=== PATIENT | male | born 1955 ===

== ENCOUNTER → 2020-01-14 11:16 | Outpatient (BNVA) | payer OTHER, SELFPAY | PROVIDERS: PCP Nurse Practitioner Family; Referring Provider Nurse Practitioner Family; Visit Provider Internal Medicine | DX: G47.33 Obstructive sleep apnea (adult) (pediatric) (principal); J98.4 Other disorders of lung; E66.9 Obesity, unspecified; Z68.41 Body mass index [BMI] 40.0-44.9, adult; Z87.891 Personal history of nicotine dependence; Z99.89 Dependence on other enabling machines and devices | CPT/HCPCS: 99213 ==

== ENCOUNTER 2020-04-15 11:43 | Outpatient (REF) | payer OTHER, SELFPAY | END 2020-04-15 11:44 | disposition home or self-care (01) | LOC: HO.HAP 11:43 | PROVIDERS: Visit Provider Nurse Practitioner Family | DX: Z46.1 Encounter for fitting and adjustment of hearing aid (principal); H90.3 Sensorineural hearing loss, bilateral | CPT/HCPCS: 92593; 99499 ==

== ENCOUNTER 2020-04-29 14:34 | Outpatient (REF) | payer OTHER, SELFPAY | END 2020-04-29 14:35 | disposition home or self-care (01) | LOC: HO.HAP 14:34 | PROVIDERS: Visit Provider Nurse Practitioner Family | DX: Z46.1 Encounter for fitting and adjustment of hearing aid (principal) | CPT/HCPCS: 92593; 99499; V5014 ==

== ENCOUNTER → 2020-06-01 13:42 | Outpatient (BNVA) | payer OTHER, SELFPAY | PROVIDERS: PCP Nurse Practitioner Family; Visit Provider Internal Medicine | DX: E66.9 Obesity, unspecified (principal); G47.33 Obstructive sleep apnea (adult) (pediatric); J98.4 Other disorders of lung; Z99.89 Dependence on other enabling machines and devices | CPT/HCPCS: 99212 ==

== ENCOUNTER → 2020-06-22 11:01 | Outpatient (BNVA) | payer OTHER, SELFPAY | PROVIDERS: PCP Nurse Practitioner Family; Visit Provider Nurse Practitioner | DX: K44.9 Diaphragmatic hernia without obstruction or gangrene (principal); K21.9 Gastro-esophageal reflux disease without esophagitis | CPT/HCPCS: Q3014 ==

== ENCOUNTER 2020-09-22 10:19 | Outpatient (REF) | payer OTHER, SELFPAY ==
--- NOTE | 2020-09-26 09:06 | MHC.AU.AHA ---
Adult Audiological Evaluation Date of Visit: 09/22/20 Tax Assessor Used: [place]araguan- In Person Reason for Appointment: Audiologic re-evaluation due to increasing hearing difficulties. Flavio has a history of asymmetric hearing loss with the right ear being poorer than the left with conductive components noted. Results in 2017 showed the asymmetric loss; however, at that time the right ear indicated a purely sensorineural loss of a moderate to severe degree. Previous Hearing Test Results: 06/18/2019 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 Date of Fittin05/02/2017 Otoscopy: Right Ear: Unremarkable Left Ear: Small amount of non-occluding cerumen Tympanometry: Tympanometry performed due to: To assess integrity of the middle ear system Right Ear: Normal Middle Ear System (Type A) Left Ear: Normal Middle Ear System (Type A) Hearing Evaluation: Transducer(s) Used: Insert Earphones Bone Conduction Method: Conventional Audiometry Stimuli Used: Pure Tones Right Ear: Description of Hearing: Severe to profound mixed hearing loss Left Ear: Description of Hearing: Mild to moderately-severe sensorineural hearing loss Speech Recognition Threshold (SRT): Method Used: Monitored Live Voice Stimuli Used: Spondee Words Right Ear: 80 dB HL Left Ear: 40 dB HL Word Discrimination: Method: Recorded Lists Word Lists Used: Lista Bisil?bica (Nicaraguan) Right Ear: 88% at 100 dB HL Left Ear: 92% at 80 dB HL Interpretation of Results: Compared to 06/18/2019, there has been a 5-20 dB decrease for the right ear with decreased speech discrimination ability Recommendations: Given the decreased hearing thresholds and speech understanding for the right ear, referral to Ear, Nose, and Throat is recommended for further investigation. Aids being sent for repair as both are weak. Will reprogram repaired aids to updated hearing test results when received and schedule appointment to fit repairs. Audiological re-evaluation in one year. Will send a reminder card. Diagnosis: Primary Diagnosis: H90.3 Bilateral Sensorineural Hearing Loss Services Performed: Comprehensive Audiological Evaluation (CPT 83863) Tympanometry (CPT 01570) Signature: Provider: Brandon Barboza, CCC-A
== END 2020-09-22 10:20 | disposition home or self-care (01) ==
LOC: HO.SH 10:19
PROVIDERS: Visit Provider Registered Nurse
DX: H90.3 Sensorineural hearing loss, bilateral (principal)
CPT/HCPCS: 92557; 92567; V5266

== ENCOUNTER 2020-09-22 12:09 | Outpatient (REF) | payer SELFPAY | END 2020-09-22 12:10 | disposition home or self-care (01) | LOC: HO.HAP 12:09 | DX: Z46.1 Encounter for fitting and adjustment of hearing aid (principal); H90.3 Sensorineural hearing loss, bilateral | CPT/HCPCS: V5267 ==

== ENCOUNTER 2020-10-11 13:00 | Outpatient (REF) | payer OTHER, SELFPAY | END 2020-10-11 13:01 | disposition home or self-care (01) | LOC: HO.HAP 13:00 | PROVIDERS: Visit Provider Nurse Practitioner Family | DX: Z46.1 Encounter for fitting and adjustment of hearing aid (principal); H90.3 Sensorineural hearing loss, bilateral | CPT/HCPCS: V5014 ==

== ENCOUNTER → 2020-11-09 09:14 | Outpatient (BNVA) | payer OTHER, SELFPAY | PROVIDERS: Visit Provider Internal Medicine | DX: I25.10 Atherosclerotic heart disease of native coronary artery without angina pectoris (principal); I35.9 Nonrheumatic aortic valve disorder, unspecified; I10 Essential (primary) hypertension; E11.8 Type 2 diabetes mellitus with unspecified complications; G47.33 Obstructive sleep apnea (adult) (pediatric); E66.01 Morbid (severe) obesity due to excess calories; Z99.89 Dependence on other enabling machines and devices | CPT/HCPCS: 93005; 99212 ==

== ENCOUNTER → 2020-11-24 13:01 | Outpatient (BNVA) | payer OTHER, SELFPAY | PROVIDERS: PCP General Practice; Visit Provider Internal Medicine | DX: G47.33 Obstructive sleep apnea (adult) (pediatric) (principal); E66.01 Morbid (severe) obesity due to excess calories; Z99.89 Dependence on other enabling machines and devices | CPT/HCPCS: 99212 ==

== ENCOUNTER 2020-12-26 08:58 | Outpatient (REF) | payer OTHER, SELFPAY | END 2020-12-26 08:59 | disposition home or self-care (01) | LOC: HO.HAP 08:58 | PROVIDERS: Visit Provider General Practice | DX: Z46.1 Encounter for fitting and adjustment of hearing aid (principal); H90.3 Sensorineural hearing loss, bilateral | CPT/HCPCS: V5266 ==

== ENCOUNTER 2021-02-06 08:24 | Outpatient (REF) | payer OTHER, SELFPAY ==
[2021-02-06 08:41] LABS: MANUAL DIFF FLAG NO
[2021-02-06 09:20] LABS: Estimated Average Glucose 128 mg/dL; Hemoglobin A1c % 6.1 %
[2021-02-06 09:35] LABS: Appearance Urine HAZY; Color Urine YELLOW; Glucose Urine UA NEG (NEG); Leukocyte Esterase Urine 1+ (NEG); Nitrite Urine NEG (NEG); PH 5.5 (5.0-8.0); Specific Gravity - Urine 1.025 (1.005-1.025); Urine Blood NEG (NEG); Urine Ketones NEG (NEG); Urine Protein NEG (NEG-TRACE)
[2021-02-06 09:36] LABS: Anion Gap 13 (12-20); Blood Urea Nitrogen 15 mg/dL (9-16); Calcium 9.6 mg/dL (8.4-10.2); Carbon Dioxide 27 mmol/L (22-29); Chloride 103 mmol/L (96-108); Estimated Glomerular Filt Rate > 60; Iron 64 mcg/dL (45-160); Percent Iron Saturation 18 % (15-50); Potassium 4.2 mmol/L (3.3-5.1); Sodium 139 mmol/L (135-145); Total Iron Binding Capacity 352 mcg/dL (228-428); Unsaturated Iron Binding 288 ug/dL
[2021-02-06 10:01] LABS: Vitamin D 25-OH Total 38.2 ng/mL (>30)
[2021-02-06 10:01] LABS: Creatinine Urine 156.12 mg/dL; Protein/Creatinine Ratio, Ur 0.06 (<0.2); Total Protein Urine Random 9 mg/dL (<12)
[2021-02-06 10:06] LABS: Basophils Percent Auto 0.4 % (0-2); Eosinophils Absolute Auto 0.3 X10*3/uL (0.0-0.4); Eosinophils Percent Auto 3.1 % (0-4); Hematocrit 41.3 % (42.0-52.0); Hemoglobin 13.6 g/dl (14.0-18.0); Imm Gran Abs Auto 0.05 X10*3/uL (0.00-0.03); Imm Gran Pct Auto 0.5 % (0.0-0.4); Lymphocytes Absolute Auto 2.2 X10*3/uL (1.2-4.9); Lymphocytes Percent Auto 24.5 % (20-40); Mean Corpuscular HGB Conc 32.9 g/dl (31.0-36.0); Mean Corpuscular Hemoglobin 27.3 pg (27.0-33.0); Mean Corpuscular Volume 82.9 fL (80.0-98.0); Mean Platelet Volume 12.1 fL (9.4-12.4); Monocytes Absolute Auto 0.8 X10*3/uL (0.1-1.2); Monocytes Percent Auto 8.2 % (2-11); Neutrophils Absolute Auto 5.77 x10*3/uL (2.0-8.3); Neutrophils Percent Auto 63.3 % (45-73); Platelet Count 243 X10*3/uL (160-400); Red Blood Count 4.98 X10*6/uL (4.60-5.80); Red Cell Distribution Width 14.4 % (11.0-16.0); White Blood Count 9.1 X10*3/uL (4.8-10.8)
[2021-02-06 10:56] LABS: RBC Urine 0 /HPF (0); Squamous Epithelial Cell Urine TRACE /LPF
[2021-02-06 10:57] LABS: Mucus Urine TRACE /LPF
[2021-02-08 12:11] LABS: Calcium (PTHI) 9.6 mg/dL (8.6-10.3); PTHI 42 pg/mL (14-64)
== END 2021-02-06 08:25 | disposition home or self-care (01) ==
LOC: HO.LAB 08:24
PROVIDERS: Visit Provider Internal Medicine Nephrology
DX: E11.22 Type 2 diabetes mellitus with diabetic chronic kidney disease (principal); N18.2 Chronic kidney disease, stage 2 (mild)
CPT/HCPCS: 36415; 80051; 81001; 82306; 82310; 82565; 83036; 83540; 83970; 84156; 84520; 85025

== ENCOUNTER 2021-04-25 12:03 | Outpatient (REF) | payer OTHER, SELFPAY ==
[2021-04-25 13:22] LABS: Estimated Average Glucose 128 mg/dL; Hemoglobin A1c % 6.1 %
[2021-04-25 13:32] LABS: Anion Gap 13 (12-20); Blood Urea Nitrogen 12 mg/dL (9-16); Calcium 10.3 mg/dL (8.4-10.2); Carbon Dioxide 27 mmol/L (22-29); Chloride 104 mmol/L (96-108); Estimated Glomerular Filt Rate > 60; Glucose Random 130 mg/dL (60-115); Potassium 4.3 mmol/L (3.3-5.1); Sodium 140 mmol/L (135-145)
[2021-04-25 13:44] LABS: Creatinine Urine 119.29 mg/dL; Microalbum/Creatinine Ratio Ur 21.7 ug/mg cr
[2021-04-26 04:44] LABS: ~HepC Num1 0.06 S/CO (0.00-0.79); ~Hepatitis C Antibody Nonreactive (Nonreactive)
[2021-04-26 04:49] LABS: HBc Num1 0.03 S/CO (0.00-0.79); HIV AB/AG Nonreactive (Nonreactive); HIV Num 1 0.06 S/CO (0.00-0.99); Hepatitis B Core Antibody Nonreactive (Nonreactive)
[2021-04-26 04:53] LABS: HBS Num1 0.51 mIU/mL (0-7.99); HBsAGNum1 0.34 S/CO (0.00-0.99); Hepatitis B Surface Antigen Negative (Negative); ~Hepatitis B Surface Antibody NONREACTIVE (Nonreactive)
== END 2021-04-25 12:04 | disposition home or self-care (01) ==
LOC: HO.LAB 12:03
PROVIDERS: PCP Nurse Practitioner; Visit Provider Nurse Practitioner
DX: L11.9 Acantholytic disorder, unspecified (principal); I10 Essential (primary) hypertension; Z71.89 Other specified counseling
CPT/HCPCS: 36415; 80048; 82043; 83036; 86704; 86706; 86803; 87340; 87389

== ENCOUNTER → 2021-05-25 13:29 | Outpatient (BNVA) | payer OTHER, SELFPAY | PROVIDERS: PCP Nurse Practitioner; Visit Provider Internal Medicine | DX: G47.33 Obstructive sleep apnea (adult) (pediatric) (principal); E66.01 Morbid (severe) obesity due to excess calories; Z99.89 Dependence on other enabling machines and devices; Z68.41 Body mass index [BMI] 40.0-44.9, adult | CPT/HCPCS: 99212 ==

== ENCOUNTER 2021-06-05 11:33 | Emergency (ER) | payer OTHER, SELFPAY ==
--- NOTE | ~2021-06-05 | XR_ITS ---
EXAMINATION: XR FOOT, RIGHT CLINICAL INFORMATION: Discoloration COMPARISON: None TECHNIQUE: AP, lateral, and oblique views of the right foot. FINDINGS: Marker positioned adjacent to the first distal phalanx. No visible acute fracture dislocation of the first toe. No acute fracture is otherwise seen. Alignment is maintained. Calcaneal spurring. XR/XR foot RT min 3V IMPRESSION: No radiographic evidence of acute fracture or malalignment.
[2021-06-05 12:44] VITALS: BP 175/75; PULSE 82; RESP 18; TEMP 37; O2SAT 98; BMI 43.5
--- NOTE | 2021-06-05 13:23 | ED_ITS ---
HPI - General Adult General Chief complaint: Extremity Problem Stated complaint: toe swollen and red Time Seen by Provider: 06/05/21 13:05 Source: patient Mode of arrival: ambulatory Limitations: no limitations History of Present Illness HPI narrative: 56-year-old male with past medical history of diabetes, high blood pressure, GERD, atherosclerotic cardiovascular disease, morbid obesity, presents to the ED right big toe pain with swelling at big toe joint that is painful. Patient denies any redness, pus discharge, foul odor, burn on feet, redness, fever, chills, leg swelling, calf pain, wound on feet, ulcers or any recent trauma. Related Data Home Medications Medication Instructions Recorded Confirmed aspirin 81 mg tablet,delayed 81 mg PO DAILY 01/02/20 11/09/20 release atorvastatin 80 mg tablet 80 mg PO DAILY 01/02/20 11/09/20 blood sugar diagnostic #10 ea 01/02/20 11/09/20 blood-glucose meter #1 ea 01/02/20 11/09/20 cholecalciferol (vitamin D3) 50 50 mcg PO DAILY 01/02/20 11/09/20 mcg (2,000 unit) capsule cyanocobalamin (vitamin B-12) 1,000 mcg PO DAILY 01/02/20 11/09/20 1,000 mcg tablet lancets 28 gauge #100 ea 01/02/20 11/09/20 lisinopril 20 1 tab PO QAM 01/02/20 11/09/20 mg-hydrochlorothiazide 25 mg tablet metoprolol tartrate 50 mg tablet 50 mg PO BID 01/02/20 11/09/20 omega 3-mzg-hag-fish oil 300 1 cap PO BID 01/02/20 11/09/20 mg-1,000 mg capsule diclofenac sodium 1 % topical gel g TOPICAL 06/01/20 11/09/20 metformin 500 mg tablet,extended 500 mg PO BID 11/09/20 11/09/20 release 24 hr Previous Rx's Medication Instructions Recorded pantoprazole 40 mg tablet,delayed 40 mg PO QAM 30 Days #30 tab 06/22/20 release indomethacin 50 mg capsule 50 mg PO TID 7 Days #21 cap 06/05/21 prednisone 20 mg tablet 40 mg PO DAILY 5 Days #10 tab 06/05/21 Allergies Allergy/AdvReac Type Severity Reaction Status Date / Time No Known Allergies Allergy Verified 05/25/21 14:13 Review of Systems Review of Systems: Left big toe pain Yes all other systems are reviewed and are negative [facility] Past Medical History Medical History Aortic valve calcification Atherosclerotic cardiovascular disease Essential hypertension Obesity (BMI 35.0-39.9 without comorbidity) MARYJO on CPAP Restrictive lung disease Type 2 diabetes mellitus with unspecified complications Surgical History H/O colonoscopy H/O esophagogastroduodenoscopy Family History Family History Sister HTN (hypertension) Diabetes Father Cancer Social History Social History Household Members: Spouse and Children Alcohol intake: current Alcohol intake frequency: holidays/special occasions only Patient Tobacco Use Status: Never used Tobacco Advance Directives: No Advance Directives Information Provided: No Physical Exam ED Vital Signs: Vital Signs - 24 hr 06/05/21 12:44 Temperature 98.6 F Pulse Rate 82 Respiratory Rate 18 Blood Pressure 175/75 H Pulse Oximetry 98 BMI result Body Mass Index 43.5 Const General: cooperative, healthy appearing, comfortable, no acute distress, well developed, alert, awake and Physically active Orientation/consciousness: patient oriented x3 HENMT Head: Yes normal to inspection, Yes No palpable skull fracture present, Yes normocephalic, Yes atraumatic and No abrasion Eyes General: appearance normal, both eyes and all related structures Neck Neck: Yes normal visual inspection, Yes full ROM, Yes no lymphadenopathy, Yes no meningeal signs, Yes trachea midline, Yes supple, No anterior neck swelling and No tender Chest Chest palpation & inspection: normal inspection of the chest and normal palpation of entire chest wall Resp Effort & Inspection: normal respiratory effort and able to speak in complete sentences Auscultation: clear to auscultation bilaterally Cardio Jugular venous distension: no JVD Heart sounds: S1 normal heart sound present and S2 normal heart sound present GI Inspection: Yes normal to inspection and No abdominal wall ecchymosis Palpation (GI): Soft to palpation, not firm, nontender, no guarding and not rigid General: No CVA tenderness and Yes no CVA tenderness Back/Spine/Pelvis Back: no CVA tenderness, No CVA tenderness and No back tenderness Skin General skin exam: no rashes or lesions noted and elasticity normal Neuro General: patient oriented x3, moves all extremities and no meningeal signs Cranial nerves: Yes CN's II-XII intact bilaterally Extrem General: Yes normal to inspection and Yes full ROM Ankle/foot/toe images: 1. MTP joint warm and tenderness on palpation. negative for any erythema. negative for wounds, rash, ulcers on foot, leg swelling, calf pain, or redness. Rest of right lower extremity normal. Motor/nerve/vascular exam of lower extremity is intact. negative for leg pain,leg swelling, calf pain, or redness. Patient has range of motion of all toes. Psych Appearance: grossly normal, well kempt and not disheveled Course Course Course Narrative: Patient is sent for foot x-ray. Reevaluation(s) Reevaluation #1: X-ray negative for fracture osteomyelitis. not Suspecting cellulitis. History physical exam indicate more gout. Patient states kidney function is normal. Will discharge with indomethacin. Not suspecting septic joint. X-ray negative for osteomyelitis. Not suspecting arterial occlusion. Not suspecting compartment syndrome. Time: 14:43 Medical Decision Making MDM Narrative Medical decision making narrative: Gout Discharge Plan Discharge Clinical Impression: Gout Patient Disposition: Home, Self-Care Instructions: Low Purine Diet (ED), Gout (ED) Additional Instructions: Heredia radiograf?a result? negativa para cualquier fractura o infecci?n ?sea. El examen f?sico no indica ninguna infecci?n de la piel (celulitis), TVP, fractura, s?ndrome compartimental u oclusi?n arterial. El examen f?sico indica m?s gota. Me hiciste saber que ten?as lyubov funci?n renal normal. Se le radha? de aman con medicamentos para la gota y esteroides para ayudar con la inflamaci?n. Regrese al servicio de urgencias si tiene enrojecimiento, vetas butterfield, fiebre, escalofr?os, empeoramiento del dolor, hinchaz?n de los pies, hinchaz?n de las piernas, dolor en la pantorrilla, dolor en el pecho, dificultad para respirar, decoloraci?n sunil azulada, frialdad, calor o cualquier otro s?ntoma preocupante. Por favor, raiv un seguimiento con el proveedor de atenci?n p rimaria. Prescriptions: New prednisone 20 mg tablet 40 mg PO DAILY 5 Days Qty: 10 0RF indomethacin 50 mg capsule 50 mg PO TID 7 Days Qty: 21 0RF Rx Instructions: administer with food or milk No Action pantoprazole 40 mg tablet,delayed release (DR/EC) 40 mg PO QAM 30 Days Qty: 30 6RF (DME) blood-glucose meter Kit See Rx Instructions ea .ROUTE .MEDSUPPLY Qty: 1 0RF Rx Instructions: As directed omega 8-ppg-blo-fish oil 300-1,000 mg capsule 1 cap PO BID 0RF atorvastatin 80 mg tablet 80 mg PO DAILY 0RF (DME) FreeStyle Lite Strips Strip See Rx Instructions strip Not Applicable DAILY Qty: 10 0RF Rx Instructions: As directed (DME) lancets 28 gauge misc See Rx Instructions ea Not Applicable DAILY Qty: 100 0RF Rx Instructions: As directed cyanocobalamin (vitamin B-12) 1,000 mcg tablet 1,000 mcg PO DAILY 0RF lisinopril-hydrochlorothiazide 20-25 mg tablet 1 tab PO QAM 0RF metoprolol tartrate 50 mg tablet 50 mg PO BID 0RF cholecalciferol (vitamin D3) 50 mcg (2,000 unit) capsule 50 mcg PO DAILY 0RF aspirin 81 mg tablet,delayed release (DR/EC) 81 mg PO DAILY 0RF diclofenac sodium 1 % gel topical 0RF metformin 500 mg tablet extended release 24 hr 500 mg PO BID 0RF Interventions: ED Discharge Assessment Last Done: 06/05/21 15:02 Discharge Date/Time: 06/05/21 15:03 Print Language: Mexican
== END 2021-06-05 15:03 | disposition home or self-care (01) ==
PROVIDERS: Emergency Provider Emergency Medicine
DX: M10.9 Gout, unspecified (principal); M79.674 Pain in right toe(s); E11.9 Type 2 diabetes mellitus without complications; I10 Essential (primary) hypertension; E66.01 Morbid (severe) obesity due to excess calories; Z79.82 Long term (current) use of aspirin; Z79.02 Long term (current) use of antithrombotics/antiplatelets
CPT/HCPCS: 73630; 99283

== ENCOUNTER → 2022-02-07 13:14 | Outpatient (BNVA) | payer OTHER, SELFPAY | PROVIDERS: PCP Student in an Organized Health Care Education/Training Program; Visit Provider Internal Medicine | DX: G47.33 Obstructive sleep apnea (adult) (pediatric) (principal); E66.9 Obesity, unspecified; J98.4 Other disorders of lung; Z99.89 Dependence on other enabling machines and devices; Z68.41 Body mass index [BMI] 40.0-44.9, adult | CPT/HCPCS: 99212 ==

== ENCOUNTER 2022-11-22 13:31 | Outpatient (AMB) | payer OTHER, SELFPAY ==
[2022-11-22 13:36] VITALS: BP 142/62; PULSE 97; O2SAT 100; BMI 43.0
--- NOTE | 2022-11-22 13:36 | MHC.OFFVIS ---
Intake Vital Signs 11/22/22 13:36 Height 5 ft 2 in Weight 235 lb BMI 43.0 BP 142/62 H Blood Pressure Location Lt brachial Position Sitting Pulse 97 Pulse Source Pulse Oximeter Pulse Oximetry (%) 100 Oxygen Delivery Method Room Air Intake Visit Reasons: sleep apnea Intake Note: pt is here for follow up of MARYJO, he feels okay and is using his c-pap Mold Parter Required: Yes Mold Parter Name: [id number] Allergies No Known Allergies Allergy (Verified 11/22/22 13:42) Medication List - Last Reconciled 11/22/22 by Chela Degroot MD aspirin 81 mg PO DAILY atorvastatin 80 mg PO DAILY blood sugar diagnostic As directed blood-glucose meter As directed cholecalciferol (vitamin D3) 50 mcg PO DAILY cyanocobalamin (vitamin B-12) 1,000 mcg PO DAILY diclofenac sodium 1% grams topical indomethacin 50 mg PO TID 7 days lancets As directed lisinopril-hydrochlorothiazide 20-25 mg 1 tab PO QAM metformin ER 500 mg PO BID metoprolol tartrate 50 mg PO BID omega 7-hig-hqi-fish oil 300-1,000 mg 1 cap PO BID pantoprazole 40 mg PO QAM 30 days Do you need a note to return to daycare/school/sports/work: No HPI sleep apnea HPI Details Flavio is 67 years old Danish speaking very pleasant gentleman, Who presents after more than 6 months for follow-up. He is a case of morbid obesity and obstructive sleep apnea. He uses the CPAP very regularly, and sleeps well. He has no associated respiratory problems. He is trying to lose weight on his own and has lost about 3 lb in the last 6 months. [facility] Medical History Aortic valve calcification Atherosclerotic cardiovascular disease Essential hypertension Obesity (BMI 35.0-39.9 without comorbidity) MARYJO on CPAP Restrictive lung disease Type 2 diabetes mellitus with unspecified complications Surgical History H/O colonoscopy H/O esophagogastroduodenoscopy Family History Sister HTN (hypertension) Diabetes Father Cancer Social History Household Members: Spouse and Children Alcohol intake: current Alcohol intake frequency: holidays/special occasions only Patient Tobacco Use Status: Never used Tobacco Review of Systems Const All systems reviewed & are unremarkable except as noted in HPI and below Eyes Reports no additional complaints ENT Reports no additional complaints Card Denies chest pain, Denies irregular heart rhythm, Denies leg edema and Denies dyspnea on exertion Resp Denies cough, Denies dyspnea on exertion and Denies wheezing GI Reports no additional complaints Reports no additional complaints Musc Reports back pain (Mild) and Reports arthralgias (Mild) Skin/Breast Reports system reviewed and no additional complaints, except as documented Neuro Reports no additional complaints Psych Reports no additional complaints Aller/Immun Denies wheezing Physical Exam Vital Signs: Last Vital Signs Pulse 97 11/22/22 13:36 BP 142/62 H 11/22/22 13:36 Pulse Ox 100 11/22/22 13:36 Oxygen Delivery Method Room Air 11/22/22 13:36 BMI result Body Mass Index 43.0 Const General: comfortable, no acute distress, alert and awake Orientation/consciousness: patient oriented x3 HEENT Head: Yes normal to inspection General nose exam: No nasal polyps present and No nasal discharge present Face and sinus: Yes sinuses nontender Mouth: oropharynx abnormals (Very crowded and narrow, Mallampati class 4) Throat: Yes posterior oropharynx normal Eyes General: appearance normal, both eyes and all related structures Neck Neck: Yes normal visual inspection, Yes no lymphadenopathy, Yes trachea midline and Yes no JVD Thyroid: Thyroid normal Chest Chest palpation & inspection: normal inspection of the chest, normal palpation of entire chest wall and no tenderness Resp Other: His breath sounds are distant especially over the basilar areas. But lungs are clear to auscultation and no wheezes or rhonchi are heard. Cardio Palpation: normal PMI Rate: regular rate Rhythm: regular rhythm Heart sounds: no gallops and no murmurs Peripheral pulses: Peripheral pulses 2+ throughout GI Palpation (GI): Soft to palpation, Tenderness to palpation present (GI), No hepatosplenomegaly present, Palpable mass present and Other GI palpation findings present (Abdomen is grossly obese and protuberant) Auscultation: normal bowel sounds Back/Spine/Pelvis Thoracic/Lumbar Spine: thoracic and lumbar spine normal to inspection Skin General skin exam: no rashes or lesions noted Neuro General: patient oriented x3 and no focal motor deficits Cranial nerves: Yes CN's II-XII intact bilaterally Extrem General: Yes normal to inspection, Yes no clubbing, cyanosis or edema and Yes no calf tenderness Psych Speech and movement: Normal speech and movement present Results Reviewed Results Reviewed: COMPLIANCE REPORT FOR THE LAST 30 NIGHTS IS REVIEWED. USED 28/30 NIGHTS, 93%. AVERAGE USE PER NIGHT 7 HOURS 59 MINUTES. NO AIR LEAK AND RESIDUAL AHI ONLY 0.1 Assessment & Plan Assessment & Plan (1) MARYJO on CPAP: Comment: KNOWN CASE OF OBSTRUCTIVE SLEEP APNEA SINCE 2012. HAS BEEN USING CPAP REGULARLY WITH GOOD EFFECTS . Has a new CPAP machine which is working very well. HE REMAINS VERY COMPLIANT. Code(s): G47.33 - Obstructive sleep apnea (adult) (pediatric); Z99.89 - Dependence on other enabling machines and devices (2) Morbid obesity: Comment: THIS IS A CHRONIC PROBLEM, PATIENT IS NOT ABLE TO LOSE MUCH WEIGHT. HE TRIES TO RESTRICT HIS CALORIES INTAKE BUT DOES NOT DO MUCH WALKING OR EXERCISES Code(s): E66.01 - Morbid (severe) obesity due to excess calories Coding Level of Care Code Est Pt Level 3 (43627) Diagnoses MARYJO on CPAP G47.33; Z99.89 Morbid obesity E66.01
== END 2022-11-22 13:50 | disposition home or self-care (01) ==
PROVIDERS: PCP Student in an Organized Health Care Education/Training Program; Visit Provider Internal Medicine
DX: G47.33 Obstructive sleep apnea (adult) (pediatric) (principal); Z99.89 Dependence on other enabling machines and devices; E66.01 Morbid (severe) obesity due to excess calories
CPT/HCPCS: 99213

== ENCOUNTER → 2022-11-22 13:31 | Outpatient (BNVA) | payer OTHER, SELFPAY | PROVIDERS: PCP Student in an Organized Health Care Education/Training Program; Visit Provider Internal Medicine | DX: G47.33 Obstructive sleep apnea (adult) (pediatric) (principal); E66.01 Morbid (severe) obesity due to excess calories; Z99.89 Dependence on other enabling machines and devices; Z68.41 Body mass index [BMI] 40.0-44.9, adult | CPT/HCPCS: 99212 ==

== ENCOUNTER 2023-03-26 09:25 | Outpatient (REF) | payer OTHER, SELFPAY ==
[2023-03-26 10:36] LABS: Alanine Aminotransferase 39 U/L (0-40); Albumin Level 4.5 g/dL (3.5-5.0); Alkaline Phosphatase 79 U/L (39-117); Anion Gap 18 (12-20); Aspartate Amino Transferase 24 U/L (5-37); Bilirubin Total 0.6 mg/dL (0.0-1.0); Blood Urea Nitrogen 16 mg/dL (9-16); Calcium 10.2 mg/dL (8.4-10.2); Carbon Dioxide 23 mmol/L (22-29); Chloride 102 mmol/L (96-108); Cholesterol 201 mg/dL (<200); Estimated Glomerular Filt Rate > 60; Glucose Random 154 mg/dL (60-115); HDL Cholesterol 48 mg/dL (>40); LDL Cholesterol Calculated 124 mg/dL (<100); Potassium 3.5 mmol/L (3.3-5.1); Sodium 139 mmol/L (135-145); Total Protein 8.1 g/dL (6.5-8.0); Triglycerides 148 mg/dL (<150)
== END 2023-03-26 09:26 | disposition home or self-care (01) ==
LOC: HO.LAB 09:25
PROVIDERS: PCP Nurse Practitioner; Visit Provider Nurse Practitioner
DX: E78.5 Hyperlipidemia, unspecified (principal); E11.9 Type 2 diabetes mellitus without complications
CPT/HCPCS: 36415; 80053; 80061

== ENCOUNTER 2023-04-19 13:02 | Outpatient (REF) | payer OTHER, SELFPAY ==
--- NOTE | ~2023-04-19 | XR_ITS ---
EXAMINATION: XR THORACIC SPINE CLINICAL INFORMATION: Back pain. COMPARISON: CT chest dated 09/14/2017. TECHNIQUE: 3 frontal and lateral views of the thoracic spine were obtained. FINDINGS: There is no fracture or bone destruction seen and the vertebral alignment is normal. There is no disc space narrowing. There is mild anterior spondylosis at T10-T11 and T11-T12. There is no abnormality of the paraspinal soft tissues. XR/XR thoracic spine 2V IMPRESSION: 1. No acute fracture or spondylolisthesis is seen. 2. The thoracic disc spaces are well-maintained. 3. There is mild anterior spondylosis at T10-T11 and T11-T12. EXAMINATION: XR LUMBOSACRAL SPINE CLINICAL INFORMATION: Chronic bilateral lower back pain with right-sided sciatica. COMPARISON: None TECHNIQUE: AP and lateral views of the lumbar spine and lateral view of the lumbosacral junction. FINDINGS: Vertebral body heights and alignment are normal. The lumbar disc spaces are well-maintained. No acute fracture or spondylolisthesis is seen. There is multi-level moderately severe lumbar spondylosis, most pronounced at L1-L2. The posterior elements are intact. The paravertebral soft tissues are unremarkable. There are diffuse aortoiliac atherosclerotic calcifications. IMPRESSION: 1. No acute fracture or spondylolisthesis is seen. 2. The lumbar disc spaces are well-maintained. 3. There is multi-level lumbar spondylosis, most pronounced at L1-L2.
--- NOTE | ~2023-04-19 | XR_ITS ---
EXAMINATION: XR THORACIC SPINE CLINICAL INFORMATION: Back pain. COMPARISON: CT chest dated 09/14/2017. TECHNIQUE: 3 frontal and lateral views of the thoracic spine were obtained. FINDINGS: There is no fracture or bone destruction seen and the vertebral alignment is normal. There is no disc space narrowing. There is mild anterior spondylosis at T10-T11 and T11-T12. There is no abnormality of the paraspinal soft tissues. XR/XR lumbar spine 2-3V IMPRESSION: 1. No acute fracture or spondylolisthesis is seen. 2. The thoracic disc spaces are well-maintained. 3. There is mild anterior spondylosis at T10-T11 and T11-T12. EXAMINATION: XR LUMBOSACRAL SPINE CLINICAL INFORMATION: Chronic bilateral lower back pain with right-sided sciatica. COMPARISON: None TECHNIQUE: AP and lateral views of the lumbar spine and lateral view of the lumbosacral junction. FINDINGS: Vertebral body heights and alignment are normal. The lumbar disc spaces are well-maintained. No acute fracture or spondylolisthesis is seen. There is multi-level moderately severe lumbar spondylosis, most pronounced at L1-L2. The posterior elements are intact. The paravertebral soft tissues are unremarkable. There are diffuse aortoiliac atherosclerotic calcifications. IMPRESSION: 1. No acute fracture or spondylolisthesis is seen. 2. The lumbar disc spaces are well-maintained. 3. There is multi-level lumbar spondylosis, most pronounced at L1-L2.
== END 2023-04-19 13:03 | disposition home or self-care (01) ==
LOC: HO.HHCX 13:02
PROVIDERS: Visit Provider Nurse Practitioner
DX: M51.36 Other intervertebral disc degeneration, lumbar region (principal); M54.41 Lumbago with sciatica, right side; G89.29 Other chronic pain
CPT/HCPCS: 72070; 72100

== ENCOUNTER 2023-05-22 13:33 | Outpatient (AMB) | payer OTHER, SELFPAY ==
[2023-05-22 13:39] VITALS: BP 140/68; PULSE 90; O2SAT 97; BMI 43.0
--- NOTE | 2023-05-22 13:39 | A.OFFVIS_ITS ---
Intake Vital Signs 05/22/23 13:39 Height 5 ft 2 in Weight 235 lb BMI 43.0 BP 140/68 H Blood Pressure Location Lt brachial Position Sitting Pulse 90 Pulse Source Pulse Oximeter Pulse Oximetry (%) 97 Oxygen Delivery Method Room Air Intake Visit Reasons: sleep apnea Intake Note: pt is here for follow up and feels good, using cpap, just little depressed. Interior Design Instructor Required: Yes Interior Design Instructor Name: [id number] Libby Allergies No Known Allergies Allergy (Verified 05/22/23 14:02) Medication List - Last Reconciled 05/22/23 by Chela Degroot MD aspirin 81 mg PO DAILY atorvastatin 80 mg PO DAILY blood sugar diagnostic As directed blood-glucose meter As directed cholecalciferol (vitamin D3) 50 mcg PO DAILY cyanocobalamin (vitamin B-12) 1,000 mcg PO DAILY diclofenac sodium 1% grams topical indomethacin 50 mg PO TID 7 days lancets As directed lisinopril-hydrochlorothiazide 20-25 mg 1 tab PO QAM metformin ER 500 mg PO BID metoprolol tartrate 50 mg PO BID omega 2-cqg-ejb-fish oil 300-1,000 mg 1 cap PO BID pantoprazole 40 mg PO QAM 30 days Do you need a note to return to daycare/school/sports/work: No HPI sleep apnea HPI Details 68 years old gentleman who is morbidly o bese, and has diagnosis of obstructive sleep apnea since 2012. He has been using CPAP regularly all these years with good results. He uses CPAP whole night without any issues. Sleep is interrupted sometime but due to . Anxiety or other factors He does not have any issues related to the mask or CPAP machine. He denies any daytime sleepiness. Main thing is that he is not able to lose much weight. [facility] Medical History Type 2 diabetes mellitus with unspecified complications Essential hypertension Aortic valve calcification Atherosclerotic cardiovascular disease Restrictive lung disease MARYJO on CPAP Obesity (BMI 35.0-39.9 without comorbidity) Surgical History H/O esophagogastroduodenoscopy H/O colonoscopy Family History Sister HTN (hypertension) Diabetes Father Cancer Social History Household Members: Spouse and Children Alcohol intake: current Alcohol intake frequency: holidays/special occasions only Patient Tobacco Use Status: Never used Tobacco Review of Systems Const All systems reviewed & are unremarkable except as noted in HPI and below Eyes Reports no additional complaints ENT Reports no additional complaints Card Denies chest pain, Denies irregular heart rhythm, Denies leg edema and Denies dyspnea on exertion Resp Denies cough, Denies dyspnea on exertion and Denies wheezing GI Reports no additional complaints Reports no additional complaints Musc Reports back pain (Mild) and Reports arthralgias (Mild) Skin/Breast Reports system reviewed and no additional complaints, except as documented Neuro Reports no additional complaints Psych Reports no additional complaints Aller/Immun Denies wheezing Physical Exam Vital Signs: Last Vital Signs Pulse 90 05/22/23 13:39 BP 140/68 H 05/22/23 13:39 Pulse Ox 97 05/22/23 13:39 Oxygen Delivery Method Room Air 05/22/23 13:39 BMI result Body Mass Index 43.0 Const General: comfortable, no acute distress, alert and awake Orientation/consciousness: patient oriented x3 HEENT Head: Yes normal to inspection General nose exam: No nasal polyps present and No nasal discharge present Face and sinus: Yes sinuses nontender Mouth: oropharynx abnormals (Very crowded and narrow, Mallampati class 4) Throat: Yes posterior oropharynx normal Eyes General: appearance normal, both eyes and all related structures Neck Neck: Yes normal visual inspection, Yes no lymphadenopathy, Yes trachea midline and Yes no JVD Thyroid: Thyroid normal Chest Chest palpation & inspection: normal inspection of the chest, normal palpation of entire chest wall and no tenderness Resp Other: His breath sounds are distant especially over the basilar areas. But lungs are clear to auscultation and no wheezes or rhonchi are heard. Cardio Palpation: normal PMI Rate: regular rate Rhythm: regular rhythm Heart sounds: no gallops and no murmurs Peripheral pulses: Peripheral pulses 2+ throughout GI Palpation (GI): Soft to palpation, Tenderness to palpation present (GI), No hepatosplenomegaly present, Palpable mass present and Other GI palpation findings present (Abdomen is grossly obese and protuberant) Auscultation: normal bowel sounds Back/Spine/Pelvis Thoracic/Lumbar Spine: thoracic and lumbar spine normal to inspection Skin General skin exam: no rashes or lesions noted Neuro General: patient oriented x3 and no focal motor deficits Cranial nerves: Yes CN's II-XII intact bilaterally Extrem General: Yes normal to inspection, Yes no clubbing, cyanosis or edema and Yes no calf tenderness Psych Speech and movement: Normal speech and movement present Results Reviewed Results Reviewed: Compliance report for the last 30 nights is reviewed. HE HAS USED 30/30 NIGHTS,. 100% AVERAGE USAGE PER NIGHT 8 HOURS 16 MINUTES. NO SIGNIFICANT AIR LEAK. RESIDUAL AHI 0.2 Assessment & Plan Assessment & Plan (1) Morbid obesity: Comment: THIS IS A CHRONIC PROBLEM, PATIENT IS NOT ABLE TO LOSE MUCH WEIGHT. HE TRIES TO RESTRICT HIS CALORIES INTAKE BUT DOES NOT DO MUCH WALKING OR EXERCISES Code(s): E66.01 - Morbid (severe) obesity due to excess calories Plan: ABOVE (2) MARYJO on CPAP: Comment: KNOWN CASE OF OBSTRUCTIVE SLEEP APNEA SINCE 2012. HAS BEEN USING CPAP REGULARLY WITH GOOD EFFECTS . *Has a new CPAP machine which is working very well. HE REMAINS VERY COMPLIANT. Code(s): G47.33 - Obstructive sleep apnea (adult) (pediatric); Z99.89 - Dependence on other enabling machines and devices Plan: COMMENDED FOR GOOD COMPLIANCE AND ENCOURAGED TO KEEP ON USING THE CPAP REGULARLY EVERY NIGHT. Coding Level of Care Code Est Pt Level 3 (93235) Diagnoses Morbid obesity E66.01 MARYJO on CPAP G47.33; Z99.89
== END 2023-05-22 14:01 | disposition home or self-care (01) ==
PROVIDERS: PCP Student in an Organized Health Care Education/Training Program; Visit Provider Internal Medicine
DX: E66.01 Morbid (severe) obesity due to excess calories (principal); G47.33 Obstructive sleep apnea (adult) (pediatric); Z99.89 Dependence on other enabling machines and devices
CPT/HCPCS: 99213

== ENCOUNTER → 2023-05-22 13:33 | Outpatient (BNVA) | payer OTHER, SELFPAY | PROVIDERS: PCP Student in an Organized Health Care Education/Training Program; Visit Provider Internal Medicine | DX: G47.33 Obstructive sleep apnea (adult) (pediatric) (principal); E66.01 Morbid (severe) obesity due to excess calories; Z99.89 Dependence on other enabling machines and devices; Z68.41 Body mass index [BMI] 40.0-44.9, adult | CPT/HCPCS: 99212 ==

== ENCOUNTER 2023-07-13 07:26 | Outpatient (REF) | payer OTHER, SELFPAY ==
[2023-07-13 09:12] LABS: Alanine Aminotransferase 43 U/L (0-40); Albumin Level 4.2 g/dL (3.5-5.0); Alkaline Phosphatase 76 U/L (39-117); Anion Gap 13 (12-20); Aspartate Amino Transferase 26 U/L (5-37); Bilirubin Total 0.7 mg/dL (0.0-1.0); Blood Urea Nitrogen 13 mg/dL (9-16); Calcium 9.7 mg/dL (8.4-10.2); Carbon Dioxide 25 mmol/L (22-29); Chloride 104 mmol/L (96-108); Cholesterol 195 mg/dL (<200); Estimated Glomerular Filt Rate > 60; Glucose Random 136 mg/dL (60-115); HDL Cholesterol 49 mg/dL (>40); Potassium 4.1 mmol/L (3.3-5.1); Sodium 138 mmol/L (135-145); Total Protein 7.8 g/dL (6.5-8.0)
[2023-07-13 14:04] LABS: LDL Cholesterol Calculated 109 mg/dL (<100); Triglycerides 188 mg/dL (<150)
== END 2023-07-13 07:27 | disposition home or self-care (01) ==
LOC: HO.LAB 07:26
PROVIDERS: PCP Nurse Practitioner; Visit Provider Nurse Practitioner
DX: E11.9 Type 2 diabetes mellitus without complications (principal); E78.5 Hyperlipidemia, unspecified
CPT/HCPCS: 36415; 80053; 80061

== ENCOUNTER 2023-08-16 02:19 | Emergency (ER) | payer OTHER, SELFPAY ==
[2023-08-16] VITALS (15 sets, daily range): BP systolic 113–148; BP diastolic 61–78; PULSE 77–96; RESP 15–26; TEMP -17.7–36.8; O2SAT 94–98; BMI 42.1
--- NOTE | ~2023-08-16 | CT_ITS ---
CT SOFT TISSUE NECK WITH CONTRAST CLINICAL INFORMATION: Rule out palatine abscess. COMPARISON: Neck CT performed earlier the same day. TECHNIQUE: Following the intravenous administration of 100 mL of Omnipaque 350 intravenous contrast, helical imaging was performed in the axial plane with generation of coronal and sagittal reformatted images. This CT examination was performed using dose optimization techniques as appropriate, variously including the following: *Automated exposure control *Adjustment of mA and/or kV according to patient size (this includes techniques or standardized protocols for targeted exams where dose is matched to indication/reason for exam; i.e. extremities or head) *Use of iterative reconstruction technique FINDINGS: Significant enlargement of the right palatine tonsil that remains most concerning for palatine tonsillitis. A 2.2 cm peripherally enhancing fluid collection along the upper margin of the right tonsillar pillar is most concerning for a peritonsillar abscess. There is also a 1.8 cm peripherally enhancing fluid collection along the dorsal margin of the right palatine tonsil, likely a retrotonsillar abscess. No retropharyngeal fluid collection. Cellulitic changes extend along the periphery of the right performed sinus which is partially effaced. There are cellulitic changes within the right submandibular space as well. Multiple enlarged right greater than left jugular chain lymph nodes, likely reactive but should be followed clinically to document resolution and exclude alternative pathology. Irregular and heterogeneous nodule at the junction of the right thyroid lobe and thyroid isthmus measuring up to 2.3 cm in size that should be further assessed with thyroid ultrasound. The laryngeal structures are closely opposed in phonation and therefore not well assessed. There is diffuse idiopathic skeletal hyperostosis throughout the cervical spine with large bridging anterior endplate osteophytes resulting in mass effect on the dorsal oropharynx, hypopharynx, and lower cervical esophagus. Images upper lungs are clear. Imaged upper mediastinum is unremarkable. 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 CT/CT soft tissue neck w IV con IMPRESSION: - Significant enlargement of the right palatine tonsil that remains most concerning for palatine tonsillitis with significant effacement of the oropharynx. A 2.2 cm peripherally enhancing fluid collection along the upper margin of the right tonsillar pillar is most concerning for a peritonsillar abscess. There is also a 1.8 cm peripherally enhancing fluid collection along the dorsal margin of the right palatine tonsil, likely a retrotonsillar abscess. Cellulitis extends inferiorly along the periphery of the right piriform sinus and into the right submandibular and carotid spaces. Imaging follow-up is advised once the acute clinical course resolves to ensure that there is no underlying mass lesion in these areas. - Multiple enlarged right greater than left jugular chain lymph nodes, likely reactive but should be followed clinically to document resolution and exclude alternative pathology. - Irregular and heterogeneous nodule at the junction of the right thyroid lobe and thyroid isthmus measuring up to 2.3 cm in size that should be further assessed with thyroid ultrasound. - There is diffuse idiopathic skeletal hyperostosis throughout the cervical spine with large bridging anterior endplate osteophytes resulting in mass effect on the dorsal oropharynx, hypopharynx, and lower cervical esophagus. 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
--- NOTE | ~2023-08-16 | CT_ITS ---
EXAMINATION: CT SOFT TISSUE NECK WITHOUT CONTRAST CLINICAL INFORMATION: Neck swelling COMPARISON: None available. TECHNIQUE: Helical imaging was performed in the axial plane with generation of coronal and sagittal reformatted images. This CT examination was performed using dose optimization techniques as appropriate, variously including the following: *Automated exposure control *Adjustment of mA and/or kV according to patient size (this includes techniques or standardized protocols for targeted exams where dose is matched to indication/reason for exam; i.e. extremities or head) *Use of iterative reconstruction technique DLP: 631 mGy-cm FINDINGS: There is asymmetric soft tissue fullness in the region of the right palatine tonsil. This could be due to tonsillitis, with evaluation for abscess significantly limited without intravenous contrast. The possibility of a mass would be difficult to exclude. There is mass effect on the pharynx which demonstrates leftward deviation and mild narrowing. There is stranding in the adjacent parapharyngeal fat. There are multiple enlarged right greater than left cervical chain lymph nodes measuring up to approximately 2.3 cm, presumably reactive. There is calcification at the bilateral common carotid artery bifurcations, right greater than left, with quantification of stenoses unable to be performed without intravenous contrast. The generator mechanic, parotid, and submandibular spaces symmetric bilaterally. There is suggestion of an ill-defined nodule off the inferior right thyroid lobe measuring up to approximately 2.7 cm. Mildly hypoattenuating inferior left adrenal nodule measures 1.4 cm. The lung apices are clear. There is suggestion of a partially calcified extra-axial mass along the anterior aspect of the left middle cranial fossa measuring approximately 1.0 cm in diameter. The mandibular condyles abut the inferior aspects of the articular tubercle bilaterally. The mastoid air cells are well aerated. Paranasal sinuses are well aerated. The visualized orbits are unremarkable. There is diffuse idiopathic skeletal hyperostosis of the cervical spine. No acute fracture is seen. CT/CT soft tissue neck wo IV con IMPRESSION: 1. Asymmetric soft tissue fullness in the region of the right palatine tonsil. Appearance is suspicious for tonsillitis, with evaluation for abscess significantly limited without intravenous contrast. The possibility of a mass is would be difficult to entirely exclude. There is mass effect on the pharynx which demonstrates leftward deviation and mild narrowing. Follow-up contrast-enhanced CT would be helpful to assess for resolution. 2. Multiple enlarged right greater than left cervical chain lymph nodes, presumably reactive. Attention on follow-up recommended. 3. Suggestion of a partially calcified extra-axial mass along the anterior aspect of the left middle cranial fossa measuring approximately 1.0 cm in diameter. This may represent a meningioma and would be better assessed with brain MRI. 4. Suggestion of an ill-defined nodule off the inferior right thyroid lobe measuring up to 2.7 cm. Mildly hypoattenuating inferior left thyroid lobe nodule measuring 1.4 cm. Further evaluation with thyroid ultrasound is recommended.
[2023-08-16] MEDS: Famotidine/PF 20 MG/2 ML VIAL IVPUSH (02:48)
[2023-08-16] MEDS: methylPREDNISolone Sod Succ 125 MG/2 ML VIAL IVPUSH (02:48)
[2023-08-16] MEDS: diphenhydrAMINE HCL 50 MG/ML VIAL IVPUSH (02:48)
[2023-08-16] MEDS: dexAMETHasone sod phosphate 10 MG/ML VIAL IVPUSH (02:52)
--- NOTE | 2023-08-16 03:36 | ED_ITS ---
HPI - SOB/Dyspnea General Chief Complaint: Dyspnea Stated Complaint: trouble breathing Time Seen by Provider: 08/16/23 02:34 Source: patient Mode of arrival: ambulatory Limitations: no limitations History of Present Illness HPI Narrative: Patient comes to the emergency room complaining of a foreign body sensation in the throat and feeling that his tongue is getting larger. Patient states it has been present for about 2 days. Today, patient thinks that it has getting a bit worse, difficulty swallowing. Patient denies any chest pain or shortness of breath. Patient feeling anxious. Patient takes lisinopril/hydrochlorothiazide Related Data Home Medications ?Medication ?Instructions ?Recorded ?Confirmed aspirin 81 mg tablet,delayed 81 mg PO DAILY 01/02/20 02/07/22 release atorvastatin 80 mg tablet 80 mg PO DAILY 01/02/20 02/07/22 blood sugar diagnostic #10 ea 01/02/20 02/07/22 blood-glucose meter #1 ea 01/02/20 02/07/22 cholecalciferol (vitamin D3) 50 50 mcg PO DAILY 01/02/20 02/07/22 mcg (2,000 unit) capsule cyanocobalamin (vitamin B-12) 1,000 mcg PO DAILY 01/02/20 02/07/22 1,000 mcg tablet lancets 28 gauge #100 ea 01/02/20 02/07/22 lisinopril 20 1 tab PO QAM 01/02/20 02/07/22 mg-hydrochlorothiazide 25 mg tablet metoprolol tartrate 50 mg tablet 50 mg PO BID 01/02/20 02/07/22 omega 5-xdn-lqy-fish oil 300 1 cap PO BID 01/02/20 02/07/22 mg-1,000 mg capsule diclofenac sodium 1 % topical gel g topical 06/01/20 02/07/22 metformin 500 mg tablet,extended 500 mg PO BID 11/09/20 02/07/22 release 24 hr Previous Rx's ?Medication ?Instructions ?Recorded pantoprazole 40 mg tablet,delayed 40 mg PO QAM 30 days #30 tabs 06/22/20 release indomethacin 50 mg capsule 50 mg PO TID 7 days #21 caps 06/05/21 Allergies Allergy/AdvReac Type Severity Reaction Status Date / Time No Known Allergies Allergy Verified 08/16/23 02:27 Review of Systems 2 Review of Systems: Constitutional : No Weight loss, No Fever, No Chills, No Night Sweats, No Fatigue, No Malaise ENT/Mouth : Difficulty swallowing, sensation tongue getting larger, no pain, foreign body sensation/enlargement of throat Eyes: No Eye Pain, No Swelling, No Redness, No Foreign Body, No Discharge, No Vision Changes Cardiovascular : No Chest Pain, No SOB, No Dyspnea on Exertion, No Orthopnea, No Edema, No Palpitations Respiratory : No Cough, No Sputum, No Wheezing, No Smoke Exposure, No Dyspnea Gastrointestinal : No Nausea, No Vomiting, No Diarrhea, No Constipation, No abdominal Pain, No Hematochezia, No Melena Genitourinary : no irregular bleeding, No Dysuria, No Urinary Frequency, No Hematuria, No Urinary Incontinence, No Urgency, No Flank Pain, No Urinary Flow Changes, No Hesitancy Musculoskeletal : No joint pain, No Myalgias, No Joint Swelling Skin : No Skin Lesions, No rash Neuro : No Weakness, No Numbness, No Paresthesias, No Loss of Consciousness, No Dizziness, No Headache Psych : No Anxiety/Panic, No Depression, No SI/HI/AH/VH, No Social Issues, Heme/Lymph: No Bruising, No Bleeding,No Lymphadenopathy Endocrine : No Polyuria, No Polydipsia, No Temperature Intolerance PMFSH Past Medical History Medical History Type 2 diabetes mellitus with unspecified complications Essential hypertension Aortic valve calcification Atherosclerotic cardiovascular disease Restrictive lung disease MARYJO on CPAP Obesity (BMI 35.0-39.9 without comorbidity) Surgical History H/O esophagogastroduodenoscopy H/O colonoscopy Family History Family History Sister HTN (hypertension) Diabetes Father Cancer Social History Social History Household Members: Spouse and Children Alcohol intake: current Alcohol intake frequency: holidays/special occasions only Patient Tobacco Use Status: Never used Tobacco Advance Directives: No Advance Directives Information Provided: No Physical Exam 2 Vital Signs: Vital Signs: Last Vital Signs Temp 98.2 F 08/16/23 06:06 Pulse 84 08/16/23 06:06 Resp 21 H 08/16/23 06:06 BP 123/63 08/16/23 06:06 Pulse Ox 95 08/16/23 04:46 O2 Del Method Room Air 08/16/23 04:46 BMI result Body Mass Index 42.1 Const: Other: Appearance: Alert. Oriented X3. No acute distress. Eyes: Pupils equal, round and reactive to light. ENT: The lips and tongue within normal limits, uvula and posterior pharynx looks significantly swollen/phlegmon-like swelling Neck: Normal inspection. Neck supple. No lymph nodes noted. No crepitus CVS: Normal heart rate and rhythm. Pulses normal. Normal S1 and S2 Respiratory: No respiratory distress. Breath sounds normal. No Wheezing. No rales Abdomen: Soft and nontender. No rigidity. No distention. Skin: Skin warm and dry. Normal skin color. Normal skin turgor. Extremities: No lower extremity edema. No Lacerations. No Rash Neuro: Oriented X 3. No motor deficit. No sensory deficit. Moving all extremities. No slurred speech. CN 2 through 12 grossly intact Psych: calm, cooperative, normal affect Course Course Course Narrative: -it is possible that patient has angioedema likely secondary to lisinopril. Patient was given IV famotidine, dexamethasone, diphenhydramine and 2 units of FFP -discussed with the patient that FFP is considered a blood product, patient agreeable, had his son sign the consent. - Medications Administered Discontinued Medications Generic Name Dose Route Start Last Admin Trade Name Freq PRN Reason Stop Dose Admin Dexamethasone Sodium Phosphate 10 mg 08/16/23 02:47 08/16/23 02:52 Dexamethasone Sod Phosphate 10 Mg/Ml Vial IVPUSH 08/16/23 02:48 10 mg ONCE ONE Administration Diphenhydramine HCl 50 mg 08/16/23 02:37 08/16/23 02:48 Diphenhydramine Hcl 50 Mg/Ml Vial IVPUSH 08/16/23 02:38 50 mg ONCE ONE Administration Famotidine 20 mg 08/16/23 02:37 08/16/23 02:48 Famotidine/Pf 20 Mg/2 Ml Vial IVPUSH 08/16/23 02:38 20 mg ONCE ONE Administration Sodium Chloride 100 mls @ 100 mls/hr 08/16/23 02:39 08/16/23 05:19 Ns IV 08/16/23 03:38 Infused ONCE ONE Infusion Sodium Chloride 100 mls @ 100 mls/hr 08/16/23 02:39 08/16/23 05:19 Ns IV 08/16/23 03:38 Infused ONCE ONE Infusion Iohexol 65 ml 08/16/23 06:19 08/16/23 06:20 Iohexol 350 Mg/Ml 100 Ml Infus..Btl IV 08/16/23 06:20 65 ml ONCE ONE Administration Methylprednisolone Sodium Succinate 125 mg 08/16/23 02:37 08/16/23 02:48 Methylprednisolone Sod Succ 125 Mg/2 Ml Vial IVPUSH 08/16/23 02:38 125 mg ONCE ONE Administration Medical Decision Making Medical Decision Making [facility] Narrative: -treatment was started as we were waiting for labs. -my interpretation of white blood cell count: 17.2, chemistry within normal limits, LFTs within normal limits, patient tested positive for strep -patient was started on IV antibiotics, clindamycin 300 mg -CT scan of the neck shows multiple abnormalities, including asymmetric soft tissue fullness of the right palatine tonsil, likely tonsillitis, possibly has an abscess. Patient has multiple enlarged lymph nodes. -incidentally, CT scan showed a possible meningioma 1 cm in the left middle cranial fossa, patient may need an MRI. -also, the CT scan showed an ill-defined inferior right thyroid lobe measuring 2.7 cm, patient may need an ultrasound. -CT scan with contrast was repeated. -will treat transferring the patient to our local hospitals in [place] that have ENT, all of them -, are close for transfers. -patient was accepted to the main Hospital in [place], patient will be transferred ED to ED, Dr. Ramesh is the accepting physician. -I discussed the transfer with the patient's son and the patient, both are agreeable to the transfer. -our radiologist team is working on sending the images over to [place] and burning a CD to travel with the patient Differential Diagnosis Differential Diagnoses: The differential diagnosis associated with the presentation includes (Anaphylaxis, angioedema, pharyngeal abscess) Admission/Observation Consideration of admission/observation: Escalation of care including admission/observation considered Consult Healthcare Provider Management of the patient was discussed with: Roller Embosser Lab Data MDM Lab Attestation statement: I reviewed the patient's lab results. 08/16/23 04:45 08/16/23 04:45 Labs: Lab Results 08/16/23 08/16/23 08/16/23 Range/Units 03:06 04:45 05:51 WBC 17.2 H (4.8-10.8) X10*3/uL RBC 4.80 (4.60-5.80) X10*6/uL Hgb 13.5 L (14.0-18.0) g/dl Hct 39.9 L (42.0-52.0) % MCV 83.1 (80.0-98.0) fL MCH 28.1 (27.0-33.0) pg MCHC 33.8 (31.0-36.0) g/dl RDW 14.4 (11.0-16.0) % Plt Count 257 (160-400) X10*3/uL MPV 10.5 (9.4-12.4) fL Immature Gran % (Auto) 1.5 H (0.0-0.4) % Neut % (Auto) 84.6 H (45-73) % Lymph % (Auto) 8.6 L (20-40) % [place] % (Auto) 3.7 (2-11) % Eos % (Auto) 1.2 (0-4) % Baso % (Auto) 0.4 (0-2) % Lymph # (Auto) 1.5 (1.2-4.9) X10*3/uL [place] # (Auto) 0.6 (0.1-1.2) X10*3/uL Eos # (Auto) 0.2 (0.0-0.4) X10*3/uL Baso # (Auto) 0.1 (0.0-0.2) X10*3/uL Abs Immat Gran (auto) 0.26 H (0.00-0.03) X10*3/uL Absolute Neuts (auto) 14.5 H (2.0-8.3) x10*3/uL Absolute Nucleated RBC 0.000 (0.0-0.012) X10*3/uL Nucleated RBC % (auto) 0.0 (0.0-0.2) /100WBC Sodium 140 (135-145) mmol/L Potassium 3.8 (3.3-5.1) mmol/L Chloride 107 (96-108) mmol/L Carbon Dioxide 21 L (22-29) mmol/L Anion Gap 16 (12-20) BUN 18 H (9-16) mg/dL Creatinine 0.99 (0.5-1.4) mg/dL Estim Creat Clear Calc 74.2 Estimated GFR > 60 Random Glucose 172 H (60-115) mg/dL Calcium 9.6 (8.4-10.2) mg/dL Total Bilirubin 0.4 (0.0-1.0) mg/dL Direct Bilirubin 0.2 (0.0-0.5) mg/dL AST 13 (5-37) U/L ALT 20 (0-40) U/L Alkaline Phosphatase 71 (39-117) U/L Troponin I High Sens 2.9 (<3.5-35.0) ng/L Total Protein 7.5 (6.5-8.0) g/dL Albumin 3.8 (3.5-5.0) g/dL S. pyogenes GrpA LUZ Positive A (Negative) Blood Type B Positive Antibody Screen NEGATIVE Independent Interpretation I performed an independent interpretation of an: CT Scan Radiology Impression Discussion of test interpretation with radiology: I have reviewed the radiologist's reading. Critical Care Time Critical Care Time Critical Care Time: Yes Total Critical Care Time: 120 Attestation: I have personally provided critical care time. Time includes review of lab data, radiology results, discussion with consultants, and monitoring for potential decompensation. Intervention performed as documented. Discharge Plan Discharge Clinical Impression: Acute tonsillitis Patient Disposition: [facility] Transfer Details: [facility] ED to ED, accepting physician Dr. Ramesh Prescriptions: No Action indomethacin 50 mg capsule 50 mg PO TID 7 Days Qty: 21 0RF Rx Instructions: administer with food or milk pantoprazole 40 mg tablet,delayed release (DR/EC) 40 mg PO QAM 30 Days Qty: 30 6RF (DME) blood-glucose meter Kit See Rx Instructions .ROUTE .MEDSUPPLY Qty: 1 Rx Instructions: As directed omega 7-ifq-wgf-fish oil 300-1,000 mg capsule 1 cap PO BID atorvastatin 80 mg tablet 80 mg PO DAILY (DME) FreeStyle Lite Strips Strip See Rx Instructions Not Applicable DAILY Qty: 10 Rx Instructions: As directed (DME) lancets 28 gauge misc See Rx Instructions Not Applicable DAILY Qty: 100 Rx Instructions: As directed cyanocobalamin (vitamin B-12) 1,000 mcg tablet 1,000 mcg PO DAILY lisinopril-hydrochlorothiazide 20-25 mg tablet 1 tab PO QAM metoprolol tartrate 50 mg tablet 50 mg PO BID cholecalciferol (vitamin D3) 50 mcg (2,000 unit) capsule 50 mcg PO DAILY aspirin 81 mg tablet,delayed release (DR/EC) 81 mg PO DAILY diclofenac sodium 1 % gel topical metformin 500 mg tablet extended release 24 hr 500 mg PO BID Print Language: Samoan
--- NOTE | 2023-08-16 04:20 | ECG_ITS ---
Test Reason : sob Blood Pressure : / mmHG Vent. Rate : 082 BPM Atrial Rate : 082 BPM P-R Int : 152 ms QRS Dur : 092 ms QT Int : 392 ms P-R-T Axes : 060 -14 008 degrees QTc Int : 457 ms Normal sinus rhythm Minimal voltage criteria for LVH, may be normal variant ( R in aVL ) Septal infarct (cited on or before 01-APR-2019) Abnormal ECG When compared with ECG of 01-APR-2019 01:59, Nonspecific T wave abnormality no longer evident in Lateral leads Referred By: Patricia Tijerina Electronically Signed By:Kishan Gonzalez
[2023-08-16 04:50] LABS: MANUAL DIFF FLAG NO
[2023-08-16 04:51] LABS: Basophils Absolute Auto 0.1 X10*3/uL (0.0-0.2); Basophils Percent Auto 0.4 % (0-2); Eosinophils Absolute Auto 0.2 X10*3/uL (0.0-0.4); Eosinophils Percent Auto 1.2 % (0-4); Hematocrit 39.9 % (42.0-52.0); Hemoglobin 13.5 g/dl (14.0-18.0); Imm Gran Abs Auto 0.26 X10*3/uL (0.00-0.03); Imm Gran Pct Auto 1.5 % (0.0-0.4); Lymphocytes Absolute Auto 1.5 X10*3/uL (1.2-4.9); Lymphocytes Percent Auto 8.6 % (20-40); Mean Corpuscular HGB Conc 33.8 g/dl (31.0-36.0); Mean Corpuscular Hemoglobin 28.1 pg (27.0-33.0); Mean Corpuscular Volume 83.1 fL (80.0-98.0); Mean Platelet Volume 10.5 fL (9.4-12.4); Monocytes Absolute Auto 0.6 X10*3/uL (0.1-1.2); Monocytes Percent Auto 3.7 % (2-11); Neutrophils Absolute Auto 14.5 x10*3/uL (2.0-8.3); Neutrophils Percent Auto 84.6 % (45-73); Platelet Count 257 X10*3/uL (160-400); Red Cell Distribution Width 14.4 % (11.0-16.0); White Blood Count 17.2 X10*3/uL (4.8-10.8)
[2023-08-16 05:06] LABS: Alanine Aminotransferase 20 U/L (0-40); Albumin Level 3.8 g/dL (3.5-5.0); Alkaline Phosphatase 71 U/L (39-117); Anion Gap 16 (12-20); Aspartate Amino Transferase 13 U/L (5-37); Bilirubin Direct 0.2 mg/dL (0.0-0.5); Bilirubin Total 0.4 mg/dL (0.0-1.0); Blood Urea Nitrogen 18 mg/dL (9-16); Calcium 9.6 mg/dL (8.4-10.2); Carbon Dioxide 21 mmol/L (22-29); Chloride 107 mmol/L (96-108); Creatinine Clr Calc Pharmacy 74.2; Estimated Glomerular Filt Rate > 60; Glucose Random 172 mg/dL (60-115); Potassium 3.8 mmol/L (3.3-5.1); Sodium 140 mmol/L (135-145); Total Protein 7.5 g/dL (6.5-8.0)
[2023-08-16 05:09] LABS: Troponin-I High Sensitivity 2.9 ng/L (<3.5-35.0)
[2023-08-16 06:01] LABS: IDNOW Serial# 6674DD1D; Strep A Nucleic Acid Positive (Negative)
[2023-08-16] MEDS: iohexoL 350 MG/ML 100 ML INFUS..BTL 65 ML IV (06:20)
--- NOTE | 2023-08-16 07:46 | PC.NURSE ---
this RN resumed care of pt at 0700. a&ox4. vss and up to date. nsr on the cafeteria monitor. pt denies pain but verbalizes difficulty swallowing. airway patent. pt able to speak in full/clear sentences w/o difficulty. pt positioned upright to promote patent airway. no sob/wob noted. respirations even and unlabored. 96% on RA. pt aware of plan of care moving forward in regards to being transferred to [facility] via ambulance. pt signed consent for transport. pt currently waiting for transportation at this time. plan of care ongoing. call sky placed within reach.
--- NOTE | 2023-08-16 08:00 | PC.NURSE ---
report given to augie at this time.
--- NOTE | 2023-08-16 08:10 | PC.NURSE ---
attempted to give report to [facility] at this time. report not given d/t no answer. will reattempt.
--- NOTE | 2023-08-16 08:55 | PC.NURSE ---
report given to RENARD Mclaughlin at [facility] at this time.
== END 2023-08-16 09:02 | disposition short-term general hospital (02) ==
PROVIDERS: Emergency Provider Emergency Medicine
DX: J03.90 Acute tonsillitis, unspecified (principal); R06.02 Shortness of breath; R13.10 Dysphagia, unspecified; R09.A2 Foreign body sensation, throat; R22.1 Localized swelling, mass and lump, neck; R94.31 Abnormal electrocardiogram [ECG] [EKG]; Z79.899 Other long term (current) drug therapy
CPT/HCPCS: 36415; 36430; 70490; 70491; 70492; 80048; 80076; 84484; 85025; 86850; 86900; 86901; 87651; 93005; 96361; 96374; 96375; 99285; J1100; J1200; J2919; P9017; Q9967

== ENCOUNTER → 2023-08-16 04:20 | Outpatient (BNV) | payer OTHER, SELFPAY | PROVIDERS: Emergency Provider Emergency Medicine; Visit Provider Internal Medicine Cardiovascular Disease | DX: R94.31 Abnormal electrocardiogram [ECG] [EKG] (principal) | CPT/HCPCS: 93010 ==

== ENCOUNTER 2023-08-28 08:28 | Outpatient (AMB) | payer OTHER, SELFPAY ==
--- NOTE | 2023-08-28 08:55 | MHC.OFFVIS ---
Vital Signs 08/28/23 09:06 Height 5 ft 2 in Weight 224 lb 6.889 oz BMI 41.0 BP 177/82 H Blood Pressure Location Lt brachial Position Sitting Pulse 83 Intake Visit Reasons: Colonoscopy Screening Intake Note: Patient is seen in office for colonoscopy screening. Pt c/o: admits to heartburn after meals and sometimes diarrhea, no other concerns Electronics Repair Technician Required: No Accompanied by: Daughter Allergies No Known Allergies Allergy (Verified 08/16/23 02:27) Medication List - Last Reconciled 08/28/23 by CHRISTIAN BenavidezP- allopurinol 100 mg PO DAILY aspirin 81 mg PO DAILY atorvastatin 80 mg PO DAILY baclofen 5 mg PO TID blood sugar diagnostic As directed blood-glucose meter As directed cholecalciferol (vitamin D3) 50 mcg PO DAILY cyanocobalamin (vitamin B-12) 1,000 mcg PO DAILY diclofenac sodium 1% grams topical empagliflozin (Jardiance) 25 mg PO DAILY ferrous sulfate 325 mg PO DAILY indomethacin 50 mg PO TID 7 days lancets As directed lisinopril-hydrochlorothiazide 20-25 mg 1 tab PO QAM metoprolol tartrate 50 mg PO BID omega 0-zou-jcv-fish oil 300-1,000 mg 1 cap PO BID pantoprazole 40 mg PO QAM 30 days sitagliptin phosphate (Januvia) 50 mg PO DAILY HPI HPI Colonoscopy Screening: Details: 68 year old? male with past medical history of obesity, MARYJO on CPAP, restrictive lung disease, GERD, cardiovascular disease, aortic valve calcification, hypertension, diabetes is here today for pre colonoscopy screening.? Patient was sent to us by his PCP.? ? Patient denies any gastrointestinal symptoms in the past or at present.? Denies any personal or family history of gastrointestinal disease, CRC.? Denies history of difficulty with sedation or anesthesia in the past.? History of sleep apnea, using CPAP. Patient was previously seen by Cardiology for aortic valve calcification and never followed up with them.? Denies any history of cardiac, renal, pulmonary, or hepatic disease.?? No history of infectious? diseases like hepatitis A, B, C, HIV or tuberculosis.? Patient is on low-dose aspirin [facility] Medical History Type 2 diabetes mellitus with unspecified complications Essential hypertension Aortic valve calcification Atherosclerotic cardiovascular disease Restrictive lung disease MARYJO on CPAP Obesity (BMI 35.0-39.9 without comorbidity) Surgical History H/O esophagogastroduodenoscopy H/O colonoscopy Family History Sister HTN (hypertension) Diabetes Father Cancer Social History Household Members: Spouse and Children Alcohol intake: current Alcohol intake frequency: holidays/special occasions only Patient Tobacco Use Status: Never used Tobacco Review of Systems Const Denies weight gain and Denies weight loss ENT Reports no additional complaints, Denies dysphagia and Denies odynophagia Card Reports no additional complaints Resp Reports no additional complaints GI Denies abdominal pain, Denies belching, Denies melena, Denies bloating, Denies change in bowel habits, Denies dysphagia, Denies excessive flatus, Denies dyspepsia, Reports heartburn (Occasional), Denies diarrhea, Denies loose stools, Denies nausea, Denies odynophagia and Denies vomiting Reports no additional complaints Musc Reports no additional complaints Neuro Reports no additional complaints Psych Reports no additional complaints Endo Reports no additional complaints Physical Exam Vital Signs: Last Vital Signs Pulse 83 08/28/23 09:06 BP 177/82 H 08/28/23 09:06 BMI result Body Mass Index 41.0 Const General: healthy appearing and no acute distress Nutritional Appearance: obese Orientation/consciousness: patient oriented x3 Resp Effort & Inspection: normal respiratory effort, able to speak in complete sentences, no tracheal deviation and symmetric chest movement Auscultation: clear to auscultation bilaterally Cardio Rate: regular rate GI Inspection: Yes normal to inspection, No distended and Yes obesity Palpation (GI): Soft to palpation, not firm, nontender and No hepatosplenomegaly present Auscultation: normal bowel sounds General: Yes no CVA tenderness Back/Spine/Pelvis Back: no CVA tenderness Skin General skin exam: elasticity normal, turgor normal and dry skin Neuro General: patient oriented x3 Psych Appearance: grossly normal Mental Status: mental status grossly normal Assessment & Plan Assessment & Plan (1) GERD (gastroesophageal reflux disease): Code(s): K21.9 - Gastro-esophageal reflux disease without esophagitis Category: Medical Qualifiers: Esophagitis presence: esophagitis presence not specified Qualified Code(s): K21.9 - Gastro-esophageal reflux disease without esophagitis (2) Screen for colon cancer: Code(s): Z12.11 - Encounter for screening for malignant neoplasm of colon Plan Patient denies any GI, cardiac or respiratory symptoms.? Denies any issues with anesthesia in the past.? History of sleep apnea, on CPAP.? No history infectious diseases in the past or present.? On low-dose aspirin. No family or personal history of colon cancer.? Patient denies melena, hematochezia, unintentional weight loss or ribbon like stools.? Occasional acid reflux, however controlled for the most part with pantoprazole. New referral placed to cardiology it has been 3 years since he has seen them. He will need to be cleared. History of aortic valve calcification and atherosclerotic cardiovascular disease. Currently patient has occasional shortness of breath with activity, however diagnosis of restrictive lung disease and history of sleep apnea. Discussed at length the pre-procedure,? prep, diet & medications as well as what to expect prior, during and after the procedure.?? Stressed the importance of good bowel prep.? Recommended the use of Vaseline or Calmoseptine OTC & baby wipes with bowel movements to promote comfort.? ?Patient verbalizes understanding and agrees to plan of care.? He was given the opportunity to ask questions and all questions answered.? We will see him after the procedure.? Orders: Referrals Cardiology Referral Z01.810 - Encounter for preprocedural cardiovascular examination Medications: New polyethylene glycol 3350 (Miralax) As directed by gastroenterology department at [facility] 238 grams PO ONCE 238 grams 0RF Z12.11 - Encounter for screening for malignant neoplasm of colon bisacodyl (Dulcolax (bisacodyl)) take 4 tabs at noon the day before your colonoscopy 20 mg (4 x 5 mg) PO ONCE 1 day 4 tabs 0RF Z12.11 - Encounter for screening for malignant neoplasm of colon Refilled pantoprazole 40 mg PO QAM 30 days 30 tabs 6RF K21.9 - Gastro-esophageal reflux disease without esophagitis Coding Level of Care Code New Pt Level 3 (18113) Diagnoses Gastroesophageal reflux disease, unspecified whether esophagitis present K21.9 Esophagitis presence: esophagitis presence not specified Screen for colon cancer Z12.11 Time Spent (min) 40 Comment 30 minutes spent with patient and additional 10 minutes spent reviewing his records
[2023-08-28 09:06] VITALS: BP 177/82; PULSE 83; BMI 41.0
== END 2023-08-28 09:52 | disposition home or self-care (01) ==
PROVIDERS: PCP Nurse Practitioner; Visit Provider Nurse Practitioner Family
DX: K21.9 Gastro-esophageal reflux disease without esophagitis (principal); Z12.11 Encounter for screening for malignant neoplasm of colon
CPT/HCPCS: 99203

== ENCOUNTER → 2023-08-28 08:28 | Outpatient (BNVA) | payer OTHER, SELFPAY | PROVIDERS: PCP Nurse Practitioner; Visit Provider Physician Assistant | DX: Z12.11 Encounter for screening for malignant neoplasm of colon (principal); K21.9 Gastro-esophageal reflux disease without esophagitis | CPT/HCPCS: 99202 ==

== ENCOUNTER 2023-11-06 09:53 | Outpatient (AMB) | payer OTHER, SELFPAY ==
[2023-11-06 09:58] VITALS: BP 118/60; PULSE 99; BMI 41.1
--- NOTE | 2023-11-06 09:58 | MHC.OFFVIS ---
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 Tumbler Dyeing Machine Operator Required: Yes Tumbler Dyeing Machine Operator Name: DAUGHTER Allergies Seasonal Allergies Allergy (Mild, Verified 11/06/23 10:03) SNEEZING Medication List - Last Reconciled 11/06/23 by Mckinley Azul MD allopurinol 100 mg PO DAILY aspirin 81 mg PO DAILY atorvastatin 80 mg PO DAILY baclofen 5 mg PO TID bisacodyl (Dulcolax (bisacodyl)) 20 mg (4 x 5 mg) PO ONCE 1 day blood sugar diagnostic As directed blood-glucose meter As directed cholecalciferol (vitamin D3) 50 mcg PO DAILY cyanocobalamin (vitamin B-12) 1,000 mcg PO DAILY empagliflozin (Jardiance) 10 mg PO DAILY ferrous sulfate 325 mg PO DAILY lancets As directed lisinopril-hydrochlorothiazide 20-25 mg 1 tab PO QAM omega 4-pyb-lzc-fish oil 300-1,000 mg 1 cap PO BID pantoprazole 40 mg PO QAM 30 days polyethylene glycol 3350 (Miralax) 238 grams PO ONCE sitagliptin phosphate (Januvia) 50 mg PO DAILY HPI Comments Details: Flavio returns for follow-up. Last seen in 2020. Multiple cardiovascular risk factors including diabetes, hypertension, dyslipidemia, obesity. Obstructive sleep apnea on CPAP. Apparently also needs a colonoscopy. Hence needs clearance. No specific complaints from cardiac standpoint and generally getting along. Daughter is assisting with interpretation. Appropriate form signed. [facility] Medical History Type 2 diabetes mellitus with unspecified complications Essential hypertension Aortic valve calcification Atherosclerotic cardiovascular disease Restrictive lung disease MARYJO on CPAP Obesity (BMI 35.0-39.9 without comorbidity) Surgical History H/O esophagogastroduodenoscopy H/O colonoscopy Family History Sister HTN (hypertension) Diabetes Father Cancer Social History Household Members: Spouse and Children Alcohol intake: current Alcohol intake frequency: holidays/special occasions only Patient Tobacco Use Status: Never used Tobacco Review of Systems Const Denies weakness ENT Denies dizziness Card Denies chest pain, Denies chest pain with activity, Denies syncope, Denies rapid heart rate, Denies pedal edema, Denies edema, Denies leg edema, Denies lightheadedness, Denies palpitations, Denies dyspnea, Denies dyspnea on exertion and Denies orthopnea Resp Denies cough, Denies dyspnea and Denies dyspnea on exertion GI Denies hematochezia and Denies change in stool character Musc Denies abnormal gait, Denies muscle cramps, Denies muscle weakness, Denies numbness, Denies radiating pain into limb and Denies tingling Neuro Denies abnormal gait, Denies dizziness, Denies syncope, Denies numbness, Denies tingling and Denies weakness Endo Denies palpitations Physical Exam Vital Signs: Last Vital Signs Pulse 99 11/06/23 09:58 BP 118/60 11/06/23 09:58 BMI result Body Mass Index 41.1 Const General: comfortable and no acute distress Orientation/consciousness: patient oriented x3 HEENT Other: Unremarkable Head: Yes normal to inspection Neck Neck: Yes normal visual inspection Chest Chest palpation & inspection: normal inspection of the chest Resp Auscultation: clear to auscultation bilaterally Cardio Palpation: normal PMI Heart sounds: S1 normal heart sound present, S2 normal heart sound present, no gallops, Murmur heart sound present systolic III/ and at the right sternal border and no rubs GI Palpation (GI): Soft to palpation Back/Spine/Pelvis Other: unremarkable Skin General skin exam: no rashes or lesions noted Neuro General: patient oriented x3 Extrem General: Yes normal to inspection Psych Mental Status: mental status grossly normal Assessment & Plan Assessment & Plan (1) Atherosclerotic cardiovascular disease: Code(s): I25.10 - Atherosclerotic heart disease of cahto coronary artery without angina pectoris Category: Medical (2) Aortic valve calcification: Code(s): I35.9 - Nonrheumatic aortic valve disorder, unspecified Category: Medical (3) Essential hypertension: Code(s): I10 - Essential (primary) hypertension Category: Medical (4) Type 2 diabetes mellitus with unspecified complications: Code(s): E11.8 - Type 2 diabetes mellitus with unspecified complications Category: Medical (5) MARYJO on CPAP: Comment: KNOWN CASE OF OBSTRUCTIVE SLEEP APNEA SINCE 2013. HAS BEEN USING CPAP REGULARLY WITH GOOD EFFECTS . *Has a new CPAP machine which is working very well. HE REMAINS VERY COMPLIANT. Code(s): G47.33 - Obstructive sleep apnea (adult) (pediatric); Z99.89 - Dependence on other enabling machines and devices Category: Medical (6) Morbid obesity: Comment: THIS IS A CHRONIC PROBLEM, PATIENT IS NOT ABLE TO LOSE MUCH WEIGHT. HE TRIES TO RESTRICT HIS CALORIES INTAKE BUT DOES NOT DO MUCH WALKING OR EXERCISES Code(s): E66.01 - Morbid (severe) obesity due to excess calories Category: Medical (7) Preoperative cardiovascular examination: Code(s): Z01.810 - Encounter for preprocedural cardiovascular examination Category: Medical Plan Cardiac studies reviewed. Recent EKG with underlying sinus rhythm at 82/Min; voltage criteria for LVH; can not exclude old septal infarct but could be from body habitus; normal AL and corrected QT. Last echocardiogram from 2019 with LVEF 55-60%, mild diastolic dysfunction and mild aortic valve calcification but no significant stenosis. In the exercise stress test from 2020, he was able to exercise for 6.4 METS; appropriate heart rate and blood pressure response; there were ST-T changes meeting criteria for ischemia in the inferolateral leads which was seen in the past, but perfusion component was unremarkable. No angina during the stress test, but had some shortness of breath. He has had 3 other stress tests in 2014, 2015 in 2016 again without any significant perfusion abnormalities. Chest CT scan from 2018 had shown coronary as well as aortic valve calcification. As it has been about 4 years since the last echocardiogram, will need another study to evaluate for any progressive aortic stenosis. That has been ordered. Will need to be reviewed before making an addendum for colonoscopy. Otherwise, continue medication for stable CAD including aspirin and statins. Aggressive risk factor modification including weight loss and management of diabetes, hypertension, MARYJO. Discussed with daughter. Orders: Orders CA echo transthoracic complete Today I35.9 - Nonrheumatic aortic valve disorder, unspecified Coding Level of Care Code Est Pt Level 4 (05358) Diagnoses Atherosclerotic cardiovascular disease I25.10 Aortic valve calcification I35.9 Essential hypertension I10 Type 2 diabetes mellitus with unspecified complications E11.8 MARYJO on CPAP G47.33; Z99.89 Morbid obesity E66.01 Preoperative cardiovascular examination Z01.810
== END 2023-11-06 10:29 | disposition home or self-care (01) ==
PROVIDERS: PCP Nurse Practitioner; Visit Provider Internal Medicine
DX: I25.10 Atherosclerotic heart disease of native coronary artery without angina pectoris (principal); I35.9 Nonrheumatic aortic valve disorder, unspecified; I10 Essential (primary) hypertension; E11.8 Type 2 diabetes mellitus with unspecified complications; G47.33 Obstructive sleep apnea (adult) (pediatric); Z99.89 Dependence on other enabling machines and devices; E66.01 Morbid (severe) obesity due to excess calories; Z01.810 Encounter for preprocedural cardiovascular examination
CPT/HCPCS: 99214

== ENCOUNTER → 2023-11-06 09:53 | Outpatient (BNVA) | payer OTHER, SELFPAY | PROVIDERS: PCP Nurse Practitioner; Visit Provider Internal Medicine | DX: Z01.810 Encounter for preprocedural cardiovascular examination (principal); I25.10 Atherosclerotic heart disease of native coronary artery without angina pectoris; I35.9 Nonrheumatic aortic valve disorder, unspecified; I10 Essential (primary) hypertension; E11.8 Type 2 diabetes mellitus with unspecified complications; E66.01 Morbid (severe) obesity due to excess calories; G47.33 Obstructive sleep apnea (adult) (pediatric); Z99.89 Dependence on other enabling machines and devices; Z68.41 Body mass index [BMI] 40.0-44.9, adult | CPT/HCPCS: 99212 ==

== ENCOUNTER 2023-11-21 09:47 | Outpatient (AMB) | payer OTHER, SELFPAY ==
[2023-11-21 09:55] VITALS: BP 120/60; PULSE 97; O2SAT 97; BMI 41.9
--- NOTE | 2023-11-21 09:55 | MHC.OFFVIS ---
Vital Signs 11/21/23 09:55 Height 5 ft 2 in Weight 229 lb 4.492 oz BMI 41.9 BP 120/60 Blood Pressure Location Lt brachial Position Sitting Pulse 97 Pulse Source Pulse Oximeter Pulse Oximetry (%) 97 Oxygen Delivery Method Room Air Intake Visit Reasons: sleep apnea Intake Note: pt is here for follow up and states he is doing well with cpap Pharmacy Clinical Coordinator Required: No Allergies Seasonal Allergies Allergy (Mild, Verified 11/21/23 10:18) SNEEZING Medication List - Last Reconciled 11/21/23 by Chela Degroot MD allopurinol 100 mg PO DAILY aspirin 81 mg PO DAILY atorvastatin 80 mg PO DAILY baclofen 5 mg PO TID bisacodyl (Dulcolax (bisacodyl)) 20 mg (4 x 5 mg) PO ONCE 1 day blood sugar diagnostic As directed blood-glucose meter As directed cholecalciferol (vitamin D3) 50 mcg PO DAILY cyanocobalamin (vitamin B-12) 1,000 mcg PO DAILY empagliflozin (Jardiance) 10 mg PO DAILY ferrous sulfate 325 mg PO DAILY lancets As directed lisinopril-hydrochlorothiazide 20-25 mg 1 tab PO QAM omega 6-ypv-nut-fish oil 300-1,000 mg 1 cap PO BID pantoprazole 40 mg PO QAM 30 days polyethylene glycol 3350 (Miralax) 238 grams PO ONCE sitagliptin phosphate (Januvia) 50 mg PO DAILY Do you need a note to return to daycare/school/sports/work: No HPI HPI sleep apnea: Details: CECI IS 68 YEARS OLD GENTLEMAN WHO IS MORBIDLY OBESE, AND KNOWN CASE OF OBSTRUCTIVE SLEEP APNEA, COMES AFTER 6 MONTHS FOR HIS ROUTINE FOLLOW-UP HE IS A REGULAR USER OF CPAP AT NIGHT AND SLEEPS GOOD. HE IS USING FULLFACE MASK WITH PRESSURE OF 14 CM. HE DENIES ANY ISSUE WITH THE CPAP MASK OR CPAP DEVICE. SLEEPS GOOD. DENIES ANY DAYTIME SLEEPINESS. HIS WEIGHT IS UP BY A FEW LB, HE IS MOSTLY SEDENTARY IN THE HOUSE AND DOES NOT WALK MUCH. [facility] Medical History Type 2 diabetes mellitus with unspecified complications Essential hypertension Aortic valve calcification Atherosclerotic cardiovascular disease Restrictive lung disease MARYJO on CPAP Obesity (BMI 35.0-39.9 without comorbidity) Surgical History H/O esophagogastroduodenoscopy H/O colonoscopy Family History Sister HTN (hypertension) Diabetes Father Cancer Social History Household Members: Spouse and Children Alcohol intake: current Alcohol intake frequency: holidays/special occasions only Patient Tobacco Use Status: Never used Tobacco Review of Systems Const All systems reviewed & are unremarkable except as noted in HPI and below Eyes Reports no additional complaints ENT Reports no additional complaints Card Denies chest pain, Denies irregular heart rhythm, Denies leg edema and Denies dyspnea on exertion Resp Denies cough, Denies dyspnea on exertion and Denies wheezing GI Reports no additional complaints Reports no additional complaints Musc Reports back pain (Mild) and Reports arthralgias (Mild) Skin/Breast Reports system reviewed and no additional complaints, except as documented Neuro Reports no additional complaints Psych Reports no additional complaints Aller/Immun Denies wheezing Physical Exam Vital Signs: Last Vital Signs Pulse 97 11/21/23 09:55 BP 120/60 11/21/23 09:55 Pulse Ox 97 11/21/23 09:55 Oxygen Delivery Method Room Air 11/21/23 09:55 BMI result Body Mass Index 41.9 Const General: comfortable, no acute distress, alert and awake Orientation/consciousness: patient oriented x3 HEENT Head: Yes normal to inspection General nose exam: No nasal polyps present and No nasal discharge present Face and sinus: Yes sinuses nontender Mouth: oropharynx abnormals (Very crowded and narrow, Mallampati class 4) Throat: Yes posterior oropharynx normal Eyes General: appearance normal, both eyes and all related structures Neck Neck: Yes normal visual inspection, Yes no lymphadenopathy, Yes trachea midline and Yes no JVD Thyroid: Thyroid normal Chest Chest palpation & inspection: normal inspection of the chest, normal palpation of entire chest wall and no tenderness Resp Other: His breath sounds are distant especially over the basilar areas. But lungs are clear to auscultation and no wheezes or rhonchi are heard. Cardio Palpation: normal PMI Rate: regular rate Rhythm: regular rhythm Heart sounds: no gallops and no murmurs Peripheral pulses: Peripheral pulses 2+ throughout GI Palpation (GI): Soft to palpation, Tenderness to palpation present (GI), No hepatosplenomegaly present, Palpable mass present and Other GI palpation findings present (Abdomen is grossly obese and protuberant) Auscultation: normal bowel sounds Back/Spine/Pelvis Thoracic/Lumbar Spine: thoracic and lumbar spine normal to inspection Skin General skin exam: no rashes or lesions noted Neuro General: patient oriented x3 and no focal motor deficits Cranial nerves: Yes CN's II-XII intact bilaterally Extrem General: Yes normal to inspection, Yes no clubbing, cyanosis or edema and Yes no calf tenderness Psych Speech and movement: Normal speech and movement present Results Reviewed Results Reviewed: COMPLIANCE REPORT FOR THE LAST 30 NIGHTS IS REVIEWED. HE HAS USED 30/30 NIGHTS, 100% OF THE NIGHTS. AVERAGE USE IT PER NIGHT IS 7 HOURS 26 MINUTES WHICH IS EXCELLENT. PRESSURE 14 CM, . NO AIR LEAK NOTED RESIDUAL AHI 0.1 Assessment & Plan Assessment & Plan (1) Morbid obesity: Comment: THIS IS A CHRONIC PROBLEM, PATIENT IS NOT ABLE TO LOSE MUCH WEIGHT. HE TRIES TO RESTRICT HIS CALORIES INTAKE BUT DOES NOT DO MUCH WALKING OR EXERCISES Code(s): E66.01 - Morbid (severe) obesity due to excess calories Category: Medical Plan: AGAIN ADVISED TO CUT DOWN THE CALORIES INTAKE AND START WALKING OUTDOORS ON A DAILY BASIS. HOWEVER HE IS OF A SIMPLE MIND , AND DOES NOT SHOW MUCH MOTIVATION WALK. (2) MARYJO on CPAP: Comment: KNOWN CASE OF OBSTRUCTIVE SLEEP APNEA SINCE 2012. HAS BEEN USING CPAP REGULARLY WITH GOOD EFFECTS . *Has a new CPAP machine which is working very well. HE REMAINS VERY COMPLIANT. Code(s): G47.33 - Obstructive sleep apnea (adult) (pediatric); Z99.89 - Dependence on other enabling machines and devices Category: Medical Plan: COMMENDED FOR GOOD COMPLIANCE AND ADVISED TO CONTINUE USING THE CPAP REGULARLY (3) Restrictive lung disease: Comment: Patient explained that his pulmonary function test shows mild restrictive disorder which is related to his obesity. He does not have obstructive disorder. The restrictive component should improve with weight loss. Code(s): J98.4 - Other disorders of lung Category: Medical Plan: ADVISED TO DO DEEP BREATHING EXERCISES 2 OR 3 TIMES A DAY REGULARLY. Coding Level of Care Code Est Pt Level 3 (53387) Diagnoses Morbid obesity E66.01 MARYJO on CPAP G47.33; Z99.89 Restrictive lung disease J98.4
== END 2023-11-21 10:18 | disposition home or self-care (01) ==
PROVIDERS: PCP Student in an Organized Health Care Education/Training Program; Visit Provider Internal Medicine
DX: E66.01 Morbid (severe) obesity due to excess calories (principal); G47.33 Obstructive sleep apnea (adult) (pediatric); Z99.89 Dependence on other enabling machines and devices; J98.4 Other disorders of lung
CPT/HCPCS: 99213

== ENCOUNTER → 2023-11-21 09:47 | Outpatient (BNVA) | payer OTHER, SELFPAY | PROVIDERS: PCP Student in an Organized Health Care Education/Training Program; Visit Provider Internal Medicine | DX: E66.01 Morbid (severe) obesity due to excess calories (principal); Z68.41 Body mass index [BMI] 40.0-44.9, adult; G47.33 Obstructive sleep apnea (adult) (pediatric); J98.4 Other disorders of lung; Z99.89 Dependence on other enabling machines and devices | CPT/HCPCS: 99212 ==

== ENCOUNTER → 2023-11-26 09:42 | Outpatient (REF) | payer OTHER, SELFPAY ==
--- NOTE | 2023-11-26 09:45 | CA_ITS ---
Transthoracic Echocardiogram Patient (Last, First, Middle): Flavio Wyatt, Gender: Male Date of : 1955 Age: 68 Procedure Date: 11/26/2023 Procedure Type: Transthoracic Echocardiogram Location: OP Height: 157.48 cm Weight: 103.87 kg BSA: 2.02 m2 Heart Rate: 76 bpm BP: 124 / 62 mmHg Staffing Account Manager: SB Referring MD: Mckinley Azul MD Symptoms: I35.9 - Nonrheumatic aortic valve disorder, unspecified Study Quality: Adequate ECG Rhythm: Sinus Conclusions: - The left ventricular systolic function is normal. The calculated ejection fraction is 66% by biplane method. - There is mild aortic valve stenosis. Findings Left Ventricle Normal left ventricular cavity size. There is normal left ventricular wall thickness. The left ventricular systolic function is normal. The calculated ejection fraction is 66% by biplane method. There is no evidence of regional wall motion abnormalities. Evidence suggests grade I (mild) diastolic dysfunction. There is severe septal asymmetric hypertrophy. Right Ventricle Normal right ventricular cavity size and systolic function. Atria Both atria are normal in size. Aortic Valve There is a normal trileaflet aortic valve. There is moderate calcification of the aortic valve. There is mild aortic valve stenosis. There is no aortic valve regurgitation. Mitral Valve There is mild anterior mitral leaflet thickening. There is no mitral valve regurgitation. There is no mitral valve stenosis. Pulmonic Valve The pulmonic valve is likely normal. Tricuspid Valve Normal tricuspid valve structure. There is trace tricuspid valve regurgitation. There is no evidence of pulmonary hypertension. Great Vessels The asc aorta is normal in size. Venous The inferior vena cava is normal in size and collapses less than 50% with inspiration. Pericardium/Pleural There is no evidence of pericardial effusion. Prior Study Comparison Changes noted compared to prior study dated: 04/20/2019. Mild aortic stenosis present. Measurements 2D Linear Measurements IVSd: 1.63 0.6-0.9/0.6-1.0 cm LVIDd: 4.02 3.9-5.3/4.2-5.9 cm LVIDd Index: 1.99 2.4-3.2/2.2-3.1 cm/m2 LVIDs: 2.21 2.0-3.6 cm LVPWd: 1.06 0.7-1.1 cm LA Diam: 4.20 2.7-3.8/3.0-4.0 cm LAIDs Index: 2.08 1.5-2.3 cm/m2 LV Mass: 246.63 67-162/88-224 g LV Mass Index: 122.10 43-95/49-115 g/m2 LVOT Diam: 2.20 3.0+(-)1.3 cm 2D Systolic Function EF 4C: 61.20 >55% EF 2C: 70.60 >55% EF BiP: 65.80 >55% Mitral Valve MV Pk E: 0.92 MV PK A: 0.88 MV Decel Time: 211.00 E/A: 1.00 E'Lateral: 3.92 E'Medial: 4.90 E/E' Med: 18.80 E/E' Lat: 23.50 PHT: 62.00 MVA PHT: 3.55 Decel Cam[place]: 4.36 Aortic Valve AoV Pk Jacob: 2.92 AoV Mn Jacob: 1.90 AoV VTI: 0.51 AoV Pk Grad: 34.00 Aov Mn Grad: 17.00 ALVAREZ Cont.VTI: 1.63 LVOT LVOT Pk Jacob: 1.12 LVOT Mn Jacob: 0.73 LVOT VTI: 0.22 LVOT Pk Grad: 5.00 LVOT Mn Grad: 3.00 LVOT Diam: 2.20 LVOT Area: 3.80 Diastolic Function MV Pk E: 0.92 MV Pk A: 0.88 E/A: 1.00 E'Medial: 4.90 E/E' Med: 18.80 E' Laterial: 3.92 E/E' Lat: 23.50 Right Ventricle TAPSE (mm): 22.10 TVS' Jacbo: 22.40 Tricuspid Valve TR Pk Jacob: 2.24 TR Pk Grad: 20.00 RA Press: 8.00 RVSP: 28.00 Great Vessels Aorta Sinus of Valsalva: 3.20 2.0-3.5 cm Ao Asc: 3.40 2.1-3.4 cm Pulmonary Veins Pulm Vein S/D 1.60 Pulmonary Valve PV Pk Jacob: 0.92 Peak PV Grad: 3.00 Updated in Other Vendor System with Status of Final Mckinley Azul MD electronically signed on 11/26/2023 2:49:28 PM with status of Final
== END ==
LOC: HO.CARD 09:42
PROVIDERS: Visit Provider Internal Medicine
DX: I35.9 Nonrheumatic aortic valve disorder, unspecified (principal)
CPT/HCPCS: 93306

== ENCOUNTER → 2023-11-26 09:45 | Outpatient (BNV) | payer OTHER, SELFPAY | PROVIDERS: Visit Provider Internal Medicine | DX: I35.0 Nonrheumatic aortic (valve) stenosis (principal); I35.8 Other nonrheumatic aortic valve disorders; I42.2 Other hypertrophic cardiomyopathy | CPT/HCPCS: 93306 ==

== ENCOUNTER 2023-11-27 10:41 | Outpatient (REF) | payer OTHER, SELFPAY ==
[2023-11-27 12:39] LABS: Anion Gap 15 (12-20); Blood Urea Nitrogen 17 mg/dL (9-16); Calcium 10.6 mg/dL (8.4-10.2); Carbon Dioxide 24 mmol/L (22-29); Chloride 105 mmol/L (96-108); Estimated Glomerular Filt Rate > 60; Glucose Random 132 mg/dL (60-115); Potassium 3.6 mmol/L (3.3-5.1); Sodium 140 mmol/L (135-145)
[2023-11-27 18:09] LABS: Creatinine Urine 79.77 mg/dL; Microalbum/Creatinine Ratio Ur 28.8 ug/mg cr (<30)
== END 2023-11-27 10:42 | disposition home or self-care (01) ==
LOC: HO.HHCL 10:41
PROVIDERS: Visit Provider Nurse Practitioner
DX: E11.9 Type 2 diabetes mellitus without complications (principal)
CPT/HCPCS: 36415; 80048; 82043; 82570

== ENCOUNTER 2024-03-03 08:59 | Day surgery (SDC) | payer OTHER, SELFPAY ==
[2024-02-27 15:33] VITALS: BMI 41.1
[2024-03-03 09:20] VITALS: BP 175/89; PULSE 88; RESP 20; TEMP 36.9; O2SAT 96; BMI 42.2
[2024-03-03 09:33] LABS: Glucose, Whole Blood 138 mg/dL (60-115)
[2024-03-03] MEDS: Lactated Ringers 1,000 ML 50 ML IVCONT (09:52)
--- NOTE | 2024-03-03 09:53 | HO.ANESPROP2 ---
HPI - Anesthesia Eval Consult details Narrative: for colon screen, echo reviewed [facility] Active Problems Active Problems: All Active Problems Preoperative cardiovascular examination (Acute) Morbid obesity (Acute) Type 2 diabetes mellitus with unspecified complications (Acute) Essential hypertension (Acute) Aortic valve calcification (Acute) Atherosclerotic cardiovascular disease (Acute) Diaphragmatic hernia without obstruction and without gangrene (Acute) GERD (gastroesophageal reflux disease) (Acute) Restrictive lung disease (Acute) MARYJO on CPAP (Acute) Obesity (BMI 35.0-39.9 without comorbidity) (Acute) Past Medical History Medical History Type 2 diabetes mellitus with unspecified complications Essential hypertension Aortic valve calcification Atherosclerotic cardiovascular disease Restrictive lung disease MARYJO on CPAP Obesity (BMI 35.0-39.9 without comorbidity) Family History Family History Sister HTN (hypertension) Diabetes Father Cancer Family history of problems with anesthesia: No Surgical History Surgical History H/O esophagogastroduodenoscopy H/O colonoscopy History of Problems with Anesthesia: No Social History Social History Household Members: Spouse and Children Alcohol intake: current Alcohol intake frequency: holidays/special occasions only Patient Tobacco Use Status: Never used Tobacco Have you been hit, kicked, punched, or otherwise hurt by someone within the past year? If so, by whom?: No Are you DNR?: No Advance Directives: No Advance Directives Information Provided: Yes Meds Allergies Allergy/AdvReac Type Severity Reaction Status Date / Time Seasonal Allergies Allergy Mild SNEEZING Verified 11/21/23 10:18 Active Medications: Current Medications Lactated Ringer's (Lr) 1,000 mls @ 50 mls/hr IVCONT .Q20H SUHAIL Last Admin: 03/03/24 09:52 Dose: 50 mls/hr Home Medications ?Medication ?Instructions ?Recorded ?Confirmed ?Last Taken ?Type aspirin 81 mg tablet,delayed 81 mg PO DAILY 01/02/20 02/27/24 Unknown History release atorvastatin 80 mg tablet 80 mg PO DAILY 01/02/20 02/27/24 Unknown History cholecalciferol (vitamin D3) 50 50 mcg PO DAILY 01/02/20 02/27/24 Unknown History mcg (2,000 unit) capsule cyanocobalamin (vitamin B-12) 1,000 mcg PO DAILY 01/02/20 02/27/24 Unknown History 1,000 mcg tablet lisinopril 20 1 tab PO QAM 01/02/20 02/27/24 Unknown History mg-hydrochlorothiazide 25 mg tablet omega 7-nas-eke-fish oil 300 1 cap PO BID 01/02/20 02/27/24 02/28/24 History mg-1,000 mg capsule allopurinol 100 mg tablet 100 mg PO DAILY 08/28/23 02/27/24 Unknown History baclofen 5 mg tablet 5 mg PO TID 08/28/23 02/27/24 Unknown History ferrous sulfate 325 mg (65 mg 325 mg PO DAILY 08/28/23 02/27/24 02/28/24 History iron) tablet sitagliptin phosphate 50 mg tablet 50 mg PO DAILY 08/28/23 02/27/24 02/28/24 History (Januvia) empagliflozin 25 mg tablet 10 mg PO DAILY 11/06/23 02/27/24 02/28/24 History (Jardiance) Exam Height,Weight and Vital Signs: Height 5 ft 2 in Weight 104.63 kg Last Vital Signs Temp 98.5 F 03/03/24 09:20 Pulse 88 03/03/24 09:20 Resp 20 03/03/24 09:20 BP 175/89 H 03/03/24 09:20 Pulse Ox 96 03/03/24 09:20 O2 Del Method Room Air 03/03/24 09:20 Pertinent Lab Results Pertinent Lab Results: Laboratory Tests 03/03/24 09:27 POC Glucose 138 H Airway Mallampati Class: II TM Dist: >3cm Neck ROM: Full Heart: rrr Lungs: cta Assessment and Plan Assessment Anesthesia Assessment: Anesthesia Plan Discussed Final Anesthetic Review Family History of Problems with Anesthesia: No History of Problems with Anesthesia: No NPO: Yes ASA Class: III Final Preanesthetic Review: No Changes in Pt Med Stat, Meds/Allgs Chart Reviewed, Consent Obtained/Reviewed and Anes Risks/Benef Reviewed Patient Risk: Intermediate Procedure Risk: Low Anesthetic Plan Anesthetic Plan: MAC: Disposition: Standard PACU
--- NOTE | 2024-03-03 10:42 | MHC.SHP ---
Pre-Procedural Eval Section A - 24 Hr Update-Section A only Date of Service: 03/03/24 Section B - Complete if H&P > 30 days Chief Complaint: GERD, hx of polyps Details of Present Illness: Type 2 diabetes mellitus with unspecified complications Essential hypertension Aortic valve calcification Atherosclerotic cardiovascular disease Restrictive lung disease MARYJO on CPAP Obesity (BMI 35.0-39.9 without comorbidity) Surgical History H/O esophagogastroduodenoscopy H/O colonoscopy Present Medications: see Short Stay Collaborative assessment Allergies: Allergies Allergy/AdvReac Type Severity Reaction Status Date / Time Seasonal Allergies Allergy Mild SNEEZING Verified 11/21/23 10:18 Review of Systems Review of Systems Comment: Ten point ROS negative Exam Exam Comment: Gen appear: No acute distress HEENT: no icterus Chest: No overt resp distress Abd: soft, nontender, nondistended Psych: Stable affect, answering questions appropriately Neuro: A/Ox3 noted to move all extremities spontaneously Ext: no peripheral edema Plan Diagnosis/Plan: Unchanged I have reviewed the history and physical and performed a pertinent physical examination on my patient. No changes have occurred unless specified. Time Spent With Patient Time: Total time managing care of this patient today ____ minutes.
--- NOTE | 2024-03-03 10:46 | PC.NURSE ---
left hearing aide removed in case in belonging
[2024-03-03 11:45] VITALS: BP 95/55; PULSE 80; RESP 16; TEMP 36.1; O2SAT 97
[2024-03-03 12:00] VITALS: BP 113/69; PULSE 95; RESP 16; TEMP 36.4; O2SAT 96
--- NOTE | 2024-03-03 12:06 | P.OPN-COLO_ITS ---
Colonoscopy Operative Note Operative Note Date of Service: 03/03/24 Narrative: Procedure: Upper endoscopy and colonoscopy Indication: GERD, hx of polyps Endoscopist: Kenna Kemp MD Anesthesia Provider: Zandra Mcconnell CRNA Anesthesia type: MAC Instrument: GIF-H190 and PCF-[id number] EGD Procedure:?? The procedure, indications, preparation and potential complications were reviewed with the patient with the help of a automotive parts interpreter, who indicated understanding and gave written informed consent to proceed. The endoscope was introduced through the mouth, and advanced to the 2nd part of the duodenum. The mucosa was carefully examined on slow withdrawal of the endoscope. The patient tolerated the procedure well. There were no immediate c omplications.? EGD Findings:? * Esophagus:? Normal esophageal mucosa was noted. The Z-line was at 40 cm. * Stomach:? Isolated black pigmented plaque measuring 1-2 mm was noted in proximal body along the lesser curvature. Cold forceps biopsies were taken to rule out melanoma. A flat polyp was also noted in the proximal body. Cold forceps polypectomy was performed. The remaining mucosa appeared normal on endoscopic appearance. Retroflexion was performed in the cardia. Random cold forceps biopsies were taken from the stomach. * Duodenum:? Normal duodenal mucosa. Cold forceps biopsies were taken from the duodenal bulb and 2nd portion of the duodenum to rule out celiac sprue. Colonoscopy Procedure:? The patient was then turned for the colonoscopy. A digital rectal exam was performed which was normal.? A distal attachment cap was affixed to the tip of the scope and the colonoscope was then inserted through the anus and advanced through the colon and advanced to the cecum at 75 cm and terminal ileum.? Appendiceal orifice and ileocecal valve were identified. Mucosa was carefully examined under high definition white light as the instrument was slowly withdrawn in a retrograde panoramic fashion. Retroflexion was performed in rectum. The procedure was not difficult. The quality of the prep was BBPS: 2+3+3 = adequate Withdrawal time 19 minutes Limitations: No limitations Findings: Mucosa: The grant-appendiceal orifice mucosa was edematous and erythematous. Cold forceps biopsies were taken. Remaining mucosa was normal to terminal ileum. Protruding lesions: * 3 sessile polyps of size 2-7 mm were noted in sigmoid colon. Cold snare polyp ectomy was performed. The polyps were completely removed and retrieved. * Medium internal hemorrhoids without stigmata of recent bleeding. Excavated lesions: * Moderate to severe diverticulosis of whole colon including a large diverticulum at the hepatic flexure. Impression: 1. Normal esophagus 2. Pigment spot in stomach (biopsy) 3. Gastric polyp (polypectomy) 4. Normal duodenum (biopsy) 5. Abnormal grant-appendiceal mucosa (biopsy) 6. 3 polyps removed 7. Diverticulosis 8. Internal hemorrhoids Recommendations:?? * Follow-up path results * Avoid NSAIDs * Timing of repeat colonoscopy +/- EGD contingent on path results
== END 2024-03-03 12:53 | disposition home or self-care (01) ==
PROVIDERS: Visit Provider Internal Medicine
PROC: (CPT 45385; principal; 2024-03-03 11:30)
DX: Z12.11 Encounter for screening for malignant neoplasm of colon (principal); D12.5 Benign neoplasm of sigmoid colon; K57.30 Diverticulosis of large intestine without perforation or abscess without bleeding; K64.8 Other hemorrhoids; K31.7 Polyp of stomach and duodenum; K29.70 Gastritis, unspecified, without bleeding; K21.9 Gastro-esophageal reflux disease without esophagitis; E11.9 Type 2 diabetes mellitus without complications; I10 Essential (primary) hypertension; J98.4 Other disorders of lung; G47.33 Obstructive sleep apnea (adult) (pediatric); Z99.89 Dependence on other enabling machines and devices; E66.01 Morbid (severe) obesity due to excess calories; Z68.41 Body mass index [BMI] 40.0-44.9, adult; Z79.82 Long term (current) use of aspirin; Z79.899 Other long term (current) drug therapy
CPT/HCPCS: 45385; 45380; 43239; 82947; 88305; 88341; 88342; J1100; J1596; J2003; J2704

== ENCOUNTER → 2024-03-03 08:59 | Outpatient (BNV) | payer OTHER, SELFPAY | PROVIDERS: Visit Provider Internal Medicine | DX: Z12.11 Encounter for screening for malignant neoplasm of colon (principal); Z86.0100 Personal history of colon polyps, unspecified; D12.5 Benign neoplasm of sigmoid colon; K63.5 Polyp of colon; K57.90 Diverticulosis of intestine, part unspecified, without perforation or abscess without bleeding; K21.9 Gastro-esophageal reflux disease without esophagitis; K31.7 Polyp of stomach and duodenum | CPT/HCPCS: 43239; 45380; 45385 ==

== ENCOUNTER 2024-03-11 10:44 | Outpatient (REF) | payer OTHER, SELFPAY ==
[2024-03-11 12:02] LABS: Estimated Average Glucose 114 mg/dL; Hemoglobin A1C 147.9981 umol/L; Hemoglobin A1c % 5.6 % (<6.0); Total Hemoglobin (HGBA1C) 3897.3646 umol/L
[2024-03-11 12:10] LABS: Anion Gap 16 (12-20); Blood Urea Nitrogen 16 mg/dL (9-16); Calcium 9.9 mg/dL (8.4-10.2); Carbon Dioxide 22 mmol/L (22-29); Chloride 108 mmol/L (96-108); Estimated Glomerular Filt Rate > 60; Glucose Random 113 mg/dL (60-115); Potassium 4.5 mmol/L (3.3-5.1); Sodium 141 mmol/L (135-145)
[2024-03-12 21:18] LABS: Transglutaminase Ab IgG <1.0 U/mL; Transglutaminase IgA <1.0 U/mL
== END 2024-03-11 10:45 | disposition home or self-care (01) ==
LOC: HO.HHCL 10:44
PROVIDERS: Nurse Practitioner Family; Visit Provider Nurse Practitioner
DX: E11.9 Type 2 diabetes mellitus without complications (principal); I10 Essential (primary) hypertension; R10.9 Unspecified abdominal pain
CPT/HCPCS: 36415; 80048; 83036; 86364

== ENCOUNTER 2024-03-18 13:25 | Outpatient (AMB) | payer OTHER, SELFPAY ==
--- NOTE | 2024-03-18 13:26 | A.OFFVIS_ITS ---
Vital Signs 03/18/24 13:27 Height 5 ft 2 in Weight 220 lb 7.396 oz BMI 40.3 BP 142/65 H Blood Pressure Location Lt brachial Position Sitting Pulse 77 Intake Visit Reasons: follow up procedure Intake Note: Flavio presents in the office as a follow up colonoscopy. CC: He states that the day he did his procedure he was told he has something in his stomach. No symtoms. Coremaker Experimental Required: Yes Coremaker Experimental Name: daughter Allergies Seasonal Allergies Allergy (Mild, Verified 03/18/24 13:30) SNEEZING HPI HPI follow up procedure: Details: LAST VISIT GERD (gastroesophageal reflux disease) Screen for colon cancer Plan Patient denies any GI, cardiac or respiratory symptoms.? Denies any issues with anesthesia in the past.? History of sleep apnea, on CPAP.? No history infectious diseases in the past or present.? On low-dose aspirin. No family or personal hi story of colon cancer.? Patient denies melena, hematochezia, unintentional weight loss or ribbon like stools.? Occasional acid reflux, however controlled for the most part with pantoprazole. New referral placed to cardiology it has been 3 years since he has seen them. He will need to be cleared. History of aortic valve calcification and atherosclerotic cardiovascular disease. Currently patient has occasional shortness of breath with activity, however diagnosis of restrictive lung disease and history of sleep apnea. Discussed at length the pre-procedure,? prep, diet & medications as well as what to expect prior, during and after the procedure.?? Stressed the importance of good bowel prep.? Recommended the use of Vaseline or Calmoseptine OTC & baby wipes with bowel movements to promote comfort.? ?Patient verbalizes understanding and agrees to plan of care.? He was given the opportunity to ask questions and all questions answered.? We will see him after the procedure.? Orders Referrals Cardiology Referral Z01.810 Medications New polyethylene glycol 3350 (Miralax) As directed by gastroenterology department at [facility] 238 grams PO ONCE 238 grams 0RF Z12.11 bisacodyl (Dulcolax (bisacodyl)) take 4 tabs at noon the day before your colonoscopy 20 mg (4 x 5 mg) PO ONCE 1 day 4 tabs 0RF Z12.11 Refilled pantoprazole 40 mg PO QAM 30 days 30 tabs 6RF K21.9 UPPER ENDOSCOPY AND COLONOSCOPY EGD Findings:? * Esophagus:? Normal esophageal mucosa was noted. The Z-line was at 40 cm. * Stomach:? Isolated black pigmented plaque measuring 1-2 mm was noted in proximal body along the lesser curvature. Cold forceps biopsies were taken to rule out melanoma. A flat polyp was also noted in the proximal body. Cold forceps polypectomy was performed. The remaining mucosa appeared normal on endoscopic appearance. Retroflexion was performed in the cardia. Random cold forceps biopsies were taken from the stomach. * Duodenum:? Normal duodenal mucosa. Cold forceps biopsies were taken from the duodenal bulb and 2nd portion of the duodenum to rule out celiac sprue. Colonoscopy Procedure:? The patient was then turned for the colonoscopy. A digital rectal exam was performed which was normal.? A distal attachment cap was affixed to the tip of the scope and the colonoscope was then inserted through the anus and advanced through the colon and advanced to the cecum at 75 cm and terminal ileum.? Appendiceal orifice and ileocecal valve were identified. Mucosa was carefully examined under high definition white light as the instrument was slowly withdrawn in a retrograde panoramic fashion. Retroflexion was performed in rectum. The procedure was not difficult. The quality of the prep was BBPS: 2+3+3 = adequate Withdrawal time 19 minutes Limitations: No limitations Findings: Mucosa: The grant-appendiceal orifice mucosa was edematous and erythematous. Cold forceps biopsies were taken. Remaining mucosa was normal to terminal ileum. Protruding lesions: * 3 sessile polyps of size 2-7 mm were noted in sigmoid colon. Cold snare polypectomy was performed. The polyps were completely removed and retrieved. * Medium internal hemorrhoids without stigmata of recent bleeding.Excavated lesions: * Moderate to severe diverticulosis of whole colon including a large diverticulum at the hepatic flexure. Impression: 1. Normal esophagus 2. Pigment spot in stomach (biopsy) 3. Gastric polyp (polypectomy) 4. Normal duodenum (biopsy) 5. Abnormal grant-appendiceal mucosa (biopsy) 6. 3 polyps removed 7. Diverticulosis 8. Internal hemorrhoids Recommendations:?? * Follow-up path results * Avoid NSAIDs * Timing of repeat colonoscopy +/- EGD contingent on path results PATHOLOGY RESULTS Addendum #1 Immunostains for H. pylori on A, D and E are negative. CD3 on A shows increased intraepithelial lymphocytes without a definitive tip-heavy pattern. The long differential for this non-specific finding includes celiac-sprue adn clinical correlation is necessary. Controls stain appropriately. Electronically Signed By: Yasmin Rangel 03/09/24 1700 Diagnosis A. Duodenum, biopsy: Duodenal mucosa with preserved villi and possible increase in intraepithelial lymphocytes (see comment). B. Duodenal polyp: Duodenal mucosa with polypoid granulation tissue; negative for dysplasia. C. Stomach, random, biopsy: Gastric antral mucosa with congestion and focal minimal chronic inactive inflammation, and gastric body mucosa with features of fundic gland polyp; negative for intestinal metaplasia and dysplasia. D. Stomach, labeled rule out melanoma , biopsy: Fundic gland polyps with focal lamina propria hemorrhage and focal minimal chronic inactive inflammation; negative for intestinal metaplasia and dysplasia; no evidence of melanoma. E. Gastric polyp: Fundic gland polyp with focal lamina propria hemorrhage and focal minimal chronic inactive inflammation; negative for intestinal metaplasia and dysplasia. F. Colon, sigmoid, polyps: Tubular adenomas (4 pieces); negative for high-grade dysplasia and carcinoma. G. Colon, cecum, biopsy: Colonic mucosa with lymphoid aggregate and no specific change. Comment: (A): Immunostain for CD3 pending; addendum to follow. (B, D and E): Immunostains for H. pylori pending; addendum to follow. TODAY'S VISIT Patient is here today for follow-up and to discuss upper endoscopy and colonoscopy results. Patient denies any ill effects from the prep, anesthesia or procedure itself. Patient reports that has been feeling well. Takes pantoprazole every morning and his symptoms of acid reflux are suppressed. Patient is moving his bowels without any issues. Small isolated block plaque noticed on upper endoscopy in his stomach, biopsy ruled out melanoma. Polyp was also found and it was benign. Mild inflammation chronic type. Sigmoid colon for pieces of tubular adenoma. Colonoscopy will need to be repeated in 3-5 years. Patient denies any melena, hematochezia, unintentional weight loss or ribbon like stools. Two weeks ago patient started on Wegovy for weight loss. First dose patient had abdominal cramping and pain and his 2nd dose he tolerated well. He will return in 4 months to re-evaluate. He is agreeable to current plan of care and verbalizes understanding of instructions. He was given the opportunity to ask questions and all questions answered. Thank you for allowing me to participate in his care [facility] Medical History (Updated 03/18/24 @ 13:56 by Alethea Watkins, [facility]) Diverticulosis Tubular adenoma of colon Type 2 diabetes mellitus with unspecified complications Essential hypertension Aortic valve calcification Atherosclerotic cardiovascular disease Restrictive lung disease MARYJO on CPAP Obesity (BMI 35.0-39.9 without comorbidity) Surgical History H/O esophagogastroduodenoscopy H/O colonoscopy Family History Sister HTN (hypertension) Diabetes Father Cancer Social History Household Members: Spouse and Children Alcohol intake: current Alcohol intake frequency: holidays/special occasions only Patient Tobacco Use Status: Never used Tobacco Review of Systems Const Denies weight gain and Denies weight loss ENT Reports no additional complaints, Denies dysphagia and Denies odynophagia Card Reports no additional complaints Resp Reports no additional complaints GI Denies abdominal pain, Denies belching, Denies melena, Denies bloating, Denies change in bowel habits, Denies dysphagia, Denies excessive flatus, Denies dyspepsia, Denies heartburn, Denies diarrhea, Denies loose stools, Denies nausea, Denies odynophagia and Denies vomiting Reports no additional complaints Musc Reports no additional complaints Neuro Reports no additional complaints Psych Reports no additional complaints Endo Reports no additional complaints Physical Exam Vital Signs: Last Vital Signs Pulse 77 03/18/24 13:27 BP 142/65 H 03/18/24 13:27 BMI result Body Mass Index 40.3 Const General: healthy appearing and no acute distress Nutritional Appearance: obese Orientation/consciousness: patient oriented x3 Resp Effort & Inspection: normal respiratory effort, able to speak in complete sentences, no tracheal deviation and symmetric chest movement Auscultation: clear to auscultation bilaterally Cardio Rate: regular rate GI Inspection: Yes normal to inspection, No distended and Yes obesity Palpation (GI): Soft to palpation, not firm, nontender and No hepatosplenomegaly present Auscultation: normal bowel sounds General: Yes no CVA tenderness Back/Spine/Pelvis Back: no CVA tenderness Skin General skin exam: elasticity normal, turgor normal and dry skin Neuro General: patient oriented x3 Psych Appearance: grossly normal Mental Status: mental status grossly normal Assessment & Plan Assessment & Plan (1) GERD (gastroesophageal reflux disease): Code(s): K21.9 - Gastro-esophageal reflux disease without esophagitis Category: Medical Qualifiers: Esophagitis presence: esophagitis presence not specified Qualified Code(s): K21.9 - Gastro-esophageal reflux disease without esophagitis (2) Tubular adenoma of colon: Code(s): D12.6 - Benign neoplasm of colon, unspecified Category: Medical (3) Diverticulosis: Code(s): K57.90 - Diverticulosis of intestine, part unspecified, without perforation or abscess without bleeding Category: Medical Plan Patient will continue pantoprazole daily. Avoid dietary triggers and late night snacking. Staying upright for minimum 3 hours after meals discussed with patient. Colonoscopy in 3 years, sooner if clinically necessary. Patient will follow-up in 4 months to re-evaluate. He will call our office if he will develop any GI concerning symptoms. He is agreeable to plan of care and verbalizes understanding of instructions. He was given the opportunity to ask questions and all questions answered. Thank you for allowing me to participate in his care Medications: Refilled pantoprazole 40 mg PO QAM 30 days 90 tabs 6RF K21.9 - Gastro-esophageal reflux disease without esophagitis Coding Level of Care Code Est Pt Level 4 (38474) Complex EM visit Add On G2211 Diagnoses Gastroesophageal reflux disease, unspecified whether esophagitis present K21.9 Esophagitis presence: esophagitis presence not specified Tubular adenoma of colon D12.6 Diverticulosis K57.90 Time Spent (min) 35 Comment 20 minutes spent with patient and additional 15 minutes spent reviewing his r ecords
[2024-03-18 13:27] VITALS: BP 142/65; PULSE 77; BMI 40.3
== END 2024-03-18 13:51 | disposition home or self-care (01) ==
PROVIDERS: Visit Provider Nurse Practitioner Family
DX: K21.9 Gastro-esophageal reflux disease without esophagitis (principal); D12.6 Benign neoplasm of colon, unspecified; K57.90 Diverticulosis of intestine, part unspecified, without perforation or abscess without bleeding
CPT/HCPCS: 99214; G2211

== ENCOUNTER → 2024-03-18 13:25 | Outpatient (BNVA) | payer OTHER, SELFPAY | PROVIDERS: Visit Provider Nurse Practitioner Family | DX: K21.9 Gastro-esophageal reflux disease without esophagitis (principal); K57.90 Diverticulosis of intestine, part unspecified, without perforation or abscess without bleeding; D12.6 Benign neoplasm of colon, unspecified; Z71.2 Person consulting for explanation of examination or test findings | CPT/HCPCS: 99212 ==

== ENCOUNTER 2024-04-21 09:31 | Outpatient (REF) | payer OTHER, SELFPAY ==
[2024-04-21 10:04] LABS: MANUAL DIFF FLAG NO
[2024-04-21 10:25] LABS: Basophils Percent Auto 0.3 % (0-2); Eosinophils Absolute Auto 0.1 X10*3/uL (0.0-0.4); Eosinophils Percent Auto 1.1 % (0-4); Hematocrit 44.7 % (42.0-52.0); Hemoglobin 15.1 g/dl (14.0-18.0); Imm Gran Abs Auto 0.07 X10*3/uL (0.00-0.03); Imm Gran Pct Auto 0.6 % (0.0-0.4); Lymphocytes Absolute Auto 2.1 X10*3/uL (1.2-4.9); Lymphocytes Percent Auto 17.6 % (20-40); Mean Corpuscular HGB Conc 33.8 g/dl (31.0-36.0); Mean Corpuscular Hemoglobin 28.3 pg (27.0-33.0); Mean Corpuscular Volume 83.7 fL (80.0-98.0); Mean Platelet Volume 10.5 fL (9.4-12.4); Monocytes Absolute Auto 0.9 X10*3/uL (0.1-1.2); Monocytes Percent Auto 7.4 % (2-11); Neutrophils Absolute Auto 8.7 x10*3/uL (2.0-8.3); Platelet Count 258 X10*3/uL (160-400); Red Blood Count 5.34 X10*6/uL (4.60-5.80); Red Cell Distribution Width 14.4 % (11.0-16.0); White Blood Count 11.9 X10*3/uL (4.8-10.8)
[2024-04-21 10:28] LABS: Appearance Urine Clear; Color Urine Yellow; Glucose Urine UA >=1000 mg/dL (Negative); Leukocyte Esterase Urine Small (1+) (Negative); Nitrite Urine Negative (Negative); PH 6.5 (5.0-9.0); Specific Gravity - Urine >= 1.030 (1.005-1.025); UMIC TRIGGER UA YES; Urine Blood Negative (Negative); Urine Ketones Negative (Negative); Urine Protein Negative (Neg-Trace)
[2024-04-21 10:31] LABS: Bacteria Urine 1+ (None Seen); Hyaline Casts Urine 0-2 /LPF (0-2); RBC Urine 0-2 /HPF (0-2); Squamous Epithelial Cell Urine 0-2 /HPF (0-2); WBC Urine 21-50 /HPF (0-5)
[2024-04-21 10:44] LABS: Estimated Average Glucose 126 mg/dL; Hemoglobin A1C 163.2397 umol/L; Total Hemoglobin (HGBA1C) 3909.4343 umol/L
[2024-04-21 10:56] LABS: Creatinine Urine 130.24 mg/dL; Protein/Creatinine Ratio, Ur 0.06 (<0.2); Total Protein Urine Random 8 mg/dL (<12)
[2024-04-21 11:03] LABS: Anion Gap 14 (12-20); Blood Urea Nitrogen 11 mg/dL (9-16); Calcium 9.7 mg/dL (8.4-10.2); Carbon Dioxide 28 mmol/L (22-29); Chloride 103 mmol/L (96-108); Estimated Glomerular Filt Rate > 60; Iron 61 mcg/dL (45-160); Percent Iron Saturation 24 % (15-50); Potassium 3.7 mmol/L (3.3-5.1); Sodium 141 mmol/L (135-145); Total Iron Binding Capacity 249 mcg/dL (228-428); Unsaturated Iron Binding 188 ug/dL
[2024-04-21 11:18] LABS: Vitamin D 25-OH Total 54.2 ng/mL (>30)
== END 2024-04-21 09:32 | disposition home or self-care (01) ==
LOC: HO.LAB 09:31
PROVIDERS: PCP Nurse Practitioner; Visit Provider Physician Assistant
DX: N18.2 Chronic kidney disease, stage 2 (mild) (principal); Z13.1 Encounter for screening for diabetes mellitus
CPT/HCPCS: 36415; 80051; 81001; 82306; 82310; 82565; 82570; 83036; 83540; 83735; 83970; 84156; 84520; 84550; 85025

== ENCOUNTER 2024-06-10 10:51 | Outpatient (AMB) | payer OTHER, SELFPAY ==
--- NOTE | 2024-06-10 11:00 | MHC.OFFVIS ---
Vital Signs 06/10/24 11:01 Height 5 ft 2 in Weight 212 lb 11.937 oz BMI 38.9 BP 110/60 Blood Pressure Location Lt brachial Position Sitting Pulse 73 Pulse Source Pulse Oximeter Pulse Oximetry (%) 97 Oxygen Delivery Method Room Air Intake Visit Reasons: Sleep apnea Intake Note: pt is here for follow up of twyla and states he is so so,, cpap going okay Fur Tinter Required: No Allergies Seasonal Allergies Allergy (Mild, Verified 06/10/24 11:20) SNEEZING Medication List - Last Reconciled 06/10/24 by Chela Degroot MD allopurinol 100 mg PO DAILY aspirin 81 mg PO DAILY atorvastatin 80 mg PO DAILY baclofen 5 mg PO TID cholecalciferol (vitamin D3) 50 mcg PO DAILY cyanocobalamin (vitamin B-12) 1,000 mcg PO DAILY empagliflozin (Jardiance) 10 mg PO DAILY ferrous sulfate 325 mg PO DAILY lisinopril-hydrochlorothiazide 20-25 mg 1 tab PO QAM metoprolol succinate ER 50 mg PO BID omega 5-vjq-gbt-fish oil 60-90-500 mg (Fish Oil) 1 cap PO DAILY pantoprazole 40 mg PO QAM 30 days semaglutide (weight loss) (Wegovy) mg subcut sitagliptin phosphate (Januvia) 50 mg PO DAILY Do you need a note to return to daycare/school/sports/work: No HPI HPI Sleep apnea: Details: 69 YEARS OLD VERY PLEASANT GENTLEMAN WHO IS GROSSLY OBESE AND HAS DIAGNOSIS OF OBSTRUCTIVE SLEEP APNEA, IS HERE FOR HIS 6 MONTHS FOLLOW-UP. HE USES THE CPAP EVERY NIGHT FAITHFULLY, EXCEPT FOR SOME NIGHTS WHEN HE GOES TO SLEEP AND FORGETS TO PUT ON THE CPAP. HE THINKS THE PRESSURE IS LITTLE TOO HIGH BUT HE DOES USE THROUGHOUT THE NIGHT. HE DENIES ANY DAYTIME SLEEPINESS. THIS GENTLEMAN IS RELATIVELY SEDENTARY DOES NOT WALK MUCH AND IS NOT ABLE TO DO MUCH EXERCISE. BUT HE HAS LOST ABOUT, 12 LB OF WEIGHT SINCE LAST TIME AND THIS IS DUE TO BEING ON ANTI OBESITY MED,WAGOVY . [facility] Medical History Diverticulosis Tubular adenoma of colon Type 2 diabetes mellitus with unspecified complications Essential hypertension Aortic valve calcification Atherosclerotic cardiovascular disease Restrictive lung disease TWYLA on CPAP Obesity (BMI 35.0-39.9 without comorbidity) Surgical History H/O esophagogastroduodenoscopy H/O colonoscopy Family History Sister HTN (hypertension) Diabetes Father Cancer Social History Household Members: Spouse and Children Alcohol intake: current Alcohol intake frequency: holidays/special occasions only Patient Tobacco Use Status: Never used Tobacco Review of Systems Const All systems reviewed & are unremarkable except as noted in HPI and below Eyes Reports no additional complaints ENT Reports no additional complaints Card Denies chest pain, Denies irregular heart rhythm, Denies leg edema and Denies dyspnea on exertion Resp Denies cough, Denies dyspnea on exertion and Denies wheezing GI Reports no additional complaints Reports no additional complaints Musc Reports back pain (Mild) and Reports arthralgias (Mild) Skin/Breast Reports system reviewed and no additional complaints, except as documented Neuro Reports no additional complaints Psych Reports no additional complaints Aller/Immun Denies wheezing Physical Exam Vital Signs: Last Vital Signs Pulse 73 06/10/24 11:01 BP 110/60 06/10/24 11:01 Pulse Ox 97 06/10/24 11:01 Oxygen Delivery Method Room Air 06/10/24 11:01 BMI result Body Mass Index 38.9 Const General: comfortable, no acute distress, alert and awake Orientation/consciousness: patient oriented x3 HEENT Head: Yes normal to inspection General nose exam: No nasal polyps present and No nasal discharge present Face and sinus: Yes sinuses nontender Mouth: oropharynx abnormals (Very crowded and narrow, Mallampati class 4) Throat: Yes posterior oropharynx normal Eyes General: appearance normal, both eyes and all related structures Neck Neck: Yes normal visual inspection, Yes no lymphadenopathy, Yes trachea midline and Yes no JVD Thyroid: Thyroid normal Chest Chest palpation & inspection: normal inspection of the chest, normal palpation of entire chest wall and no tenderness Resp Other: His breath sounds are distant especially over the basilar areas. But lungs are clear to auscultation and no wheezes or rhonchi are heard. Cardio Palpation: normal PMI Rate: regular rate Rhythm: regular rhythm Heart sounds: no gallops and no murmurs Peripheral pulses: Peripheral pulses 2+ throughout GI Palpation (GI): Soft to palpation, Tenderness to palpation present (GI), No hepatosplenomegaly present, Palpable mass present and Other GI palpation findings present (Abdomen is grossly obese and protuberant) Auscultation: normal bowel sounds Back/Spine/Pelvis Thoracic/Lumbar Spine: thoracic and lumbar spine normal to inspection Skin General skin exam: no rashes or lesions noted Neuro General: patient oriented x3 and no focal motor deficits Cranial nerves: Yes CN's II-XII intact bilaterally Extrem General: Yes normal to inspection, Yes no clubbing, cyanosis or edema and Yes no calf tenderness Psych Speech and movement: Normal speech and movement present Results Reviewed Results Reviewed: COMPLIANCE REPORT FOR THE LAST 30 NIGHTS REVIEWED, HE HAS USED EVERY NIGHT EXCEPT FOR 2 NIGHTS AVERAGE USE IT PER NIGHT 7 HOURS 36 MINUTES. HE IS ON CPAP OF 14 CM. THERE WAS NOT MUCH AIR LEAK. RESIDUAL AHI ONLY 0.3 Assessment & Plan Assessment & Plan (1) Obesity (BMI 35.0-39.9 without comorbidity): Comment: THIS 69 YEARS OLD GENTLEMAN IS GROSSLY OBESE, HE IS TRYING TO WATCH HIS DIET, AND LATELY HE IS ON ANTI OBESITY MED,WAGOVY. WITH THAT HE HAS LOST ABOUT 12 LB OF WEIGHT. Code(s): E66.9 - Obesity, unspecified Category: Medical Plan: COMMENDED FOR LOSING WEIGHT, ENCOURAGED TO WATCH HIS DIET AND START WALKING AT LEAST 2 MILES EVERY DAY (2) Restrictive lung disease: Comment: Patient explained that his pulmonary function test showed mild restrictive disorder which is related to his obesity. He does not have obstructive disorder. The restrictive component should improve with weight loss. Code(s): J98.4 - Other disorders of lung Category: Medical Plan: Encouraged to do deep breathing exercises 3 to 4 times a day (3) TWYLA on CPAP: Comment: KNOWN CASE OF OBSTRUCTIVE SLEEP APNEA SINCE 2013. HAS BEEN USING CPAP REGULARLY WITH GOOD EFFECTS . *Has a new CPAP machine which is working very well. HE REMAINS VERY COMPLIANT. STATES THAT HE FEELS HIS PRESSURE IS TOO MUCH, MAY BE BECAUSE OF HIS WEIGHT LOSS HE DOES NOT NEED MUCH PRESSURE BEFORE. Code(s): G47.33 - Obstructive sleep apnea (adult) (pediatric); Z99.89 - Dependence on other enabling machines and devices Category: Medical Plan: WE WILL LOWER THE CPAP PRESSURE TO 12 CM Coding Level of Care Code Est Pt Level 3 (01702) Diagnoses Obesity (BMI 35.0-39.9 without comorbidity) E66.9 Restrictive lung disease J98.4 TWYLA on CPAP G47.33; Z99.89
[2024-06-10 11:01] VITALS: BP 110/60; PULSE 73; O2SAT 97; BMI 38.9
--- OUTSIDE RECORDS SUMMARY | 2024-06-10 13:01 | XMS_ITS | Encounter Summary ---
Author Organization [employer] Address [address] [facility] [address] [place] [address] Care Team Providers Care Industrial Design Intern Name Role Phone Vanessa Arango QI Primary Care Provider [phone] Reason for Visit * Reason Comments Med Refill Encounter Details Date Type Department Care Team (Late st Contact Info) Description 05/04/2023 Refill [facility] [address] [place], [place] [phone] [facility] [address] [place], [place] [phone] Hyperlipidemia, unspecified hyperlipidemia type; Type 2 diabetes mellitus with other specified complication, unspecified whether care home insulin use ([facility]); IFG (impaired fasting glucose) Social History Tobacco Use Types Packs/Day Years Used Date Smoking Tobacco: Never Smokeless Tobacco: Never Alcohol Use Standard Drinks/Week Comments Yes 9 (1 standard drink = 0.6 oz pur e alcohol) on saturdays Depression Answer Date Recorded Patient Health Questionnaire-9 Score 7 03/22/2023 Patient Health Questionnaire-9 Score 7 03/22/2023 Last PHQ-9: Questionnaire Data Not on file 1 05/23/2022 Housing Stability Answer Date Recorded What is your housing situation today? I have nathalialeta moss 04/19/[address] you li ve. Do you have problems with any of the following? None of the above 04/19/2023 Food Insecurity Answer Date Recorded Within the past 12 months, y ou worried that your food would run out before you got money to buy more: Never True 04/19/2023 Within the past 12 months,th e food you bought just didn't last and you didn't have enough money to get more: Never True 03/2024 Transportation Answer Date Recorded In the past 12 months, has l ack of transportation kept you from medical appts, meetings, work or from getting things needed for daily living? No 04/19/2023 Utilities Answer Date Recorded In the past 12 months, has t he electric, gas, oil or water company threatened to shut off services in your home? No 04/19/2023 Depression Answer Date Recorded Patient Health Questionnaire-2 Score 2 03/22/2023 Sex and Gender Information Value Date Recorded Sex Assigned at Male 02/05/2022 10:14 AM EDT Legal Sex Male 10:14 AM EDT Gender Identity Male 02/05/2022 10:14 AM EDT Sexual Orientation Straight 02/05/2022 10 :14 AM EDT documented as of this encounter Miscellaneous Notes * Telephone Encounter - Vanessa Arango NP - 05/06/2023 9:46 PM EST Approving, but needs appt for additional refills. documented in this encounter Plan of Treatment Upcoming Encounters Date Type Department Care Team (Late st Contact Info) Description 07/10/2024 10:15 AM EDT Office Visit [facility] [address] [place] [address] Vanessa Arango NP [address] [place] [address] documented as of this encounter Visit Diagnoses Diagnosis Hyperlipidemia, unspecified hyperlipidemia type Type 2 diabetes mellitus with other specified complication, unspecified whether watcher automat long goods insulin use ([facility]) IFG (impaired fasting glucose) documented in this encounter Additional Health Concerns Assessment Noted Time PHQ-9 Depression Total Score: 7 03/22/20 23 2:14 PM EST documented as of this encounter Care Teams Industrial Design Intern Relationship Specialty Start Date End Date Vanessa Arango NP [address] [place] [address] PCP - General Family Medicine 03/23/23 documented as of this encounter
--- OUTSIDE RECORDS SUMMARY | 2024-06-10 13:01 | XMS_ITS | Encounter Summary ---
Author Organization [employer] Address [address] [facility] [address] [place] [address] Care Team Providers Care Dog Handler Name Role Phone Vanessa Arango NP Primary Care Provider [phone] Reason for Visit * Reason Comments Med Refill Encounter Details Date Type Department Care Team (Late st Contact Info) Description 02/06/2024 Refill [facility] [address] [place] [address] Vanessa Arango NP [address] [place] [address] Chronic bilateral low back pain with right-sided sciatica Social History Tobacco Use Types Packs/Day Years [...] is your housing situation today? I have nathalia moss 04/19/[address] you [...] AM EDT documented as of this encounter Plan of Treatment Upcoming Encounters Date Type Department Care Team (Late st Contact Info) Description 07/10/2024 10:15 AM EDT Office Visit [facility] [address] [place] [address] Vanessa Arango NP [address] [place] [address] documented as of this encounter Visit Diagnoses Diagnosis Chronic bilateral low back pain with right-sided sciatica documented in this encounter Additional Health Concerns Assessment Noted Time PHQ-9 Depression Total Score: 7 03/22/20 23 2:14 PM EST documented as of this encounter Care Teams Dog Handler Relationship Specialty Start Date End Date Vanessa Arango NP [address] [place] [address] PCP - General Family Medicine 03/23/23 documented as of this encounter
--- OUTSIDE RECORDS SUMMARY | 2024-06-10 13:01 | XMS_ITS | Encounter Summary ---
Author Organization [employer] Address [address] [facility] [address] [place] [address] Care Team Providers Care Business Services Tech Name Role Phone Vanessa Arango QI Primary Care Provider [phone] Reason for Visit * Reason Onset Date Comments july recall follow up 06/04/2024 Encounter Details Date Type Department Care Team ([facility] st Contact Info) Description 06/04/2024 Telephone [facility] [address] [place] [address] Louise Coe MA july recall follow up Social History Tobacco Use Types Packs/Day Years Used Date Smoking Tobacco: Never Smokeless Tobacco: Never Alcohol Use Standard Drinks/Week Comments Yes 9 (1 standard drink = 0.6 oz pur e alcohol) on saturdays Depression Answer Date Recorded Patient Health Questionnaire-9 Score 6 04/17/2024 Patient Health Questionnaire-9 Score 6 04/17/2024 Last PHQ-9: Questionnaire Data Not on file 0 04/17/2024 Housing Stability Answer Date Recorded What is [...] Date Recorded Patient Health Questionnaire-2 Score 2 04/17/2024 Sex and Gender Information Value Date Recorded Sex Assigned at Male 02/05/2022 10:14 AM EDT Legal Sex Male 10:14 AM EDT Gender Identity Male 02/05/2022 10:14 AM EDT Sexual Orientation Straight 02/05/2022 10 :14 AM EDT documented as of this encounter Miscellaneous Notes * Telephone Encounter - Louise Coe MA - 06/04/2024 11:20 AM EST Telephone call to patient to schedule the following recall: July Visit type: Follow up Appointment notes: Chronic conditions Patient agree to appointment on 07/10/24 at 10:15 AM with Nba. documented in this encounter Plan of Treatment Upcoming Encounters Date Type Department Care Team (Late st Contact Info) Description 07/10/2024 10:15 AM EDT Office Visit [facility] [address] [place] [address] Vanessa Arango NP [address] [place] [address] documented as of this encounter Visit Diagnoses Not on filedocumented in this encounter Additional Health Concerns Assessment Noted Time PHQ-9 Depression Total Score: 6 04/17/19 9:04 AM EST documented as of this encounter Care Teams Business Services Tech Relationship Specialty Start Date End Date Vanessa Arango NP [address] [place] [address] PCP - General Family Medicine 03/23/23 documented as of this encounter
--- OUTSIDE RECORDS SUMMARY | 2024-06-10 13:01 | XMS_ITS | Encounter Summary ---
Author Organization [employer] [facility] Address [address] [place] [address] [address] [place] [address] Care Team Providers Care Workday Financials Consultant Name Role Phone [place] Primary Care Provider [phone] Julienne Aparicio MD Primary Care Pro vider Vanessa Arango NP Primary Care Provider [phone] Reason for Visit * Reason Comments Med Refill Encounter Details Date Type Department Care Team (Late st Contact Info) Description 11/07/2022 Refill [facility] [address] [place] [address] [facility] [address] [place] [address] Type 2 diabetes mellitus with other specified complication, unspecified whether assisted insulin use ([facility]); IFG (impaired fasting glucose) Social History Tobacco Use Types Packs/Day Years Used Date Smoking Tobacco: Never Assessed Sex and Gender Information Value Date Recorded Sex Assigned at Male 02/05/2022 10:14 AM EDT Legal Sex Male 10:14 AM EDT Gender Identity Male 02/05/2022 10:14 AM EDT Sexual Orientation Straight 02/05/2022 10 :14 AM EDT documented as of this encounter Plan of Treatment Upcoming Encounters Date Type Department Care Team (Late st Contact Info) Description 07/10/2024 10:15 AM EDT Office Visit [facility] [address] [place] [address] Vanessa Arango NP [address] [place] [address] documented as of this encounter Visit Diagnoses Diagnosis Type 2 diabetes mellitus with other specified complication, unspecified whether assisted insulin use ([facility]) IFG (impaired fasting glucose) documented in this encounter Care Teams Workday Financials Consultant Relationship Specialty Start Date End Date Aliza Cota FNP [address] [place] [address] PCP - General Family Medicine 12/01/21 02/19/23 Julienne Aparicio MD [address] [place] [address] PCP - General Internal Medicine 02/20/23 03/22/23 Vanessa Arango NP [address] [place] [address] PCP - General Family Medicine 03/23/23 documented as of this encounter
--- OUTSIDE RECORDS SUMMARY | 2024-06-10 13:01 | XMS_ITS | Encounter Summary ---
Author Organization [employer] Address [address] [facility] [address] [place] [address] Care Team Providers Care Watch Supervisor Name Role Phone Vanessa Arango NP Primary Care Provider [phone] Reason for Visit * Reason Comments Med Refill Encounter Details Date Type Department Care Team (Late st Contact Info) Description 04/16/2024 Refill [facility] [address] [place] [address] Vanessa Arango NP [address] [place] [address] Chronic bilateral low back pain with right-sided [...] Description 07/10/2024 10:15 AM EDT Office Visit [facility] [address] [place] [address] Vanessa Arango NP [address] [place] [address] documented as of this encounter Visit Diagnoses Diagnosis Chronic bilateral low back pain with right-sided sciatica documented in this encounter Additional Health Concerns Assessment Noted Time PHQ-9 Depression Total Score: 7 03/22/20 23 2:14 PM EST documented as of this encounter Care Teams Watch Supervisor Relationship Specialty Start Date End Date Vanessa Arango NP [address] [place] [address] PCP - General Family Medicine 03/23/23 documented as of this encounter
--- OUTSIDE RECORDS SUMMARY | 2024-06-10 13:01 | XMS_ITS | Clinical Summary ---
Author Organization [facility], Address [address] [place] [address] [place] [address] Phone Care Team Providers Care Senior Application Security Consultant Name Role Phone Raghav Ace Primary Care Provider Allergies No known active allergies Medications pantoprazole (PROTONIX) 40 MG EC tablet Comments: Filled Date: Jan 31 2017 12:00AM Patient Notes: TAKE 1 TABLET AT SUPPERTIME ONCE A DAY ORALLY 90 DAYS Duration: 90 7 Active verapamil (CALAN) 80 MG tablet Comments: Filled Date: Jan 09 2017 12:00AM Patient Notes: TOME KVNG TABLETA POR VIA ORAL AL ACOSTARSE Duration: 90 7 Active Aspirin Low Dose 81 MG EC tablet TOME KVNG TABLETA TODOS LOS D 0 Active cyanocobalamin (VITAMIN B-12) 1000 MCG tablet TOME KVNG TABLETA TODOS LOS D 0 Active [place]-3 Fatty Acids ([facility] Fish Oil) 1000 MG capsule TOME KVNG C PSULA DOS VECES AL D A 0 Active Pain Relief Extra Strength 500 MG tablet TAKE 1 TABLET (500MG) BY ORAL ROUTE EVERY 6 HOURS NEEDED 1 Active SITagliptin (JANUVIA) 50 MG tablet Take 50 mg by mouth 1 (one) time each day Active metoprolol tartrate (LOPRESSOR) 50 MG tablet Take 50 mg by mouth 2 (two) times a day Active atorvastatin (LIPITOR) 80 MG tablet Take 80 mg by mouth every night Active allopurinol (ZYLOPRIM) 100 MG tablet TAKE 1 TABLET BY MOUTH 1 TIME EACH DAY. 90 tablet 3 3 Active D3 Super Strength 50 MCG (2000 UT) capsule TAKE 1 CAPSULE BY MOUTH EVERY DAY 90 capsule 3 4 Active ferrous sulfate 325 (65 Fe) MG tablet TAKE 1 TABLET BY MOUTH DAILY WITH BREAKFAST. LOW IRON 90 tablet 3 4 Active lisinopril-hydr oCHLOROthiazide (PRINZIDE,ZESTO RETIC) 20-25 MG per tablet TAKE 2 TABLETS BY MOUTH EVERY DAY 180 tablet 3 4 Active tamsulosin (FLOMAX) 0.4 MG 24 hr capsule TAKE 1 CAPSULE BY MOUTH 1 TIME EACH DAY. 30 capsule 5 Active Active Problems Problem Noted Date Diagnosed Date Type 2 diabetes mellitus without complication Essential (primary) hypertension 02/06/2021 Chronic kidney disease stage 2 06/18/2019 Resolved Problems Problem Noted Date Diagnosed Date Resolved Date Renal disorder due to type 2 diabetes mellitus 01/11/2020 02/12/2022 Hyperlipidemia 06/18/2019 02/06/2021 Hypertensive heart disease [facility] congestive heart failure 06/18/2019 02/12/2022 Hypokalemia 06/18/2019 02/06/2021 Morbid obesity 06/18/2019 02/06/2021 Obstructive sleep apnea syndrome 06/18/2019 02/06/2021 Encounters Date Type Department Care Team Description 05/10/2024 Refill [facility] [address] [place] [address] Anjum Whitley MD 04/29/2024 3:30 PM EST Office [facility] [address] [place] [address] Anjum Whitley MD Essential (primary) hypertension (Primary Dx) 04/23/2024 Documentation Only [facility] [place] [address] [place] [address] Jess Ulloa 03/26/2024 Refill [facility] [place] [address] [place] [address] Joseph Youngblood PA from Last 3 Months Family History Medical History Relation Comments Cancer Father lung cancer Heart disease Father heart attack age 58 Hypertension Father Diabetes Sibling sister Heart disease Sibling Relation Status Comments Father Unknown Mother Unknown Sibling Social History Tobacco Use Types Packs/Day Years Used Date Smoking Tobacco: Never Tobacco Cessation:Counseling Given: Not Answered Alcohol Use Standard Drinks/Week Comments No 0 (1 standard drink = 0.6 oz pure alcohol) Alcoholic Drinks/day: Occasional social drink Sex and Gender Information Value Date Recorded Sex Assigned at Not on file Legal Sex Male 4:37 PM EST Gender Identity Not on file Sexual Orientation Not on file Last Filed Vital Signs Vital Sign Reading Time Taken Comments Blood Pressure 132/68 08/07/2023 3:10 PM EDT Pulse 72 06/22/2019 1:36 PM EDT Temperature - - Respiratory Rate 16 06/22/2019 1:36 PM EDT Oxygen Saturation - - Inhaled Oxygen Concentration - - Weight 104 kg (229 lb 9.6 oz) 08/07/2023 3:10 PM EDT Height 160 cm (5' 3 ) 08/07/2023 3:10 PM EDT Body Mass Index 40.67 08/07/2023 3:10 PM EDT Plan of Treatment Upcoming Encounters Date Type Department Care Team (Late st Contact Info) Description 08/25/2024 1:50 PM EDT Office Visit [facility] [address] [place] [address] Anjum Whitley MD [address] [place] [place] [phone] Health Maintenance Due Date Last Done Comments Colorectal Cancer Screening: Annual FOBT 2003 Colorectal Cancer Screening: Colonoscopy 2003 Colorectal Cancer Screening: Sigmoidoscopy 2003 Diabetes: Ophthalmology Exam 01/11/2020 Diabetes: Pedal Pulse Checked 01/11/2020 Diabetes: Sensory Foot Exam 01/11/2020 Diabetes: Visual Foot Exam 01/11/2020 Diabetes: Hemoglobin A1C 06/09/2024 024, 10/16/2022, 02/12/2022, Additional history exists Pneumococcal Vaccine: 65+ Years Completed 03/22/2023, 06/14/2014 Hepatitis B Vaccine Aged Out 10/30/2023, 05/29/2023, 04/19/2023 No longer eligible based on patient's age to complete this topic Influenza Vaccine Completed 03/11/2024, , 05/03/2021, Additional history exists Procedures Procedure Name Priority Date/Time Associated Diagnosis Comments HEMOGLOBIN A1C Routine 10/16/2022 2:54 PM EDT Chronic kidney disease stage 2 Essential (primary) hypertension Type 2 diabetes mellitus without complication (HCC) from Last 3 Months or Most Recently Relevant to Health Maintenance Results * (ABNORMAL) Hemoglobin A1c (10/16/2022 2:54 PM EDT) Hemoglobin A1C 6.3(H) (4.0-5.6) % [facility] Comment: MONITORING: In known diabetic patients, hemoglobin A1c targets should be discussed with health care provider. DIAGNOSTIC USE: ??The [place] Diabetes Association (ADA) and the World Health Organization (WHO) recommend the use of HbA1c to diagnose diabetes using a threshold of 6.5%. Patients who have an HbA1c between 5.7% and 6.4% are considered at increased risk for developing diabetes in the future. CAUTION: Falsely low HbA1c results may be observed in patients with hemolytic anemia, homozygous forms of abnormal hemoglobin (e.g. SS, CC, SC), , recent blood loss or hemoglobin F greater than 7%. Fructosamine may be used as an alternate test in these cases. REFERENCE: ADA: Standards of Medical Care in Diabetes 2020, The Journal of Clinical and Applied Research and Education Volume 43, Supplement 1 Testing performed or reported by [facility], a Service of [facility], [address] [place] [address] Darryn Ballesteros MD, Framing Consultant [facility]# [id number] Blood (Blood, Venous) 10/16/2022 2:54 PM EDT 10/16/2022 2:55 PM EDT us Joseph [facility] BLOOD ORDERABLES Final Re sult [facility] from Last 3 Months or Most Recently Relevant to Health Maintenance Insurance [facility] [employer] DUAL SNP ([id number]) ANNIKA ALCANTARA [id number] Care Teams Senior Application Security Consultant Relationship Specialty Start Date End Date Raghav Ace FNP [address] [place] [address], [address]rd [place] [address] PCP - General 02/10/19
--- OUTSIDE RECORDS SUMMARY | 2024-06-10 13:01 | XMS_ITS | Encounter Summary ---
Author Organization [employer] Address [address] [facility] 7t [place] [address] Care Team Providers Care Licensed Loan Officer Assistant Name Role Phone Vanessa Arango NP Primary Care Provider [phone] Reason for Visit * Reason Comments Med Refill Encounter Details Date Type Department Care Team (Late st Contact Info) Description 06/04/2023 Refill [facility] [address] [place] [address] Vanessa Arango NP 230 [place] [address] Chronic bilateral low back pain with right-sided sciatica; Hyperlipidemia, unspecified hyperlipidemia type; Type 2 diabetes mellitus with other specified complication, unspecified whether long distance operator insulin use ([facility]); Dyspepsia Social History Tobacco Use Types Packs/Day Years [...] your housing situation today? I have nathalia sing 04/19/[address] you li [...] Telephone Encounter - Vanessa Arango NP - 06/04/2023 2:15 PM EST Approving, but needs appt for additional refills. documented in this encounter Plan of Treatment Upcoming Encounters Date Type Department Care Team (Late st Contact Info) Description 07/10/2024 10:15 AM EDT Office Visit [facility] [address] [place] [address] Vanessa Arango NP 230 [place] [address] documented as of this encounter Visit Diagnoses Diagnosis Chronic bilateral low back pain with right-sided sciatica Hyperlipidemia, unspecified hyperlipidemia type Type 2 diabetes mellitus with other specified complication, unspecified whether jail insulin use ([facility]) Dyspepsia Dyspepsia and other specified disorders of function of stomach documented in this encounter Additional Health Concerns Assessment Noted Time PHQ-9 Depression Total Score: 7 03/22/20 23 2:14 PM EST documented as of this encounter Care Teams Licensed Loan Officer Assistant Relationship Specialty Start Date End Date Vanessa Arango NP [address] [place] [address] PCP - General Family Medicine 03/23/23 documented as of this encounter
--- OUTSIDE RECORDS SUMMARY | 2024-06-10 13:01 | XMS_ITS | Encounter Summary ---
Author Organization [employer] Address [address] [facility] 7t [place] [address] Care Team Providers Care Salt Plant Operator Name Role Phone Vanessa Arango NP Primary Care Provider [phone] Reason for Visit * Reason Comments Med Refill Encounter Details Date Type Department Care Team (Late st Contact Info) Description 05/14/2023 Refill [facility] 230 [place] [address] Vanessa Arango NP 230 [place] [address] Type 2 diabetes mellitus with other specified complication, unspecified whether remote computer terminal operator insulin use ([facility]); Hyperlipidemia, unspecified hyperlipidemia type Social History Tobacco Use Types Packs/Day Years [...] 10:15 AM EDT Office Visit [facility] [address] [place] [address] Vanessa Arango NP 230 [place] [address] documented as of this encounter Visit Diagnoses Diagnosis Type 2 diabetes mellitus with other specified complication, unspecified whether shelter insulin use ([facility]) Hyperlipidemia, unspecified hyperlipidemia type documented in this encounter Additional Health Concerns Assessment Noted Time PHQ-9 Depression Total Score: 7 03/22/20 23 2:14 PM EST documented as of this encounter Care Teams Salt Plant Operator Relationship Specialty Start Date End Date Vanessa Arango NP [address] [place] [address] PCP - General Family Medicine 03/23/23 documented as of this encounter
--- OUTSIDE RECORDS SUMMARY | 2024-06-10 13:01 | XMS_ITS | Encounter Summary ---
Author Organization [employer] Address [address] [facility] 7t [place] [address] Care Team Providers Care Accounts Receivable Analyst Name Role Phone Vanessa Arango QI Primary Care Provider [phone] Reason for Visit * Reason Comments Med Refill Encounter Details Date Type Department Care Team (Late st Contact Info) Description 05/14/2023 Refill [facility] MED[facility]INE 230 [place], [place] [phone] [facility] 230 [place], [place] [phone] Dyspepsia Social History Tobacco Use Types Packs/Day [...] Description 07/10/2024 10:15 AM EDT Office Visit [facility] 230 [place] [address] Vanessa Arango NP 230 [place] [address] documented as of this encounter Visit Diagnoses Diagnosis Dyspepsia Dyspepsia and other specified disorders of function of stomach documented in this encounter Additional Health Concerns Assessment Noted Time PHQ-9 Depression Total Score: 7 03/22/20 23 2:14 PM EST documented as of this encounter Care Teams Accounts Receivable Analyst Relationship Specialty Start Date End Date Vanessa Arango NP 230 [place] [address] PCP - General Family Medicine 03/23/23 documented as of this encounter
--- OUTSIDE RECORDS SUMMARY | 2024-06-10 13:01 | XMS_ITS | Encounter Summary ---
Author Organization [employer] Address [address] [place] [address] 7t [place] [address] Care Team Providers Care Network Relations Consultant Name Role Phone [place] [facility] Primary Care Provider [phone] Julienne Aparicio MD Primary Care Pro vider Vanessa Arango NP Primary Care Provider [phone] Reason for Visit * Reason Comments Med Refill Encounter Details Date Type Department Care Team (Late st Contact Info) Description 12/28/2022 Refill [facility]EDS [address] [place] [address] [place] [facility] 230 [place] [address] Social History Tobacco Use Types Packs/Day Years [...] Description 07/10/2024 10:15 AM EDT Office Visit [facility] MED[facility] 230 [place] [address] Vanessa Arango NP 230 [place] [address] documented as of this encounter Visit Diagnoses Not on filedocumented in this encounter Care Teams Network Relations Consultant Relationship Specialty Start Date End Date BeataAliza christopher FNP 230 [place] [address] PCP - General Family Medicine 12/01/21 02/19/23 Julienne Aparicio MD 230 [place] [address] PCP - General Internal Medicine 02/20/23 03/22/23 Vanessa Arango NP [address] [place] [address] PCP - General Family Medicine 03/23/23 documented as of this encounter
--- OUTSIDE RECORDS SUMMARY | 2024-06-10 13:01 | XMS_ITS | Encounter Summary ---
Author Organization [employer] [facility] Address [address] [place] [address] 7t [place] [address] Care Team Providers Care Training Project Manager Name Role Phone [place] Primary Care Provider [phone] Julienne Aparicio MD Primary Care Pro vider Vanessa Arango NP Primary Care Provider [phone] Reason for Visit * Reason Comments Med Refill Encounter Details Date Type Department Care Team (Late st Contact Info) Description 10/25/2022 Refill [facility] 230 [place] [address] [facility] 230 [place] [address] Dyspepsia; Hyperlipidemia, unspecified hyperlipidemia type; IFG (impaired fasting glucose) Social History Tobacco [...] Description 07/10/2024 10:15 AM EDT Office Visit [facility] MEDICINE 230 [place] [address] Vanessa Arango NP 230 [place] [address] documented as of this encounter Visit Diagnoses Diagnosis Dyspepsia Dyspepsia and other specified disorders of function of stomach Hyperlipidemia, unspecified hyperlipidemia type IFG (impaired fasting glucose) documented in this encounter Care Teams Training Project Manager Relationship Specialty Start Date End Date Aliza Cota FNP [address] [place] [address] PCP - General Family Medicine 12/01/21 02/19/23 Julienne Aparicio MD [address] [place] [address] PCP - General Internal Medicine 02/20/23 03/22/23 Vanessa Arango NP [address] [place] [address] PCP - General Family Medicine 03/23/23 documented as of this encounter
--- OUTSIDE RECORDS SUMMARY | 2024-06-10 13:01 | XMS_ITS | Encounter Summary ---
Author Organization [employer] [facility] Address [address] [place] [address] 7t [place] [address] Care Team Providers Care Shirt Ironer Supervisor Name Role Phone Julienne Aparicio MD Primary Care Pro vider Vanessa Arango NP Primary Care Provider [phone] Reason for Visit * Reason Comments Med Refill Encounter Details Date Type Department Care Team (Late st Contact Info) Description 02/20/2023 Refill [facility] [address] [place] [address] Julienne Elias MD 230 [place] [address] Dyspepsia; IFG (impaired fasting glucose); Hyperlipidemia, unspecified hyperlipidemia type Social History Tobacco [...] Description 07/10/2024 10:15 AM EDT Office Visit [facility] 230 [place] [address] Vanessa Arango NP 230 [place] [address] documented as of this encounter Visit Diagnoses Diagnosis Dyspepsia Dyspepsia and other specified disorders of function of stomach IFG (impaired fasting glucose) Hyperlipidemia, unspecified hyperlipidemia type documented in this encounter Care Teams Shirt Ironer Supervisor Relationship Specialty Start Date End Date Julienne Aparicio MD 230 [place] [address] PCP - General Internal Medicine 02/20/23 03/22/23 Vanessa Arango NP 230 [place] [address] PCP - General Family Medicine 03/23/23 documented as of this encounter
--- OUTSIDE RECORDS SUMMARY | 2024-06-10 13:01 | XMS_ITS | Encounter Summary ---
Author Organization [employer] Address [address] [place] [address] 7t [place] [address] Care Team Providers Care Recoil Spring Winder Name Role Phone Aliza Cota VEGETABLE BUNCHER Primary Care Provider [phone] Julienne Aparicio MD Primary Care Pro vider Vanessa Arango NP Primary Care Provider [phone] Encounter Details Date Type Department Care Team (Late st Contact Info) Description 08/06/2022 Orders Only [facility] MED [facility] PEDS [address] [place] [address] Sharita Mena LPN Social History Tobacco Use Types Packs/Day Years [...] Description 07/10/2024 10:15 AM EDT Office Visit [facility] MEDICINE 230 [place] [address] Vanessa Arango NP 230 [place] [address] documented as of this encounter Visit Diagnoses Not on filedocumented in this encounter Care Teams Recoil Spring Winder Relationship Specialty Start Date End Date BeataAliza FNP 230 [place] [address] PCP - General Family Medicine 12/01/21 02/19/23 Julienne Aparicio MD [address] [place] [address] PCP - General Internal Medicine 02/20/23 03/22/23 Vanessa Arango NP [address] [place] [address] PCP - General Family Medicine 03/23/23 documented as of this encounter
--- OUTSIDE RECORDS SUMMARY | 2024-06-10 13:01 | XMS_ITS | Encounter Summary ---
Author Organization [employer] Address [address] [facility] 7t [place] [address] Care Team Providers Care Rod Tape Operator Name Role Phone Vanessa Arango NP Primary Care Provider [phone] Reason for Visit * Reason Comments Med Refill Encounter Details Date Type Department Care Team (Late st Contact Info) Description 05/04/2023 Refill [facility] MEDICINE 230 [place] [address] Vanessa Arango NP 230 [place] [address] Chronic bilateral low back pain with right-sided [...] Description 07/10/2024 10:15 AM EDT Office Visit [facility] MEDICINE 230 [place] [address] Vanessa Arango NP 230 [place] [address] documented as of this encounter Visit Diagnoses Diagnosis Chronic bilateral low back pain with right-sided sciatica documented in this encounter Additional Health Concerns Assessment Noted Time PHQ-9 Depression Total Score: 7 03/22/20 23 2:14 PM EST documented as of this encounter Care Teams Rod Tape Operator Relationship Specialty Start Date End Date Vanessa Arango NP 230 [place] [address] PCP - General Family Medicine 03/23/23 documented as of this encounter
--- OUTSIDE RECORDS SUMMARY | 2024-06-10 13:01 | XMS_ITS | Encounter Summary ---
Author Organization [employer] Address [address] [facility] 7t [place] [address] Care Team Providers Care Ornamental Plaster Sticker Name Role Phone Vanessa Arango NP Primary Care Provider [phone] Encounter Details Date Type Department Care Team (Late st Contact Info) Description 04/18/2023 Abstract [facility] MEDICINE 230 [place] [address] Vanessa Arango NP [address] [place] [address] Social History Tobacco Use Types Packs/Day Years [...] Description 07/10/2024 10:15 AM EDT Office Visit [facility] MEDIC[facility] 230 [place] [address] Vanessa Arango NP 230 [place] [address] documented as of this encounter Visit Diagnoses Not on filedocumented in this encounter Additional Health Concerns Assessment Noted Time PHQ-9 Depression Total Score: 7 03/22/20 23 2:14 PM EST documented as of this encounter Care Teams Ornamental Plaster Sticker Relationship Specialty Start Date End Date Vanessa Arango NP 230 [place] [address] PCP - General Family Medicine 03/23/23 documented as of this encounter
--- OUTSIDE RECORDS SUMMARY | 2024-06-10 13:01 | XMS_ITS | Encounter Summary ---
Author Organization [employer] Address [address] [place] [address] 7t [place] [address] Care Team Providers Care Quality Assurance Auditor Name Role Phone Aliza Cota [facility] Primary Care Provider [phone] Julienne Aparicio MD Primary Care Pro vider Vanessa Arango NP Primary Care Provider [phone] Encounter Details Date Type Department Care Team (Late st Contact Info) Description 02/19/2023 Orders Only [facility] MED [facility] PEDS [address] [place] [address] Duyen Jean LPN Social History Tobacco Use Types Packs/Day [...] Description 07/10/2024 10:15 AM EDT Office Visit [facility] MEDICINE 230 [place] [address] Vanessa Arango NP [address] [place] [address] documented as of this encounter Visit Diagnoses Not on filedocumented in this encounter Care Teams Quality Assurance Auditor Relationship Specialty Start Date End Date BeataAliza [facility] 230 [place] [address] PCP - General Family Medicine 12/01/21 02/19/23 Julienne Aparicio MD [address] [place] [address] PCP - General Internal Medicine 02/20/23 03/22/23 Vanessa Arango NP [address] [place] [address] PCP - General Family Medicine 03/23/23 documented as of this encounter
--- OUTSIDE RECORDS SUMMARY | 2024-06-10 13:01 | XMS_ITS | Encounter Summary ---
Author Organization [employer] Address [address] [place] [address] 7t [place] [address] Care Team Providers Care Machine Dyer Name Role Phone Aliza Cota SENIOR JAVA J2EE DEVELOPER Primary Care Provider [phone] Julienne Aparicio MD Primary Care Pro vider Vanessa Arango NP Primary Care Provider [phone] Reason for Visit * Reason Comments Med Refill Encounter Details Date Type Department Care Team (Late st Contact Info) Description 12/28/2022 Refill [facility] [address] [place] [address] Julienne Elias MD 230 [place] [address] Dyspepsia; IFG (impaired fasting glucose); Hyperlipidemia, unspecified [...] Description 07/10/2024 10:15 AM EDT Office Visit [facility] MEDICINE 230 [place] [address] Vanessa Arango NP 230 [place] [address] documented as of this encounter Visit Diagnoses Diagnosis Dyspepsia Dyspepsia and other specified disorders of function of stomach IFG (impaired fasting glucose) Hyperlipidemia, unspecified hyperlipidemia type documented in this encounter Care Teams Machine Dyer Relationship Specialty Start Date End Date Aliza Cota FNP [address] [place] [address] PCP - General Family Medicine 12/01/21 02/19/23 Julienne Aparicio MD [address] [place] [address] PCP - General Internal Medicine 02/20/23 03/22/23 Vanessa Arango NP [address] [place] [address] PCP - General Family Medicine 03/23/23 documented as of this encounter
--- OUTSIDE RECORDS SUMMARY | 2024-06-10 13:01 | XMS_ITS | Encounter Summary ---
Author Organization [employer] Address [address] [facility] [address] [place] [address] Care Team Providers Care Freelance Graphic Designer Name Role Phone Vanessa Arango NP Primary Care Provider [phone] Reason for Visit * Reason Comments Med Refill Encounter Details Date Type Department Care Team (Late st Contact Info) Description 05/10/[address] [facility] [address] [place] [address] Vanessa Arango NP [address] [place] [address] Chronic bilateral low back pain with right-sided [...] Description 07/10/2024 10:15 AM EDT Office Visit [facility] [address] [place] [address] Vanessa Arango NP [address] [place] [address] documented as of this encounter Visit Diagnoses Diagnosis Chronic bilateral low back pain with right-sided sciatica documented in this encounter Additional Health Concerns Assessment Noted Time PHQ-9 Depression Total Score: 6 04/17/19 25 9:04 AM EST documented as of this encounter Care Teams Freelance Graphic Designer Relationship Specialty Start Date End Date Vanessa Arango NP [address] [place] [address] PCP - General Family Medicine 03/23/23 documented as of this encounter
--- OUTSIDE RECORDS SUMMARY | 2024-06-10 13:02 | XMS_ITS | Encounter Summary ---
Author Organization [email or web address] Address [address] [facility] [address] [place] [address] Care Team Providers Care Vp Software Engineering Name Role Phone Vanessa Arango NP Primary Care Provider [phone] Reason for Visit * Reason Comments Med Refill Encounter Details Date Type Department Care Team (Late st Contact Info) Description 08/23/[address] [facility] [address] [place] [address] Vanessa Arango NP [address] [place] [address] Hyperlipidemia, unspecified hyperlipidemia type; Chronic bilateral low back pain with right-sided [...] Description 07/10/2024 10:15 [address] EDT [address] [facility] [address] [place] [address] Vanessa Arango NP [address] [place] [address] documented as of this encounter Visit Diagnoses Diagnosis Hyperlipidemia, unspecified hyperlipidemia type Chronic bilateral low back pain with right-sided sciatica documented in this encounter Additional Health Concerns Assessment Noted Time PHQ-9 Depression Total Score: 7 03/22/20 23 2:14 PM EST documented as of this encounter Care Teams Vp Software Engineering Relationship Specialty Start Date End Date Vanessa Arango NP [address] [place] [address] PCP - General Family Medicine 03/23/23 documented as of this encounter
--- OUTSIDE RECORDS SUMMARY | 2024-06-10 13:02 | XMS_ITS | Encounter Summary ---
Author Organization [employer] Address [address] [facility] [address] [place] [address] Care Team Providers Care Accounting Lecturer Name Role Phone Vanessa Arango NP Primary Care Provider [phone] Reason for Visit * Reason Comments Med Refill Encounter Details Date Type Department Care Team (Late st Contact Info) Description 12/29/2023 Refill [facility] [address] [place] [address] Vanessa Arango NP [address] [place] [address] Chronic bilateral low back pain with right-sided [...] Description 07/10/2024 10:15 AM EDT Office Visit [facility] [address] [place] [address] Vanessa Arango NP [address] [place] [address] documented as of this encounter Visit Diagnoses Diagnosis Chronic bilateral low back pain with right-sided sciatica documented in this encounter Additional Health Concerns Assessment Noted Time PHQ-9 Depression Total Score: 7 03/22/20 23 2:14 PM EST documented as of this encounter Care Teams Accounting Lecturer Relationship Specialty Start Date End Date Vanessa Arango NP [address] [place] [address] PCP - General Family Medicine 03/23/23 documented as of this encounter
--- OUTSIDE RECORDS SUMMARY | 2024-06-10 13:02 | XMS_ITS | Clinical Summary ---
Author Organization [employer] Address [address] [place] [address] Care Team Providers Care Renewals Specialist Name Role Phone Vanessa Arango QI Primary Care Provider [phone] Allergies No known active allergies Medications [facility] Saline Nasal [place]ut 0.65 % nasal spray INSERT 1 SPRAY BY EACH NOSTRIL ROUTE EVERY 3 - 4 HOURS 44 mL 5 3 Active glucose blood (FREESTYLE LITE) test strip USE 1 STRIP by DIRECTED route every day 2 Active metoprolol tartrate (Lopressor) 50 MG tabletIndications: Essential hypertension TAKE 1 TABLET BY MOUTH TWICE A DAY 180 tablet 3 Active acetaminophen (Tylenol) 500 MG tablet TAKE 1 TABLET (500MG) BY ORAL ROUTE EVERY 6 HOURS NEEDED 1 Active aspirin (Aspirin Low Dose) 81 MG EC tabletIndications: Essential (primary) hypertension,Type 2 diabetes mellitus without complication, without long-term current use of insulin ([facility]) TAKE 1 TABLET (81 MG) BY MOUTH IN THE MORNING 90 tablet 3 4 Active pantoprazole (ProtoNix) 40 MG EC tabletIndications: Dyspepsia TAKE 1 TABLET BY MOUTH EVERY DAY IN THE MORNING 90 tablet 4 Active cyanocobalamin (Vitamin B-12) 1000 MCG tabletIndications: Hyperlipidemia, unspecified hyperlipidemia type TAKE 1 TABLET (1,000 MCG) BY MOUTH IN THE MORNING 90 tablet 3 4 Active ferrous sulfate 325 (65 Fe) MG tablet Take 1 tablet (325 mg) by mouth with breakfast. 30 tablet 3 4 Active cholecalciferol (Vitamin D-3) 50 MCG (2000 UT) capsule Take 1 capsule (50 mcg) by mouth Once per day. 30 capsule 3 4 Active omega-3 (Fish Oil) 1000 MG capsule TAKE 1 CAPSULE BY MOUTH TWICE A DAY 180 capsule 3 4 Active lisinopril-hydroCH LOROthiazide 20-25 MG tabletIndications: Essential (primary) hypertension TAKE 1 TABLET BY MOUTH EVERY DAY IN THE MORNING 90 tablet 4 Active FREESTYLE TEST STRIPS test stripIndications:T ype 2 diabetes mellitus without complication, without long-term current use of insulin ([facility]) USE 1 STRIP BY DIRECTED ROUTE EVERY DAY 50 strip 11 4 Active atorvastatin (Lipitor) 80 MG tabletIndications: Hyperlipidemia, unspecified hyperlipidemia type TAKE 1 TABLET (80MG) BY ORAL ROUTE EVERY BEDTIME 90 tablet 4 Active allopurinol (Zyloprim) 100 MG tabletIndications: Gout, unspecified cause, unspecified chronicity, unspecified site TAKE 1 TABLET (100 MG) BY MOUTH ONCE PER DAY. 90 tablet 1 5 Active baclofen (Lioresal) 5 MG tabletIndications: Chronic bilateral low back pain with right-sided sciatica TAKE 1 TABLET BY MOUTH THREE TIMES A DAY 90 tablet 5 Active Tirzepatide 2.5 MG/0.5ML solution auto-injectorIndic ations:Class 3 severe obesity due to excess calories with serious comorbidity and body mass index (BMI) of 40.0 to 44.9 in adult ([facility]) Inject 2.5 mg under the skin 1 (one) time per week for 28 days. 2 mL 1 5 05/15/19 25 Active Problems Problem Noted Date Diagnosed Date Help needed for obtaining assistive device 04/24 Assessment & Plan (04/24/2024 12:23 PM EST): Patient will benefit from assistive devices listed above to ensure his safety during personal hygiene. His mobility is also limited due to degenerative low back pain and joint pain/limitations associated with obesity making it difficult to stand for prolonged periods. Class 3 severe obesity due t o excess calories with serious comorbidity and body mass index (BMI) of 40.0 to 44.9 in adult 11/27/2023 Assessment & Plan (04/24/2024 12:11 PM EST): -has not received ozempic for weight management that was previously ordered. Call placed to [facility] pharmacy who stated medication was ready for p/u. -diet and exercise recommendations reviewed -f/u 1 month to asses progress with injection Assessment & Plan (04/17/2024 10:17 AM EST): -Unable to measure weight loss given differences btwn clinic and home scales. -Continue on current dose of Wegovy given mild evidence of GI upset -New prescription for zepbound sent to pharmacy as preferred by [facility] -Continue lifestyle modifications. He is encouraged to increase walking duration by 5 minutes each week. -Discussed calorie deficit, low carb/high protein diet -[employer] referral placed. Recommended to decrease sugary beverage consumption. -Recommended at least 20 g per meal of protein to assist with satiety. Assessment & Plan (11/27/2023 11:38 AM EDT): -discussed benefits of GLP-1 medication to reduce his CV risk by facilitating weight loss -plan to start semaglutide as patient reports discontinuation of Jardiance -consider rybelsus if insurance does not approve wegovy -reviewed side effects of GLP1 including eating small portions and not eating through sensation of fullness. No personal or family history of thyroid cancer or pancreatitis. No known retinopathy. Advised to keep medication refrigerated, but do not freeze -Healthy diet and exercise teaching completed: Eat a variety of fruit and vegetables, whole grains such as whole-wheat flour, bulgur (cracked wheat), oatmeal, and brown rice. Intake protein from beans, nuts, fish, and lean meats. Eat low-fat or fat- free dairy products. Limit highly processed foods such as hot dogs, sandwich meat, etc. Engage in minimum of 150 min of moderate intensity exercise weekly Cardiac murmur 06/06/2023 Overview (06/06/2023): -Intensity: grade 3; pitch: harsh; configuration: plateau -stable; followed by cardiology Need for assistance with personal care Assessment & Plan (06/06/2023 5:44 PM EST): -will message care management to understand [employer] SCR[employer] NURSE process as it pertains to the patients specific insurance Chronic bilateral low back pain with right-sided sciatica 04/19/2023 Assessment & Plan (08/20/2023 10:23 AM EDT): -lumbar X-ray results notes multi-level spondylosis pronounced at L1-L2 -advised to continue with current management plan -weight loss encouraged as this will help alleviate some of his pain -continues to decline PT -will refer to pain management if current interventions are no longer assisting in optimal pain relief -follow-up 3 months Assessment & Plan (05/16/2023 1:26 PM EST): -thoracic and lumbar x-ray ordered to rule out significant pathology -Declines PT -at home exercises and stretches provided -will trial baclofen for tight muscles -diclofenac gel ordered for TID topical application after warm heat -will investigate if trigger injections may be an option for him -consider referral to pain management -follow-up in 1 month Routine adult health maintenance 04/04/2023 Assessment & Plan (08/20/2023 10:29 AM EDT): -April labs reviewed with patient and daughter -Electrolytes and Kidney function stable. Lipid levels elevated. Patient is taking max intensity statin. Encouraged low fat diet and daily exercise Assessment & Plan (05/16/2023 1:16 PM EST): -Received Hepatitis B vaccine today. Will schedule nurse visit for 2nd dose Assessment & Plan (04/04/2023 4:12 PM EST): -flu and pneumococcal vaccines received today -GI referral placed for colonoscopy -will complete diabetic foot exam at next visit Type 2 diabetes mellitus without complication 03/22/2023 Assessment & Plan (04/24/2024 12:12 PM EST): -controlled -continue current regimen Assessment & Plan (11/27/2023 11:38 AM EDT): -diabetes well controlled -A1c at goal of <7%. POCT A1c 6.1% today -continue: Januvia 50 mg -microalbumin: ordered today; last completed in 2019 6.5 -foot exam: completed 08/2023/ due next year -dental: up to date -eye exam: has upcoming appointment in January -daily foot exams encouraged -low carb, low sugar diet and daily physical activity advised -follow-up 3 months Assessment & Plan (10/29/2023 9:41 PM EDT): -diabetes mellitus well controlled -A1c at goal of <7%. POCT A1c 6% today -continue: Januvia 50 mg and Jardiance 25 mg -microalbumin: 21.47 ug/mL in 04/2021. Ordered by nephrology, will attempt to retrieve results -foot exam: completed today -daily foot exams encouraged -low carb, low sugar diet and daily physical activity advised -follow-up 3 months or sooner as needed Assessment & Plan (04/04/2023 4:19 PM EST): -stable on Januvia 50 mg and Jardiance 10 mg Lab Results Component Value Date HGBA1C 6.4 (A) 03/22/2023 -low carb and sugar dietary teaching reinforced -advised to engage in 30 min moderate intensity daily as tolerated -will complete foot exam at next visit -follow-up in 3 months Essential (primary) hypertension 02/06/2021 03/22/2023 Assessment & Plan (04/24/2024 12:13 PM EST): -home BP reading at goal based on log provided -continue current regimen and home monitoring -lifestyle modifications reviewed Assessment & Plan (11/27/2023 10:36 AM EDT): -BP at target goal of <130/80 mmHg about 75% of the time at home -slightly elevated in clinic today, with normal repeat -continue lisinopril/hydrochlorothiazide 20-25 mg and metoprolol 50 mg -microalbumin: repeat ordered today -ASCVD risk: 34.9%. patient on statin and aspirin therapies -daily BP monitoring advised -low salt diet and 30 min moderate intensity daily exercise recommended -Reviewed ED precautions to include chest pain, shortness of breath, severe headache, sudden vision changes or BP >=180/>=120 mmHg. -Call clinic if three or more BP readings >130/80 mmHg. -follow-up 3 months Assessment & Plan (06/06/2023 5:57 PM EST): -elevated reading today, may be due to pain -pt reports he has not taken medication yet today. Advised to do so when he gets home -denies headache, chest pain, shortness of breath, vision changes -daily monitoring advised with record keeping -will consider medication adjustments if persistently elevated Assessment & Plan (04/04/2023 4:37 PM EST): -currently on metoprolol 50 mg and lisinopril/HCTZ -elevated BP reading today -continue to monitor at home and maintain log -low sodium diet encouraged -follow-up in 1 month Stage 2 chronic kidney disease 06/18/2019 1 05/23/2022 Assessment & Plan (10/29/2023 9:36 PM EDT): -followed by Nephrology Joseph Youngblood PA advanced to 1 yr follow-up -will attempt to retrieve labs ordered at nephro visit 08/07/23 -follow-up as needed Bilateral hearing loss 08/20/2018 3 Gastroesophageal reflux disease 12/02/2013 03/22/2023 Assessment & Plan (05/16/2023 1:14 PM EST): -take protonix at night. If symptoms persist after 1 week call -pt education on GERD lifestyle modifications provided -will consider switching to omeprazole if no symptom relief Hyperlipidemia 09/16/2013 03/22/2023 Assessment & Plan (10/29/2023 9:25 PM EDT): -mildly elevated LDL at 109. Continue current regimen with Atorvastatin 80 mg -elevated triglycerides will recheck at next visit -encouraged to continue lifestyle modifications -medication refill provided Assessment & Plan (04/04/2023 4:22 PM EST): -continue lipitor 80 mg -low fat diet reinforced -daily exercise encouraged -lipids ordered for re-evaluation today Bilateral cataracts 09/19/2012 03/22/2023 Discogenic low back pain 09/19/2012 023 Encounters Date Type Department Care Team Description 06/04/2024 Telephone [facility] [place] [place] [address] Louise Coe MA july follow up 05/10/2024 Refill [facility] [address] [facility] [facility] [place] [address] Vanessa Arango NP Chronic bilateral low back pain with right-sided sciatica 05/07/2024 Telephone [facility] [address] [facility] [place] [address] nutrition appt request 04/29/2024 Telephone [facility] [address] [place] [address] Vanessa Arango NP Durable Medical Equipment (Bath mat, shower chair, Life alert, grab bars, handheld shower, raised toilet seat ) 04/25/2024 Refill [facility] [address] [facility] [place] [address] Vanessa Arango NP Gout, unspecified cause, unspecified chronicity, unspecified site 04/17/2024 9:15 AM EST Telemedicine [facility] [place] [address] Vanessa Arango NP Class 3 severe obesity due to excess calories with serious comorbidity and body mass index (BMI) of 40.0 to 44.9 in adult ([facility]) (Primary Dx); Dietary counseling; Exercise counseling; Positive depression screening 04/16/2024 Refill [facility] [address] [place] [address] Vanessa Arango NP Chronic bilateral low back pain with right-sided sciatica 04/06/2024 Telephone [facility] [address] [facility] [place] [address] Louise Coe MA Chart[employer] 04/01/2024 Refill [facility] [address] [facility] [place] [address] Vanessa Arango NP Class 3 severe obesity due to excess calories with serious comorbidity and body mass index (BMI) of 40.0 to 44.9 in adult ([facility]) 03/26/2024 Refill [facility] [address] [place] [address] Vanessa Arango NP Hyperlipidemia, unspecified hyperlipidemia type; Chronic bilateral low back pain with right-sided sciatica from Last 3 Months Immunizations Name Administration Dates Next Due Hep B, adult 10/30/2023,05/29/2023,04/19/2023 Influenza High-dose Quadriva lent Preservative Free 03/22/2023,02/29/2020 Influenza injectable quadriv alent IIV4 with preservative 03/03/2018,01/06/2015 Influenza injectable quadriv alent preservative free 02/26/2022,05/03/2021,12/31/2018,01/24 Influenza, High Dose Seasona l, Preservative Free 03/11/2024 Influenza, IIV3, injectable 02/15/2014, 1 Influenza, Split (incl. nae fied surface antigen) 01/30/2013 Influenza, seasonal, injecta ble, preservative free 02/06/2016 Pneumococcal Conjugate PCV 20 03/22/2023 Pneumococcal Polysaccharide PPSV23 06/14/2014 TD (adult), 2 Lf tetanus tox oid, preservative free, adsorbed 01/16/1994 Tdap 10/30/2023,09/02/2009 Zoster, live 06/14/2014 Family History Medical History Relation Name Comments Cancer Father Cancer Sister Relation Name Status Comments Father lung cancer Sister breast cancer Social History Tobacco Use Types Packs/Day Years Used Date Smoking Tobacco: Never Smokeless Tobacco: Never Tobacco Cessation:Counseling Given: Not Answered Alcohol Use Standard Drinks/Week Comments Yes 9 [...] Orientation Straight 02/05/2022 10 :14 AM EDT Last Filed Vital Signs Vital Sign Reading Time Taken Comments Blood Pressure 148/72 03/11/2024 11:23 AM EST Pulse 71 03/11/2024 9:55 AM EST Temperature 35.7 ??C (96.3 ??F) 03/11/2024 9:55 AM ES T Respiratory Rate 18 03/11/2024 9:55 AM EST Oxygen Saturation 97% 03/11/2024 9:55 AM EST Inhaled Oxygen Concentration - - Weight 103 kg (227 lb 6.4 oz) 03/11/2024 9:55 AM EST Height 157.5 cm (5' 2 ) 03/11/2024 9:55 AM EST Body Mass Index 41.59 03/11/2024 9:55 AM EST Plan of Treatment Upcoming Encounters Date Type Department Care Team (Late st Contact Info) Description 07/10/2024 10:15 AM EDT Office Visit [facility] MEDICINE [address] [place] [address] Vanessa Arango NP [address] [place] [address] Health Maintenance Due Date Last Done Comments CT Colonography 1954 FIT DNA/Cologuard 1954 FIT 1954 FOBT 1954 Sigmoidoscopy 1954 Eye Exam 02/05/1964 RSV Patients and Patients Aged 60 years or older (1 - Risk 60-74 years 1-dose series) 2014 Zoster Vaccines (2 of 3) 08/09/2014 06/14/2014 Colonoscopy 03/15/2021 03/15/2016 Colorectal Cancer Screening 03/15/2021 COVID-19 Vaccine ( season) 2023 02/26/2022, 05/03/2021, 06/30/2020, Additional history exists SDOH Screening 04/19/2024 04/19/2023 Lipid Panel 07/12/2024 07/13/2023, 04/0 08/2020, 12/17/2019 Diabetes: Foot Exam 08/08/2024 08/09/2023, 08/09/2023, 08/09/2023, Additional history exists Diabetes: Hemoglobin A1C 09/09/2024 024, 11/27/2023, 08/09/2023, Additional history exists Diabetes: Urine Protein Screening 11/26/2024 11/27/2023, 10/16/2022, 04/25/2021, Additional history exists Alcohol/Substance Use Screening 03/11/2025 03/11/2024 Depression Screening 04/17/2025 04/17/2024, 04/17/19 25 Tobacco Screening 04/17/2025 04/17/2024 DTaP/Tdap/Td Vaccines (3 - Td or Tdap) 10/29/2033 10/30/2023, 09/02/2009, 01/16/1994 Hepatitis C Screening Completed 04/25/2021 Pneumococcal Vaccine: 50+ Years Completed 03/22/2023, 06/14/2014 Hepatitis B Vaccines Completed 10/30/2023, 05/29/2023, 04/19/2023 Influenza Vaccine Completed 03/11/2024, , 02/26/2022, Additional history exists HIB Vaccines Aged Out No longer eligi ble based on patient's age to complete this topic HPV Vaccines Aged Out No longer eligi ble based on patient's age to complete this topic Hepatitis A Vaccines Aged Out No long er eligible based on patient's age to complete this topic IPV Vaccines Aged Out No longer eligi ble based on patient's age to complete this topic Meningococcal Vaccine Aged Out No cheng luc eligible based on patient's age to complete this topic RSV under 20 months Aged Out No longe r eligible based on patient's age to complete this topic Rotavirus Vaccines Aged Out No longer eligible based on patient's age to complete this topic Procedures Procedure Name Priority Date/Time Associated Diagnosis Comments HEMOGLOBIN A1C Routine 03/11/2024 10:50 AM EST Type 2 diabetes mellitus without complication, without long-term current use of insulin ([facility]) ALBUMIN, RANDOM URINE W/CREATININE Routine 11/27/2023 10:42 AM EDT Type 2 diabetes mellitus without complication, without long-term current use of insulin ([facility]) LIPID PANEL, STANDARD Routine 07/13/2023 7:48 AM EDT ZZZ HISTORICAL HEPATITIS C ANTIBODY RFLX Routine 04/25/2021 12:36 PM EST HM COLONOSCOPY Routine 03/15/2016 from Last 3 Months or Most Recently Relevant to Health Maintenance Results * Hemoglobin A1c (03/11/2024 10:50 AM EST) Hemoglobin A1c 5.6 <6.0 % [facility] Comment:Hemoglobin A1C Refer ence Range Adults: 4.8 - 6.0 % Non diabetic: < 6.0 % Goal: < 7.0 %Additional Action Suggested: > 8.0 %Note: Hemoglobin A1c results are invalid for patients with abnormal amounts of HbF. Blood transfusions may impact the HbA1c concentration in the patient sample. Estimated Average Glucose 114 mg/dL [facility] Comment:eAG = Estimated ave rage glucose which is %A1C expressed asaverage glucose, using the formula of the M1P-EjdgdcbEntgyds Glucose study (ADAG), Diabetes Care, Vol.31,#8,Aug. 2007 Blood Venous blood specimen / Unknown 03/11/2024 10:50 AM EST 03/11/2024 11:09 AM EST [facility] BLOOD ORDERABLES Final Resu lt Performing Organization Address [facility] Co de Phone Number [facility] [address] [place] [address] [phone] * Albumin, Random Urine W/Creatinine (11/27/2023 10:42 AM EDT) Creatinine, Urine 79.77 mg/dL [facility] Microalbumin Urine 23.0 mg/L [facility] Microalbum Creatinine Ratio Ur 28.8 <30 ug/mg cr [facility] Comment:Albumin/Creatinine R atio Reference Ranges: Normal: < 30 ug/mg creatinine Microalbuminuria: 30 - 300 ug/mg creatinineClinical Albuminuria: > 300 ug/mg creatinine Urine (Urine, Random) 11/27/2023 10:42 AM EDT 11/27/2023 4:52 PM EDT [facility] LAB URINE ORDERABLES Final Resu lt Performing Organization Address [facility] Co de Phone Number [facility] [address] [place] [phone] * (ABNORMAL) Lipid Panel, Standard (07/13/2023 7:48 AM EDT) Triglycerides 188(H) <150 mg/dL [facility] Comment:Desirable Triglyceri de: less than 150 mg/dLBorderline High Triglyceride 150-199 mg/dLHigh Triglyceride: 200-499 mg/dLVery High Triglyceride: greater than or equal to 5OO mg/dL Cholesterol 195 <200 mg/dL [facility] Comment:Desirable Cholestero l: less than 200 mg/dLBorderline High Cholesterol: 200-239 mg/dLHigh Cholesterol: greater than 239 mg/dL LDL Cholesterol Calculated 109(H) <100 mg/dL [facility] Comment:Desirable LDL: less than 100 mg/dLNear Optimal/Above Optimal LDL: 110- 129 mg/dLBorderline High LDL: 130-159 mg/dLHigh LDL: 160-189 mg/dLVery High LDL: greater than or equal to 190 mg/dL HDL Cholesterol 49 >40 mg/dL [facility] Comment:Desirable HDL: great er than 40 mg/dL Note: This HDL assay may give artificially low results in patients with liver disease. 07/13/2023 7:48 AM EDT 07/13/2023 7:48 AM EDT us Generic External Data Provider LAB BLOOD ORDERAB LES Final Result [facility] [address] [place] [address] [phone] * HEPATITIS C ANTIBODY RFLX (04/25/2021 12:36 PM EST) Pathologist [facility] Hepatitis C Antibody Nonreactive Nonreactive [facility] Comment: Antibodies to HCV not detected; does not exclude early acute HCV infection. 04/25/2021 12:3 6 PM EST us Tereza Nagel NP HISTORICAL/NON ORDERABLE LABS F inal Result Performing Organization Address City/[facility]/ZIP Co de Phone Number [facility] [address] * (ABNORMAL) Colonoscopy (03/15/2016) Colonoscopy Abnormal( A) Normal Comment:Tubular Adenomas and Persistent Polyps. Repeat 5 years us Raghav Ace [employer] Final Resul t from Last 3 Months or Most Recently Relevant to Health Maintenance Insurance [facility] Care Teams Renewals Specialist Relationship Specialty Start Date End Date Vanessa Arango NP [address] [place] [phone] PCP - General Family Medicine 03/23/23
--- OUTSIDE RECORDS SUMMARY | 2024-06-10 13:02 | XMS_ITS | Encounter Summary ---
Author Organization [facility] Address [address] [place] [address] Phone Care Team Providers Care Supervisor Alteration Workroom Name Role Phone NikoleRaghav armenta [facility] Primary Care Provider [phone] Reason for Visit * Reason Comments Med Refill Encounter Details Date Type Department Care Team (Late st Contact Info) Description 05/10/2024 Refill [facility] [address] [place] [address] Anjum Whitley MD [address] [place] [address] Social History Tobacco Use Types Packs/Day Years Used Date Smoking Tobacco: Never Alcohol Use Standard Drinks/Week Comments No 0 (1 standard drink = 0.6 oz pure alcohol) Alcoholic Drinks/day: Occasional social drink Sex and Gender Information Value Date Recorded Sex Assigned at Not on file Legal Sex Male 4:37 PM EST Gender Identity Not on file Sexual Orientation Not on file documented as of this encounter Plan of Treatment Upcoming Encounters Date Type Department Care Team (Late st Contact Info) Description 08/25/2024 1:50 PM EDT Office Visit [facility] [address] [place] [address] Anjum Whitley MD [address] [place] [address] documented as of this encounter Visit Diagnoses Not on filedocumented in this encounter Care Teams Supervisor Alteration Workroom Relationship Specialty Start Date End Date Raghav Ace FNP [address] [place] [address] PCP - General 02/10/19 documented as of this encounter
--- OUTSIDE RECORDS SUMMARY | 2024-06-10 13:02 | XMS_ITS | Encounter Summary ---
Author Organization [facility] [place], Address [address] [place] [address] Phone Care Team Providers Care Commercial Title Examiner Name Role Phone Raghav Ace Primary Care Provider Encounter Details Date Type Department Care Team (Late Contact Info) Description 04/23/2024 Documentation Only [facility] [address] [place] [address] Jess Ulloa [address] [place] [address] Social History Tobacco Use Types Packs/Day Years [...] Visit [facility] [address] [place] [address] Anjum Whitley MD [address] [place] [address] documented as of this encounter Visit Diagnoses Not on filedocumented in this encounter Care Teams Commercial Title Examiner Relationship Specialty Start Date End Date Raghav Ace FNP [address] [place] [address], [address]rd [place] [address] PCP - General 02/10/19 documented as of this encounter
--- OUTSIDE RECORDS SUMMARY | 2024-06-10 13:02 | XMS_ITS | Encounter Summary ---
Author Organization [facility] Address [address] [place] [address] Phone Care Team Providers Care Remote Sensing Analyst Name Role Phone Raghav Ace Primary Care Provider [phone] Encounter Details Date Type Department Care Team (Late st Contact Info) Description 02/07/2022 Documentation Only [facility] [address] [place] [address] Joseph Youngblood PA Social History Tobacco Use Types Packs/Day Years [...] Visit [facility] [address] [place] [address] Anjum Whitley MD [address] [place] [address] [place] [address] documented as of this encounter Visit Diagnoses Not on filedocumented in this encounter Care Teams Remote Sensing Analyst Relationship Specialty Start Date End Date Raghav Ace FNP [address] [place] [address] Drive, 3rd [place] [address] PCP - General 02/10/19 documented as of this encounter
--- OUTSIDE RECORDS SUMMARY | 2024-06-10 13:02 | XMS_ITS | Clinical Summary ---
Author Organization [facility] Address [address] [place] [address] Care Team Providers Care Assistant Director Of Public Works Name Role Phone Unavailable Primary Care Provider Unavailabl e Allergies No known active allergies Social History Tobacco Use Types Packs/Day Years Used Date Smoking Tobacco: Never Assessed Sex and Gender Information Value Date Recorded Sex Assigned at Male 08/16/2023 11:41 AM EDT Gender Identity Male 08/16/2023 11:41 AM EDT Sexual Orientation Heterosexual (straight) 08/15 11:41 AM EDT Last Filed Vital Signs Vital Sign Reading Time Taken Comments Blood Pressure 154/72 08/16/2023 12:08 PM EDT Pulse 90 08/16/2023 12:08 PM EDT Temperature 36.7 ??C (98 ??F) 08/16/2023 8:46 AM EDT Respiratory Rate 17 08/16/2023 12:08 PM EDT Oxygen Saturation 97% 08/16/2023 12:08 PM EDT Inhaled Oxygen Concentration - - Weight - - Height - - Body Mass Index - - Plan of Treatment Health Maintenance Due Date Last Done Comments Hepatitis C Virus Screening 1954 DTaP/Tdap/Td Vaccines (1 - Tdap) 1973 Colonoscopy 1999 Pneumococcal Vaccines 50+ (1 of 1 - PCV) 02/05/2004 Zoster (Shingles) Vaccine (1 of 2) 02/05/2004 RSV Vaccine 60 years and older and Patients (1 - Risk 60-74 years 1-dose series) 2014 Influenza Vaccine 11/07/2023 03/22/2023, , 05/03/2021, Additional history exists COVID-19 Vaccine ( - season) 2023 Hepatitis B Vaccines Aged Out No long er eligible based on patient's age to complete this topic Advance Directives Documents on File Type Date Recorded Patient Household Assistant Expl anation Advance Directive-Scan 08/16/2023
--- OUTSIDE RECORDS SUMMARY | 2024-06-10 13:02 | XMS_ITS | Encounter Summary ---
Author Organization [employer] Address [address] [facility] 7t [place] [address] Care Team Providers Care Floor Covering Printer Assistant Name Role Phone Vanessa Arango NP Primary Care Provider [phone] Reason for Visit * Reason Comments Med Change Request Encounter Details Date Type Department Care Team (Late st Contact Info) Description 10/16/[address] [facility] MEDICINE [address] [place] [address] Vanessa Arango NP [address] [place] [address] Chronic bilateral low back pain with right-sided [...] Description 07/10/2024 10:15 AM EDT Office Visit [facility] MED[facility]INE [address] [place] [address] Vanessa Arango NP [address] [place] [address] documented as of this encounter Visit Diagnoses Diagnosis Chronic bilateral low back pain with right-sided sciatica documented in this encounter Additional Health Concerns Assessment Noted Time PHQ-9 Depression Total Score: 7 03/22/20 23 2:14 PM EST documented as of this encounter Care Teams Floor Covering Printer Assistant Relationship Specialty Start Date End Date Vanessa Arango NP [address] [place] [address] PCP - General Family Medicine 03/23/23 documented as of this encounter
--- OUTSIDE RECORDS SUMMARY | 2024-06-10 13:02 | XMS_ITS | Encounter Summary ---
Author Organization [employer] [facility] Address [address] [place] [address] 7t [place] [address] Care Team Providers Care Regional Facilities Specialist Name Role Phone Aliza Cota JURY CONSULTANT Primary Care Provider [phone] Julienne Aparicio MD Primary Care Pro vider Vanessa Arango NP Primary Care Provider [phone] Encounter Details Date Type Department Care Team (Latest Contact Info) Description 08/18/2018 Abstract [facility] CONVERSIONS Dental, Provider, DDS Social History Tobacco Use Types Packs/Day Years [...] Description 07/10/2024 10:15 AM EDT Office Visit [facility] MEDICINE [address] [place] [address] Vanessa Arango NP [address] [place] [address] documented as of this encounter Visit Diagnoses Not on filedocumented in this encounter Care Teams Regional Facilities Specialist Relationship Specialty Start Date End Date Aliza Cota JURY CONSULTANT [address] [place] [address] PCP - General Family Medicine 12/01/21 02/19/23 Julienne Aparicio MD [address] [place] [address] PCP - General Internal Medicine 02/20/23 03/22/23 Vanessa Arango NP [address] [place] [address] PCP - General Family Medicine 03/23/23 documented as of this encounter
--- OUTSIDE RECORDS SUMMARY | 2024-06-10 13:02 | XMS_ITS | Encounter Summary ---
Author Organization [employer] Address [address] [facility] 7t [place] [address] Care Team Providers Care Foreign Languages Department Chair Name Role Phone Vanessa Arango NP Primary Care Provider [phone] Reason for Visit * Reason Onset Date Comments Durable Medical Equipment 12/27/2023 Encounter Details Date Type Department Care Team ([facility] st Contact Info) Description 12/27/2023 Telephone [facility] MEDICINE [address] [place] [address] Vanessa Arango NP [address] [place] [address] Durable Medical Equipment Social History Tobacco Use Types Packs/Day Years [...] encounter Miscellaneous Notes * Telephone Encounter - Germán Darby - 12/27/2023 1:25 PM EDT Tc from patients Daughter calling to request the following DME. Grab Bars Shower Chair Raised Toilet Hand Held Shower Head Bath Mat documented in this encounter Plan of Treatment Upcoming Encounters Date Type Department Care Team (Late st Contact Info) Description 07/10/2024 10:15 AM EDT Office Visit [facility] MEDICINE [address] [place] [address] Vanessa Arango NP [address] [place] [address] documented as of this encounter Visit Diagnoses Not on filedocumented in this encounter Additional Health Concerns Assessment Noted Time PHQ-9 Depression Total Score: 7 03/22/20 2:14 PM EST documented as of this encounter Care Teams Foreign Languages Department Chair Relationship Specialty Start Date End Date Vanessa Arango NP [address] [place] [address] PCP - General Family Medicine 03/23/23 documented as of this encounter
== END 2024-06-10 11:27 | disposition home or self-care (01) ==
PROVIDERS: PCP Nurse Practitioner; Visit Provider Internal Medicine
DX: E66.9 Obesity, unspecified (principal); J98.4 Other disorders of lung; G47.33 Obstructive sleep apnea (adult) (pediatric); Z99.89 Dependence on other enabling machines and devices
CPT/HCPCS: 99213

== ENCOUNTER → 2024-06-10 10:51 | Outpatient (BNVA) | payer OTHER, SELFPAY | PROVIDERS: PCP Nurse Practitioner; Visit Provider Internal Medicine | DX: G47.33 Obstructive sleep apnea (adult) (pediatric) (principal); J98.4 Other disorders of lung; E66.09 Other obesity due to excess calories; Z68.38 Body mass index [BMI] 38.0-38.9, adult; Z99.89 Dependence on other enabling machines and devices | CPT/HCPCS: 99212 ==

== ENCOUNTER 2024-07-21 12:38 | Outpatient (AMB) | payer OTHER, SELFPAY ==
--- NOTE | 2024-07-21 12:50 | MHC.OFFVIS ---
Vital Signs 07/21/24 12:51 Height 5 ft 2 in Weight 215 lb 9.793 oz BMI 39.4 BP 122/64 Blood Pressure Location Lt brachial Position Sitting Pulse 96 Pulse Source Pulse Oximeter Pulse Oximetry (%) 96 Oxygen Delivery Method Room Air Intake Visit Reasons: 4 month follow up Intake Note: ESTABLISHED PATIENT for mgmt of GERD. Chief Complaint; Pt denies any sx or concerns at this time. PPI still being taken as instructed and appears to be therapeutic per pt. Analyst Geochemical Prospecting Required: Yes Analyst Geochemical Prospecting Services: Analyst Geochemical Prospecting Offered & Declined Analyst Geochemical Prospecting Name: Family Information Interpreted: clinical only Accompanied by: Family/Other Allergies Seasonal Allergies Allergy (Mild, Verified 07/21/24 12:50) SNEEZING HPI HPI 4 month follow up: Details: LAST VISIT: GERD (gastroesophageal reflux disease) Tubular adenoma of colon Diverticulosis Plan Patient will continue pantoprazole daily. Avoid dietary triggers and late night snacking. Staying upright for minimum 3 hours after meals discussed with patient. Colonoscopy in 3 years, sooner if clinically necessary. Patient will follow-up in 4 months to re-evaluate. He will call our office if he will develop any GI concerning symptoms. He is agreeable to plan of care and verbalizes understanding of instructions. He was given the opportunity to ask questions and all questions answered. ? Thank you for allowing me to participate in his care Medications Refilled pantoprazole 40 mg PO QAM 30 days 90 tabs 6RF K21.9 TODAY'S VISIT Patient is here today for follow-up. Patient reports that he is feeling well. Denies any abdominal pain or discomfort. Still taking pantoprazole as ordered half an hour before breakfast. Denies any GI concerning symptoms. Denies dyspepsia, dysphagia or odynophagia. Reports that he is moving his bowels well without any issues. Patient reports that he is avoiding culprit. Eating more fiber. Adding vegetables to his diet. [facility] Medical History Diverticulosis Tubular adenoma of colon Type 2 diabetes mellitus with unspecified complications Essential hypertension Aortic valve calcification Atherosclerotic cardiovascular disease Restrictive lung disease MARYJO on CPAP Obesity (BMI 35.0-39.9 without comorbidity) Surgical History H/O esophagogastroduodenoscopy H/O colonoscopy Family History Sister HTN (hypertension) Diabetes Father Cancer Social History Household Members: Spouse and Children Alcohol intake: current Alcohol intake frequency: holidays/special occasions only Patient Tobacco Use Status: Never used Tobacco Review of Systems Const Denies weight gain and Denies weight loss ENT Reports no additional complaints, Denies dysphagia and Denies odynophagia Card Reports no additional complaints Resp Reports no additional complaints GI Denies abdominal pain, Denies belching, Denies melena, Denies bloating, Denies change in bowel habits, Denies dysphagia, Denies excessive flatus, Denies dyspepsia, Denies heartburn, Denies diarrhea, Denies loose stools, Denies nausea, Denies odynophagia and Denies vomiting Reports no additional complaints Musc Reports no additional complaints Neuro Reports no additional complaints Psych Reports no additional complaints Endo Reports no additional complaints Physical Exam Vital Signs: Last Vital Signs Pulse 96 07/21/24 12:51 BP 122/64 07/21/24 12:51 Pulse Ox 96 07/21/24 12:51 Oxygen Delivery Method Room Air 07/21/24 12:51 BMI result Body Mass Index 39.4 Const General: healthy appearing and no acute distress Nutritional Appearance: obese Orientation/consciousness: patient oriented x3 Resp Effort & Inspection: normal respiratory effort, able to speak in complete sentences, no tracheal deviation and symmetric chest movement Auscultation: clear to auscultation bilaterally Cardio Rate: regular rate GI Inspection: Yes normal to inspection, No distended and Yes obesity Palpation (GI): Soft to palpation, not firm, nontender and No hepatosplenomegaly present Auscultation: normal bowel sounds General: Yes no CVA tenderness Back/Spine/Pelvis Back: no CVA tenderness Skin General skin exam: elasticity normal, turgor normal and dry skin Neuro General: patient oriented x3 Psych Appearance: grossly normal Mental Status: mental status grossly normal Assessment & Plan Assessment & Plan (1) GERD (gastroesophageal reflux disease): Code(s): K21.9 - Gastro-esophageal reflux disease without esophagitis Category: Medical Qualifiers: Esophagitis presence: esophagitis presence not specified Qualified Code(s): K21.9 - Gastro-esophageal reflux disease without esophagitis (2) Diverticulosis: Code(s): K57.90 - Diverticulosis of intestine, part unspecified, without perforation or abscess without bleeding Category: Medical Plan Continue pantoprazole 40 mg daily. Avoid dietary triggers late at snacking. Staying upright for minimal 3 hours after meals discussed with patient. Patient will follow-up in our office as needed. However patient was encouraged if he will have any GI concerning symptoms to call our office. PCP may continue prescribing pantoprazole for patient. Patient is agreeable to current plan of care verbalizes understanding of instructions. He was given the opportunity to ask questions and all questions answered. Thank you for allowing me to participate in his care Medications: Changed From pantoprazole 40 mg PO QAM 30 days 90 tabs 6RF K21.9 - Gastro-esophageal reflux disease without esophagitis To pantoprazole 40 mg PO QAM 90 tabs 3RF K21.9 - Gastro-esophageal reflux disease without esophagitis Coding Level of Care Code Est Pt Level 3 (32284) Diagnoses Gastroesophageal reflux disease, unspecified whether esophagitis present K21.9 Esophagitis presence: esophagitis presence not specified Diverticulosis K57.90 Time Spent (min) 25 Comment 15 minutes spent with patient and additional 10 minutes spent reviewing his records
[2024-07-21 12:51] VITALS: BP 122/64; PULSE 96; O2SAT 96; BMI 39.4
--- OUTSIDE RECORDS SUMMARY | 2024-07-21 15:23 | XMS_ITS | Encounter Summary ---
Author Organization [employer] Address [address] [facility] 7t [place] [address] Care Team Providers Care Recreation Activities Coordinator Name Role Phone Vanessa Arango NP Primary Care Provider [phone] Reason for Visit * Reason Comments Med Refill Encounter Details Date Type Department Care Team (Late st Contact Info) Description 08/23/2023 Refill [facility] MEDICINE [address] [place] [address] Vanessa Arango NP [address] [place] [address] Hyperlipidemia, unspecified hyperlipidemia type; Chronic bilateral low [...] as of this encounter Plan of Treatment Not on file documented as of this encounter Visit Diagnoses Diagnosis Hyperlipidemia, unspecified hyperlipidemia type Chronic bilateral low back pain with right-sided sciatica documented in this encounter Additional Health Concerns Assessment Noted Time PHQ-9 Depression Total Score: 7 03/22/20 23 2:14 PM EST documented as of this encounter Care Teams Recreation Activities Coordinator Relationship Specialty Start Date End Date Vanessa Arango NP [address] [place] [address] PCP - General Family Medicine 03/23/23 documented as of this encounter
--- OUTSIDE RECORDS SUMMARY | 2024-07-21 15:23 | XMS_ITS | Encounter Summary ---
Author Organization [employer] Address [address] [facility] 7t [place] [address] Care Team Providers Care Purchasing Contracting Clerk Name Role Phone Vanessa Arango NP Primary Care Provider [phone] Reason for Visit * Reason Comments Med Refill Encounter Details Date Type Department Care Team (Late st Contact Info) Description 07/07/2024 Refill [facility] MEDICINE [address] [place] [address] Vanessa Arango NP [address] [place] [address] Class 3 severe obesity due to excess calories with serious comorbidity and body mass index (BMI) of 40.0 to 44.9 in adult Social History Tobacco Use Types Packs/Day Years [...] housing situation today? I have nathalia moss 07/10/[address] you li ve. Do you have problems with any of the following? None of the above 07/10/2024 Food Insecurity Answer Date Recorded Within the past 12 months, y ou worried that your food would run out before you got money to buy more: Never True 07/10/2024 Within the past 12 months,th e food you bought just didn't last and you didn't have enough money to get more: Never True 07/2024 Transportation Answer Date Recorded In the past 12 months, has l ack of transportation kept you from medical appts, meetings, work or from getting things needed for daily living? No 07/10/2024 Utilities Answer Date Recorded In the past 12 months, has t he electric, gas, oil or water company threatened to shut off services in your home? No 07/10/2024 Depression Answer Date Recorded Patient Health Questionnaire-2 Score 2 04/17/2024 Internet Access Answer Date Recorded Internet Access Q1 Yes 07/10/2024 Internet Access Q2 Not on file 07/10/2024 Sex and Gender Information Value Date Recorded Sex Assigned at Male 02/05/2022 10:14 AM EDT Legal Sex Male 10:14 AM EDT Gender Identity Male 02/05/2022 10:14 AM EDT Sexual Orientation Straight 02/05/2022 10 :14 AM EDT documented as of this encounter Plan of Treatment Not on file documented as of this encounter Visit Diagnoses Diagnosis Class 3 severe obesity due to excess calories with serious comorbidity and body mass index (BMI) of 40.0 to 44.9 in adult documented in this encounter Additional Health Concerns Assessment Noted Time PHQ-9 Depression Total Score: 6 04/17/19 25 9:04 AM EST documented as of this encounter Care Teams Purchasing Contracting Clerk Relationship Specialty Start Date End Date Vanessa Arango NP [address] [place] [address] PCP - General Family Medicine 03/23/23 documented as of this encounter
--- OUTSIDE RECORDS SUMMARY | 2024-07-21 15:23 | XMS_ITS | Encounter Summary ---
Author Organization [employer] Address [address] [facility] 7t [place] [address] Care Team Providers Care Transfer Station Operator Name Role Phone Vanessa Arango NP Primary Care Provider [phone] Reason for Visit * Reason Onset Date Comments Durable Medical Equipment 12/27/2023 Encounter Details Date Type Department Care Team ([facility] st Contact Info) Description 12/27/2023 Telephone [facility] MEDICINE [address] [place] [address] Vanessa Arango NP [address] [place] [address] Durable Medical Equipment Social History Tobacco Use [...] documented in this encounter Plan of Treatment Not on file documented as of this encounter Visit Diagnoses Not on filedocumented in this encounter Additional Health Concerns Assessment Noted Time PHQ-9 Depression Total Score: 7 03/22/20 2:14 PM EST documented as of this encounter Care Teams Transfer Station Operator Relationship Specialty Start Date End Date Vanessa Arango NP [address] [place] [address] PCP - General Family Medicine 03/23/23 documented as of this encounter
--- OUTSIDE RECORDS SUMMARY | 2024-07-21 15:23 | XMS_ITS | Encounter Summary ---
Author Organization [employer] Address [address] [place] [address] [address] [place] [address] Care Team Providers Care Forensic Toxicologist Name Role Phone Aliza Cota [facility] Primary Care Provider [phone] Julienne Aparicio MD Primary Care Pro vider Vanessa Arango NP Primary Care Provider [phone] Reason for Visit * Reason Comments Med Refill Encounter Details Date Type Department Care Team (Late st Contact Info) Description 12/28/2022 Refill [facility] [address] [place], [place] [phone] Aliza Cota [facility] [address] [place] [address] Social History Tobacco Use Types Packs/Day Years [...] on filedocumented in this encounter Care Teams Forensic Toxicologist Relationship Specialty Start Date End Date BeataAliza christopher FNP [address] [place] [address] PCP - General Family Medicine 12/01/21 02/19/23 Julienne Aparicio MD [address] [place] [address] PCP - General Internal Medicine 02/20/23 03/22/23 Vanessa Arango NP [address] [place] [address] PCP - General Family Medicine 03/23/23 documented as of this encounter
--- OUTSIDE RECORDS SUMMARY | 2024-07-21 15:23 | XMS_ITS | Clinical Summary ---
Author Organization [facility] Address [address] [place] [address] Care Team Providers Care Locomotive Lubricating Systems Clerk Name Role Phone Unavailable Primary Care Provider [...] Documents on File Type Date Recorded Patient Cooker Mechanic Expl anation Advance Directive-Scan 08/16/2023
--- OUTSIDE RECORDS SUMMARY | 2024-07-21 15:23 | XMS_ITS | Encounter Summary ---
Author Organization [employer] Address [address] [facility] 7t [place] [address] Care Team Providers Care Knock Out Hand Name Role Phone Vanessa Arango QI Primary Care Provider [phone] Reason for Visit * Reason Comments Med Refill Encounter Details Date Type Department Care Team (Late st Contact Info) Description 05/14/2023 Refill [facility] MEDICINE [address] [place], [place] [phone] [facility] [address] [place], [place] [phone] Dyspepsia Social History Tobacco Use Types Packs/Day [...] documented as of this encounter Care Teams Knock Out Hand Relationship Specialty Start Date End Date Vanessa Arango NP [address] [place] [address] PCP - General Family Medicine 03/23/23 documented as of this encounter
--- OUTSIDE RECORDS SUMMARY | 2024-07-21 15:23 | XMS_ITS | Encounter Summary ---
Author Organization [employer] Address [address] [facility] 7t [place] [address] Care Team Providers Care Cycle Liaison Name Role Phone Vanessa Arango NP Primary Care Provider [phone] Reason for Visit * Reason Comments Med Refill Encounter Details Date Type Department Care Team (Late st Contact Info) Description 02/06/2024 Refill [facility] MEDICINE [address] [place] [address] Vanessa Arango NP [address] [place] [address] Chronic bilateral low back pain with right-sided [...] documented as of this encounter Care Teams Cycle Liaison Relationship Specialty Start Date End Date Vanessa Arango NP [address] [place] [address] PCP - General Family Medicine 03/23/23 documented as of this encounter
--- OUTSIDE RECORDS SUMMARY | 2024-07-21 15:23 | XMS_ITS | Encounter Summary ---
Author Organization [employer] Address [address] [facility] 7t [place] [address] Care Team Providers Care Tongue And Groove Machine Operator Name Role Phone Vanessa Arango NP Primary Care Provider [phone] Reason for Visit * Reason Comments Med Refill Encounter Details Date Type Department Care Team (Late st Contact Info) Description 05/14/2023 Refill [facility] MEDICINE [address] [place] [address] Vanessa Arango NP [address] [place] [address] Type 2 diabetes mellitus with other specified complication, unspecified whether watermaster insulin use ([facility]); Hyperlipidemia, unspecified hyperlipidemia type Social History [...] complication, unspecified whether care home insulin use ([facility]) Hyperlipidemia, unspecified hyperlipidemia type documented in this encounter Additional Health Concerns Assessment Noted Time PHQ-9 Depression Total Score: 7 03/22/20 23 2:14 PM EST documented as of this encounter Care Teams Tongue And Groove Machine Operator Relationship Specialty Start Date End Date Vanessa Arango NP [address] [place] [address] PCP - General Family Medicine 03/23/23 documented as of this encounter
--- OUTSIDE RECORDS SUMMARY | 2024-07-21 15:23 | XMS_ITS | Encounter Summary ---
Author Organization [employer] Address [address] [facility] 7t [place] [address] Care Team Providers Care [employer] Name Role Phone Vanessa Arango NP Primary Care Provider [phone] Reason for Visit * Reason Comments Med Refill Encounter Details Date Type Department Care Team (Late st Contact Info) Description 07/02/2024 Refill [facility] [address] [place] [address] Vanessa Arango NP [address] [place] [address] Class 3 severe obesity due to excess calories with serious comorbidity and body mass index (BMI) of 40.0 to 44.9 in adult (CMS/HCC) Social History Tobacco Use Types Packs/Day Years [...] Telephone Encounter - Vanessa Arango NP - 07/02/2024 4:22 PM EDT New order placed documented in this encounter Plan of Treatment [...] documented as of this encounter Care Teams [employer] Relationship Specialty Start Date End Date Vanessa Arango NP [address] [place] [phone] PCP - General Family Medicine 03/23/23 documented as of this encounter
--- OUTSIDE RECORDS SUMMARY | 2024-07-21 15:23 | XMS_ITS | Clinical Summary ---
Author Organization [employer] Address [address] [facility] 7t [place] [address] Care Team Providers Care Sql Ssrs Ssis Developer Name Role Phone Vanessa Arango QI Primary Care Provider [phone] Allergies No known active allergies Medications [facility] Saline Nasal [place] 0.65 % nasal spray INSERT 1 SPRAY BY EACH NOSTRIL ROUTE EVERY 3 - 4 HOURS 44 mL 5 023 Active glucose blood (FREESTYLE LITE) test strip USE 1 STRIP by DIRECTED route every day 022 Active metoprolol tartrate (Lopressor) 50 MG tabletIndication s:Essential hypertension TAKE 1 TABLET BY MOUTH TWICE A DAY 180 tablet 023 Active acetaminophen (Tylenol) 500 MG tablet TAKE 1 TABLET (500MG) BY ORAL ROUTE EVERY 6 HOURS NEEDED 021 Active pantoprazole (ProtoNix) 40 MG EC tabletIndication s:Dyspepsia TAKE 1 TABLET BY MOUTH EVERY DAY IN THE MORNING 90 tablet 024 Active cyanocobalamin (Vitamin B-12) 1000 MCG tabletIndication s:Hyperlipidemia , unspecified hyperlipidemia type TAKE 1 TABLET (1,000 MCG) BY MOUTH IN THE MORNING 90 tablet 3 024 Active ferrous sulfate 325 (65 Fe) MG tablet Take 1 tablet (325 mg) by mouth with breakfast. 30 tablet 3 024 Active cholecalciferol (Vitamin D-3) 50 MCG (2000 UT) capsule Take 1 capsule (50 mcg) by mouth Once per day. 30 capsule 3 024 Active omega-3 (Fish Oil) 1000 MG capsule TAKE 1 CAPSULE BY MOUTH TWICE A DAY 180 capsule 3 024 Active FREESTYLE TEST STRIPS test stripIndications :Type 2 diabetes mellitus without complication, without long-term current use of insulin ([facility]) USE 1 STRIP BY DIRECTED ROUTE EVERY DAY 50 strip 11 024 Active baclofen (Lioresal) 5 MG tabletIndication s:Chronic bilateral low back pain with right-sided sciatica TAKE 1 TABLET BY MOUTH THREE TIMES A DAY 90 tablet 025 Active aspirin (Aspirin Low Dose) 81 MG EC tabletIndication s:Essential (primary) hypertension,Typ e 2 diabetes mellitus without complication, without long-term current use of insulin ([facility]) TAKE 1 TABLET (81 MG) BY MOUTH IN THE MORNING 90 tablet 3 025 Active Tirzepatide 5 MG/0.5ML solution auto-injectorInd ications:Class 3 severe obesity due to excess calories with serious comorbidity and body mass index (BMI) of 40.0 to 44.9 in adult,Type 2 diabetes mellitus without complication, without long-term current use of insulin ([facility]) Inject 5 mg under the skin 1 (one) time per week. 2 mL 1 025 2024 Active lisinopril-hydro CHLOROthiazide 20-25 MG tabletIndication s:Essential (primary) hypertension TAKE 1 TABLET BY MOUTH EVERY DAY IN THE MORNING 90 tablet 025 Active Blood Pressure kitIndications:E ssential (primary) hypertension 1 kit Once per day. 1 kit 025 Active Diclofenac Sodium 1 % gel Apply 1 g topically if needed in the morning, at noon, and at bedtime (PAIN). 100 g 025 2024 Active atorvastatin (Lipitor) 80 MG tabletIndication s:Hyperlipidemia , unspecified hyperlipidemia type take 1 tablet (80MG) by oral route every bedtime 90 tablet 025 Active allopurinol (Zyloprim) 100 MG tabletIndication s:Gout, unspecified cause, unspecified chronicity, unspecified site Take 1 tablet (100 mg) by mouth Once per day. 90 tablet 1 025 Active empagliflozin (Jardiance) 10 MG Take 1 tablet (10 mg) by mouth Once per day. 30 tablet 1 025 2024 Active lisinopril-hydro CHLOROthiazide 20-25 MG tabletIndication s:Essential (primary) hypertension TAKE 1 TABLET BY MOUTH EVERY DAY IN THE MORNING 90 tablet 024 2024 Discontinued allopurinol (Zyloprim) 100 MG tabletIndication s:Gout, unspecified cause, unspecified chronicity, unspecified site TAKE 1 TABLET (100 MG) BY MOUTH ONCE PER DAY. 90 tablet 1 025 2024 Discontinued(R eorder (will not trigger notification to Pharmacy)) atorvastatin (Lipitor) 80 MG tabletIndication s:Hyperlipidemia , unspecified hyperlipidemia type TAKE 1 TABLET (80MG) BY ORAL ROUTE EVERY BEDTIME 90 tablet 025 2024 Discontinued(R eorder (will not trigger notification to Pharmacy)) Mounjaro 2.5 MG/0.5ML solution auto-injector INJECT ONE PEN (=2.5MG) SUBCUTANEOUSLY ONCE A WEEK DIRECTED 025 2024 Discontinued(D ose adjustment) Blood Pressure kitIndications:E ssential (primary) hypertension 1 kit Once per day. 1 kit 025 2024 Discontinued(R eorder (will not trigger notification to Pharmacy)) Jardiance 10 MG Take 10 mg by mouth Once per day. 024 2024 Discontinued(R eorder (will not trigger notification to Pharmacy)) allopurinol (Zyloprim) 100 MG tabletIndication s:Gout, unspecified cause, unspecified chronicity, unspecified site Take 1 tablet (100 mg) by mouth Once per day. 90 tablet 1 025 2024 Discontinued(E ntered in error) atorvastatin (Lipitor) 80 MG tabletIndication s:Hyperlipidemia , unspecified hyperlipidemia type take 1 tablet (80MG) by oral route every bedtime 90 tablet 025 2024 Discontinued(E ntered in error) Jardiance 10 MG Take 1 tablet (10 mg) by mouth Once per day. 30 tablet 1 025 2024 Discontinued(E ntered in error) Active Problems Problem Noted Date Diagnosed Date [...] that was previously ordered. Call placed to [facility] pharmacy who stated medication was ready [...] -Discussed calorie deficit, low carb/high protein diet -Land Surveying Manager referral placed. Recommended to decrease sugary beverage [...] EST): -will message care management to understand SPECIAL EFFECTS TECHNICIAN process as it pertains to the patients [...] -currently on metoprolol 50 mg and lisinopril/HCTZ 20/20 -elevated BP reading today -continue to monitor [...] Encounters Date Type Department Care Team Description 07/10/2024 10:15 AM EDT Office Visit [facility] [address] [place] [phone] Vanessa Arango NP Class 3 severe obesity due to excess calories with serious comorbidity and body mass index (BMI) of 40.0 to 44.9 in adult (Primary Dx); Essential (primary) hypertension; Type 2 diabetes mellitus without complication, without long-term current use of insulin ([facility]); Gout, unspecified cause, unspecified chronicity, unspecified site; Hyperlipidemia, unspecified hyperlipidemia type 07/10/2024 Travel 07/09/2024 Telephone [facility] [address] [place] [phone] Louise Coe [place] chartprep 07/07/2024 Refill [facility] [address] [place] [address] Vanessa Arango NP Class 3 severe obesity due to excess calories with serious comorbidity and body mass index (BMI) of 40.0 to 44.9 in adult 07/05/2024 Refill [facility] [address] [place] [address] Vanessa Arango NP Essential (primary) hypertension; Chronic bilateral low back pain with right-sided sciatica 07/02/2024 Orders Only [facility] [address] [place] [address] Vanessa Arango NP Class 3 severe obesity due to excess calories with serious comorbidity and body mass index (BMI) of 40.0 to 44.9 in adult ([facility]) (Primary Dx); Type 2 diabetes mellitus without complication, without long-term current use of insulin ([facility]) 07/02/2024 Refill [facility] [address] [place] [phone] Vanessa Arango NP Class 3 severe obesity due to excess calories with serious comorbidity and body mass index (BMI) of 40.0 to 44.9 in adult ([facility]) 06/15/2024 Refill [facility] [address] [place] [address] Vanessa Arango NP Chronic bilateral low back pain with right-sided sciatica; Hyperlipidemia, unspecified hyperlipidemia type; Essential (primary) hypertension; Type 2 diabetes mellitus without complication, without long-term current use of insulin ([facility]) 06/04/[address] [phone] Louise Coe [place] july follow up 05/10/2024 Refill [facility] [address] [place] [phone] Vanessa Arango NP Chronic bilateral low back pain with right-sided sciatica 05/07/[address] nutrition appt request 04/29/[address] [phone] Vanessa Arango NP Durable Medical Equipment (Bath mat, shower chair, Life alert, grab bars, handheld shower, raised toilet seat ) 04/25/2024 Refill [facility] [address] [place] [phone] Vanessa Arango NP Gout, unspecified cause, unspecified chronicity, unspecified site from Last 3 Months Immunizations Name Administration [...] the past 12 months, has t he [employer], [employer], oil or water [employer] threatened to shut off services in your [...] Sign Reading Time Taken Comments Blood Pressure 118/70 07/10/2024 10:59 AM EDT Pulse 90 07/10/2024 10:59 AM EDT apic al Temperature 35.7 ??C (96.2 ??F) 07/10/2024 10:16 AM E DT Respiratory Rate 25 07/10/2024 10:16 AM EDT Oxygen Saturation 97% 07/10/2024 10:16 AM EDT Inhaled Oxygen Concentration - - Weight 96.3 kg (212 lb 3.2 oz) 07/10/2024 10:16 AM EDT Height 157.5 cm (5' 2 ) 07/10/2024 10:16 AM EDT Body Mass Index 38.81 07/10/2024 10:16 AM EDT Plan of Treatment Health Maintenance Due Date Last Done Comments CT Colonography 1954 FIT DNA/Cologuard 1954 FIT 1954 FOBT 1954 Sigmoidoscopy 1954 Eye Exam 02/05/1964 Zoster Vaccines (2 of 3) 08/09/2014 06/14/2014 Colonoscopy 03/15/2021 03/15/2016 Colorectal Cancer Screening 03/15/2021 COVID-19 Vaccine ( season) 2023 02/26/2022, 05/03/2021, 06/30/2020, Additional history exists Lipid Panel 07/12/2024 07/13/2023, 04/0 08/2020, 12/17/2019 Diabetes: Foot Exam 08/08/2024 08/09/2023, 08/09/2023, 08/09/2023, Additional history exists Diabetes: Urine Protein Screening 11/26/2024 11/27/2023, 10/16/2022, 04/25/2021, Additional history exists Diabetes: Hemoglobin A1C 01/09/2025 025, 03/11/2024, 11/27/2023, Additional history exists Alcohol/Substance Use Screening 03/11/2025 03/11/2024 Depression Screening 04/17/2025 04/17/2024, 04/17/19 25 SDOH Screening 07/10/2025 07/10/2024 Tobacco Screening 07/10/2025 07/10/2024 RSV Patients and Patients Aged 60 years or older (1 - 1-dose 75+ series) 2029 DTaP/Tdap/Td Vaccines (3 - Td or Tdap) [...] Procedure Name Priority Date/Time Associated Diagnosis Comments POCT GLYCATED HEMOGLOBIN, TOTAL Routine 07/10/2024 10:21 AM EDT Type 2 diabetes mellitus without complication, without long-term current use of insulin ([facility]) POCT GLUCOSE Routine 07/10/2024 10:18 AM EDT Type 2 diabetes mellitus without complication, without long-term current use of insulin (CMS/HCC) ALBUMIN, RANDOM URINE W/CREATININE Routine 11/27/2023 10:42 AM EDT Type 2 diabetes mellitus without complication, without long-term current use of insulin (CMS/HCC) LIPID PANEL, STANDARD Routine 07/13/2023 7:48 AM EDT ZZZ HISTORICAL HEPATITIS C ANTIBODY RFLX Routine 04/25/2021 12:36 PM EST HM COLONOSCOPY Routine 03/15/2016 from Last 3 Months or Most Recently Relevant to Health Maintenance Results * POCT HGB A1C (07/10/2024 10:21 AM EDT) Hemoglobin A1C 5.7 4.0 - 6.0 % QC Media Lot # [id number] Lot# Expiration Date [id number] Blood 07/10/2024 10:2 1 AM EDT us Vanessa Arango NP POINT OF CARE TEST ENTER/EDIT O RDERABLES Final Result * POCT Glucose (07/10/2024 10:18 AM EDT) Glucose Blood, POC 139 60 - 200 mg/dL QC Media Lot # [id number] Lot# Expiration Date [id number] Blood Capillary blood specimen / Unknown 07/10/2024 10:18 AM EDT us Vanessa Arango NP POINT OF CARE TEST ENTER/EDIT O RDERABLES Final Result * Albumin, Random Urine W/Creatinine (11/27/2023 10:42 AM EDT) Creatinine, Urine 79.77 mg/dL [facility] Microalbumin Urine 23.0 mg/L [facility] Microalbum Creatinine Ratio Ur 28.8 <30 ug/mg cr [facility] Comment:Albumin/Creatinine R atio Reference Ranges: Normal: < 30 ug/mg creatinine Microalbuminuria: 30 - 300 ug/mg creatinineClinical Albuminuria: > 300 ug/mg creatinine Urine (Urine, Random) 11/27/2023 10:42 AM EDT 11/27/2023 4:52 PM EDT us Vanessa Arango NASCAR PIT CREW PERSON LAB URINE ORDERABLES Final Resu lt Performing Organization Address [facility] Co de Phone Number [facility] [address] [place] [phone] * (ABNORMAL) Lipid Panel, Standard (07/13/2023 7:48 AM EDT) Triglycerides 188(H) <150 mg/dL [facility] Comment:Desirable Triglyceri de: less than 150 mg/dLBorderline High Triglyceride 150-199 mg/dLHigh Triglyceride: 200-499 mg/dLVery High Triglyceride: greater than or equal to 5OO mg/dL Cholesterol 195 <200 mg/dL [facility] Comment:Desirable Cholestero l: less than 200 mg/dLBorderline High Cholesterol: 200-239 mg/dLHigh Cholesterol: greater than 239 mg/dL LDL Cholesterol Calculated 109(H) <100 mg/dL [facility] Comment:Desirable LDL: less than 100 mg/dLNear Optimal/Above Optimal LDL: 110- 129 mg/dLBorderline High LDL: 130-159 mg/dLHigh LDL: 160-189 mg/dLVery High LDL: greater than or equal to 190 mg/dL HDL Cholesterol 49 >40 mg/dL [facility] Comment:Desirable HDL: great er than 40 mg/dL Note: This HDL assay may give artificially low results in patients with liver disease. 07/13/2023 7:48 AM EDT 07/13/2023 7:48 AM EDT us Generic External Data Provider LAB BLOOD ORDERAB LES Final Result Performing Organization Address [facility]/ZIP Co de Phone Number [facility] [address] [place] [phone] * HEPATITIS C ANTIBODY RFLX (04/25/2021 12:36 PM EST) Hepatitis C Antibody Nonreactive Nonreactive [facility] Comment: Antibodies to HCV not detected; does not exclude early acute HCV infection. 04/25/2021 12:3 6 PM EST Tereza Nagel NASCAR PIT CREW PERSON HISTORICAL/NON ORDERABLE LABS F inal Result [facility] [address] * (ABNORMAL) Colonoscopy (03/15/2016) Colonoscopy Abnormal( A) Normal Comment:Tubular Adenomas and Persistent Polyps. Repeat 5 years Raghav Ace FITTER MECHANIC HEALTH MAINTENANCE Final Resul t from Last 3 Months or Most Recently Relevant to Health Maintenance Insurance [facility] Care Teams Sql Ssrs Ssis Developer Relationship Specialty Start Date End Date Vanessa Arango NP [address] [place] [address] [phone] PCP - General Family Medicine 03/23/23
--- OUTSIDE RECORDS SUMMARY | 2024-07-21 15:23 | XMS_ITS | Clinical Summary ---
Author Organization [facility] [place], Address [address] [place] [address] [place] [address] Phone Care Team Providers Care Binder Cutter Name Role Phone Raghav Ace Primary Care [...] KVNG TABLETA TODOS LOS D 0 Active Hollis-3 Fatty Acids ([facility] Fish Oil) 1000 MG [...] CAPSULE BY MOUTH 1 TIME EACH DAY. 90 capsule 1 5 Active Empagliflozin 25 MG tablet Take 25 mg by mouth 1 (one) time each day in the morning 90 tablet 3 5 Active Active Problems Problem Noted Date Diagnosed Date Type 2 diabetes mellitus without complication Essential (primary) hypertension 02/06/2021 Chronic kidney disease stage 2 06/18/2019 Resolved Problems Problem Noted Date Diagnosed Date Resolved Date Renal disorder due to type 2 diabetes mellitus 01/11/2020 02/12/2022 Hyperlipidemia 06/18/2019 02/06/2021 Hypertensive heart disease w [facility] congestive heart failure 06/18/2019 02/12/2022 Hypokalemia 06/18/2019 02/06/2021 Morbid obesity 06/18/2019 02/06/2021 Obstructive sleep apnea syndrome 06/18/2019 02/06/2021 Encounters Date Type Department Care Team Description 06/15/2024 Refill [facility] [address] [place] [address] Yadira Wyatt MA 06/10/2024 Refill [facility] [address] [place] [address] Anjum Whitley MD 05/10/2024 Refill [facility] [address] [place] [address] Anjum Whitley MD 04/29/2024 3:30 PM EST Office Visit [facility] [address] [place] [address] Anjum Whitley MD Essential (primary) hypertension (Primary Dx) 04/23/2024 Documentation Only [facility] [address] [place] [phone] Jess Ulloa from Last 3 Months Family History Medical [...] Visit [facility] [address] [place] [phone] Anjum Whitley MD [address] [facility] [place] [phone] Health Maintenance Due Date Last Done Comments Colorectal Cancer Screening: Annual FOBT 2003 Colorectal Cancer Screening: Colonoscopy 2003 Colorectal Cancer Screening: Sigmoidoscopy 2003 Diabetes: Ophthalmology Exam 01/11/2020 Diabetes: Pedal Pulse Checked 01/11/2020 Diabetes: Sensory Foot Exam 01/11/2020 Diabetes: Visual Foot Exam 01/11/2020 Diabetes: Hemoglobin A1C 06/09/2024 024, 10/16/2022, 02/12/2022, Additional history exists Pneumococcal Vaccine: 50+ Years Completed 03/22/2023, 06/14/2014 Pneumococcal Vaccine: Peds (0 to 5 Years) and At-Risk Patients (6 to 49 Years) Discontinued 03/22/2023, 06/14/2014 Hepatitis B Vaccine Aged Out [...] PM EDT) Hemoglobin A1C 6.3(H) (4.0-5.6) % [facility] Comment: MONITORING: In known diabetic patients, hemoglobin A1c targets should be discussed with health care provider. DIAGNOSTIC USE: ??The [place] Diabetes Association (ADA) and the World Health [...] Supplement 1 Testing performed or reported by [facility] [employer], a Service of [facility], [address] [place] [address] Darryn Ballesteros MD, Metal Fabricator Welder [facility]# [id number] Blood (Blood, Venous) 10/16/2022 2:54 PM EDT 10/16/2022 2:55 PM EDT Joseph ROBLERO LAB BLOOD ORDERABLES Final Re sult [facility] from Last 3 Months or Most Recently Relevant to Health Maintenance Insurance [facility] Care Dual SNP ([id number]) ANNIKA ALCANTARA [id number] Care Teams Binder Cutter Relationship Specialty Start Date End Date Raghav Ace FNP [address]rd [place] [address] PCP - General 02/10/19
--- OUTSIDE RECORDS SUMMARY | 2024-07-21 15:23 | XMS_ITS | Encounter Summary ---
Author Organization [employer] [facility] Address [address] [place] [address] 7[address] [place] [address] Care Team Providers Care Crop Farm Workers Name Role Phone Julienne Aparicio MD Primary Care Pro vider Vanessa Arango NP Primary Care Provider [phone] Reason for Visit * Reason Comments Med Refill Encounter Details Date Type Department Care Team (Late st Contact Info) Description 02/20/2023 Refill [facility] [address] [place] [address] Julienne Elias MD [address] [place] [address] Dyspepsia; IFG (impaired fasting glucose); Hyperlipidemia, unspecified [...] type documented in this encounter Care Teams Crop Farm Workers Relationship Specialty Start Date End Date Julienne Aparicio MD [address] [place] [address] PCP - General Internal Medicine 02/20/23 03/22/23 Vanessa Arango NP [address] [place] [phone] PCP - General Family Medicine 03/23/23 documented as of this encounter
--- OUTSIDE RECORDS SUMMARY | 2024-07-21 15:23 | XMS_ITS | Encounter Summary ---
Author Organization [employer] Address [address] [facility] 7t [place] [address] Care Team Providers Care Reinforcing Steel Worker Wire Mesh Name Role Phone Vanessa Arango NP Primary Care Provider [phone] Reason for Visit * Reason Comments Med Refill Encounter Details Date Type Department Care Team (Late st Contact Info) Description 06/04/2023 Refill [facility] [address] [place] [address] Vanessa Arango NP [address] [place] [address] Chronic bilateral low back pain with right-sided sciatica; Hyperlipidemia, unspecified hyperlipidemia type; Type 2 diabetes mellitus with other specified complication, unspecified whether terminal system operator insulin use (CMS/[facility]); Dyspepsia Social History Tobacco Use Types Packs/Day [...] mellitus with other specified complication, unspecified whether correction insulin use ([facility]) Dyspepsia Dyspepsia and other specified disorders of function of stomach documented in this encounter Additional Health Concerns Assessment Noted Time PHQ-9 Depression Total Score: 7 03/22/20 23 2:14 PM EST documented as of this encounter Care Teams Reinforcing Steel Worker Wire Mesh Relationship Specialty Start Date End Date Vanessa Arango NP [address] [place] [address] PCP - General Family Medicine 03/23/23 documented as of this encounter
--- OUTSIDE RECORDS SUMMARY | 2024-07-21 15:23 | XMS_ITS | Encounter Summary ---
Author Organization [employer] [facility] Address [address] [place] [address] 7[address] [place] [address] Care Team Providers Care Lumber Mover Name Role Phone Aliza Cota CRAFT DEMONSTRATOR Primary Care Provider [phone] Julienne Aparicio MD Primary Care Pro vider Vanessa Arango NP Primary Care Provider [phone] Encounter Details Date Type Department Care Team (Latest Contact Info) Description 08/18/2018 Abstract [facility] CONVERSIONS Dental, Provider, DDS Social History Tobacco [...] on filedocumented in this encounter Care Teams Lumber Mover Relationship Specialty Start Date End Date Aliza Cota [facility] [address] [place] [phone] PCP - General Family Medicine 12/01/21 02/19/23 Julienne Aparicio MD [address] [place] [phone] PCP - General Internal Medicine 02/20/23 03/22/23 Vanessa Arango NP [address] [place] [address] [place] [address] PCP - General Family Medicine 03/23/23 documented as of this encounter
--- OUTSIDE RECORDS SUMMARY | 2024-07-21 15:23 | XMS_ITS | Encounter Summary ---
Author Organization [employer] Address [address] [facility] 7t [place] [address] Care Team Providers Care Senior Analyst Market Intelligence Name Role Phone Vanessa Arango NP Primary Care Provider [phone] Reason for Visit * Reason Comments Med Refill Encounter Details Date Type Department Care Team (Late st Contact Info) Description 05/04/2023 Refill [facility] 230 [place] [address] Vanessa Arango NP [address] [place] [address] Chronic bilateral low back pain with right-sided [...] documented as of this encounter Care Teams Senior Analyst Market Intelligence Relationship Specialty Start Date End Date Vanessa Arango NP [address] [place] [address] PCP - General Family Medicine 03/23/23 documented as of this encounter
--- OUTSIDE RECORDS SUMMARY | 2024-07-21 15:23 | XMS_ITS | Encounter Summary ---
Author Organization [employer] [facility] Address [address] [place] [address] 7t [place] [address] Care Team Providers Care Field Administrator Name Role Phone Vanessa Arango NP Primary Care Provider [phone] Reason for Referral * Medications - Closed Specialty Diagnoses / Procedures Referred By Jay rolle Referred To Contact Diagnoses Class 3 severe obesity due to excess calories with serious comorbidity and body mass index (BMI) of 40.0 to 44.9 in adult Type 2 diabetes mellitus without complication, without long-term current use of insulin (CMS/HCC) Vanessa Arango NP 230 [place] [address] Phone: tel: fax: Referral ID Status Reason Start Date Expiration Date Visits Re quested Visits Authorized [id number] Closed 1 1 Encounter Details Date Type Department Care Team (Late st Contact Info) Description 07/02/2024 Orders Only [facility] 230 [place] [address] Vanessa Arango NP 230 [place] [address] Class 3 severe obesity due to excess calories with serious comorbidity and body mass index (BMI) of 40.0 to 44.9 in adult (CMS/HCC) (Primary Dx); Type 2 diabetes mellitus without complication, without long-term current use of insulin (CMS/HCC) Social History Tobacco Use Types Packs/Day [...] index (BMI) of 40.0 to 44.9 in adult- Primary Type 2 diabetes mellitus without complication, without long-term current use of insulin ([facility]) documented in this encounter Additional Health Concerns Assessment Noted Time PHQ-9 Depression Total Score: 6 04/17/19 25 9:04 AM EST documented as of this encounter Care Teams Field Administrator Relationship Specialty Start Date End Date Vanessa Arango NP 230 [place] [address] PCP - General Family Medicine 03/23/23 documented as of this encounter
--- OUTSIDE RECORDS SUMMARY | 2024-07-21 15:23 | XMS_ITS | Encounter Summary ---
Author Organization [employer] Address [address] [facility] 7t [place] [address] Care Team Providers Care Nuclear Weapons Mechanical Specialist Name Role Phone Vanessa Arango QI Primary Care Provider [phone] Reason for Visit * Reason Comments Med Refill Encounter Details Date Type Department Care Team (Late st Contact Info) Description 05/04/2023 Refill [facility] MED[facility] 230 [place], [place] [phone] [facility] 230 [place], [place] [phone] Hyperlipidemia, unspecified hyperlipidemia type; Type 2 diabetes mellitus with other specified complication, unspecified whether roasterman insulin use ([facility]); IFG (impaired fasting glucose) Social History Tobacco [...] mellitus with other specified complication, unspecified whether intermediate insulin use ([facility]) IFG (impaired fasting glucose) documented in this encounter Additional Health Concerns Assessment Noted Time PHQ-9 Depression Total Score: 7 03/22/20 23 2:14 PM EST documented as of this encounter Care Teams Nuclear Weapons Mechanical Specialist Relationship Specialty Start Date End Date Vanessa Arango NP [address] [place] [address] PCP - General Family Medicine 03/23/23 documented as of this encounter
--- OUTSIDE RECORDS SUMMARY | 2024-07-21 15:23 | XMS_ITS | Encounter Summary ---
Author Organization [employer] Address [address] [facility] 7t [place] [address] Care Team Providers Care Forming Department Supervisor Name Role Phone Vanessa Arango NP Primary Care Provider [phone] Reason for Visit * Reason Comments Med Change Request Encounter Details Date Type Department Care Team (Late st Contact Info) Description 10/16/2023 Refill [facility] 230 [place] [address] Vanessa Arango NP 230 [place] [address] Chronic bilateral low back pain with right-sided [...] documented as of this encounter Care Teams Forming Department Supervisor Relationship Specialty Start Date End Date Vanessa Arango NP [address] [place] [address] PCP - General Family Medicine 03/23/23 documented as of this encounter
--- OUTSIDE RECORDS SUMMARY | 2024-07-21 15:23 | XMS_ITS | Encounter Summary ---
Author Organization [facility] Address [address] [place] [address] Phone Care Team Providers Care Commercial Trailer Truck Driver Name Role Phone Raghav Ace Primary Care Provider Encounter Details Date Type Department Care Team (Late Contact Info) Description 04/23/2024 Documentation Only [facility] [address] [place] [address] Jess Ulloa [address] [place] [address] Social History Tobacco Use Types [...] Visit [facility] [address] [place] [address] Anjum Whitley MD [address] [place] [address] documented as of this encounter Visit Diagnoses Not on filedocumented in this encounter Care Teams Commercial Trailer Truck Driver Relationship Specialty Start Date End Date Raghav Ace FNP [address] [place] [address], 3rd [place] [address] PCP - General 02/10/19 documented as of this encounter
--- OUTSIDE RECORDS SUMMARY | 2024-07-21 15:23 | XMS_ITS | Encounter Summary ---
Author Organization [employer] Address [address] [place] [address] 7t [place] [address] Care Team Providers Care Engineering And Operations Director Name Role Phone [facility] Primary Care Provider [phone] Julienne Aparicio MD Primary Care Pro vider Vanessa Arango NP Primary Care Provider [phone] Reason for Visit * Reason Comments Med Refill Encounter Details Date Type Department Care Team (Late st Contact Info) Description 10/25/2022 Refill [facility] 230 [place] [address] [facility] 230 [place] [address] Dyspepsia; Hyperlipidemia, unspecified hyperlipidemia type; IFG (impaired [...] glucose) documented in this encounter Care Teams Engineering And Operations Director Relationship Specialty Start Date End Date [facility] 230 [place] [address] PCP - General Family Medicine 12/01/21 02/19/23 Julienne Aparicio MD [address] [place] [address] [phone] PCP - General Internal Medicine 02/20/23 03/22/23 Vanessa Arango NP [address] [place] [address] PCP - General Family Medicine 03/23/23 documented as of this encounter
--- OUTSIDE RECORDS SUMMARY | 2024-07-21 15:23 | XMS_ITS ---
Author Name [facility] Organization Unknown Encounters Encounter Type Encounter Reason Primary Diagnosis Location Date Emergency Peritonsillar abscess Peritonsil lar abscess [facility] 08/16/2023 Care Team Organization Name Specialty Phone Email Start Date End Da te [facility] 08/16/2023 06/24/2024 [facility] 08/16/2023
--- OUTSIDE RECORDS SUMMARY | 2024-07-21 15:23 | XMS_ITS | Encounter Summary ---
Author Organization [employer] Address [address] [place] [address] 7t [place] [address] Care Team Providers Care Sheriff Detective Name Role Phone [facility] Primary Care Provider [phone] Julienne Aparicio MD Primary Care Pro vider Vanessa Arango NP Primary Care Provider [phone] Reason for Visit * Reason Comments Med Refill Encounter Details Date Type Department Care Team (Late st Contact Info) Description 11/07/2022 Refill [facility] 230 [place] [address] [facility] 230 [place], [place] [phone] Type 2 diabetes mellitus with other specified complication, unspecified whether termite helper insulin use (CMS/HCC); IFG (impaired fasting glucose) Social History Tobacco [...] mellitus with other specified complication, unspecified whether skilled nursing insulin use (CMS/HCC) IFG (impaired fasting glucose) documented in this encounter Care Teams Sheriff Detective Relationship Specialty Start Date End Date [place] [facility] 230 [place] [address] PCP - General Family Medicine 12/01/21 02/19/23 Julienne Aparicio MD [address] [place] [address] PCP - General Internal Medicine 02/20/23 03/22/23 Vanessa Arango NP 230 [place] [address] PCP - General Family Medicine 03/23/23 documented as of this encounter
--- OUTSIDE RECORDS SUMMARY | 2024-07-21 15:23 | XMS_ITS | Encounter Summary ---
Author Organization [employer] Address [address] [facility] 7t [place] [address] Care Team Providers Care Interior Design Director Name Role Phone Vanessa Arango NP Primary Care Provider [phone] Encounter Details Date Type Department Care Team (Late st Contact Info) Description 04/18/2023 Abstract [facility] 230 [place] [address] Vanessa Arango NP 230 [place] [address] Social History Tobacco Use Types Packs/Day Years [...] documented as of this encounter Care Teams Interior Design Director Relationship Specialty Start Date End Date Vanessa Arango NP [address] [place] [address] PCP - General Family Medicine 03/23/23 documented as of this encounter
--- OUTSIDE RECORDS SUMMARY | 2024-07-21 15:23 | XMS_ITS | Encounter Summary ---
Author Organization [employer] Address [address] [place] [address] 7t [place] [address] Care Team Providers Care Coater Carbon Paper Name Role Phone Beata [place] HYDRO SPRAYER OPERATOR Primary Care Provider [phone] Julienne Aparicio MD Primary Care Pro vider Vanessa Arango NP Primary Care Provider [phone] Encounter Details Date Type Department Care Team (Late st Contact Info) Description 02/19/2023 Orders Only [facility] [address] [place] [address] Duyen Jean LPN Social History Tobacco Use [...] on filedocumented in this encounter Care Teams Coater Carbon Paper Relationship Specialty Start Date End Date [place] C[place] [facility] 230 [place] [address] PCP - General Family Medicine 12/01/21 02/19/23 Julienne Aparicio MD 230 [place] [address] PCP - General Internal Medicine 02/20/23 03/22/23 Vanessa Arango NP [address] [place] [address] PCP - General Family Medicine 03/23/23 documented as of this encounter
--- OUTSIDE RECORDS SUMMARY | 2024-07-21 15:23 | XMS_ITS | Encounter Summary ---
Author Organization [facility] Address [address] [place] [address] Phone Care Team Providers Care Utility Worker Film Processing Name Role Phone Raghav Ace Primary Care Provider [phone] Encounter Details Date Type Department Care Team (Late st Contact Info) Description 02/07/2022 Documentation Only [facility] [address] [place] [address] Joseph Youngblood PA Social History [...] Visit [facility] [address] [place] [address] Anjum Whitley MD [address] [place] [address] [place] [address] documented as of this encounter Visit Diagnoses Not on filedocumented in this encounter Care Teams Utility Worker Film Processing Relationship Specialty Start Date End Date Raghav Ace FNP [address] [place] [address] Drive, 3rd [place] [address] PCP - General 02/10/19 documented as of this encounter
--- OUTSIDE RECORDS SUMMARY | 2024-07-21 15:23 | XMS_ITS | Encounter Summary ---
Author Organization [employer] Address [address] [facility] 7t [place] [address] Care Team Providers Care Slitter And Rewinder Name Role Phone Vanessa Arango NP Primary Care Provider [phone] Reason for Visit * Reason Comments Med Refill Encounter Details Date Type Department Care Team (Late st Contact Info) Description 04/16/2024 Refill [facility] 230 [place] [address] Vanessa Arango NP 230 [place] [address] Chronic bilateral low back pain with right-sided [...] documented as of this encounter Care Teams Slitter And Rewinder Relationship Specialty Start Date End Date Vanessa Arango NP [address] [place] [address] PCP - General Family Medicine 03/23/23 documented as of this encounter
--- OUTSIDE RECORDS SUMMARY | 2024-07-21 15:23 | XMS_ITS | Encounter Summary ---
Author Organization [employer] Address [address] [facility] 7t [place] [address] Care Team Providers Care Keg Varnisher Name Role Phone Vanessa Arango NP Primary Care Provider [phone] Reason for Visit * Reason Comments Med Refill Encounter Details Date Type Department Care Team (Late st Contact Info) Description 12/29/2023 Refill [facility] MEDICINE 230 [place] [address] Vanessa Arango NP 230 [place] [address] Chronic bilateral low back pain with right-sided [...] documented as of this encounter Care Teams Keg Varnisher Relationship Specialty Start Date End Date Vanessa Arango NP [address] [place] [address] PCP - General Family Medicine 03/23/23 documented as of this encounter
--- OUTSIDE RECORDS SUMMARY | 2024-07-21 15:23 | XMS_ITS | Encounter Summary ---
Author Organization [employer] Address [address] [place] [address] 7t [place] [address] Care Team Providers Care Protective Services Case Worker Name Role Phone [facility] Primary Care Provider [phone] Julienne Aparicio MD Primary Care Pro vider Vanessa Arango NP Primary Care Provider [phone] Reason for Visit * Reason Comments Med Refill Encounter Details Date Type Department Care Team (Late st Contact Info) Description 12/28/2022 Refill [facility] 230 [place] [address] Julienne Elias MD 230 [place] [address] Dyspepsia; IFG (impaired fasting glucose); Hyperlipidemia, unspecified [...] type documented in this encounter Care Teams Protective Services Case Worker Relationship Specialty Start Date End Date Beata Aliza [facility] 230 [place] [address] PCP - General Family Medicine 12/01/21 02/19/23 Julienne Aparicio MD [address] [place] [address] [phone] PCP - General Internal Medicine 02/20/23 03/22/23 Vanessa Arango NP [address] [place] [address] PCP - General Family Medicine 03/23/23 documented as of this encounter
== END 2024-07-21 13:16 | disposition home or self-care (01) ==
LOC: HO.HGI 12:38
PROVIDERS: PCP Nurse Practitioner; Visit Provider Nurse Practitioner Family
DX: K21.9 Gastro-esophageal reflux disease without esophagitis (principal); K57.90 Diverticulosis of intestine, part unspecified, without perforation or abscess without bleeding
CPT/HCPCS: 99213

== ENCOUNTER → 2024-07-21 12:38 | Outpatient (BNVA) | payer OTHER, SELFPAY | PROVIDERS: PCP Nurse Practitioner; Visit Provider Nurse Practitioner Family | DX: K21.9 Gastro-esophageal reflux disease without esophagitis (principal); K57.90 Diverticulosis of intestine, part unspecified, without perforation or abscess without bleeding | CPT/HCPCS: 99212 ==

== ENCOUNTER 2024-07-23 09:17 | Outpatient (REF) | payer OTHER, SELFPAY ==
--- OUTSIDE RECORDS SUMMARY | 2024-07-23 10:29 | XMS_ITS | Encounter Summary ---
Author Organization [employer] Address [address] [facility] 7t [place] [address] Care Team Providers Care Supply Person Name Role Phone Vanessa Arango QI Primary Care Provider [phone] Reason for Visit * Reason Comments Med Refill Encounter Details Date Type Department Care Team (Late st Contact Info) Description 05/14/2023 Refill [facility] MED[facility] 230 [place], [place] [phone] [facility] 230 [place], [place] [phone] Dyspepsia Social History Tobacco Use Types Packs/Day [...] documented as of this encounter Care Teams Supply Person Relationship Specialty Start Date End Date Vanessa Arango NP [address] [place] [address] PCP - General Family Medicine 03/23/23 documented as of this encounter
--- OUTSIDE RECORDS SUMMARY | 2024-07-23 10:29 | XMS_ITS | Encounter Summary ---
Author Organization [employer] Address [address] [facility] 7t [place] [address] Care Team Providers Care Banking Supervisor Name Role Phone Vanessa Arango NP Primary Care Provider [phone] Reason for Visit * Reason Comments Med Refill Encounter Details Date Type Department Care Team (Late st Contact Info) Description 04/16/2024 Refill [facility] MEDICINE 230 [place] [address] Vanessa Arango NP 230 [place] [address] Chronic bilateral low back pain with right-sided [...] documented as of this encounter Care Teams Banking Supervisor Relationship Specialty Start Date End Date Vanessa Arango NP [address] [place] [address] PCP - General Family Medicine 03/23/23 documented as of this encounter
--- OUTSIDE RECORDS SUMMARY | 2024-07-23 10:29 | XMS_ITS | Encounter Summary ---
Author Organization [employer] Address [address] [place] [address] 7t [place] [address] Care Team Providers Care Welder Assistant Name Role Phone [facility] Primary Care Provider [phone] Julienne Aparicio MD Primary Care Pro vider Vanessa Arango NP Primary Care Provider [phone] Reason for Visit * Reason Comments Med Refill Encounter Details Date Type Department Care Team (Late st Contact Info) Description 11/07/2022 Refill [facility] 230 [place] [address] [facility] 230 [place], [place] [phone] Type 2 diabetes mellitus with other specified complication, unspecified whether joint terminal attack controller insulin use (CMS/HCC); IFG (impaired fasting glucose) [...] mellitus with other specified complication, unspecified whether fpc insulin use (CMS/HCC) IFG (impaired fasting glucose) documented in this encounter Care Teams Welder Assistant Relationship Specialty Start Date End Date [place] [facility] 230 [place] [address] PCP - General Family Medicine 12/01/21 02/19/23 Julienne Aparicio MD [address] [place] [address] PCP - General Internal Medicine 02/20/23 03/22/23 Vanessa Arango NP 230 [place] [address] PCP - General Family Medicine 03/23/23 documented as of this encounter
--- OUTSIDE RECORDS SUMMARY | 2024-07-23 10:29 | XMS_ITS | Encounter Summary ---
Author Organization [employer] Address [address] [facility] 7t [place] [address] Care Team Providers Care Category Development Manager Name Role Phone Vanessa Arango NP Primary Care Provider [phone] Reason for Visit * Reason Comments Med Refill Encounter Details Date Type Department Care Team (Late st Contact Info) Description 05/14/2023 Refill [facility] 230 [place] [address] Vanessa Arango NP 230 [place] [address] Type 2 diabetes mellitus with other specified complication, unspecified whether technician terminal and repeater insulin use ([facility]); Hyperlipidemia, unspecified hyperlipidemia type Social History [...] mellitus with other specified complication, unspecified whether mcfp insulin use ([facility]) Hyperlipidemia, unspecified hyperlipidemia type documented in this encounter Additional Health Concerns Assessment Noted Time PHQ-9 Depression Total Score: 7 03/22/20 23 2:14 PM EST documented as of this encounter Care Teams Category Development Manager Relationship Specialty Start Date End Date Vanessa Arango NP [address] [place] [address] PCP - General Family Medicine 03/23/23 documented as of this encounter
--- OUTSIDE RECORDS SUMMARY | 2024-07-23 10:29 | XMS_ITS | Encounter Summary ---
Author Organization [employer] Address 75 [facility] 7t [place] [address] Care Team Providers Care Clinical Services Professional Name Role Phone Vanessa Arango NP Primary Care Provider [phone] Reason for Visit * Reason Comments Med Refill Encounter Details Date Type Department Care Team (Late st Contact Info) Description 05/04/2023 Refill [facility] MEDICINE 230 [place] [address] Vanessa Arango NP 230 [place] [address] Chronic bilateral low back pain with right-sided [...] your housing situation today? I have nathalia omss 04/19/[address] you li [...] documented as of this encounter Care Teams Clinical Services Professional Relationship Specialty Start Date End Date Vanessa Arango NP [address] [place] [address] PCP - General Family Medicine 03/23/23 documented as of this encounter
--- OUTSIDE RECORDS SUMMARY | 2024-07-23 10:29 | XMS_ITS | Encounter Summary ---
Author Organization [employer] Address [address] [facility] 7t [place] [address] Care Team Providers Care Public Housing Manager Name Role Phone Vanessa Arango NP Primary Care Provider [phone] Reason for Visit * Reason Comments Med Refill Encounter Details Date Type Department Care Team (Late st Contact Info) Description 02/06/2024 Refill [facility] MEDIC[facility] 230 [place] [address] Vanessa Arango NP 230 [place] [address] Chronic bilateral low back pain with right-sided [...] documented as of this encounter Care Teams Public Housing Manager Relationship Specialty Start Date End Date Vanessa Arango NP [address] [place] [address] PCP - General Family Medicine 03/23/23 documented as of this encounter
--- OUTSIDE RECORDS SUMMARY | 2024-07-23 10:29 | XMS_ITS | Clinical Summary ---
Author Organization [facility], Address [address] [place] [address] [place] [address] Phone Care Team Providers Care Financial Compliance Officer Name Role Phone Raghav Ace Primary Care Provider [phone] Allergies No known active allergies Medications pantoprazole [...] KVNG TABLETA TODOS LOS D 0 Active [place]-3 Fatty Acids ([facility] Fish Oil) 1000 MG [...] Hyperlipidemia 06/18/2019 02/06/2021 Hypertensive heart disease w [facility] congestive heart failure 06/18/2019 02/12/2022 Hypokalemia 06/18/2019 02/06/2021 Morbid obesity 06/18/2019 02/06/2021 Obstructive sleep apnea syndrome 06/18/2019 02/06/2021 Encounters Date Type Department Care Team Description 06/15/2024 Refill [facility] [address] [place] [address] Yadira Wyatt [place] 06/10/2024 Refill [facility] [address] [place] [address] Anjum Whitley MD 05/10/2024 Refill [facility] [address] [place] [address] Anjum Whitley MD 04/29/2024 3:30 PM EST Office Visit [facility] [address] [place] [address] Anjum Whitley MD Essential (primary) hypertension (Primary Dx) from Last 3 Months Family History Medical [...] Visit [facility] [address] [place] [place] [id number] Anjum Whitley MD [address] [place] [address] [place] [address] Health Maintenance Due Date Last Done Comments [...] PM EDT) Hemoglobin A1C 6.3(H) (4.0-5.6) % [facility] Comment: MONITORING: In known diabetic patients, hemoglobin A1c targets should be discussed with health care provider. DIAGNOSTIC USE: ??The [place] Diabetes [employer] (ADA) and the World Health [...] Supplement 1 Testing performed or reported by [facility], a Service of [facility], [address] [place] [id number] Darryn Ballesteros MD, Acute Care Registered Nurse ANALI# [id number] Blood (Blood, Venous) 10/16/2022 2:54 PM EDT 10/16/2022 2:55 PM EDT Joseph [facility] BLOOD ORDERABLES Final Re sult JACQUES from Last 3 Months or Most Recently Relevant to Health Maintenance Insurance [facility] One Care Dual SNP ([id number]) ANNIKA ALCANTARA [id number] Care Teams Financial Compliance Officer Relationship Specialty Start Date End Date Raghav Ace FNP [address] [place] [address], [address]rd [place] [address] PCP - General 02/10/19
--- OUTSIDE RECORDS SUMMARY | 2024-07-23 10:29 | XMS_ITS | Encounter Summary ---
Author Organization [employer] Address [address] [place] [address] 7t [place] [address] Care Team Providers Care Collection Development Librarian Name Role Phone Beata Aliza PRESSURE CONTROLLER Primary Care Provider [phone] Julienne Aparicio MD Primary Care Pro vider Vanessa Arango NP Primary Care Provider [phone] Encounter Details Date Type Department Care Team (Late st Contact Info) Description 08/06/2022 Orders Only [facility]S [address] [place] [address] Sharita Mena LPN Social History Tobacco Use [...] on filedocumented in this encounter Care Teams Collection Development Librarian Relationship Specialty Start Date End Date Aliza Cota [facility] [address] [place] [address] PCP - General Family Medicine 12/01/21 02/19/23 Julienne Aparicio MD [address] [place] [address] PCP - General Internal Medicine 02/20/23 03/22/23 Vanessa Arango NP [address] [place] [address] PCP - General Family Medicine 03/23/23 documented as of this encounter
--- OUTSIDE RECORDS SUMMARY | 2024-07-23 10:29 | XMS_ITS | Encounter Summary ---
Author Organization [employer] Address [address] [facility] 7t [place] [address] Care Team Providers Care Wash Test Checker Name Role Phone Vanessa Arango NP Primary Care Provider [phone] Reason for Visit * Reason Comments Med Refill Encounter Details Date Type Department Care Team (Late st Contact Info) Description 06/04/2023 Refill [facility] MED[facility] [address] [place] [address] Vanessa Arango NP 230 [place] [address] Chronic bilateral low back pain with right-sided sciatica; Hyperlipidemia, unspecified hyperlipidemia type; Type 2 diabetes mellitus with other specified complication, unspecified whether adjunct faculty for medical terminology insulin use ([facility]); Dyspepsia Social History Tobacco Use Types Packs/Day [...] mellitus with other specified complication, unspecified whether long-term insulin use ([facility]) Dyspepsia Dyspepsia and other specified disorders of function of stomach documented in this encounter Additional Health Concerns Assessment Noted Time PHQ-9 Depression Total Score: 7 03/22/20 23 2:14 PM EST documented as of this encounter Care Teams Wash Test Checker Relationship Specialty Start Date End Date Vanessa Arango NP [address] [place] [address] PCP - General Family Medicine 03/23/23 documented as of this encounter
--- OUTSIDE RECORDS SUMMARY | 2024-07-23 10:29 | XMS_ITS | Encounter Summary ---
Author Organization [employer] Address [address] [facility] 7t [place] [address] Care Team Providers Care Building Contractor Name Role Phone Vanessa Arango NP Primary Care Provider [phone] Encounter Details Date Type Department Care Team (Late st Contact Info) Description 04/18/2023 Abstract [facility] MED[facility]INE 230 [place] [address] Vanessa Arango NP 230 [place] [address] Social History Tobacco Use Types Packs/Day Years [...] documented as of this encounter Care Teams Building Contractor Relationship Specialty Start Date End Date Vanessa Arango NP [address] [place] [address] PCP - General Family Medicine 03/23/23 documented as of this encounter
--- OUTSIDE RECORDS SUMMARY | 2024-07-23 10:29 | XMS_ITS | Encounter Summary ---
Author Organization [employer] Address [address] [place] [address] 7t [place] [address] Care Team Providers Care Retail Banking Manager Name Role Phone Beata [facility] Primary Care Provider [phone] Julienne Aparicio MD Primary Care Pro vider Vanessa Arango NP Primary Care Provider [phone] Reason for Visit * Reason Comments Med Refill Encounter Details Date Type Department Care Team (Late st Contact Info) Description 12/28/2022 Refill [facility] [address] [place] [address] Julienne Elias MD [address] [place] [address] Dyspepsia; IFG (impaired fasting glucose); Hyperlipidemia, unspecified [...] type documented in this encounter Care Teams Retail Banking Manager Relationship Specialty Start Date End Date Beata Aliza [facility] [address] [place] [address] PCP - General Family Medicine 12/01/21 02/19/23 Julienne Aparicio MD [address] [place] [id number] PCP - General Internal Medicine 02/20/23 03/22/23 Vanessa Arango NP [address] [place] [address] PCP - General Family Medicine 03/23/23 documented as of this encounter
--- OUTSIDE RECORDS SUMMARY | 2024-07-23 10:29 | XMS_ITS | Encounter Summary ---
Author Organization [employer] [facility] Address [address] [place] [address] 7t [place] [address] Care Team Providers Care Commercial Correspondent Name Role Phone Julienne Aparicio MD Primary Care Pro vider Vanessa Arango NP Primary Care Provider [phone] Reason for Visit * Reason Comments Med Refill Encounter Details Date Type Department Care Team (Late st Contact Info) Description 02/20/2023 Refill [facility] 230 [place] [address] Julienne Elias MD 230 [place] [address] Dyspepsia; IFG (impaired fasting glucose); Hyperlipidemia, unspecified [...] type documented in this encounter Care Teams Commercial Correspondent Relationship Specialty Start Date End Date Julienne Aparicio MD 230 [place] [address] PCP - General Internal Medicine 02/20/23 03/22/23 Vanessa Arango NP [address] [place] [address] PCP - General Family Medicine 03/23/23 documented as of this encounter
--- OUTSIDE RECORDS SUMMARY | 2024-07-23 10:29 | XMS_ITS | Encounter Summary ---
Author Organization [employer] Address [address] [place] [address] 7t [place] [address] Care Team Providers Care Ground Control Approach Technician Name Role Phone Beata [place] PALEONTOLOGICAL HELPER Primary Care Provider [phone] Julienne Aparicio MD Primary Care Pro vider Vanessa Arango NP Primary Care Provider [phone] Encounter Details Date Type Department Care Team (Late st Contact Info) Description 02/19/2023 Orders Only [facility] MED & PEDS 505 [place] [address] Duyen Jean LPN Social History Tobacco Use [...] on filedocumented in this encounter Care Teams Ground Control Approach Technician Relationship Specialty Start Date End Date Aliza Cota [facility] 230 [place] [address] PCP - General Family Medicine 12/01/21 02/19/23 Julienne Aparicio MD 230 [place] [address] PCP - General Internal Medicine 02/20/23 03/22/23 Vanessa Arango NP [address] [place] [address] PCP - General Family Medicine 03/23/23 documented as of this encounter
--- OUTSIDE RECORDS SUMMARY | 2024-07-23 10:29 | XMS_ITS | Encounter Summary ---
Author Organization [employer] Address [address] [facility] 7t [place] [address] Care Team Providers Care Logistics Planning Engineer Name Role Phone Vanessa Arango NP Primary Care Provider [phone] Reason for Visit * Reason Comments Med Refill Encounter Details Date Type Department Care Team (Late st Contact Info) Description 07/07/2024 Refill [facility] MED[facility] 230 [place] [address] Vanessa Arango NP 230 [place] [address] Class 3 severe obesity due to excess [...] documented as of this encounter Care Teams Logistics Planning Engineer Relationship Specialty Start Date End Date Vanessa Arango NP [address] [place] [address] PCP - General Family Medicine 03/23/23 documented as of this encounter
--- OUTSIDE RECORDS SUMMARY | 2024-07-23 10:29 | XMS_ITS | Encounter Summary ---
Author Organization [employer] Address [address] [facility] 7t [place] [address] Care Team Providers Care Metal Bonding Press Operator Name Role Phone Vanessa Arango QI Primary Care Provider [phone] Reason for Visit * Reason Comments Med Refill Encounter Details Date Type Department Care Team (Late st Contact Info) Description 05/04/2023 Refill [facility] 230 [place], [place] [phone] [facility] 230 [place], [place] [phone] Hyperlipidemia, unspecified hyperlipidemia type; Type 2 diabetes mellitus with other specified complication, unspecified whether director long term care insulin use ([facility]); IFG (impaired fasting glucose) Social History Tobacco [...] mellitus with other specified complication, unspecified whether longterm insulin use ([facility]) IFG (impaired fasting glucose) documented in this encounter Additional Health Concerns Assessment Noted Time PHQ-9 Depression Total Score: 7 03/22/20 23 2:14 PM EST documented as of this encounter Care Teams Metal Bonding Press Operator Relationship Specialty Start Date End Date Vanessa Arango NP [address] [place] [address] PCP - General Family Medicine 03/23/23 documented as of this encounter
--- OUTSIDE RECORDS SUMMARY | 2024-07-23 10:29 | XMS_ITS | Encounter Summary ---
Author Organization [employer] Address [address] [place] [address] 7t [place] [address] Care Team Providers Care Airplane Designer Name Role Phone [facility] Primary Care Provider [phone] Julienne Aparicio MD Primary Care Pro vider Vanessa Arango NP Primary Care Provider [phone] Reason for Visit * Reason Comments Med Refill Encounter Details Date Type Department Care Team (Late st Contact Info) Description 10/25/2022 Refill [facility] [address] [place] [address] [facility] 230 [place] [address] Dyspepsia; Hyperlipidemia, unspecified hyperlipidemia type; IFG (impaired [...] glucose) documented in this encounter Care Teams Airplane Designer Relationship Specialty Start Date End Date [facility] 230 [place] [address] PCP - General Family Medicine 12/01/21 02/19/23 Julienne Aparicio MD [address] [place] [id number] PCP - General Internal Medicine 02/20/23 03/22/23 Vanessa Arango NP [address] [place] [address] PCP - General Family Medicine 03/23/23 documented as of this encounter
--- OUTSIDE RECORDS SUMMARY | 2024-07-23 10:29 | XMS_ITS | Encounter Summary ---
Author Organization [employer] Address [address] [place] [address] 7 [place] [address] Care Team Providers Care Technology Sales Representative Name Role Phone Aliza Cota [facility] Primary Care Provider [phone] Julienne Aparicio MD Primary Care Pro vider Vanessa Arango NP Primary Care Provider [phone] Reason for Visit * Reason Comments Med Refill Encounter Details Date Type Department Care Team (Late st Contact Info) Description 12/28/2022 Refill [facility] [address] [place], [place] [phone] Aliza Cota [facility] 230 [place] [address] Social History Tobacco Use Types Packs/Day Years [...] on filedocumented in this encounter Care Teams Technology Sales Representative Relationship Specialty Start Date End Date BeataAliza christopher FNP 230 [place] [address] PCP - General Family Medicine 12/01/21 02/19/23 Julienne Aparicio MD 230 [place] [address] PCP - General Internal Medicine 02/20/23 03/22/23 Vanessa Arango NP [address] [place] [address] PCP - General Family Medicine 03/23/23 documented as of this encounter
--- OUTSIDE RECORDS SUMMARY | 2024-07-23 10:30 | XMS_ITS | Encounter Summary ---
Author Organization [employer] Address [address] [facility] 7t [place] [address] Care Team Providers Care Packing Room Inspector Name Role Phone Vanessa Arango NP Primary Care Provider [phone] Reason for Visit * Reason Comments Med Refill Encounter Details Date Type Department Care Team (Late st Contact Info) Description 12/29/2023 Refill [facility] MED[facility] 230 [place] [address] Vanessa Arango NP 230 [place] [address] Chronic bilateral low back pain with right-sided [...] documented as of this encounter Care Teams Packing Room Inspector Relationship Specialty Start Date End Date Vanessa Arango NP [address] [place] [address] PCP - General Family Medicine 03/23/23 documented as of this encounter
--- OUTSIDE RECORDS SUMMARY | 2024-07-23 10:30 | XMS_ITS | Encounter Summary ---
Author Organization [employer] Address [address] [facility] 7t [place] [address] Care Team Providers Care Executive Administrative Asst Name Role Phone Vanessa Arango NP Primary Care Provider [phone] Reason for Visit * Reason Comments Med Refill Encounter Details Date Type Department Care Team (Late st Contact Info) Description 08/23/2023 Refill [facility] MED[facility] 230 [place] [address] Vanessa Arango NP 230 [place] [address] Hyperlipidemia, unspecified hyperlipidemia type; Chronic bilateral low [...] documented as of this encounter Care Teams Executive Administrative Asst Relationship Specialty Start Date End Date Vanessa Arango NP [address] [place] [address] PCP - General Family Medicine 03/23/23 documented as of this encounter
--- OUTSIDE RECORDS SUMMARY | 2024-07-23 10:30 | XMS_ITS | Encounter Summary ---
Author Organization [facility] Address [address] [place] [address] Phone Care Team Providers Care Marine Resource Economist Name Role Phone Raghav Ace Primary Care Provider [phone] Encounter Details Date Type Department Care Team (Late Contact Info) Description 04/23/2024 Documentation Only [facility] [address] [facility] [place] [address] Jess Ulloa [address] [place] [address] Social History Tobacco Use Types [...] Visit [facility] [address] [facility] [place] [address] Anjum Whitley MD [address] [facility] [place] [address] documented as of this encounter Visit Diagnoses Not on filedocumented in this encounter Care Teams Marine Resource Economist Relationship Specialty Start Date End Date Raghav Ace FNP [address] [place] [address], 3rd [place] [address] PCP - General 02/10/19 documented as of this encounter
--- OUTSIDE RECORDS SUMMARY | 2024-07-23 10:30 | XMS_ITS | Clinical Summary ---
Author Organization [employer] Address [address] [facility] 7t [place] [address] Care Team Providers Care Clothes Marker Name Role Phone Vanessa Arango QI Primary Care Provider [phone] Allergies No known active allergies Medications [facility] Saline Nasal Jay 0.65 % nasal spray INSERT 1 SPRAY [...] complication, without long-term current use of insulin ([facility]) USE 1 STRIP BY DIRECTED ROUTE EVERY DAY 50 strip 11 024 Active baclofen (Lioresal) 5 MG tabletIndication s:Chronic bilateral low back pain with right-sided sciatica TAKE 1 TABLET BY MOUTH THREE TIMES A DAY 90 tablet 025 Active aspirin (Aspirin Low Dose) 81 MG EC tabletIndication s:Essential (primary) hypertension,Typ e 2 diabetes mellitus without complication, without long-term current use of insulin ([facility]) TAKE 1 TABLET (81 MG) BY MOUTH IN THE MORNING 90 tablet 3 025 Active Tirzepatide 5 MG/0.5ML solution auto-injectorInd ications:Class 3 severe obesity due to excess calories with serious comorbidity and body mass index (BMI) of 40.0 to 44.9 in adult,Type 2 diabetes mellitus without complication, without long-term current use of insulin ([facility]) Inject 5 mg under the skin 1 [...] that was previously ordered. Call placed to [facility] pharmacy who stated medication was ready for [...] -Discussed calorie deficit, low carb/high protein diet -High Pressure Kettle Operator referral placed. Recommended to decrease sugary beverage [...] EST): -will message care management to understand GAMBLING CASHIER process as it pertains to the patients [...] Description 07/10/2024 10:15 AM EDT Office Visit [facility] [address] [place] [phone] Vanessa Arango NP Class 3 severe obesity due to excess calories with serious comorbidity and body mass index (BMI) of 40.0 to 44.9 in adult (Primary Dx); Essential (primary) hypertension; Type 2 diabetes mellitus without complication, without long-term current use of insulin ([facility]); Gout, unspecified cause, unspecified chronicity, unspecified site; Hyperlipidemia, unspecified hyperlipidemia type 07/10/2024 Travel 07/09/2024 Telephone [facility] [address] [place] [phone] Louise Coe [place] chartprep 07/07/2024 Refill [facility] [address] [place] [address] Vanessa Arango NP Class 3 severe obesity due to excess calories with serious comorbidity and body mass index (BMI) of 40.0 to 44.9 in adult 07/05/2024 Refill [facility] [address] [place] [address] Vanessa Arango NP Essential (primary) hypertension; Chronic bilateral low back pain with right-sided sciatica 07/02/2024 Orders Only [facility] [address] [place] [address] Vanessa Arango NP Class 3 severe obesity due to excess calories with serious comorbidity and body mass index (BMI) of 40.0 to 44.9 in adult ([facility]) (Primary Dx); Type 2 diabetes mellitus without complication, without long-term current use of insulin ([facility]) 07/02/2024 Refill [facility] [address] [place] [phone] Vanessa Arango NP Class 3 severe obesity due to excess calories with serious comorbidity and body mass index (BMI) of 40.0 to 44.9 in adult ([facility]) 06/15/2024 Refill [facility] [address] [place] [address] Vanessa Arango NP Chronic bilateral low back pain with right-sided sciatica; Hyperlipidemia, unspecified hyperlipidemia type; Essential (primary) hypertension; Type 2 diabetes mellitus without complication, without long-term current use of insulin ([facility]) 06/04/[address] [address] Louise Coe [place] july follow up 05/10/2024 Refill [facility] [address] [place] [phone] Vanessa Arango NP Chronic bilateral low back pain with right-sided sciatica 05/07/[address] nutrition appt request 04/29/[address] [address] Vanessa Arango NP Durable Medical Equipment (Bath mat, shower chair, Life alert, grab bars, handheld shower, raised toilet seat ) 04/25/2024 Refill [facility] [address] [place] [phone] Vanessa Arango NP Gout, unspecified cause, unspecified [...] the past 12 months, has t he [employer], [employer], oil or water [employer] threatened to shut off services in your [...] complication, without long-term current use of insulin ([facility]) POCT GLUCOSE Routine 07/10/2024 10:18 AM EDT [...] 10:42 AM EDT) Creatinine, Urine 79.77 mg/dL [facility] Microalbumin Urine 23.0 mg/L [facility] Microalbum Creatinine Ratio Ur 28.8 <30 ug/mg cr [facility] Comment:Albumin/Creatinine R atio Reference Ranges: Normal: < 30 ug/mg creatinine Microalbuminuria: 30 - 300 ug/mg creatinineClinical Albuminuria: > 300 ug/mg creatinine Urine (Urine, Random) 11/27/2023 10:42 AM EDT 11/27/2023 4:52 PM EDT us Vanessa Arango FILM MAKER LAB URINE ORDERABLES Final Resu lt Performing Organization Address [facility] Co de Phone Number [facility] [address] [place] [phone] * (ABNORMAL) Lipid Panel, Standard (07/13/2023 7:48 AM EDT) Triglycerides 188(H) <150 mg/dL [facility] Comment:Desirable Triglyceri de: less than 150 mg/dLBorderline High Triglyceride 150-199 mg/dLHigh Triglyceride: 200-499 mg/dLVery High Triglyceride: greater than or equal to 5OO mg/dL Cholesterol 195 <200 mg/dL [facility] Comment:Desirable Cholestero l: less than 200 mg/dLBorderline High Cholesterol: 200-239 mg/dLHigh Cholesterol: greater than 239 mg/dL LDL Cholesterol Calculated 109(H) <100 mg/dL [facility] Comment:Desirable LDL: less than 100 mg/dLNear Optimal/Above Optimal LDL: 110- 129 mg/dLBorderline High LDL: 130-159 mg/dLHigh LDL: 160-189 mg/dLVery High LDL: greater than or equal to 190 mg/dL HDL Cholesterol 49 >40 mg/dL [facility] Comment:Desirable HDL: great er than 40 mg/dL Note: This HDL assay may give artificially low results in patients with liver disease. 07/13/2023 7:48 AM EDT 07/13/2023 7:48 AM EDT us Generic External Data Provider LAB BLOOD ORDERAB LES Final Result Performing Organization Address [facility]/ZIP Co de Phone Number [facility] [address] [place] [phone] * HEPATITIS C ANTIBODY RFLX (04/25/2021 12:36 PM EST) Hepatitis C Antibody Nonreactive Nonreactive [facility] Comment: Antibodies to HCV not detected; does not exclude early acute HCV infection. 04/25/2021 12:3 6 PM EST Tereza Nagel FILM MAKER HISTORICAL/NON ORDERABLE LABS F inal Result [facility] [address] * (ABNORMAL) Colonoscopy (03/15/2016) Colonoscopy Abnormal( A) Normal Comment:Tubular Adenomas and Persistent Polyps. Repeat 5 years Raghav Ace [facility] Final Resul t from Last 3 Months or Most Recently Relevant to Health Maintenance Insurance [facility] Care Teams Clothes Marker Relationship Specialty Start Date End Date Vanessa Arango NP [address] [place] [address] [phone] PCP - General Family Medicine 03/23/23
--- OUTSIDE RECORDS SUMMARY | 2024-07-23 10:30 | XMS_ITS | Encounter Summary ---
Author Organization [employer] [facility] Address [address] [place] [address] 7t [place] [address] Care Team Providers Care Crude Unit Operator Name Role Phone Aliza Cota FIBERGLASS PIPE COVERING SUPERVISOR Primary Care Provider [phone] Julienne Aparicio MD Primary Care Pro vider Vanessa Arango NP Primary Care Provider [phone] Encounter Details Date Type Department Care Team (Latest Contact Info) Description 08/18/2018 Abstract [facility] CONVERSION[facility] Dental, Provider, DDS Social History Tobacco [...] on filedocumented in this encounter Care Teams Crude Unit Operator Relationship Specialty Start Date End Date Aliza Cota [facility] [address] [place] [phone] PCP - General Family Medicine 12/01/21 02/19/23 Julienne Aparicio MD [address] [place] [phone] PCP - General Internal Medicine 02/20/23 03/22/23 Vanessa Arango NP [address] [place] [address] [place] [address] PCP - General Family Medicine 03/23/23 documented as of this encounter
--- OUTSIDE RECORDS SUMMARY | 2024-07-23 10:30 | XMS_ITS | Encounter Summary ---
Author Organization [facility] Address [address] [place] [address] Phone Care Team Providers Care Senior Lead Java Developer Name Role Phone Raghav Ace Primary Care Provider [phone] Encounter Details Date Type Department Care Team (Late st Contact Info) Description 02/07/2022 Documentation Only [facility] [address] [place] [address] Joseph Youngblood PA Social History [...] Visit [facility] [address] [place] [address] Anjum Whitley MD [address] [place] [address] [place] [address] documented as of this encounter Visit Diagnoses Not on filedocumented in this encounter Care Teams Senior Lead Java Developer Relationship Specialty Start Date End Date Raghav Ace FNP [address] [place] [address] Drive, 3rd [place] [address] PCP - General 02/10/19 documented as of this encounter
--- OUTSIDE RECORDS SUMMARY | 2024-07-23 10:30 | XMS_ITS | Encounter Summary ---
Author Organization [facility] Address [address] [place] [address] 7[address] [place] [address] Care Team Providers Care Vice President Of Consulting Services Name Role Phone Vanessa Arango NP Primary Care Provider [phone] Reason for Referral * Medications - Closed Specialty Diagnoses / Procedures Referred By Jay rolle Referred To Contact Diagnoses Class 3 severe obesity due to excess calories with serious comorbidity and body mass index (BMI) of 40.0 to 44.9 in adult Type 2 diabetes mellitus without complication, without long-term current use of insulin (CMS/HCC) Vanessa Arango NP [address] [place] [address] Phone: tel: fax: Referral ID Status Reason Start Date Expiration Date Visits Re quested Visits Authorized [id number] Closed 1 1 Encounter Details Date Type Department Care Team (Late st Contact Info) Description 07/02/2024 Orders Only [facility] [address] [place] [address] Vanessa Arango NP [address] [place] [address] Class 3 severe obesity due to excess [...] complication, without long-term current use of insulin ([facility] documented in this encounter Additional Health Concerns Assessment Noted Time PHQ-9 Depression Total Score: 6 04/17/19 25 9:04 AM EST documented as of this encounter Care Teams Vice President Of Consulting Services Relationship Specialty Start Date End Date Vanessa Arango NP [address] [place] [address] PCP - General Family Medicine 03/23/23 documented as of this encounter
--- OUTSIDE RECORDS SUMMARY | 2024-07-23 10:30 | XMS_ITS | Encounter Summary ---
Author Organization [employer] Address [address] [facility] 7t [place] [address] Care Team Providers Care Credit Risk Modeler Name Role Phone Vanessa Arango NP Primary Care Provider [phone] Reason for Visit * Reason Comments Med Refill Encounter Details Date Type Department Care Team (Late st Contact Info) Description 07/02/2024 Refill [facility] [address] [place] [address] Vanessa Arango NP [address] [place] [address] Class 3 severe obesity due to excess [...] documented as of this encounter Care Teams Credit Risk Modeler Relationship Specialty Start Date End Date Vanessa Arango NP [address] [place] [phone] PCP - General Family Medicine 03/23/23 documented as of this encounter
--- OUTSIDE RECORDS SUMMARY | 2024-07-23 10:30 | XMS_ITS | Encounter Summary ---
Author Organization [employer] Address [address] [facility] 7t [place] [address] Care Team Providers Care Transplanter Orchid Name Role Phone Vanessa Arango NP Primary Care Provider [phone] Reason for Visit * Reason Comments Med Change Request Encounter Details Date Type Department Care Team (Late st Contact Info) Description 10/16/2023 Refill [facility] [address] [place] [address] Vanessa Arango NP [address] [place] [address] Chronic bilateral low back pain with right-sided [...] documented as of this encounter Care Teams Transplanter Orchid Relationship Specialty Start Date End Date Vanessa Arango NP [address] [place] [phone] PCP - General Family Medicine 03/23/23 documented as of this encounter
--- OUTSIDE RECORDS SUMMARY | 2024-07-23 10:30 | XMS_ITS | Encounter Summary ---
Author Organization [employer] Address [address] [facility] 7t [place] [address] Care Team Providers Care Ehs Manager Name Role Phone Vanessa Arango NP Primary Care Provider [phone] Reason for Visit * Reason Onset Date Comments Durable Medical Equipment 12/27/2023 Encounter Details Date Type Department Care Team ([facility] st Contact Info) Description 12/27/2023 Telephone [facility] [address] [place] [address] Vanessa Arango NP [address] [place] [address] Durable Medical Equipment Social History Tobacco Use [...] documented as of this encounter Care Teams Ehs Manager Relationship Specialty Start Date End Date Vanessa Arango NP [address] [place] [address] PCP - General Family Medicine 03/23/23 documented as of this encounter
--- OUTSIDE RECORDS SUMMARY | 2024-07-23 10:30 | XMS_ITS | Clinical Summary ---
Author Organization [facility] Address [address] [place] [address] Care Team Providers Care Vascular Ultrasound Technologist Name Role Phone Unavailable Primary Care Provider Unavailabl e Allergies No known active allergies Social History Tobacco Use Types Packs/Day Years Used Date Smoking Tobacco: Never Assessed Sex and Gender Information Value Date Recorded Sex Assigned at Male 08/16/2023 11:41 AM EDT Legal Sex Male 7:25 AM EDT Gender Identity Male 08/16/2023 11:41 [...] Additional history exists COVID-19 Vaccine ( - 2023-25 season) 2023 Hepatitis B Vaccines Aged Out No long er eligible based on patient's age to complete this topic Insurance [facility] MEDICARE OUT OF NETWORK Advance Directives Documents on File Type Date Recorded Patient Dado Operator Expl anation Advance Directive-Scan 08/16/2023
[2024-07-23 11:35] LABS: Anion Gap 13 (12-20); Blood Urea Nitrogen 11 mg/dL (9-16); Calcium 9.6 mg/dL (8.4-10.2); Carbon Dioxide 26 mmol/L (22-29); Chloride 104 mmol/L (96-108); Cholesterol 167 mg/dL (<200); Estimated Glomerular Filt Rate > 60; Glucose Random 96 mg/dL (60-115); HDL Cholesterol 46 mg/dL (>40); LDL Cholesterol Calculated 95 mg/dL (<100); Potassium 4.2 mmol/L (3.3-5.1); Sodium 139 mmol/L (135-145); Triglycerides 133 mg/dL (<150)
== END 2024-07-23 09:18 | disposition home or self-care (01) ==
LOC: HO.LAB 09:17
PROVIDERS: PCP Nurse Practitioner; Visit Provider Nurse Practitioner
DX: I10 Essential (primary) hypertension (principal); E11.9 Type 2 diabetes mellitus without complications; Z68.41 Body mass index [BMI] 40.0-44.9, adult; E66.01 Morbid (severe) obesity due to excess calories; E66.813 Obesity, class 3
CPT/HCPCS: 36415; 80048; 80061

== ENCOUNTER 2024-11-05 10:02 | Outpatient (AMB) | payer OTHER, SELFPAY ==
[2024-11-05 10:19] VITALS: BP 120/66; PULSE 88; BMI 39.1
--- NOTE | 2024-11-05 10:19 | A.OFFVIS_ITS ---
Vital Signs 11/05/24 10:19 Height 5 ft 2 in Weight 214 lb BMI 39.1 BP 120/66 Blood Pressure Location Lt brachial Position Sitting Pulse 88 Pulse Source Monitor Intake Visit Reasons: 1 yr /fup Vice President Of Finance Required: Yes Vice President Of Finance Services: Vice President Of Finance Offered & Declined Accompanied by: Daughter Allergies Seasonal Allergies Allergy (Mild, Verified 07/21/24 12:50) SNEEZING Medication List - Last Reconciled 11/05/24 by Mckinley Azul MD allopurinol 100 mg PO DAILY aspirin 81 mg PO DAILY atorvastatin 80 mg PO DAILY baclofen 5 mg PO TID blood pressure test kit-large As directed blood sugar diagnostic (FreeStyle Test strips) As directed cholecalciferol (vitamin D3) 50 mcg PO DAILY cyanocobalamin (vitamin B-12) 1,000 mcg PO DAILY diclofenac sodium 1% 1 g topical TID PRN empagliflozin (Jardiance) 10 mg PO DAILY ferrous sulfate 325 mg PO DAILY lisinopril-hydrochlorothiazide 20-25 mg 1 tab PO QAM omega 7-poj-wkq-fish oil 60-90-500 mg (Fish Oil) 1 cap PO DAILY pantoprazole 40 mg PO QAM tirzepatide (Mounjaro) mg subcut HPI Comments Details: Flavio returns for follow-up. Multiple cardiovascular risk factors including diabetes, hypertension, dyslipidemia, obesity. Obstructive sleep apnea on CPAP. Overall, he states he feels well. No new concerns. No angina. Daughter is helping with interpretation. [facility] Medical History Diverticulosis Tubular adenoma of colon Type 2 diabetes mellitus with unspecified complications Essential hypertension Aortic valve calcification Atherosclerotic cardiovascular disease Restrictive lung disease MARYJO on CPAP Obesity (BMI 35.0-39.9 without comorbidity) Surgical History H/O esophagogastroduodenoscopy H/O colonoscopy Family History Sister HTN (hypertension) Diabetes Father Cancer Social History Household Members: Spouse and Children Alcohol intake: current Alcohol intake frequency: holidays/special occasions only Patient Tobacco Use Status: Never used Tobacco Review of Systems Const Denies weakness ENT Denies dizziness Card Denies chest pain, Denies chest pain with activity, Denies syncope, Denies rapid heart rate, Denies pedal edema, Denies edema, Denies leg edema, Denies lightheadedness, Denies palpitations, Denies dyspnea, Denies dyspnea on exertion and Denies orthopnea Resp Denies cough, Denies dyspnea and Denies dyspnea on exertion GI Denies hematochezia and Denies change in stool character Musc Denies abnormal gait, Denies muscle cramps, Denies muscle weakness, Denies numbness, Denies radiating pain into limb and Denies tingling Neuro Denies abnormal gait, Denies dizziness, Denies syncope, Denies numbness, Denies tingling and Denies weakness Endo Denies palpitations Physical Exam Vital Signs: Last Vital Signs Pulse 88 11/05/24 10:19 BP 120/66 11/05/24 10:19 BMI result Body Mass Index 39.1 Const General: comfortable and no acute distress Orientation/consciousness: patient oriented x3 HEENT Other: Unremarkable Head: Yes normal to inspection Neck Neck: Yes normal visual inspection Chest Chest palpation & inspection: normal inspection of the chest Resp Auscultation: clear to auscultation bilaterally Cardio Palpation: normal PMI Heart sounds: S1 normal heart sound present, S2 normal heart sound present, no gallops, Murmur heart sound present systolic II/ and no rubs GI Palpation (GI): Soft to palpation Back/Spine/Pelvis Other: unremarkable Skin General skin exam: no rashes or lesions noted Neuro General: patient oriented x3 Extrem General: Yes normal to inspection Psych Mental Status: mental status grossly normal Office Procedures EKG Details: EKG with underlying sinus rhythm at 88/Min; no ischemic changes; [place]. [id number], Complete Assessment & Plan Assessment & Plan (1) Atherosclerotic cardiovascular disease: Code(s): I25.10 - Atherosclerotic heart disease of sitka coronary artery without angina pectoris Category: Medical (2) Non-rheumatic aortic stenosis: Code(s): I35.0 - Nonrheumatic aortic (valve) stenosis Category: Medical (3) Essential hypertension: Code(s): I10 - Essential (primary) hypertension Category: Medical (4) Type 2 diabetes mellitus with unspecified complications: Code(s): E11.8 - Type 2 diabetes mellitus with unspecified complications Category: Medical (5) MARYJO on CPAP: Comment: KNOWN CASE OF OBSTRUCTIVE SLEEP APNEA SINCE 2013. HAS BEEN USING CPAP REGULARLY WITH GOOD EFFECTS . *Has a new CPAP machine which is working very well. HE REMAINS VERY COMPLIANT. STATES THAT HE FEELS HIS PRESSURE IS TOO MUCH, MAY BE BECAUSE OF HIS WEIGHT LOSS HE DOES NOT NEED MUCH PRESSURE BEFORE. Code(s): G47.33 - Obstructive sleep apnea (adult) (pediatric); Z99.89 - Dependence on other enabling machines and devices Category: Medical (6) Morbid obesity: Comment: THIS IS A CHRONIC PROBLEM, PATIENT IS NOT ABLE TO LOSE MUCH WEIGHT. HE TRIES TO RESTRICT HIS CALORIES INTAKE BUT DOES NOT DO MUCH WALKING OR EXERCISES Code(s): E66.01 - Morbid (severe) obesity due to excess calories Category: Medical Plan Cardiac studies reviewed. Echocardiogram 2023-LVEF 66%; mild aortic stenosis. Exercise stress test 2019-exercise for 6.4 METS; appropriate heart rate and blood pressure response; there were ST-T changes meeting criteria for ischemia in the inferolateral leads which was seen in the past, but perfusion component was unremarkable. No angina during the stress test, but had some shortness of breath. He has had 3 other stress tests in 2014, 2015 in 2016 again without any significant perfusion abnormalities. A prior chest CT scan had shown coronary as well as aortic valve calcification. Overall, stable coronary disease, aortic stenosis, multiple risk factors. With regard to the coronary disease, he has got no angina. Continue aspirin and statins. With regard to the aortic stenosis, we will recheck echo in one year. Otherwise, mainly risk factor modification including weight management as well as optimal control of diabetes, hypertension dyslipidemia. Follow up in one year. Discussion Notes I discussed with the patient that the heart murmur is likely due to valve calcification, which we will continue to monitor. I explained that no immediate intervention is necessary as the patient is asymptomatic, but a follow-up in one year with a cardiac ultrasound is planned to evaluate the valve condition. Patient was informed and verbally consented to the use of an ambient scribe for clinic note documentation during this visit. Orders: Orders CA echo transthoracic complete 1 Year I35.0 - Nonrheumatic aortic (valve) stenosis Patient Instructions: - Continue regular activities unless symptoms develop. - Return for follow-up in one year for a cardiac ultrasound. Coding Level of Care Code Est Pt Level 4 (72289) Diagnoses Atherosclerotic cardiovascular disease I25.10 Non-rheumatic aortic stenosis I35.0 Essential hypertension I10 Type 2 diabetes mellitus with unspecified complications E11.8 MARYJO on CPAP G47.33; Z99.89 Morbid obesity E66.01 CPT Codes EKG - CPT: 03024-Atobanmebfmyoqydk, Complete ([id number])
--- OUTSIDE RECORDS SUMMARY | 2024-11-05 10:43 | XMS_ITS | Clinical Summary ---
Author Organization [facility], Address [address] [place] [address] [place] [address] Phone Care Team Providers Care Detention Attendant Name Role Phone Raghav Ace Primary Care Provider [phone] Allergies No known active allergies Medications pantoprazole [...] KVNG TABLETA TODOS LOS D 0 Active [place]-3 Fatty Acids ([facility] Fish Oil) 1000 MG [...] EACH DAY. 90 tablet 3 3 Active ferrous sulfate 325 (65 Fe) MG tablet TAKE 1 TABLET BY MOUTH DAILY WITH BREAKFAST. LOW IRON 90 tablet 3 4 Active lisinopril-hydr oCHLOROthiazide (PRINZIDE,ZESTO RETIC) 20-25 MG per tablet TAKE 2 TABLETS BY MOUTH EVERY DAY 180 tablet 3 4 Active Empagliflozin 25 MG tablet Take 25 mg by mouth 1 (one) time each day in the morning 90 tablet 3 5 Active tamsulosin (FLOMAX) 0.4 MG 24 hr capsule TAKE 1 CAPSULE BY MOUTH EVERY DAY 90 capsule 1 5 Active Cholecalciferol (D3 Super Strength) 50 MCG (2000 UT) capsule Take 1 tablet by mouth 1 (one) time each day 90 capsule 3 5 Active Active Problems Problem Noted Date Diagnosed Date Type 2 diabetes mellitus without complication Essential (primary) hypertension 02/06/2021 Chronic kidney disease stage 2 06/18/2019 Resolved Problems Problem Noted Date Diagnosed Date Resolved Date Renal disorder due to type 2 diabetes mellitus 01/11/2020 02/12/2022 Hyperlipidemia 06/18/2019 02/06/2021 Hypertensive heart disease w [facility] congestive heart failure 06/18/2019 02/12/2022 Hypokalemia 06/18/2019 02/06/2021 Morbid obesity 06/18/2019 02/06/2021 Obstructive sleep apnea syndrome 06/18/2019 02/06/2021 Encounters Date Type Department Care Team Description 09/15/2024 [facility]ill [facility] [address] [place] [address] Yadira Wyatt MA 09/04/2024 [facility]ill [facility] [address] [place] [address] Anjum Whitley MD 08/25/2024 1:50 PM EDT Office [facility] [address] [place] [address] Anjum Whitley MD Essential (primary) hypertension (Primary [...] Care Team (Late st Contact Info) Description 02/23/2025 10:50 AM EST Office Visit [facility] [address] [place] [address] Anjum Whitley MD [address] [place] [address] [place] [phone] Health Maintenance Due Date Last Done Comments Colorectal Cancer Screening: Annual FOBT 2003 Colorectal Cancer Screening: Colonoscopy 2003 Colorectal Cancer Screening: Sigmoidoscopy 2003 Diabetes: Ophthalmology Exam 01/11/2020 Diabetes: Pedal Pulse Checked 01/11/2020 Diabetes: Sensory Foot Exam 01/11/2020 Diabetes: Visual Foot Exam 01/11/2020 Diabetes: Hemoglobin A1C 10/09/2024 04 025, 03/11/2024, 10/16/2022, Additional history exists Influenza Vaccine (#1) 2024 4, 02/26/2022, 05/03/2021, Additional history exists Pneumococcal Vaccine: 50+ Years [...] Hemoglobin A1C 6.3(H) (4.0-5.6) % [facility] Comment: MONITORING: In known diabetic patients, hemoglobin A1c targets should be discussed with health care provider. DIAGNOSTIC USE: The [place] Diabetes Association (ADA) and the World Health [...] Supplement 1 Testing performed or reported by [facility], a Service of [facility], [address] [place] [address] Darryn Ballesteros MD, Scientific Helper [facility]# [id number] Blood specimen (specimen) Venous blood / Unknown 10/16/2022 2:54 PM EDT 10/16/2022 2:55 PM EDT Joseph ROBLERO LAB BLOOD ORDERABLES Final Re sult [facility] from Last 3 Months or Most Recently Relevant to Health Maintenance Insurance [employer] Dual SNP ([id number]) ANNIKA [place]CANTARA [id number] Care Teams Detention Attendant Relationship Specialty Start Date End Date Raghav Ace FNP [address], 3rd [place] [address] PCP - General 02/10/19
--- OUTSIDE RECORDS SUMMARY | 2024-11-05 10:43 | XMS_ITS | Encounter Summary ---
Author Organization [employer] Address [address] [place] [address] 7t [place] [address] Care Team Providers Care Electrical Tech Name Role Phone Aliza Cota CASE MANAGEMENT MANAGER Primary Care Provider [phone] Julienne Aparicio MD Primary Care Pro vider Vanessa Arango NP Primary Care Provider [phone] Encounter Details Date Type Department Care Team (Late st Contact Info) Description 08/06/2022 Orders Only [facility] MED & PEDS [address] [place] [address] Sharita Mena LPN Social History Tobacco Use [...] Care Team (Late st Contact Info) Description 11/11/2024 10:45 AM EDT Office Visit [facility] [address] [place] [address] Vanessa Arango NP [address] [place] [address] documented as of this encounter Visit Diagnoses Not on filedocumented in this encounter Care Teams Electrical Tech Relationship Specialty Start Date End Date BeataAliza FNP [address] [place] [address] PCP - General Family Medicine 12/01/21 02/19/23 Julienne Aparicio MD [address] [place] [address] PCP - General Internal Medicine 02/20/23 03/22/23 Vanessa Arango NP [address] [place] [address] PCP - General Family Medicine 03/23/23 documented as of this encounter
--- OUTSIDE RECORDS SUMMARY | 2024-11-05 10:43 | XMS_ITS | Clinical Summary ---
Author Organization [facility] Address [address] [place] [address] Care Team Providers Care Finish Patcher Name Role Phone Unavailable Primary Care Provider [...] 90 08/16/2023 12:08 PM EDT Temperature 36.7 C (98 F) 08/16/2023 8:46 AM EDT Respiratory Rate 17 [...] - Risk 60-74 years 1-dose series) 2014 COVID-19 Vaccine (1 - season) 2023 Influenza Vaccine 11/06/2024 03/22/2023, , 05/03/2021, Additional history exists Hepatitis B Vaccines Aged Out No long er eligible based on patient's age to complete this topic Insurance [facility]WORK Advance Directives Documents on File Type Date Recorded Patient Log Skidder Expl anation Advance Directive-Scan 08/16/2023
== END 2024-11-05 10:39 | disposition home or self-care (01) ==
LOC: HO.HCS 10:02
PROVIDERS: PCP Nurse Practitioner; Visit Provider Internal Medicine
DX: I25.10 Atherosclerotic heart disease of native coronary artery without angina pectoris (principal); I35.0 Nonrheumatic aortic (valve) stenosis; I10 Essential (primary) hypertension; E11.8 Type 2 diabetes mellitus with unspecified complications; G47.33 Obstructive sleep apnea (adult) (pediatric); Z99.89 Dependence on other enabling machines and devices; E66.01 Morbid (severe) obesity due to excess calories
CPT/HCPCS: 93010; 99214

== ENCOUNTER → 2024-11-05 10:02 | Outpatient (BNVA) | payer OTHER, SELFPAY | PROVIDERS: PCP Nurse Practitioner; Visit Provider Internal Medicine | DX: I35.0 Nonrheumatic aortic (valve) stenosis (principal); I25.10 Atherosclerotic heart disease of native coronary artery without angina pectoris; I10 Essential (primary) hypertension; I11.9 Hypertensive heart disease without heart failure; G47.33 Obstructive sleep apnea (adult) (pediatric); E66.01 Morbid (severe) obesity due to excess calories; Z68.39 Body mass index [BMI] 39.0-39.9, adult; Z99.89 Dependence on other enabling machines and devices | CPT/HCPCS: 93005; 99212 ==

== ENCOUNTER 2024-11-11 12:28 | Outpatient (REF) | payer OTHER, SELFPAY ==
--- OUTSIDE RECORDS SUMMARY | 2024-11-11 13:05 | XMS_ITS | Encounter Summary ---
Author Organization [employer] Address [address] [place] [address] 7t [place] [address] Care Team Providers Care Software Engineer Advisor Name Role Phone Beata Aliza TRANSCRIPTER Primary Care Provider [phone] Julienne Aparicio MD Primary Care Pro vider Vanessa Arango NP Primary Care Provider [phone] Encounter Details Date Type Department Care Team (Late st Contact Info) Description 08/06/2022 Orders Only [facility] CH[facility] MED & PEDS [address] [place] [address] Sharita Mena LPN Social History Tobacco Use [...] on filedocumented in this encounter Care Teams Software Engineer Advisor Relationship Specialty Start Date End Date Aliza CotaCHRISTIANP [address] [place] [address] PCP - General Family Medicine 12/01/21 02/19/23 Julienne Aparicio MD [address] [place], [place] [phone] PCP - General Internal Medicine 02/20/23 03/22/23 Vanessa Arango NP [address] [place] [address] PCP - General Family Medicine 03/23/23 documented as of this encounter
--- OUTSIDE RECORDS SUMMARY | 2024-11-11 13:05 | XMS_ITS | Clinical Summary ---
Author Organization [facility] Address [address] [place] [address] Care Team Providers Care Orthopedic Shoe Maker Name Role Phone Unavailable Primary Care Provider [...] patient's age to complete this topic Insurance [facility] Advance Directives Documents on File Type Date Recorded Patient Jewelry Jobber Expl anation Advance Directive-Scan 08/16/2023
--- OUTSIDE RECORDS SUMMARY | 2024-11-11 13:05 | XMS_ITS | Clinical Summary ---
Author Organization [facility], Address [address] [place] [address] [place] [address] Phone Care Team Providers Care Kick Plate Installer Name Role Phone Raghav Ace Primary Care [...] KVNG TABLETA TODOS LOS D 0 Active [place]-3 Fatty Acids ([facility]S Fish Oil) 1000 MG [...] Hyperlipidemia 06/18/2019 02/06/2021 Hypertensive heart disease w [facility] congestive heart failure 06/18/2019 02/12/2022 Hypokalemia 06/18/2019 02/06/2021 Morbid obesity 06/18/2019 02/06/2021 Obstructive sleep apnea syndrome 06/18/2019 02/06/2021 Encounters Date Type Department Care Team Description 09/15/2024 Refill [facility] [address] [place] [address] Yadira Wyatt MA 09/04/2024 Refill [facility] [address] [place] [address] Anjum Whitley MD 08/25/2024 1:50 PM EDT Office [facility] [address] [place] [address] Anjum Whitley MD Essential (primary) hypertension (Primary [...] Visit [facility] [address] [place] [address] Anjum Whitley MD [address] [place] [address] [place] [phone] Health Maintenance Due Date Last Done Comments [...] PM EDT) Hemoglobin A1C 6.3(H) (4.0-5.6) % [facility] Comment: MONITORING: In known diabetic patients, hemoglobin A1c targets should be discussed with health care provider. DIAGNOSTIC USE: The [place] Diabetes Association (ADA) and the World Health [...] Supplement 1 Testing performed or reported by [facility], a Service of [facility], [address] [place] [address] Darryn Ballesteros MD, Tip Bander [facility]# [id number] Blood specimen (specimen) Venous blood / Unknown 10/16/2022 2:54 PM EDT 10/16/2022 2:55 PM EDT Joseph ROBLERO LAB BLOOD ORDERABLES Final Re sult [facility] from Last 3 Months or Most Recently Relevant to Health Maintenance Insurance [employer] Dual SNP ([id number]) [place] [id number] Care Teams Kick Plate Installer Relationship Specialty Start Date End Date Raghav Ace FNP [address], [address]rd [place] [address] PCP - General 02/10/19
--- OUTSIDE RECORDS SUMMARY | 2024-11-11 13:05 | XMS_ITS ---
Author Name [facility] Organization Unknown Encounters Encounter Type Encounter Reason Primary Diagnosis Location Date Emergency Peritonsillar abscess Peritonsil lar abscess [facility] 08/16/2023 Care Team Organization Name Specialty Phone Email Start Date End Da te [facility] 08/16/2023 06/24/2024 [facility] 08/16/2023
[2024-11-11 13:57] LABS: Hemoglobin A1C 153.2569 umol/L; Total Hemoglobin (HGBA1C) 4081.7166 umol/L
[2024-11-11 14:04] LABS: Microalbum/Creatinine Ratio Ur 11.3 ug/mg cr (<30)
[2024-11-11 14:16] LABS: Anion Gap 15 (12-20); Blood Urea Nitrogen 13 mg/dL (9-16); Calcium 10.0 mg/dL (8.4-10.2); Carbon Dioxide 28 mmol/L (22-29); Chloride 101 mmol/L (96-108); Estimated Glomerular Filt Rate > 60; Potassium 3.1 mmol/L (3.3-5.1); Sodium 141 mmol/L (135-145)
== END 2024-11-11 12:29 | disposition home or self-care (01) ==
LOC: HO.HHCL 12:28
PROVIDERS: PCP Nurse Practitioner; Visit Provider Nurse Practitioner
DX: I10 Essential (primary) hypertension (principal); E11.9 Type 2 diabetes mellitus without complications
CPT/HCPCS: 36415; 80048; 82043; 82570; 83036

== ENCOUNTER 2024-12-10 10:02 | Outpatient (AMB) | payer OTHER, SELFPAY ==
[2024-12-10 10:31] VITALS: BP 112/60; PULSE 83; O2SAT 95; BMI 39.5
--- NOTE | 2024-12-10 10:31 | A.OFFVIS_ITS ---
Vital Signs 12/10/24 10:31 Height 5 ft 2 in Weight 216 lb 0.848 oz BMI 39.5 BP 112/60 Blood Pressure Location Lt brachial Position Sitting Pulse 83 Pulse Source Pulse Oximeter Pulse Oximetry (%) 95 Oxygen Delivery Method Room Air Intake Visit Reasons: Sleep apnea Intake Note: pt is here for follow up and states sometimes he feels short of breath in am when taking off the mask, but it goes away quickly Unisaw Operator Required: No Allergies Seasonal Allergies Allergy (Mild, Verified 12/10/24 10:48) SNEEZING Medication List - Last Reconciled 12/10/24 by Chela Degroot MD allopurinol 100 mg PO DAILY aspirin 81 mg PO DAILY atorvastatin 80 mg PO DAILY baclofen 5 mg PO TID blood pressure test kit-large As directed blood sugar diagnostic (FreeStyle Test strips) As directed cholecalciferol (vitamin D3) 50 mcg PO DAILY cyanocobalamin (vitamin B-12) 1,000 mcg PO DAILY diclofenac sodium 1% 1 g topical TID PRN empagliflozin (Jardiance) 10 mg PO DAILY ferrous sulfate 325 mg PO DAILY lisinopril-hydrochlorothiazide 20-25 mg 1 tab PO QAM omega 1-lnu-ztv-fish oil 60-90-500 mg (Fish Oil) 1 cap PO DAILY pantoprazole 40 mg PO QAM tirzepatide (Mounjaro) mg subcut Do you need a note to return to daycare/school/sports/work: No HPI HPI Sleep apnea: Details: 69 years old very pleasant gentleman with gross obesity and obstructive sleep apnea is here for his 6 months follow-up . He is a very regular user of CPAP and using up to 7-8 hours per night. He has no issues with the CPAP mask or the machine. He has no daytime sleepiness. He is losing weight but very slowly a few lb per month. [facility] Medical History Diverticulosis Tubular adenoma of colon Type 2 diabetes mellitus with unspecified complications Essential hypertension Aortic valve calcification Atherosclerotic cardiovascular disease Restrictive lung disease MARYJO on CPAP Obesity (BMI 35.0-39.9 without comorbidity) Surgical History H/O esophagogastroduodenoscopy H/O colonoscopy Family History Sister HTN (hypertension) Diabetes Father Cancer Social History Household Members: Spouse and Children Alcohol intake: current Alcohol intake frequency: holidays/special occasions only Patient Tobacco Use Status: Never used Tobacco Review of Systems Const All systems reviewed & are unremarkable except as noted in HPI and below Eyes Reports no additional complaints ENT Reports no additional complaints Card Denies chest pain, Denies irregular heart rhythm, Denies leg edema and Denies dyspnea on exertion Resp Denies cough, Denies dyspnea on exertion and Denies wheezing GI Reports no additional complaints Reports no additional complaints Musc Reports back pain (Mild) and Reports arthralgias (Mild) Skin/Breast Reports system reviewed and no additional complaints, except as documented Neuro Reports no additional complaints Psych Reports no additional complaints Aller/Immun Denies wheezing Physical Exam Vital Signs: Last Vital Signs Pulse 83 12/10/24 10:31 BP 112/60 12/10/24 10:31 Pulse Ox 95 12/10/24 10:31 Oxygen Delivery Method Room Air 12/10/24 10:31 BMI result Body Mass Index 39.5 Const General: comfortable, no acute distress, alert and awake Orientation/consciousness: patient oriented x3 HEENT Head: Yes normal to inspection General nose exam: No nasal polyps present and No nasal discharge present Face and sinus: Yes sinuses nontender Mouth: oropharynx abnormals (Very crowded and narrow, Mallampati class 4) Throat: Yes posterior oropharynx normal Eyes General: appearance normal, both eyes and all related structures Neck Neck: Yes normal visual inspection, Yes no lymphadenopathy, Yes trachea midline and Yes no JVD Thyroid: Thyroid normal Chest Chest palpation & inspection: normal inspection of the chest, normal palpation of entire chest wall and no tenderness Resp Other: His breath sounds are distant especially over the basilar areas. But lungs are clear to auscultation and no wheezes or rhonchi are heard. Cardio Palpation: normal PMI Rate: regular rate Rhythm: regular rhythm Heart sounds: no gallops and no murmurs Peripheral pulses: Peripheral pulses 2+ throughout GI Palpation (GI): Soft to palpation, Tenderness to palpation present (GI), No hepatosplenomegaly present, Palpable mass present and Other GI palpation findings present (Abdomen is grossly obese and protuberant) Auscultation: normal bowel sounds Back/Spine/Pelvis Thoracic/Lumbar Spine: thoracic and lumbar spine normal to inspection Skin General skin exam: no rashes or lesions noted Neuro General: patient oriented x3 and no focal motor deficits Cranial nerves: Yes CN's II-XII intact bilaterally Extrem General: Yes normal to inspection, Yes no clubbing, cyanosis or edema and Yes no calf tenderness Psych Speech and movement: Normal speech and movement present Results Reviewed Results Reviewed: Compliance report for the last 30 nights shows that he has been using 100% of the nights. Average usage per night 7 hours 49 minutes. .Pressure 12 cm EPR level 3. No air leakage. Residual AHI 0.3 Assessment & Plan Assessment & Plan (1) Obesity (BMI 35.0-39.9 without comorbidity): Comment: THIS 69 YEARS OLD GENTLEMAN IS GROSSLY OBESE, HE IS TRYING TO WATCH HIS DIET, AND LATELY HE IS ON ANTI OBESITY MED,MOUNJARO . HE IS LOSING WEIGHT BUT SLOWLY. Code(s): E66.9 - Obesity, unspecified Category: Medical Plan: AGAIN DISCUSS ABOUT THE DIET AND ALSO ADVISED TO CONTINUE MOUNJARO INJECTIONS . (2) Restrictive lung disease: Comment: Patient explained that his pulmonary function test showed mild restrictive disorder which is related to his obesity. He does not have obstructive disorder. The restrictive component should improve with weight loss. Code(s): J98.4 - Other disorders of lung Category: Medical Plan: CONTINUE TO LOSE WEIGHT AND TRY TO DO DEEP BREATHING EXERCISES 3 TIMES A DAY (3) MARYJO on CPAP: Comment: KNOWN CASE OF OBSTRUCTIVE SLEEP APNEA SINCE 2012. HAS BEEN USING CPAP REGULARLY WITH GOOD EFFECTS . *Has a new CPAP machine which is working very well. HE REMAINS VERY COMPLIANT. HIS PRESSURE IS 12 CM WHICH HE TOLERATES WELL. Code(s): G47.33 - Obstructive sleep apnea (adult) (pediatric); Z99.89 - Dependence on other enabling machines and devices Category: Medical Plan: COMMENDED FOR GOOD COMPLIANCE AND ADVISED TO CONTINUE USING THE CPAP EVERY NIGHT Coding Level of Care Code Est Pt Level 3 (70093) Diagnoses Obesity (BMI 35.0-39.9 without comorbidity) E66.9 Restrictive lung disease J98.4 MARYJO on CPAP G47.33; Z99.89
--- OUTSIDE RECORDS SUMMARY | 2024-12-10 11:10 | XMS_ITS | Encounter Summary ---
Author Organization [employer] Address [address] [place] [address] 7t [place] [address] Care Team Providers Care Order Entry Administrator Name Role Phone Hernandez [facility] Primary Care Provider [phone] Julienne Aparicio MD Primary Care Pro vider Vanessa Aragno NP Primary Care Provider [phone] Reason for Visit * Reason Comments Med Refill Encounter Details Date Type Department Care Team (Late st Contact Info) Description 10/25/2022 Refill [facility] [address] [place] [address] [address] [facility] [address] [place] [address] Dyspepsia; Hyperlipidemia, unspecified hyperlipidemia type; IFG (impaired [...] Care Team (Late st Contact Info) Description 02/12/2025 10:15 AM EST Office Visit [facility] [address] [place] [address] Vanessa Arango NP [address] [place] [address] documented as of this encounter Visit Diagnoses Diagnosis Dyspepsia Dyspepsia and other specified disorders of function of stomach Hyperlipidemia, unspecified hyperlipidemia type IFG (impaired fasting glucose) documented in this encounter Care Teams Order Entry Administrator Relationship Specialty Start Date End Date Aliza Cota FNP [address] [place] [address] PCP - General Family Medicine 12/01/21 02/19/23 Julienne Aparicio MD [address] [place] [address] PCP - General Internal Medicine 02/20/23 03/22/23 Vanessa Arango NP [address] [place] [address] PCP - General Family Medicine 03/23/23 documented as of this encounter
--- OUTSIDE RECORDS SUMMARY | 2024-12-10 11:10 | XMS_ITS | Encounter Summary ---
Author Organization [employer] Address [address] [facility] 7t [place] [address] Care Team Providers Care Lead Former Name Role Phone Vanessa Arango NP Primary Care Provider [phone] Reason for Visit * Reason Comments Med Refill Encounter Details Date Type Department Care Team (Late st Contact Info) Description 12/10/2024 Refill [facility] [address] [place] [address] Vanessa Arango NP [address] [place] [address] Essential (primary) hypertension Social History Tobacco Use Types Packs/Day Years [...] Description 02/12/2025 10:15 AM EST Office Visit [facility] [address] [place] [address] Vanessa Arango NP [address] [place] [address] documented as of this encounter Visit Diagnoses Diagnosis Essential (primary) hypertension Unspecified essential hypertension documented in this encounter Additional Health Concerns Assessment Noted Time PHQ-9 Depression Total Score: 6 04/17/19 25 9:04 AM EST documented as of this encounter Care Teams Lead Former Relationship Specialty Start Date End Date Vanessa Arango NP [address] [place] [address] PCP - General Family Medicine 03/23/23 documented as of this encounter
--- OUTSIDE RECORDS SUMMARY | 2024-12-10 11:10 | XMS_ITS | Encounter Summary ---
Author Organization [email or web address] Address [address] [place] [address] 7t [place] [address] Care Team Providers Care Manager Hair Name Role Phone Aliza Cota FLUORESCENT LIGHTING MODEL MAKER Primary Care Provider [phone] Julienne Aparicio MD Primary Care Pro vider Vanessa Arango NP Primary Care Provider [phone] Encounter Details Date Type Department Care Team (Late st Contact Info) Description 02/19/2023 Orders Only [facility] MED & PEDS [address] [place] [address] Duyen Jean LPN Social History Tobacco Use [...] Description 02/12/2025 10:15 AM EST Office Visit [facility] [address] [place] [address] Vanessa Arango NP [address] [place] [address] documented as of this encounter Visit Diagnoses Not on filedocumented in this encounter Care Teams Manager Hair Relationship Specialty Start Date End Date Aliza CotaELMER [address] [place] [address] PCP - General Family Medicine 12/01/21 02/19/23 Julienne Aparicio MD [address] [place] [address] PCP - General Internal Medicine 02/20/23 03/22/23 Vanessa Arango NP [address] [place] [address] PCP - General Family Medicine 03/23/23 documented as of this encounter
--- OUTSIDE RECORDS SUMMARY | 2024-12-10 11:10 | XMS_ITS | Encounter Summary ---
Author Organization [employer] Address [address] [place] [address] 7t [place] [address] Care Team Providers Care Creative Designer Name Role Phone DarnellVanessa bustos QI Primary Care Provider [phone] Reason for Visit * Reason Comments Med Refill Encounter Details Date Type Department Care Team (Late st Contact Info) Description 05/04/2023 Refill [facility] [address] [place], [place] [phone] [facility] [address] [place], [place] [phone] Hyperlipidemia, unspecified hyperlipidemia type; Type 2 diabetes mellitus with other specified complication, unspecified whether fpc insulin use ([facility]); IFG (impaired fasting glucose) Social History [...] your housing situation today? I have nathalia isa 04/19/[address] you li [...] Description 02/12/2025 10:15 AM EST Office Visit [facility] [address] [place] [address] Vanessa Arango NP [address] [place] [address] documented as of this encounter Visit Diagnoses Diagnosis Hyperlipidemia, unspecified hyperlipidemia type Type 2 diabetes mellitus with other specified complication, unspecified whether fpc insulin use ([facility]) IFG (impaired fasting glucose) documented in this encounter Additional Health Concerns Assessment Noted Time PHQ-9 Depression Total Score: 7 03/22/20 23 2:14 PM EST documented as of this encounter Care Teams Creative Designer Relationship Specialty Start Date End Date Vanessa Arango NP [address] [place] [address] PCP - General Family Medicine 03/23/23 documented as of this encounter
--- OUTSIDE RECORDS SUMMARY | 2024-12-10 11:10 | XMS_ITS | Encounter Summary ---
Author Organization [employer] Address [address] [place] [address] 7t [place] [address] Care Team Providers Care Oncology Technician Name Role Phone Beata [facility] Primary Care Provider [phone] Julienne Aparicio MD Primary Care Pro vider Vanessa Arango NP Primary Care Provider [phone] Reason for Visit * Reason Comments Med Refill Encounter Details Date Type Department Care Team (Late st Contact Info) Description 11/07/2022 Refill [facility] [address] [place] [address] [facility] [address] [place] [address] Type 2 diabetes mellitus with other specified complication, unspecified whether shelter insulin use ([facility]); IFG (impaired fasting glucose) Social History [...] Description 02/12/2025 10:15 AM EST Office Visit [facility] [address] [place] [address] Vanessa Arango NP [address] [place] [address] documented as of this encounter Visit Diagnoses Diagnosis Type 2 diabetes mellitus with other specified complication, unspecified whether director long term care insulin use ([facility]) IFG (impaired fasting glucose) documented in this encounter Care Teams Oncology Technician Relationship Specialty Start Date End Date Aliza Cota FNP [address] [place] [address] PCP - General Family Medicine 12/01/21 02/19/23 Julienne Aparicio MD [address] [place] [address] PCP - General Internal Medicine 02/20/23 03/22/23 Vanessa Arango NP [address] [place] [address] PCP - General Family Medicine 03/23/23 documented as of this encounter
--- OUTSIDE RECORDS SUMMARY | 2024-12-10 11:10 | XMS_ITS | Encounter Summary ---
Author Organization [employer] Address 75 [facility] 7t [place] [address] Care Team Providers Care Lidar Scientist Name Role Phone Vanessa Arango NP Primary Care Provider [phone] Reason for Visit * Reason Comments Med Refill Encounter Details Date Type Department Care Team (Late st Contact Info) Description 04/16/2024 Refill [facility] MED[facility] [address] [place] [address] Vanessa Arango NP [address] [place] [address] Chronic bilateral low back pain with right-sided [...] AM EDT documented as of this encounter Functional Status * Over the past 2 weeks, how often have you been bothered by any of the following problems? Question Answer Date of Assessment Author Patient Health Questionnaire -2 Score 2 04/17/2024 9:04 AM Louise Love MA * Little interest or pleasure in doing things Answer Date of Assessment Author Several days 04/17/2024 9:04 AM Louise Love MA * Feeling down, depressed, or hopeless Answer Date of Assessment Author Several days 04/17/2024 9:04 AM Louise Love MA * Trouble falling or staying asleep, or sleeping too much Answer Date of Assessment Author Several days 04/17/2024 9:04 AM Louise Love MA * Feeling tired or having little energy Answer Date of Assessment Author Several days 04/17/2024 9:04 AM Louise Love MA * Poor appetite or overeating Answer Date of Assessment Author Not at all 04/17/2024 9:04 AM Louise Love MA * Feeling bad about yourself - or that you are a failure or have let yourself or your family down Answer Date of Assessment Author Not at all 04/17/2024 9:04 AM Louise Love MA * Trouble concentrating on things, such as reading the newspaper or watching television Answer Date of Assessment Author Several days 04/17/2024 9:04 AM Louise Love MA * Moving or speaking so slowly that other people could have noticed? Or the opposite - being so fidgety or restless that you have been moving around a lot more than usual. Answer Date of Assessment Author Several days 04/17/2024 9:04 AM Louise Love MA * Thoughts that you would be better off or hurting yourself in some way Answer Date of Assessment Author Not at all 04/17/2024 9:04 AM Louise Love MA * Patient Health Questionnaire-9 Score Answer Date of Assessment Author 6 04/17/2024 9:04 AM Louise Love MA * How difficult have these problems made it for you to do your work, take care of things at home, or get along with other people? Answer Date of Assessment Author Somewhat difficult 04/17/2024 9:04 AM Louise Hernandez MA * Over the last 2 weeks, how often have you been bothered by any of the following problems? Question Answer Date of Assessment Author Feeling nervous, anxious, or on edge 1 04/17/2024 9:06 AM Louise Love MA Not being able to stop or co ntrol worrying 1 04/17/2024 9:06 AM Louise Love MA Worrying too much about diff erent things 1 04/17/2024 9:06 AM Louise Love MA Trouble relaxing 2 04/17/2024 9:06 AM Louise Solorzano MA Being so restless that it is hard to sit still 2 04/17/2024 9:06 AM Louise Love MA Becoming easily annoyed or irritable 2 04/17/2024 9:06 AM Louise Love MA Feeling afraid as if somethi ng awful might happen 2 04/17/2024 9:06 AM Louise Love MA DESIREE-7 Total Score 11 04/17/2024 9:06 AM Louise Love MA documented as of this encounter Plan of Treatment Upcoming Encounters Date Type Department Care Team (Late st Contact Info) Description 02/12/2025 10:15 AM EST Office Visit [facility] MEDICINE [address] [place] [address] Vanessa Arango NP [address] [place] [address] documented as of this encounter Visit Diagnoses Diagnosis Chronic bilateral low back pain with right-sided sciatica documented in this encounter Additional Health Concerns Assessment Noted Time PHQ-9 Depression Total Score: 7 03/22/20 2:14 PM EST documented as of this encounter Care Teams Lidar Scientist Relationship Specialty Start Date End Date Vanessa Arango NP [address] [place] [address] PCP - General Family Medicine 03/23/23 documented as of this encounter
--- OUTSIDE RECORDS SUMMARY | 2024-12-10 11:10 | XMS_ITS | Encounter Summary ---
Author Organization [employer] Address 75 [facility] 7t [place] [address] Care Team Providers Care International Trade Teacher Name Role Phone Vanessa Arango NP Primary Care Provider [phone] Reason for Visit * Reason Comments Med Refill Encounter Details Date Type Department Care Team (Late st Contact Info) Description 06/04/2023 Refill [facility] MED[facility] 230 [place] [address] Vanessa Arango NP [address] [place] [address] Chronic bilateral low back pain with right-sided sciatica; Hyperlipidemia, unspecified hyperlipidemia type; Type 2 diabetes mellitus with other specified complication, unspecified whether terminal system operator insulin use ([facility]); Dyspepsia Social History Tobacco Use [...] AM EST Office Visit [facility] MEDICINE [address] [place] [address] Vanessa Arango NP [address] [place] [address] documented as of this encounter Visit Diagnoses Diagnosis Chronic bilateral low back pain with right-sided sciatica Hyperlipidemia, unspecified hyperlipidemia type Type 2 diabetes mellitus with other specified complication, unspecified whether fdc insulin use ([facility]) Dyspepsia Dyspepsia and other specified disorders of function of stomach documented in this encounter Additional Health Concerns Assessment Noted Time PHQ-9 Depression Total Score: 7 03/22/20 23 2:14 PM EST documented as of this encounter Care Teams International Trade Teacher Relationship Specialty Start Date End Date Vanessa Arango NP [address] [place] [address] PCP - General Family Medicine 03/23/23 documented as of this encounter
--- OUTSIDE RECORDS SUMMARY | 2024-12-10 11:10 | XMS_ITS | Encounter Summary ---
Author Organization [employer] Address 75 [facility] 7t [place] [address] Care Team Providers Care Multi Needle Machine Operator Name Role Phone Vanessa Arango NP Primary Care Provider [phone] Encounter Details Date Type Department Care Team (Late st Contact Info) Description 10/28/2024 Orders Only [facility] MEDICINE [address] [place] [address] Vanessa Arango NP [address] [place] [address] Class 3 severe obesity due to excess calories with serious comorbidity and body mass index (BMI) of 40.0 to 44.9 in adult; Type 2 diabetes mellitus without complication, without long-term current use of insulin ([facility]) Social History Tobacco Use Types Packs/Day Years [...] Description 02/12/2025 10:15 AM EST Office Visit [facility] MED[facility] [address] [place] [address] Vanessa Arango NP [address] [place] [address] documented as of this encounter Visit Diagnoses Diagnosis Class 3 severe obesity due to excess calories with serious comorbidity and body mass index (BMI) of 40.0 to 44.9 in adult Type 2 diabetes mellitus without complication, without long-term current use of insulin ([facility]) documented in this encounter Additional Health Concerns Assessment Noted Time PHQ-9 Depression Total Score: 6 04/17/19 25 9:04 AM EST documented as of this encounter Care Teams Multi Needle Machine Operator Relationship Specialty Start Date End Date Vanessa Arango NP [address] [place] [address] PCP - General Family Medicine 03/23/23 documented as of this encounter
--- OUTSIDE RECORDS SUMMARY | 2024-12-10 11:10 | XMS_ITS | Clinical Summary ---
Author Organization [facility], Address [address] [place] [address] [place] [address] Phone Care Team Providers Care Lead Web Developer Name Role Phone Raghav Ace Primary Care Provider [phone] Allergies No known active allergies Medications pantoprazole [...] KVNG TABLETA TODOS LOS D 0 Active [place]-3 Fatty Acids ([facility] Fish Oil) 1000 MG [...] 02/06/2021 Hypertensive heart disease w [facility] congestive heart failure 06/18/2019 02/12/2022 Hypokalemia 06/18/2019 02/06/2021 Morbid obesity 06/18/2019 02/06/2021 Obstructive sleep apnea syndrome 06/18/2019 02/06/2021 Encounters Date Type Department Care Team Description 09/15/2024 Refill [facility] [address] [place] [address] Yadira Wyatt MA from Last 3 Months Family History Medical [...] Visit [facility], [address] [facility] [phone] Anjum Whitley MD [address] [facility] [place] [phone] Health Maintenance Due Date Last Done Comments Colorectal Cancer Screening: Annual FOBT 2003 Colorectal Cancer Screening: Colonoscopy 2003 Colorectal Cancer Screening: Sigmoidoscopy 2003 Diabetes: Ophthalmology Exam 01/11/2020 Diabetes: Pedal Pulse Checked 01/11/2020 Diabetes: Sensory Foot Exam 01/11/2020 Diabetes: Visual Foot Exam 01/11/2020 Diabetes: Hemoglobin A1C 10/09/2024 04/ 025, 03/11/2024, 10/16/2022, Additional history exists Influenza Vaccine (#1) 2024 , 02/26/2022, 05/03/2021, Additional history exists Pneumococcal Vaccine: [...] PM EDT) Hemoglobin A1C 6.3(H) (4.0-5.6) % [facility] Comment: MONITORING: In known diabetic patients, hemoglobin A1c targets should be discussed with health care provider. DIAGNOSTIC USE: The [place] Diabetes Association (ADA) and the World Health [...] Supplement 1 Testing performed or reported by [facility], a Service of [facility], [address] [place] [address] Darryn Ballesteros MD, Sales Associate Cashier [facility]# [id number] Blood specimen (specimen) Venous blood / Unknown 10/16/2022 2:54 PM EDT 10/16/2022 2:55 PM EDT us Joseph [facility] BLOOD ORDERABLES Final Re sult [facility] from Last 3 Months or Most Recently Relevant to Health Maintenance Insurance [employer] Dual SNP ([id number]) ANNIKA [place] [id number] Care Teams Lead Web Developer Relationship Specialty Start Date End Date Raghav Ace FNP [address], 3rd floor [place] [id number] PCP - General 02/10/19
--- OUTSIDE RECORDS SUMMARY | 2024-12-10 11:10 | XMS_ITS | Encounter Summary ---
Author Organization [employer] Address [address] [place] [address] 7t [place] [address] Care Team Providers Care Pr Manager Name Role Phone Julienne Aparicio MD Primary Care Pro vider Vanessa Arango NP Primary Care Provider [phone] Reason for Visit * Reason Comments Med Refill Encounter Details Date Type Department Care Team (Late st Contact Info) Description 02/20/2023 Refill [facility] [address] [place] [address] Julienne Elias MD 230 [place] [address] Dyspepsia; IFG (impaired fasting glucose); Hyperlipidemia, unspecified [...] Description 02/12/2025 10:15 AM EST Office Visit [facility] MEDIC[facility] [address] [place] [address] Vanessa Arango NP [address] [place] [address] documented as of this encounter Visit Diagnoses Diagnosis Dyspepsia Dyspepsia and other specified disorders of function of stomach IFG (impaired fasting glucose) Hyperlipidemia, unspecified hyperlipidemia type documented in this encounter Care Teams Pr Manager Relationship Specialty Start Date End Date Juilenne Aparicio MD [address] [place] [address] PCP - General Internal Medicine 02/20/23 03/22/23 Vanessa Arango NP [address] [place] [address] PCP - General Family Medicine 03/23/23 documented as of this encounter
--- OUTSIDE RECORDS SUMMARY | 2024-12-10 11:10 | XMS_ITS | Encounter Summary ---
Author Organization [facility] [employer] Address 75 [facility] 7t [place] [address] Care Team Providers Care Associate Relations Specialist Name Role Phone Vanessa Arango NP Primary Care Provider [phone] Reason for Visit * Reason Comments Med Refill Encounter Details Date Type Department Care Team (Late st Contact Info) Description 12/29/2023 Refill [facility] MEDICINE [address] [place] [address] Vanessa Arango NP [address] [place] [address] Chronic bilateral low back pain with right-sided [...] Description 02/12/2025 10:15 AM EST Office Visit [facility] MEDICINE [address] [place] [address] Vanessa Arango NP [address] [place] [address] documented as of this encounter Visit Diagnoses Diagnosis Chronic bilateral low back pain with right-sided sciatica documented in this encounter Additional Health Concerns Assessment Noted Time PHQ-9 Depression Total Score: 7 03/22/20 23 2:14 PM EST documented as of this encounter Care Teams Associate Relations Specialist Relationship Specialty Start Date End Date Vanessa Arango NP [address] [place] [address] PCP - General Family Medicine 03/23/23 documented as of this encounter
--- OUTSIDE RECORDS SUMMARY | 2024-12-10 11:10 | XMS_ITS | Encounter Summary ---
Author Organization [employer] Address 75 [facility] 7t [place] [address] Care Team Providers Care Kennel Manager Dog Track Name Role Phone Vanessa Arango NP Primary Care Provider [phone] Encounter Details Date Type Department Care Team (Late st Contact Info) Description 07/02/2024 Orders Only [facility]ENTER [address] [place] [address] Vanessa Arango NP [address] [place] [address] Class 3 severe obesity due to excess calories with serious comorbidity and body mass index (BMI) of 40.0 to 44.9 in adult ([facility]) (Primary Dx); Type 2 diabetes mellitus without complication, without long-term current use of insulin ([facility]) Social History Tobacco Use Types Packs/Day Years [...] Description 02/12/2025 10:15 AM EST Office Visit [facility] MEDICINE [address] [place] [address] Vanessa Arango NP [address] [place] [address] documented as of this encounter Visit Diagnoses Diagnosis Class 3 severe obesity due to excess calories with serious comorbidity and body mass index (BMI) of 40.0 to 44.9 in adult- Primary Type 2 diabetes mellitus without complication, without long-term current use of insulin ([facility]) documented in this encounter Additional Health Concerns Assessment Noted Time PHQ-9 Depression Total Score: 6 04/17/19 25 9:04 AM EST documented as of this encounter Care Teams Kennel Manager Dog Track Relationship Specialty Start Date End Date Vanessa Arango NP [address] [place] [address] PCP - General Family Medicine 03/23/23 documented as of this encounter
--- OUTSIDE RECORDS SUMMARY | 2024-12-10 11:10 | XMS_ITS | Encounter Summary ---
Author Organization [employer] Address [address] [place] [address] 7t [place] [address] Care Team Providers Care Computer Hardware Developer Name Role Phone Aliza Cota MOLDING CUTTER Primary Care Provider [phone] Julienne Aparicio MD Primary Care Pro vider Vanessa Arango NP Primary Care Provider [phone] Encounter Details Date Type Department Care Team (Late st Contact Info) Description 08/06/2022 Orders Only [facility] MED & PEDS [address] [place] [address] Sharita Mena LPN Social History Tobacco Use [...] Description 02/12/2025 10:15 AM EST Office Visit [facility] MEDICINE [address] [place] [address] Vanessa Arango NP [address] [place] [address] documented as of this encounter Visit Diagnoses Not on filedocumented in this encounter Care Teams Computer Hardware Developer Relationship Specialty Start Date End Date Aliza CotaELMER [address] [place] [address] PCP - General Family Medicine 12/01/21 02/19/23 Julienne Aparicio MD [address] [place] [address] PCP - General Internal Medicine 02/20/23 03/22/23 Vanessa Arango NP [address] [place] [address] PCP - General Family Medicine 03/23/23 documented as of this encounter
--- OUTSIDE RECORDS SUMMARY | 2024-12-10 11:10 | XMS_ITS | Encounter Summary ---
Author Organization [employer] Address 75 [facility] 7t [place] [address] Care Team Providers Care Solid Waste Collection Worker Name Role Phone Vanessa Arango NP Primary Care Provider [phone] Encounter Details Date Type Department Care Team (Late st Contact Info) Description 12/02/2024 Orders Only [facility] WALK[facility]IN CENTER [address] [place] [address] Vanessa Arango NP [address] [place] [address] Social History Tobacco Use Types Packs/Day Years [...] Description 02/12/2025 10:15 AM EST Office Visit [facility] MEDICINE [address] [place] [address] Vanessa Arango NP [address] [place] [address] documented as of this encounter Visit Diagnoses Not on filedocumented in this encounter Additional Health Concerns Assessment Noted Time PHQ-9 Depression Total Score: 6 04/17/19 25 9:04 AM EST documented as of this encounter Care Teams Solid Waste Collection Worker Relationship Specialty Start Date End Date Vanessa Arango NP [address] [place] [address] PCP - General Family Medicine 03/23/23 documented as of this encounter
--- OUTSIDE RECORDS SUMMARY | 2024-12-10 11:10 | XMS_ITS | Clinical Summary ---
Author Organization [facility] Address [address] [place] [address] Care Team Providers Care Brine Maker Name Role Phone Unavailable Primary Care [...] 11/06/2024 03/22/2023, , 05/03/2021, Additional history exists Advance Care Planning Completed 08/16/2023 Hepatitis B Vaccines Aged Out No long er eligible based on patient's age to complete this topic Insurance [facility] MEDIC[facility] OUT OF NETWORK Advance Directives Documents on File Type Date Recorded Patient Roofer Apprentice Expl anation Advance Directive-Scan 08/16/2023
--- OUTSIDE RECORDS SUMMARY | 2024-12-10 11:10 | XMS_ITS | Encounter Summary ---
Author Organization [employer] Address [address] [place] [address] 7t [place] [address] Care Team Providers Care Taxation Inspector Name Role Phone [place] [facility] Primary Care Provider [phone] Julienne Aparicio MD Primary Care Pro vider Vanessa Arango NP Primary Care Provider [phone] Reason for Visit * Reason Comments Med Refill Encounter Details Date Type Department Care Team (Late st Contact Info) Description 12/28/2022 Refill [facility] MED & PEDS [address] [place] [address] [place], [facility] [address] [place] [address] Social History Tobacco Use Types Packs/Day Years [...] Description 02/12/2025 10:15 AM EST Office Visit [facility] MEDICINE [address] [place] [address] Vanessa Arango NP [address] [place] [address] documented as of this encounter Visit Diagnoses Not on filedocumented in this encounter Care Teams Taxation Inspector Relationship Specialty Start Date End Date [place] FNP [address] [place] [address] PCP - General Family Medicine 12/01/21 02/19/23 Julienne Aparicio MD [address] [place] [address] PCP - General Internal Medicine 02/20/23 03/22/23 Vanessa Arango NP [address] [place] [address] PCP - General Family Medicine 03/23/23 documented as of this encounter
--- OUTSIDE RECORDS SUMMARY | 2024-12-10 11:10 | XMS_ITS | Encounter Summary ---
Author Organization [employer] Address [address] [place] [address] 7t [place] [address] Care Team Providers Care Metal Plater Name Role Phone Aliza Cota AUTOMATION DEVELOPER Primary Care Provider [phone] Julienne Aparicio MD Primary Care Pro vider Vanessa Arango NP Primary Care Provider [phone] Encounter Details Date Type Department Care Team (Latest Contact Info) Description 08/18/[address] [facility] CONVERSIONS Dental, Provider, DDS Social History Tobacco [...] 10:15 AM EST Office Visit [facility] MEDICINE [address] [place] [address] Vanessa Arango NP [address] [place] [address] documented as of this encounter Visit Diagnoses Not on filedocumented in this encounter Care Teams Metal Plater Relationship Specialty Start Date End Date Aliza CotaELMER 230 [place] [address] PCP - General Family Medicine 12/01/21 02/19/23 Julienne Aparicio MD [address] [place] [address] PCP - General Internal Medicine 02/20/23 03/22/23 Vanessa Arango NP [address] [place] [address] PCP - General Family Medicine 03/23/23 documented as of this encounter
--- OUTSIDE RECORDS SUMMARY | 2024-12-10 11:10 | XMS_ITS | Encounter Summary ---
Author Organization [employer] Address 75 [facility] 7t [place] [address] Care Team Providers Care Sawmill Moulder Operator Name Role Phone Vanessa Arango NP Primary Care Provider [phone] Reason for Visit * Reason Comments Med Refill Encounter Details Date Type Department Care Team (Late st Contact Info) Description 02/06/2024 Refill [facility] MEDICINE [address] [place] [address] Vanessa Arango NP [address] [place] [address] Chronic bilateral low back pain with right-sided [...] 10:15 AM EST Office Visit [facility] MEDICINE [address] [place] [address] Vanessa Arango NP [address] [place] [address] documented as of this encounter Visit Diagnoses Diagnosis Chronic bilateral low back pain with right-sided sciatica documented in this encounter Additional Health Concerns Assessment Noted Time PHQ-9 Depression Total Score: 7 03/22/20 23 2:14 PM EST documented as of this encounter Care Teams Sawmill Moulder Operator Relationship Specialty Start Date End Date Vanessa Arango NP [address] [place] [address] PCP - General Family Medicine 03/23/23 documented as of this encounter
--- OUTSIDE RECORDS SUMMARY | 2024-12-10 11:10 | XMS_ITS | Encounter Summary ---
Author Organization [employer] Address 75 [facility] 7t [place] [address] Care Team Providers Care Burring Wheel Operator Name Role Phone Vanessa Arango NP Primary Care Provider [phone] Reason for Visit * Reason Onset Date Comments Durable Medical Equipment 12/27/2023 Encounter Details Date Type Department Care Team (Late st Contact Info) Description 12/27/[address] [facility] MED[facility]INE [address] [place] [address] Vanessa Arango NP [address] [place] [address] Durable Medical Equipment Social History Tobacco Use [...] Description 02/12/2025 10:15 AM EST Office Visit [facility] MED[facility] [address] [place] [address] Vanessa Arango NP [address] [place] [address] documented as of this encounter Visit Diagnoses Not on filedocumented in this encounter Additional Health Concerns Assessment Noted Time PHQ-9 Depression Total Score: 7 03/22/20 2:14 PM EST documented as of this encounter Care Teams Burring Wheel Operator Relationship Specialty Start Date End Date Vanessa Arango NP [address] [place] [address] PCP - General Family Medicine 03/23/23 documented as of this encounter
--- OUTSIDE RECORDS SUMMARY | 2024-12-10 11:10 | XMS_ITS | Encounter Summary ---
Author Organization [employer] Address 75 [facility] 7t [place] [address] Care Team Providers Care Data Manager Name Role Phone Vanessa Arango NP Primary Care Provider [phone] Reason for Visit * Reason Comments Med Refill Encounter Details Date Type Department Care Team (Late st Contact Info) Description 07/02/2024 Refill [facility] MEDICINE [address] [place] [address] Vanessa Arango NP [address] [place] [address] Class 3 severe obesity due to excess [...] Office Visit [facility] MEDICINE [address] [place] [address] Vanessa Arango NP [address] [place] [address] documented as of this encounter Visit Diagnoses Diagnosis Class 3 severe obesity due to excess calories with serious comorbidity and body mass index (BMI) of 40.0 to 44.9 in adult documented in this encounter Additional Health Concerns Assessment Noted Time PHQ-9 Depression Total Score: 6 04/17/19 25 9:04 AM EST documented as of this encounter Care Teams Data Manager Relationship Specialty Start Date End Date Vanessa Arango NP [address] [place] [address] PCP - General Family Medicine 03/23/23 documented as of this encounter
--- OUTSIDE RECORDS SUMMARY | 2024-12-10 11:10 | XMS_ITS | Encounter Summary ---
Author Organization [facility], Address [address] [place] [address] Phone Care Team Providers Care Any Commodity Buyer Name Role Phone Raghav Ace Primary Care Provider Encounter Details Date Type Department Care Team (Late Contact Info) Description 04/23/2024 Documentation Only [facility] [address] [place] [address] Jess Ulloa [address] [place] [address] Social History Tobacco Use Types [...] Visit [facility] [address] [place] [address] Anjum Whitley MD [address] [facility] [place] [address] documented as of this encounter Visit Diagnoses Not on filedocumented in this encounter Care Teams Any Commodity Buyer Relationship Specialty Start Date End Date Raghav Ace FNP [address] [place] [address] Drive, 3rd [place] [address] PCP - General 02/10/19 documented as of this encounter
--- OUTSIDE RECORDS SUMMARY | 2024-12-10 11:10 | XMS_ITS | Clinical Summary ---
Author Organization [employer] Address [address] [facility] 7t [place] [address] Care Team Providers Care Coin Box Inspector Name Role Phone DarnellVanessa bustos QI Primary Care Provider [phone] Allergies No known active allergies Medications [facility] Saline Nasal [place] 0.65 % nasal spray INSERT 1 SPRAY [...] IN THE MORNING 90 tablet 024 Active ferrous sulfate 325 (65 Fe) MG tablet Take 1 tablet (325 mg) by mouth with breakfast. 30 tablet 3 024 Active cholecalciferol (Vitamin D-3) 50 MCG (2000 UT) capsule Take 1 capsule (50 mcg) by mouth Once per day. 30 capsule 3 024 Active FREESTYLE TEST STRIPS test stripIndications :Type 2 diabetes mellitus without complication, without long-term current use of insulin ([facility]) USE 1 STRIP BY DIRECTED ROUTE EVERY DAY 50 strip 11 024 Active aspirin (Aspirin Low Dose) 81 MG EC tabletIndication s:Essential (primary) hypertension,Typ e 2 diabetes mellitus without complication, without long-term current use of insulin ([facility]) TAKE 1 TABLET (81 MG) BY MOUTH IN THE MORNING 90 tablet 3 025 Active lisinopril-hydro CHLOROthiazide 20-25 MG tabletIndication s:Essential (primary) hypertension TAKE 1 TABLET BY MOUTH EVERY DAY IN THE MORNING 90 tablet 025 Active Blood Pressure kitIndications:E ssential (primary) hypertension 1 kit Once per day. 1 kit 025 Active atorvastatin (Lipitor) 80 MG tabletIndication s:Hyperlipidemia , unspecified hyperlipidemia type take 1 tablet (80MG) by oral route every bedtime 90 tablet 025 Active allopurinol (Zyloprim) 100 MG tabletIndication s:Gout, unspecified cause, unspecified chronicity, unspecified site Take 1 tablet (100 mg) by mouth Once per day. 90 tablet 1 025 Active Diclofenac Sodium 1 % gel APPLY 1 GRAM TOPICALLY TO AFFECTED AREA(S) THREE TIMES DAILY IN THE MORNING, AT NOON, AND AT BEDTIME NEEDED FOR PAIN 100 g 025 Active cyanocobalamin (Vitamin B-12) 1000 MCG tabletIndication s:Hyperlipidemia , unspecified hyperlipidemia type TAKE 1 TABLET (1,000 MCG) BY MOUTH IN THE MORNING 90 tablet 3 025 Active omega-3 (Fish Oil) 1000 MG capsule TAKE 1 CAPSULE BY MOUTH TWICE A DAY 180 capsule 3 025 Active Jardiance 25 MG Take 25 mg by mouth Once per day. Active baclofen (Lioresal) 5 MG tabletIndication s:Chronic bilateral low back pain with right-sided sciatica TAKE 1 TABLET BY MOUTH THREE TIMES A DAY 90 tablet 025 Active Tirzepatide (Mounjaro) 7.5 MG/0.5ML solution auto-injectorInd ications:Class 3 severe obesity due to excess calories with serious comorbidity and body mass index (BMI) of 40.0 to 44.9 in adult,Type 2 diabetes mellitus without complication, without long-term current use of insulin ([facility]) Inject 7.5 mg under the skin 1 (one) time per week for 28 days. INJECT ONE PEN (=7.5 MG) SUBCUTANEOUSLY ONCE A WEEK 2 mL 025 2024 Active empagliflozin (Jardiance) 10 MG Take 1 tablet (10 mg) by mouth Once per day. 30 tablet 1 025 2024 Discontinued(D ose adjustment) Tirzepatide (Mounjaro) 7.5 MG/0.5ML solution auto-injectorInd ications:Class 3 severe obesity due to excess calories with serious comorbidity and body mass index (BMI) of 40.0 to 44.9 in adult,Type 2 diabetes mellitus without complication, without long-term current use of insulin ([facility]) Inject 7.5 mg under the skin 1 (one) time per week for 28 days. 2 mL 025 2024 Discontinued baclofen (Lioresal) 5 MG tabletIndication s:Chronic bilateral low back pain with right-sided sciatica TAKE 1 TABLET BY MOUTH THREE TIMES A DAY 90 tablet 025 2024 Discontinued Active Problems Problem Noted Date Diagnosed Date [...] 44.9 in adult 11/27/2023 Assessment & Plan (10/07/2024 6:55 AM EDT): -patient is currently on mounjaro for diabetes mellitus and weight management, with positive results noted in BP, airway disease, and overall functionality -15 lbs documented weight loss in 4 months -Dose increased to 5 mg -No contraindications identified: hx of pancreatitis, hx of medullary thyroid cancer. No known retinopathy. -Discussed side effects with patient: side effects of GLP1: nausea, vomiting, diarrhea & risk of pancreatitis. -discussed mechanism of action with patient which include eating small portions and not eating through sensation of fullness. -Recommended to decrease soda and sugary beverage consumption. -Recommended at least 20 g per meal of protein to assist with satiety. -Recommended at least 150 min/week of moderate intensity exercise. Assessment & Plan (04/24/2024 12:11 PM EST): -has not received ozempic for weight management that was previously ordered. Call placed to [facility] pharmacy who stated medication was ready for p/u. -diet and exercise recommendations reviewed -f/u 1 month to asses progress with injection Assessment & Plan (04/17/2024 10:17 AM EST): -Unable to measure weight loss given differences btwn clinic and home scales. -Continue on current dose of Wegovy given mild evidence of GI upset -New prescription for zepbound sent to pharmacy as preferred by [facility] -Continue lifestyle modifications. He is encouraged to increase walking duration by 5 minutes each week. -Discussed calorie deficit, low carb/high protein diet -Analytics Consultant referral placed. Recommended to decrease sugary beverage [...] EST): -will message care management to understand AUTO TRANSMISSION TECHNICIAN process as it pertains to the [...] mellitus without complication 03/22/2023 Assessment & Plan (10/07/2024 6:48 AM EDT): -controlled with A1c 5.7% today and glucose 139 mg/dL -continue current medication regimen along with lifestyle and dietary modifications Assessment & Plan (04/24/2024 12:12 PM EST): [...] (primary) hypertension 02/06/2021 03/22/2023 Assessment & Plan (10/07/2024 6:43 AM EDT): -stable -continue current medication regimen -lifestyle and dietary modifications reviewed -monitoring labs ordered for follow-up visit Assessment & Plan (04/24/2024 12:13 PM EST): [...] relief Hyperlipidemia 09/16/2013 03/22/2023 Assessment & Plan (10/07/2024 6:46 AM EDT): -continue lipitor 80 mg -monitoring labs ordered -lifestyle modifications reinforced Assessment & Plan (10/29/2023 9:25 PM EDT): [...] Encounters Date Type Department Care Team Description 12/10/2024 Refill [facility] MEDICINE [address] [place] [address] Vanessa Arango NP Essential (primary) hypertension 12/08/2024 Telephone [facility] MED[facility]INE [address] [place] [address] Vanessa Arango NP February12/02/2024 Orders Only [facility] [address] [place] [address] Vanessa Arango NP 12/01/2024 Refill [facility] MED[facility]INE [address] [place] [address] Vanessa Arango NP Chronic bilateral low back pain with right-sided sciatica; Class 3 severe obesity due to excess calories with serious comorbidity and body mass index (BMI) of 40.0 to 44.9 in adult; Type 2 diabetes mellitus without complication, without long-term current use of insulin ([facility]) 11/11/2024 10:45 AM EDT Office Visit [facility] MEDICINE [address] [place] [address] Vanessa Arango NP Type 2 diabetes mellitus without complication, without long-term current use of insulin ([facility]) 11/11/2024 Travel 11/03/2024 Refill [facility] MEDICINE [address] [place] [address] DarnellmVanessa NP Chronic bilateral low back pain with right-sided sciatica 10/28/2024 Orders Only [facility] MEDICINE [address] [place] [address] DarnellmVanessa NP Class 3 severe obesity due to excess calories with serious comorbidity and body mass index (BMI) of 40.0 to 44.9 in adult; Type 2 diabetes mellitus without complication, without long-term current use of insulin ([facility]) 10/27/2024 Refill [facility] [address] [place] [address] DarnellmVanessa NP Class 3 severe obesity due to excess calories with serious comorbidity and body mass index (BMI) of 40.0 to 44.9 in adult; Type 2 diabetes mellitus without complication, without long-term current use of insulin ([facility]) from Last 3 Months Immunizations Immunization Administration Dates Next Due Hep B, adult [...] Sign Reading Time Taken Comments Blood Pressure 120/78 11/11/2024 11:29 AM EDT Pulse 81 11/11/2024 11:29 AM EDT Temperature 37 C (98.6 F) 11/11/2024 11:29 AM EDT Respiratory Rate 20 11/11/2024 11:29 AM EDT Oxygen Saturation 97% 07/10/2024 10:16 AM EDT Inhaled Oxygen Concentration - - Weight 100 kg (220 lb 12.8 oz) 11/11/2024 11:29 AM EDT Height 157.5 cm (5' 2 ) 11/11/2024 11:29 AM EDT Body Mass Index 40.38 11/11/2024 11:29 AM EDT Plan of Treatment Upcoming Encounters Date Type Department Care Team (Late st Contact Info) Description 02/12/2025 10:15 AM EST Office Visit [facility] MEDICINE [address] [place], [place] [phone] Vanessa Arango NP [address] [place] [address] Health Maintenance Due Date Last Done Comments CT Colonography 1954 FIT DNA/Cologuard 1954 FIT 1954 FOBT 1954 Sigmoidoscopy 1954 Eye Exam 02/05/1964 RSV Patients and Patients Aged 60 years or older (1 - Risk 60-74 years 1-dose series) 2014 Zoster Vaccines (2 of 3) 08/09/2014 06/14/2014 Diabetes: Foot Exam 08/08/2024 08/09/2023, 08/09/2023, 08/09/2023, Additional history exists COVID-19 Vaccine (2024- season) 2024 02/26/2022, 05/03/2021, 06/30/2020, Additional history exists Influenza Vaccine (#1) 2024 , 03/22/2023, 02/26/2022, Additional history exists Alcohol/Substance Use Screening 03/11/2025 03/11/2024 Depression Screening 04/17/2025 04/17/2024, 04/17/19 25 Diabetes: Hemoglobin A1C 05/14/2025 025, 07/10/2024, 03/11/2024, Additional history exists SDOH Screening 07/10/2025 07/10/2024 Lipid Panel 07/23/2025 07/23/2024, 04/0 09/2023, 07/11/2020, Additional history exists Diabetes: Urine Protein Screening 11/11/2025 11/11/2024, 11/27/2023, 10/16/2022, Additional history exists Tobacco Screening 11/11/2025 11/11/2024 Colonoscopy 03/03/2027 03/03/2024, 03/15/2016 Colorectal Cancer Screening 03/03/2027 DTaP/Tdap/Td Vaccines (3 - Td or Tdap) 10/29/2033 10/30/2023, 09/02/2009, 01/16/1994 Hepatitis C Screening Completed 04/25/2021 Pneumococcal Vaccine: 50+ Years Completed 03/22/2023, 06/14/2014 Hepatitis B Vaccines Completed 10/30/2023, 05/29/2023, 04/19/2023 HIB Vaccines Aged Out No longer eligi [...] patient's age to complete this topic Meningococcal B Vaccine Aged Out No l onger eligible based on patient's age to complete [...] Date/Time Associated Diagnosis Comments HEMOGLOBIN A1C Routine 11/11/2024 12:38 PM EDT Type 2 diabetes mellitus without complication, without long-term current use of insulin ([facility]) ALBUMIN, RANDOM URINE W/CREATININE Routine 11/11/2024 12:38 PM EDT Essential (primary) hypertension BASIC METABOLIC PANEL Routine 11/11/2024 12:38 PM EDT Essential (primary) hypertension POCT GLUCOSE Routine 11/11/2024 11:31 AM EDT Type 2 diabetes mellitus without complication, without long-term current use of insulin ([facility]) LIPID PANEL, STANDARD Routine 07/23/2024 9:35 AM EDT Class 3 severe obesity due to excess calories with serious comorbidity and body mass index (BMI) of 40.0 to 44.9 in adult Type 2 diabetes mellitus without complication, without long-term current use of insulin (CMS/HCC) HM COLONOSCOPY Routine 03/03/2024 ZZZ HISTORICAL HEPATITIS C ANTIBODY RFLX Routine 04/25/2021 12:36 PM EST from Last 3 Months or Most Recently Relevant to Health Maintenance Results * Albumin, Random Urine W/Creatinine (11/11/2024 12:38 PM EDT) Creatinine, Urine 61.70 mg/dL [facility] Microalbumin Urine 7.0 mg/L [facility] Microalbum Creatinine Ratio Ur 11.3 <30 ug/mg cr [facility] Comment:Albumin/Creatinine R atio Reference Ranges: Normal: < 30 ug/mg creatinine Microalbuminuria: 30 - 300 ug/mg creatinineClinical Albuminuria: > 300 ug/mg creatinine Urine (Urine, Random) 11/11/2024 12:38 PM EDT 11/11/2024 1:06 PM EDT us Vanessa Arango EDUCATIONAL RECRUITER LAB URINE ORDERABLES Final Resu lt [facility] [address] [place] [phone] * Hemoglobin A1c (11/11/2024 12:38 PM EDT) Hemoglobin A1c 5.6 <6.0 % [facility] Comment:Hemoglobin A1C Refer ence Range Adults: 4.8 - 6.0 % Non diabetic: < 6.0 % Goal: < 7.0 %Additional Action Suggested: > 8.0 %Note: Hemoglobin A1c results are invalid for patients with abnormal amounts of HbF. Blood transfusions may impact the HbA1c concentration in the patient sample. Estimated Average Glucose 114 mg/dL [facility] Comment:eAG = Estimated ave rage glucose which is %A1C expressed asaverage glucose, using the formula of the [id number] Glucose study (ADAG), Diabetes Care, Vol.31,#8,Nov. 2007 Blood Venous blood specimen / Unknown 11/11/2024 12:38 PM EDT 11/11/2024 1:33 PM EDT [facility] EDUCATIONAL RECRUITER LAB BLOOD ORDERABLES Final Resu lt Performing Organization Address [facility] Co de Phone Number [facility] [address] [place] [phone] [phone] * (ABNORMAL) Basic Metabolic Panel (11/11/2024 12:38 PM EDT) Sodium 141 135 - 145 mmol/L [facility] Potassium 3.1(L) 3.3 - 5.1 mmol/L [facility] Chloride 101 96 - 108 mmol/L [facility] Carbon Dioxide 28 22 - 29 mmol/L [facility] Anion Gap 15 12 - 20 [facility] Urea Nitrogen (BUN) 13 9 - 16 mg/dL [facility] Creatinine, Serum 0.96 0.5 - 1.4 mg/dL [facility] Estimated Glomerular Filt Rate >60 [facility] Comment:Chronic Kidney Disea se: Estimated GFR < 60 mL/min/[id number] Kidney Disease: Estimated GFR < 15 mL/min/1.73m2 Glucose 100 60 - 115 mg/dL [facility] Calcium 10.0 8.4 - 10.2 mg/dL [facility] Blood Venous blood specimen / Unknown 11/11/2024 12:38 PM EDT 11/11/2024 1:39 PM EDT [facility] EDUCATIONAL RECRUITER LAB BLOOD ORDERABLES Final Resu lt Performing Organization Address [facility] Co de Phone Number [facility] [address] [place] [address] [phone] * POCT Glucose (11/11/2024 11:31 AM EDT) Glucose Blood, POC 91 60 - 200 mg/dL QC Media Lot # [id number] Lot# Expiration Date Blood Capillary blood specimen / Unknown 11/11/2024 11:31 AM EDT us Vanessa Arango EDUCATIONAL RECRUITER POINT OF CARE TEST ENTER/EDIT O RDERABLES Final Result * Lipid Panel, Standard (07/23/2024 9:35 AM EDT) [facility] Triglycerides 133 <150 mg/dL [facility] Comment:Desirable Triglyceri de: less than 150 mg/dLBorderline High Triglyceride 150-199 mg/dLHigh Triglyceride: 200-499 mg/dLVery High Triglyceride: greater than or equal to 5OO mg/dL Cholesterol 167 <200 mg/dL [facility] Comment:Desirable Cholestero l: less than 200 mg/dLBorderline High Cholesterol: 200-239 mg/dLHigh Cholesterol: greater than 239 mg/dL LDL Cholesterol Calculated 95 <100 mg/dL [facility] Comment:Desirable LDL: less than 100 mg/dLNear Optimal/Above Optimal LDL: 110- 129 mg/dLBorderline High LDL: 130-159 mg/dLHigh LDL: 160-189 mg/dLVery High LDL: greater than or equal to 190 mg/dL HDL Cholesterol 46 >40 mg/dL [facility] Comment:Desirable HDL: great er than 40 mg/dL Note: This HDL assay may give artificially low results in patients with liver disease. Blood Venous blood specimen / Unknown 07/23/2024 9:35 AM EDT 07/23/2024 9:35 AM EDT us Vanessa Arango NP LAB BLOOD ORDERABLES Final Resu lt [facility] [address] [place] [address] [phone] * Hm Colonoscopy (03/03/2024) Colonoscopy Normal Normal Narrative Terrie Fischer - 03/03/2024 Recommended 3 years . See see external hospital admission note on 03/03/2024 us Historical Provider MD HEALTH MAINTENANCE Final Result * HEPATITIS C ANTIBODY RFLX (04/25/2021 12:36 PM EST) Hepatitis C Antibody Nonreactive Nonreactive [facility] Comment: Antibodies to HCV not detected; does not exclude early acute HCV infection. 04/25/2021 12:3 6 PM EST us Tereza Nagel NP HISTORICAL/NON ORDERABLE LABS F inal Result [facility] Anywhere [address] from Last 3 Months or Most Recently Relevant to Health Maintenance Insurance [facility] [employer] (O D-SNP) ANNIKA ALCANTARA [id number] Care Teams Coin Box Inspector Relationship Specialty Start Date End Date Vanessa Arango NP [address] [place] [phone] PCP - General Family Medicine 03/23/23
--- OUTSIDE RECORDS SUMMARY | 2024-12-10 11:10 | XMS_ITS | Encounter Summary ---
Author Organization [employer] Address [address] [facility] 7t [place] [address] Care Team Providers Care Large Engine Assembler Name Role Phone Vanessa Arango NP Primary Care Provider [phone] Reason for Visit * Reason Comments Med Refill Encounter Details Date Type Department Care Team (Late st Contact Info) Description 05/14/2023 Refill [facility] MEDICINE [address] [place] [address] Vanessa Arango NP [address] [place] [address] Type 2 diabetes mellitus with other specified complication, unspecified whether skilled nursing insulin use ([facility]); Hyperlipidemia, unspecified hyperlipidemia type Social History [...] Description 02/12/2025 10:15 AM EST Office Visit [facility] MEDICINE [address] [place] [phone] Vanessa Arango NP [address] [place] [address] documented as of this encounter Visit Diagnoses Diagnosis Type 2 diabetes mellitus with other specified complication, 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
--- OUTSIDE RECORDS SUMMARY | 2024-12-10 11:10 | XMS_ITS | Encounter Summary ---
Author Organization [employer] Address [address] [facility] 7t [place] [address] Care Team Providers Care Hse Advisor Name Role Phone Vanessa Arango NP Primary Care Provider [phone] Reason for Visit * Reason Comments Med Refill Encounter Details Date Type Department Care Team (Late st Contact Info) Description 08/23/2023 Refill [facility] MEDICINE [address] [place] [address] Vanessa Arango NP [address] [place] [address] Hyperlipidemia, unspecified hyperlipidemia type; Chronic bilateral low [...] Description 02/12/2025 10:15 AM EST Office Visit [facility] MED[facility] [address] [place] [address] Vanessa Arango NP [address] [place] [address] documented as of this encounter Visit Diagnoses Diagnosis Hyperlipidemia, unspecified hyperlipidemia type Chronic bilateral low back pain with right-sided sciatica documented in this encounter Additional Health Concerns Assessment Noted Time PHQ-9 Depression Total Score: 7 03/22/20 23 2:14 PM EST documented as of this encounter Care Teams Hse Advisor Relationship Specialty Start Date End Date Vanessa Arango NP [address] [place] [address] PCP - General Family Medicine 03/23/23 documented as of this encounter
--- OUTSIDE RECORDS SUMMARY | 2024-12-10 11:10 | XMS_ITS | Encounter Summary ---
Author Organization [employer] Address [address] [facility] 7t [place] [address] Care Team Providers Care Pot Puncher Name Role Phone Vanessa Arango NP Primary Care Provider [phone] Reason for Visit * Reason Onset Date Comments February recall 12/08/2024 Encounter Details Date Type Department Care Team ([facility] st Contact Info) Description 12/08/2024 Telephone [facility] MEDICINE 230 [place] [address] Vanessa Arango NP 230 [place] [address] February recall Social History Tobacco Use Types Packs/Day Years [...] Telephone Encounter - Louise Coe MA - 12/08/2024 10:52 AM EDT Telephone call to patient to schedule the following recall: Visit type: Follow up Appointment notes: DM Patient agree to appointment on 02/12/2025 at 10:15 AM with Nba. Reminder letter will be sent. documented in this encounter Plan of Treatment Upcoming Encounters Date Type Department Care Team (Late st Contact Info) Description 02/12/2025 10:15 AM EST Office Visit [facility] MEDICINE 230 [place] [address] Vanessa Arango NP [address] [place] [address] documented as of this encounter Visit Diagnoses Not on filedocumented in this encounter Additional Health Concerns Assessment Noted Time PHQ-9 Depression Total Score: 6 04/17/19 25 9:04 AM EST documented as of this encounter Care Teams Pot Puncher Relationship Specialty Start Date End Date Vanessa Arango NP 230 [place] [address] PCP - General Family Medicine 03/23/23 documented as of this encounter
--- OUTSIDE RECORDS SUMMARY | 2024-12-10 11:10 | XMS_ITS | Encounter Summary ---
Author Organization [facility], Address [address] [place] [address] Phone Care Team Providers Care Piping Drafter Name Role Phone Raghav Ace [facility] Primary Care Provider [phone] Encounter Details Date Type Department Care Team (Late st Contact Info) Description 02/07/2022 Documentation Only [facility] [address] [place] [phone] Joseph Youngblood PA [address] [place] [address] [place] [phone] Social History Tobacco Use Types Packs/Day Years [...] Visit [facility] [address] [facility] [place] [phone] Anjum Whitley MD [address] [place] [address] [place] [phone] documented as of this encounter Visit Diagnoses Not on filedocumented in this encounter Care Teams Piping Drafter Relationship Specialty Start Date End Date Raghav Ace FNP [address] [place] [address], 3rd [place] [address] PCP - General 02/10/19 documented as of this encounter
--- OUTSIDE RECORDS SUMMARY | 2024-12-10 11:10 | XMS_ITS | Encounter Summary ---
Author Organization [employer] Address 75 [facility] 7t [place] [address] Care Team Providers Care Systems Analyst Name Role Phone Vanessa Arango NP Primary Care Provider [phone] Reason for Visit * Reason Comments Med Change Request Encounter Details Date Type Department Care Team (Late st Contact Info) Description 10/16/2023 Refill [facility] MEDICINE 230 [place] [address] Vanessa Arango NP 230 [place] [address] Chronic bilateral low back pain with right-sided [...] Description 02/12/2025 10:15 AM EST Office Visit [facility] MEDICINE [address] [place] [address] Vnaessa Arango NP [address] [place] [address] documented as of this encounter Visit Diagnoses Diagnosis Chronic bilateral low back pain with right-sided sciatica documented in this encounter Additional Health Concerns Assessment Noted Time PHQ-9 Depression Total Score: 7 03/22/20 23 2:14 PM EST documented as of this encounter Care Teams Systems Analyst Relationship Specialty Start Date End Date Vanessa Arango NP 230 [place] [address] PCP - General Family Medicine 03/23/23 documented as of this encounter
--- OUTSIDE RECORDS SUMMARY | 2024-12-10 11:10 | XMS_ITS | Encounter Summary ---
Author Organization [employer] Address [address] [facility] 7t [place] [address] Care Team Providers Care Therapist'S Assistant Name Role Phone Vanessa Arango QI Primary Care Provider [phone] Reason for Visit * Reason Comments Med Refill Encounter Details Date Type Department Care Team (Late st Contact Info) Description 05/14/2023 Refill [facility] 230 [place], [place] [phone] [facility] 230 [place], [place] [phone] Dyspepsia Social History Tobacco Use Types Packs/Day [...] 10:15 AM EST Office Visit [facility] 230 [place] [address] Vanessa Arango NP 230 [place] [address] documented as of this encounter Visit Diagnoses Diagnosis Dyspepsia Dyspepsia and other specified disorders of function of stomach documented in this encounter Additional Health Concerns Assessment Noted Time PHQ-9 Depression Total Score: 7 03/22/20 23 2:14 PM EST documented as of this encounter Care Teams Therapist'S Assistant Relationship Specialty Start Date End Date Vanessa Arango NP [address] [place] [address] PCP - General Family Medicine 03/23/23 documented as of this encounter
--- OUTSIDE RECORDS SUMMARY | 2024-12-10 11:10 | XMS_ITS | Encounter Summary ---
Author Organization [employer] Address 75 [facility] 7t [place] [address] Care Team Providers Care Atomic Fuel Assembler Name Role Phone Vanessa Arango NP Primary Care Provider [phone] Encounter Details Date Type Department Care Team (Late st Contact Info) Description 04/18/2023 Abstract [facility] MEDICINE 230 [place] [address] Vanessa Arango NP 230 [place] [address] Social History Tobacco Use Types Packs/Day Years [...] Description 02/12/2025 10:15 AM EST Office Visit [facility] MEDICINE [address] [place] [address] Vanessa Arango NP [address] [place] [address] documented as of this encounter Visit Diagnoses Not on filedocumented in this encounter Additional Health Concerns Assessment Noted Time PHQ-9 Depression Total Score: 7 03/22/20 23 2:14 PM EST documented as of this encounter Care Teams Atomic Fuel Assembler Relationship Specialty Start Date End Date Vanessa Arango NP 230 [place] [address] PCP - General Family Medicine 03/23/23 documented as of this encounter
--- OUTSIDE RECORDS SUMMARY | 2024-12-10 11:10 | XMS_ITS | Encounter Summary ---
Author Organization [employer] Address [address] [place] [address] 7t [place] [address] Care Team Providers Care Metal Roaster Name Role Phone Aliza Cota [employer]ESS [employer]ER [employer] Primary Care Provider [phone] Julienne Aparicio MD Primary Care Pro vider Vanessa Arango NP Primary Care Provider [phone] Reason for Visit * Reason Comments Med Refill Encounter Details Date Type Department Care Team (Late st Contact Info) Description 12/28/2022 Refill [facility] [address] [place] [address] Julienne Elias MD 230 [place], [place] [phone] Dyspepsia; IFG (impaired fasting glucose); Hyperlipidemia, unspecified [...] Description 02/12/2025 10:15 AM EST Office Visit [facility] MEDICINE 230 [place] [address] Vanessa Arango NP 230 [place] [address] documented as of this encounter Visit Diagnoses Diagnosis Dyspepsia Dyspepsia and other specified disorders of function of stomach IFG (impaired fasting glucose) Hyperlipidemia, unspecified hyperlipidemia type documented in this encounter Care Teams Metal Roaster Relationship Specialty Start Date End Date Aliza Cota FNP [address] [place] [address] PCP - General Family Medicine 12/01/21 02/19/23 Julienne Aparicio MD [address] [place] [address] PCP - General Internal Medicine 02/20/23 03/22/23 Vanessa Arango NP [address] [place] [address] PCP - General Family Medicine 03/23/23 documented as of this encounter
--- OUTSIDE RECORDS SUMMARY | 2024-12-10 11:10 | XMS_ITS | Encounter Summary ---
Author Organization [employer] Address [address] [place] [address] 7t [place] [address] Care Team Providers Care Biofuels Operations Manager Name Role Phone Vanessa Arango NP Primary Care Provider [phone] Reason for Visit * Reason Comments Med Refill Encounter Details Date Type Department Care Team (Late st Contact Info) Description 07/07/2024 Refill [facility] 230 [place] [address] Vanessa Arango NP [address] [place] [address] Class 3 severe obesity due to excess [...] Visit [facility] MED[facility] [address] [place] [address] Vanessa Arango NP [address] [place] [address] documented as of this encounter Visit Diagnoses Diagnosis Class 3 severe obesity due to excess calories with serious comorbidity and body mass index (BMI) of 40.0 to 44.9 in adult documented in this encounter Additional Health Concerns Assessment Noted Time PHQ-9 Depression Total Score: 6 04/17/19 25 9:04 AM EST documented as of this encounter Care Teams Biofuels Operations Manager Relationship Specialty Start Date End Date Vnaessa Arango NP 230 [place] [address] PCP - General Family Medicine 03/23/23 documented as of this encounter
--- OUTSIDE RECORDS SUMMARY | 2024-12-10 11:10 | XMS_ITS | Encounter Summary ---
Author Organization [employer] Address 75 [facility] 7t [place] [address] Care Team Providers Care Tavern Keeper Name Role Phone Vanessa Arango NP Primary Care Provider [phone] Reason for Visit * Reason Comments Med Refill Encounter Details Date Type Department Care Team (Late st Contact Info) Description 05/04/2023 Refill [facility] MEDICINE 230 [place] [address] Vanessa Arango NP 230 [place] [address] Chronic bilateral low back pain with right-sided [...] Description 02/12/2025 10:15 AM EST Office Visit [facility] MEDICINE 230 [place] [address] Vanessa Arango NP [address] [place] [address] documented as of this encounter Visit Diagnoses Diagnosis Chronic bilateral low back pain with right-sided sciatica documented in this encounter Additional Health Concerns Assessment Noted Time PHQ-9 Depression Total Score: 7 03/22/20 23 2:14 PM EST documented as of this encounter Care Teams Tavern Keeper Relationship Specialty Start Date End Date Vanessa Arango NP [address] [place] [address] PCP - General Family Medicine 03/23/23 documented as of this encounter
== END 2024-12-10 10:48 | disposition home or self-care (01) ==
LOC: HO.HPS 10:02
PROVIDERS: PCP Nurse Practitioner; Visit Provider Internal Medicine
DX: E66.9 Obesity, unspecified (principal); J98.4 Other disorders of lung; G47.33 Obstructive sleep apnea (adult) (pediatric); Z99.89 Dependence on other enabling machines and devices
CPT/HCPCS: 99213

== ENCOUNTER → 2024-12-10 10:02 | Outpatient (BNVA) | payer OTHER, SELFPAY | PROVIDERS: PCP Nurse Practitioner; Visit Provider Internal Medicine | DX: G47.33 Obstructive sleep apnea (adult) (pediatric) (principal); E66.9 Obesity, unspecified; J98.4 Other disorders of lung; Z68.39 Body mass index [BMI] 39.0-39.9, adult | CPT/HCPCS: 99212 ==

== ENCOUNTER 2025-01-07 09:42 | Outpatient (REF) | payer OTHER, SELFPAY ==
--- OUTSIDE RECORDS SUMMARY | 2025-01-07 10:47 | XMS_ITS | Encounter Summary ---
Author Organization [employer] Address [address] [facility] 7t [place] [address] Care Team Providers Care Rug Cleaner Hand Name Role Phone Vanessa Arango NP Primary Care Provider [phone] Reason for Visit * Reason Comments Med Refill Encounter Details Date Type Department Care Team (Late st Contact Info) Description 12/31/[address] [facility] MEDICINE 230 [place] [address] Vanessa Arango NP [address] [place] [address] Class 3 severe obesity due to excess calories with serious comorbidity and body mass index (BMI) of 40.0 to 44.9 in adult; Type 2 diabetes mellitus without complication, without long-term current use of insulin ([facility]) Social History Tobacco Use Types [...] 10:15 AM EST Office Visit [facility] MEDICINE [address] [place] [address] Vanessa Arango NP [address] [place] [address] documented as of this encounter Visit Diagnoses Diagnosis Class 3 severe obesity due to excess calories with serious comorbidity and body mass index (BMI) of 40.0 to 44.9 in adult (HCC) Type 2 diabetes mellitus without complication, without long-term current use of insulin (HCC) documented in this encounter Additional Health Concerns Assessment Noted Time PHQ-9 Depression Total Score: 6 04/17/19 25 9:04 AM EST documented as of this encounter Care Teams Rug Cleaner Hand Relationship Specialty Start Date End Date Vanessa Arango NP 230 [place] [address] PCP - General Family Medicine 03/23/23 documented as of this encounter
--- OUTSIDE RECORDS SUMMARY | 2025-01-07 10:47 | XMS_ITS | Clinical Summary ---
Author Organization [facility] [place], Address [address] [place] [address] [place] [address] Phone Care Team Providers Care Wet Plant Operator Name Role Phone Raghav Ace Primary Care Provider [phone] Allergies No known active allergies Medications pantoprazole [...] KVNG TABLETA TODOS LOS D 0 Active [place]t [place]-3 Fatty Acids ([facility] Fish Oil) 1000 MG [...] EACH DAY. 90 tablet 3 3 Active lisinopril-hyd roCHLOROthiazi de (PRINZIDE,ZEST ORETIC) 20-25 MG per tablet TAKE 2 TABLETS BY MOUTH EVERY DAY 180 tablet 3 4 Active Empagliflozin 25 MG tablet Take 25 mg by mouth 1 (one) time each day in the morning 90 tablet 3 5 Active tamsulosin (FLOMAX) 0.4 MG 24 hr capsule TAKE 1 CAPSULE BY MOUTH EVERY DAY 90 capsule 1 5 Active Cholecalcifero l (D3 Super Strength) 50 MCG (1999) capsule Take 1 tablet by mouth 1 (one) time each day 90 capsule 3 5 Active ferrous sulfate 325 (65 Fe) MG tablet Take 1 tablet (325 mg total) by mouth 1 (one) time each day with breakfast 90 tablet 3 5 Active ferrous sulfate 325 (65 Fe) MG tablet TAKE 1 TABLET BY MOUTH DAILY WITH BREAKFAST. LOW IRON 90 tablet 3 4 12/11/19 25 Discontinu ed(Reorder (does not appear on AVS)) Active Problems Problem Noted Date Diagnosed Date Type 2 diabetes mellitus without complication Essential (primary) hypertension 02/06/2021 Chronic kidney disease stage 2 06/18/2019 Resolved Problems Problem Noted Date Diagnosed Date Resolved Date Renal disorder due to type 2 diabetes mellitus 01/11/2020 02/12/2022 Hyperlipidemia 06/18/2019 02/06/2021 [address]pert[address] heart disease w [facility] congestive heart failure 06/18/2019 02/12/2022 Hypokalemia 06/18/2019 02/06/2021 Morbid obesity 06/18/2019 02/06/2021 Obstructive sleep apnea syndrome 06/18/2019 02/06/2021 Encounters Date Type Department Care Team Description 12/10/2024 Refill [facility] [place], [address] [place] [address] Yadira Wyatt MA from Last 3 Months [...] Visit [facility] [place], [address] [place] [address] Anjum Whitley MD [address] [facility] [place] [phone] Health Maintenance Due Date Last Done Comments Colorectal Cancer Screening: Annual FOBT 2003 Colorectal Cancer Screening: Colonoscopy 2003 Colorectal Cancer Screening: Sigmoidoscopy 2003 Diabetes: Ophthalmology Exam 01/11/2020 Diabetes: Pedal Pulse Checked 01/11/2020 Diabetes: Sensory Foot Exam 01/11/2020 Diabetes: Visual Foot Exam 01/11/2020 Influenza Vaccine (#1) 2024 4, 02/26/2022, 05/03/2021, Additional history exists Diabetes: Hemoglobin A1C 02/11/2025 025, 07/10/2024, 03/11/2024, Additional history exists Pneumococcal Vaccine: 50+ Years [...] with health care provider. DIAGNOSTIC USE: The [place] [employer] (ADA) and the World Health [...] [facility], a Service of [facility], [address] [place] [address] Darryn Ballesteros MD, Rehab Care Assistant [facility]# [id number] Blood specimen (specimen) Venous blood / Unknown 10/16/2022 2:54 PM EDT 10/16/2022 2:55 PM EDT us Joseph [facility] BLOOD ORDERABLES Final Re sult [facility] from Last 3 Months or Most Recently Relevant to Health Maintenance Insurance [employer] Dual SNP ([id number]) [place] [id number] Care Teams Wet Plant Operator Relationship Specialty Start Date End Date Raghav Ace FNP [address], 3rd [place] [address] PCP - General 02/10/19
--- OUTSIDE RECORDS SUMMARY | 2025-01-07 10:47 | XMS_ITS | Encounter Summary ---
Author Organization [employer] Address [address] [place] [address] 7t [place] [address] Care Team Providers Care Skid Worker Name Role Phone [place] [facility] Primary Care Provider [phone] Julienne Aparicio MD Primary Care Pro vider Vanessa Arango NP Primary Care Provider [phone] Reason for Visit * Reason Comments Med Refill Encounter Details Date Type Department Care Team (Late st Contact Info) Description 12/28/2022 Refill [facility] PEDS [address] [place] [address] [place], [facility] 230 [place] [address] Social History Tobacco Use Types Packs/Day Years [...] Description 02/12/2025 10:15 AM EST Office Visit [facility] MEDICINE 230 [place] [address] Vanessa Arango NP 230 [place] [address] documented as of this encounter Visit Diagnoses Not on filedocumented in this encounter Care Teams Skid Worker Relationship Specialty Start Date End Date [place] FNP 230 [place] [address] PCP - General Family Medicine 12/01/21 02/19/23 Julienne Aparicio MD 230 [place] [address] PCP - General Internal Medicine 02/20/23 03/22/23 Vanessa Arango NP [address] [place] [address] PCP - General Family Medicine 03/23/23 documented as of this encounter
--- OUTSIDE RECORDS SUMMARY | 2025-01-07 10:47 | XMS_ITS | Clinical Summary ---
Author Organization [facility] Address [address] [place] [address] Care Team Providers Care Music Engraver Name Role Phone Unavailable Primary Care Provider [...] 60-74 years 1-dose series) 2014 Influenza Vaccine 11/06/2024 03/22/2023, , 05/03/2021, Additional history exists COVID-19 Vaccine ( - 2023- season) 2024 Advance Care Planning Completed 08/16/2023 Hepatitis B Vaccines Aged Out No long er eligible based on patient's age to complete this topic Insurance [facility] Advance Directives Documents on File Type Date Recorded Patient Field Marketing Coordinator Expl anation Advance Directive-Scan 08/16/2023
--- OUTSIDE RECORDS SUMMARY | 2025-01-07 10:47 | XMS_ITS | Encounter Summary ---
Author Organization [facility], Address [address] [place] [address] Phone Care Team Providers Care Roll Up Helper Name Role Phone Raghav Ace [facility] Primary Care Provider [phone] Encounter Details Date Type Department Care Team (Late st Contact Info) Description 02/07/2022 Documentation Only [facility] [address] [place] [phone] Joseph Youngblood PA [address] [place] [address] [place] [phone] Social History Tobacco Use Types Packs/Day Years [...] Visit [facility] [address] [place] [phone] Anjum Whitley MD [address] [place] [address] [place] [phone] documented as of this encounter Visit Diagnoses Not on filedocumented in this encounter Care Teams Roll Up Helper Relationship Specialty Start Date End Date Raghav Ace FNP [address] [place] [address], [address]rd [place] [address] PCP - General 02/10/19 documented as of this encounter
--- OUTSIDE RECORDS SUMMARY | 2025-01-07 10:47 | XMS_ITS | Encounter Summary ---
Author Organization [employer] Address [address] [place] [address] 7t [place] [address] Care Team Providers Care Customer Consultant Name Role Phone [place] [facility] Primary Care Provider [phone] Julienne Aparicio MD Primary Care Pro vider Vanessa Arango NP Primary Care Provider [phone] Reason for Visit * Reason Comments Med Refill Encounter Details Date Type Department Care Team (Late st Contact Info) Description 10/25/2022 Refill [facility] 230 [place] [address] [place] [facility] [address] [place] [address] Dyspepsia; Hyperlipidemia, unspecified hyperlipidemia type; IFG (impaired [...] Description 02/12/2025 10:15 AM EST Office Visit [facility] MEDICINE 230 [place] [address] Vanessa Arango NP [address] [place] [address] documented as of this encounter Visit Diagnoses Diagnosis Dyspepsia Dyspepsia and other specified disorders of function of stomach Hyperlipidemia, unspecified hyperlipidemia type IFG (impaired fasting glucose) documented in this encounter Care Teams Customer Consultant Relationship Specialty Start Date End Date Aliza Cota FNP [address] [place] [address] PCP - General Family Medicine 12/01/21 02/19/23 Julienne Aparicio MD [address] [place] [address] PCP - General Internal Medicine 02/20/23 03/22/23 Vanessa Arango NP [address] [place] [address] PCP - General Family Medicine 03/23/23 documented as of this encounter
--- OUTSIDE RECORDS SUMMARY | 2025-01-07 10:47 | XMS_ITS | Encounter Summary ---
Author Organization [employer] Address [address] [facility] 7t [place] [address] Care Team Providers Care Geologic Technician Name Role Phone Vanessa Arango NP Primary Care Provider [phone] Encounter Details Date Type Department Care Team (Late st Contact Info) Description 04/18/2023 Abstract [facility] MEDICINE [address] [place] [address] Vanessa Arango NP [address] [place] [address] Social History Tobacco Use Types Packs/Day Years [...] 10:15 AM EST Office Visit [facility] MEDICINE [address] [place] [address] Vanessa Arango NP [address] [place] [address] documented as of this encounter Visit Diagnoses Not on filedocumented in this encounter Additional Health Concerns Assessment Noted Time PHQ-9 Depression Total Score: 7 03/22/20 23 2:14 PM EST documented as of this encounter Care Teams Geologic Technician Relationship Specialty Start Date End Date Vanessa Arango NP [address] [place] [address] PCP - General Family Medicine 03/23/23 documented as of this encounter
--- OUTSIDE RECORDS SUMMARY | 2025-01-07 10:47 | XMS_ITS | Encounter Summary ---
Author Organization [employer] Address [address] [place] [address] 7t [place] [address] Care Team Providers Care Language Interpreter Name Role Phone Aliza Cota FRAME NAILER Primary Care Provider [phone] Julienne Aparicio MD Primary Care Pro vider Vanessa Arango NP Primary Care Provider [phone] Encounter Details Date Type Department Care Team (Late st Contact Info) Description 08/06/2022 Orders Only [facility] MED & PEDS [address] [place] [address] Sharita Mena LPN Social History Tobacco Use [...] Description 02/12/2025 10:15 AM EST Office Visit [facility] MEDICINE [address] [place] [address] Vanessa Arango NP 230 [place] [address] documented as of this encounter Visit Diagnoses Not on filedocumented in this encounter Care Teams Language Interpreter Relationship Specialty Start Date End Date Aliza CotaELMER 230 [place] [address] PCP - General Family Medicine 12/01/21 02/19/23 Julienne Aparicio MD [address] [place] [address] PCP - General Internal Medicine 02/20/23 03/22/23 Vanessa Arango NP [address] [place] [address] PCP - General Family Medicine 03/23/23 documented as of this encounter
--- OUTSIDE RECORDS SUMMARY | 2025-01-07 10:47 | XMS_ITS | Encounter Summary ---
Author Organization [employer] Address [address] [place] [address] 7t [place] [address] Care Team Providers Care Outer Diameter Grinder Name Role Phone Vanessa Arango NP Primary Care Provider + Reason for Visit * Reason Comments Med Refill Encounter Details Date Type Department Care Team (Late st Contact Info) Description 07/07/2024 Refill [facility] [address] [place] [address] Vanessa Arango NP [address] [place] [address] Class 3 severe obesity due to excess [...] Description 02/12/2025 10:15 AM EST Office Visit [facility] [address] [place] [address] Vanessa Arango NP [address] [place] [address] documented as of this encounter Visit Diagnoses Diagnosis Class 3 severe obesity due to excess calories with serious comorbidity and body mass index (BMI) of 40.0 to 44.9 in adult (HCC) documented in this encounter Additional Health Concerns Assessment Noted Time PHQ-9 Depression Total Score: 6 04/17/19 25 9:04 AM EST documented as of this encounter Care Teams Outer Diameter Grinder Relationship Specialty Start Date End Date Vanessa Arango NP [address] [place] [address] PCP - General Family Medicine 03/23/23 documented as of this encounter
--- OUTSIDE RECORDS SUMMARY | 2025-01-07 10:47 | XMS_ITS | Encounter Summary ---
Author Organization [employer] Address [address] [facility] 7t [place] [address] Care Team Providers Care Post Hole Digger Name Role Phone Vanessa Arango NP Primary Care Provider [phone] Reason for Visit * Reason Comments Med Refill Encounter Details Date Type Department Care Team (Late st Contact Info) Description 05/14/2023 Refill [facility] [address] [place] [address] Vanessa Arango NP [address] [place] [address] Type 2 diabetes mellitus with other specified complication, unspecified whether long-term insulin use ([facility]); Hyperlipidemia, unspecified hyperlipidemia type Social History Tobacco [...] Description 02/12/2025 10:15 AM EST Office Visit [facility] [address] [place] [address] Vanessa Arango NP [address] [place] [address] documented as of this encounter Visit Diagnoses Diagnosis Type 2 diabetes mellitus with other specified complication, unspecified whether ferry terminal supervisor insulin use (HCC) Hyperlipidemia, unspecified hyperlipidemia type documented in this encounter Additional Health Concerns Assessment Noted Time PHQ-9 Depression Total Score: 7 03/22/20 23 2:14 PM EST documented as of this encounter Care Teams Post Hole Digger Relationship Specialty Start Date End Date Vanessa Arango NP [address] [place] [address] PCP - General Family Medicine 03/23/23 documented as of this encounter
--- OUTSIDE RECORDS SUMMARY | 2025-01-07 10:47 | XMS_ITS | Encounter Summary ---
Author Organization [employer] Address [address] [place] [address] 7t [place] [address] Care Team Providers Care Refrigerator Room Clerk Name Role Phone [facility] Primary Care Provider [phone] Julienne Aparicio MD Primary Care Pro vider Vanessa Arango NP Primary Care Provider [phone] Reason for Visit * Reason Comments Med Refill Encounter Details Date Type Department Care Team (Late st Contact Info) Description 11/07/2022 Refill [facility] [address] [place] [address] [place] [facility] [address] [place] [address] Type 2 diabetes mellitus with other specified complication, unspecified whether fdc insulin use ([facility]); IFG (impaired fasting glucose) Social History [...] Description 02/12/2025 10:15 AM EST Office Visit [facility] [address] [place] [address] Vanessa Arango NP [address] [place] [address] documented as of this encounter Visit Diagnoses Diagnosis Type 2 diabetes mellitus with other specified complication, unspecified whether buttermilk drier operator insulin use (HCC) IFG (impaired fasting glucose) documented in this encounter Care Teams Refrigerator Room Clerk Relationship Specialty Start Date End Date Aliza Cota FNP [address] [place] [address] PCP - General Family Medicine 12/01/21 02/19/23 Julienne Aparicio MD [address] [place] [address] PCP - General Internal Medicine 02/20/23 03/22/23 Vanessa Arango NP [address] [place] [address] PCP - General Family Medicine 03/23/23 documented as of this encounter
--- OUTSIDE RECORDS SUMMARY | 2025-01-07 10:47 | XMS_ITS | Encounter Summary ---
Author Organization [employer] Address [address] [place] [address] 7t [place] [address] Care Team Providers Care Swimming Pool Salesperson Name Role Phone Aliza Cota NEUROLOGY PHYSICIAN ASSISTANT Primary Care Provider [phone] Julienne Aparicio MD Primary Care Pro vider Vanessa Arango NP Primary Care Provider [phone] Encounter Details Date Type Department Care Team (Latest Contact Info) Description 08/18/2018 Abstract [facility] Dental, Provider, DDS Social History [...] Description 02/12/2025 10:15 AM EST Office Visit [facility] [address] [place] [address] Vanessa Arango NP [address] [place] [address] documented as of this encounter Visit Diagnoses Not on filedocumented in this encounter Care Teams Swimming Pool Salesperson Relationship Specialty Start Date End Date Aliza CotaELMER 230 [place] [address] PCP - General Family Medicine 12/01/21 02/19/23 Julienne Aparicio MD [address] [place] [address] PCP - General Internal Medicine 02/20/23 03/22/23 Vanessa Arango NP [address] [place] [address] PCP - General Family Medicine 03/23/23 documented as of this encounter
--- OUTSIDE RECORDS SUMMARY | 2025-01-07 10:47 | XMS_ITS | Encounter Summary ---
Author Organization [employer] Address [address] [place] [address] 7t [place] [address] Care Team Providers Care Data Virtualization Consultant Name Role Phone Vanessa Arango NP Primary Care Provider [phone] Reason for Referral * Medications - Closed Specialty Diagnoses / Procedures Referred By Jay rolle Referred To Contact Diagnoses Class 3 severe obesity due to excess calories with serious comorbidity and body mass index (BMI) of 40.0 to 44.9 in adult (HCC) Type 2 diabetes mellitus without complication, without long-term current use of insulin ([facility]) Vanessa Arango NP [address] [place] [address] Phone: tel: fax: Referral ID Status Reason Start Date Expiration Date Visits Re quested Visits Authorized [id number] Closed 1 1 Encounter Details Date Type Department Care Team ([facility] st Contact Info) Description 01/04/2025 Orders Only [facility] [address] [place] [address] Vanessa Arango NP [address] [place] [address] Class 3 severe obesity due to excess calories with serious comorbidity and body mass index (BMI) of 40.0 to 44.9 in adult (Primary Dx); Type 2 diabetes mellitus without complication, without long-term current use of insulin ([facility]) Social History Tobacco Use Types Packs/Day Years [...] 02/12/2025 10:15 AM EST Office Visit [facility] [address] [place] [address] Vanessa Arango NP [address] [place] [address] documented as of this encounter Visit Diagnoses [...] as of this encounter Care Teams Data Virtualization Consultant Relationship Specialty Start Date End Date Vanessa Arango NP [address] [place] [address] PCP - General Family Medicine 03/23/23 documented as of this encounter
--- OUTSIDE RECORDS SUMMARY | 2025-01-07 10:47 | XMS_ITS | Encounter Summary ---
Author Organization [employer] Address [address] [place] [address] 7t [place] [address] Care Team Providers Care Biomed Tech Name Role Phone Aliza Cota TEACHING DIETITIAN Primary Care Provider [phone] Julienne Aparicio MD Primary Care Pro vider Vanessa Arango NP Primary Care Provider [phone] Encounter Details Date Type Department Care Team (Late st Contact Info) Description 02/19/2023 Orders Only [facility] [address] [place] [address] Duyen Jean LPN Social History Tobacco Use [...] Description 02/12/2025 10:15 AM EST Office Visit [facility] [address] [place] [address] Vanessa Arango NP [address] [place] [address] documented as of this encounter Visit Diagnoses Not on filedocumented in this encounter Care Teams Biomed Tech Relationship Specialty Start Date End Date Aliza CotaELMER [address] [place] [address] PCP - General Family Medicine 12/01/21 02/19/23 Julienne Aparicio MD [address] [place] [address] PCP - General Internal Medicine 02/20/23 03/22/23 Vanessa Arango NP [address] [place] [address] PCP - General Family Medicine 03/23/23 documented as of this encounter
--- OUTSIDE RECORDS SUMMARY | 2025-01-07 10:47 | XMS_ITS | Encounter Summary ---
Author Organization [employer] Address [address] [facility] 7t [place] [address] Care Team Providers Care House Sitter Name Role Phone Vanessa Arango NP Primary Care Provider [phone] Encounter Details Date Type Department Care Team (Late st Contact Info) Description 10/28/2024 Orders Only [facility] [address] [place] [address] Vanessa Arango NP [address] [place] [address] Class 3 severe obesity due to excess calories with serious comorbidity and body mass index (BMI) of 40.0 to 44.9 in adult; Type 2 diabetes mellitus without complication, without long-term current use of insulin ([facility]) Social History Tobacco Use [...] 02/12/2025 10:15 AM EST Office Visit [facility] [address] [place] [address] Vanessa Arango NP [address] [place] [address] documented as of this encounter Visit Diagnoses [...] documented as of this encounter Care Teams House Sitter Relationship Specialty Start Date End Date Vanessa Arango NP [address] [place] [address] PCP - General Family Medicine 03/23/23 documented as of this encounter
--- OUTSIDE RECORDS SUMMARY | 2025-01-07 10:47 | XMS_ITS | Encounter Summary ---
Author Organization [employer] Address [address] [facility] 7t [place] [address] Care Team Providers Care Industrial Property Appraiser Name Role Phone Vanessa Arango NP Primary Care Provider [phone] Reason for Visit * Reason Onset Date Comments Durable Medical Equipment 12/27/2023 Encounter Details Date Type Department Care Team (Late st Contact Info) Description 12/27/2023 Telephone [facility] [address] [place] [address] Vanessa Arango NP [address] [place] [address] Durable Medical Equipment Social History Tobacco Use [...] Miscellaneous Notes * Telephone Encounter - Germán Daryb - 12/27/2023 1:25 PM EDT Tc from patients Daughter calling to request the following DME. Grab Bars Shower Chair Raised Toilet Hand Held Shower Head Bath Mat documented in this encounter Plan of Treatment Upcoming Encounters Date Type Department Care Team (Late st Contact Info) Description 02/12/2025 10:15 AM EST Office Visit [facility] MED[facility] [address] [place] [address] Vanessa Arango NP [address] [place] [address] documented as of this encounter Visit Diagnoses Not on filedocumented in this encounter Additional Health Concerns Assessment Noted Time PHQ-9 Depression Total Score: 7 03/22/20 2:14 PM EST documented as of this encounter Care Teams Industrial Property Appraiser Relationship Specialty Start Date End Date Vanessa Arango NP [address] [place] [address] PCP - General Family Medicine 03/23/23 documented as of this encounter
--- OUTSIDE RECORDS SUMMARY | 2025-01-07 10:47 | XMS_ITS | Encounter Summary ---
Author Organization [employer] Address [address] [place] [address] 7t [place] [address] Care Team Providers Care Glue Maker Name Role Phone DarnellVanessa bustos QI Primary Care Provider [phone] Reason for Visit * Reason Comments Med Refill Encounter Details Date Type Department Care Team (Late st Contact Info) Description 05/04/2023 Refill [facility] [address] [place], [place] [phone] 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 ([facility]); IFG (impaired fasting glucose) Social History Tobacco [...] 10:15 AM EST Office Visit [facility] [address] [place] [address] Vanessa Arango NP [address] [place] [address] documented as of this encounter Visit Diagnoses Diagnosis Hyperlipidemia, unspecified hyperlipidemia type Type 2 diabetes mellitus with other specified complication, 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
--- OUTSIDE RECORDS SUMMARY | 2025-01-07 10:47 | XMS_ITS | Encounter Summary ---
Author Organization [employer] Address [address] [facility] 7t [place] [address] Care Team Providers Care Licensed Nursing Assistant Name Role Phone Vanessa rAango NP Primary Care Provider [phone] Encounter Details Date Type Department Care Team (Late st Contact Info) Description 07/02/2024 Orders Only [facility] [address] [place] [address] Vanessa Arango NP [address] [place] [address] Class 3 severe obesity due to excess calories with serious comorbidity and body mass index (BMI) of 40.0 to 44.9 in adult ([facility]) (Primary Dx); Type 2 diabetes mellitus without complication, without long-term current use of insulin ([facility]) Social History Tobacco Use Types [...] Description 02/12/2025 10:15 AM EST Office Visit [facility] [address] [place] [address] Vanessa Arango NP [address] [place] [address] documented as of this encounter Visit Diagnoses Diagnosis Class 3 severe obesity due to excess calories with serious comorbidity and body mass index (BMI) of 40.0 to 44.9 in adult (HCC)- Primary Type 2 diabetes mellitus without complication, without long-term current use of insulin (HCC) documented in this encounter Additional Health Concerns Assessment Noted Time PHQ-9 Depression Total Score: 6 04/17/19 25 9:04 AM EST documented as of this encounter Care Teams Licensed Nursing Assistant Relationship Specialty Start Date End Date Vanessa Arango NP [address] [place] [address] PCP - General Family Medicine 03/23/23 documented as of this encounter
--- OUTSIDE RECORDS SUMMARY | 2025-01-07 10:47 | XMS_ITS | Clinical Summary ---
Author Organization [email or web address] Address [address] [facility] 7t [place] [address] Care Team Providers Care Director [facility] Name Role Phone DarnellVanessa bustos QI Primary Care Provider [phone] Allergies No known active allergies Medications [facility] Saline Nasal [place] 0.65 % nasal spray INSERT 1 SPRAY [...] without long-term current use of insulin (HCC) USE 1 STRIP BY DIRECTED ROUTE EVERY DAY 50 strip 11 024 Active aspirin (Aspirin Low Dose) 81 MG EC tabletIndication s:Essential (primary) hypertension,Typ e 2 diabetes mellitus without complication, without long-term current use of insulin (HCC) TAKE 1 TABLET (81 MG) BY MOUTH IN THE MORNING 90 tablet 3 025 Active Blood Pressure kitIndications:E ssential (primary) [...] THE MORNING 90 tablet 3 025 Active Jardiance 25 MG Take 25 mg by mouth Once per day. Active baclofen (Lioresal) 5 MG tabletIndication s:Chronic bilateral low back pain with right-sided sciatica TAKE 1 TABLET BY MOUTH THREE TIMES A DAY 90 tablet 025 Active lisinopril-hydro CHLOROthiazide 20-25 MG tabletIndication s:Essential (primary) hypertension TAKE 1 TABLET BY MOUTH EVERY DAY IN THE MORNING 90 tablet 025 Active omega-3 (Fish Oil) 1000 MG capsule Take 1 capsule (1,000 mg) by mouth 2 times daily. 180 capsule 3 025 Active Tirzepatide (Mounjaro) 10 MG/0.5ML solution auto-injectorInd ications:Class 3 severe obesity due to excess calories with serious comorbidity and body mass index (BMI) of 40.0 to 44.9 in adult ([facility]),Type 2 diabetes mellitus without complication, without long-term current use of insulin ([facility]) Inject 10 mg under the skin 1 (one) time per week for 28 days. 2 mL 025 2024 Active lisinopril-hydro CHLOROthiazide 20-25 MG tabletIndication s:Essential (primary) hypertension TAKE 1 TABLET BY MOUTH EVERY DAY IN THE MORNING 90 tablet 025 2024 Discontinued omega-3 (Fish Oil) 1000 MG capsule TAKE 1 CAPSULE BY MOUTH TWICE A DAY 180 capsule 3 025 2024 Discontinued(R eorder (will not trigger notification to Pharmacy)) Tirzepatide (Mounjaro) 7.5 MG/0.5ML solution auto-injectorInd ications:Class 3 severe obesity due to excess calories with serious comorbidity and body mass index (BMI) of 40.0 to 44.9 in adult ([facility]),Type 2 diabetes mellitus without complication, without long-term current use of insulin ([facility]) Inject 7.5 mg under the skin 1 (one) time per week for 28 days. INJECT ONE PEN (=7.5 MG) SUBCUTANEOUSLY ONCE A WEEK 2 mL 025 2024 Active Problems Problem Noted Date Diagnosed Date [...] 44.9 in adult 11/27/2023 Assessment & Plan (12/23/2024 12:24 PM EDT): -patient is currently on mounjaro for diabetes mellitus and weight management, with positive results noted in BP, airway disease, and overall functionality -8 lbs weight gain in 4 months. Denies dietary changes or missed doses of Zepbound injection -Dose will be increased to 7.5 mg with next fill -discussed mechanism of action with patient which include eating small portions and not eating through sensation of fullness. -Recommended to decrease soda and sugary beverage consumption. -Recommended at least 20 g per meal of protein to assist with satiety. -Recommended increasing physical activity to at least 150 min/week of moderate intensity exercise. Assessment & Plan (10/07/2024 6:55 AM EDT): [...] that was previously ordered. Call placed to [facility] pharmacy who stated medication was ready [...] -Discussed calorie deficit, low carb/high protein diet -[employer] referral placed. Recommended to decrease sugary beverage [...] EST): -will message care management to understand RESTORATION ECOLOGIST process as it pertains to the patients [...] mellitus without complication 03/22/2023 Assessment & Plan (12/23/2024 12:21 PM EDT): -controlled with normalized A1c at 5.6% today and glucose 91 mg/dL -continue current medication regimen along with lifestyle and dietary modifications Assessment & Plan (10/07/2024 6:48 AM EDT): [...] (primary) hypertension 02/06/2021 03/22/2023 Assessment & Plan (12/23/2024 12:18 PM EDT): -Hypertension well controlled. -Current treatment plan is effective, no change in therapy. -Repeat labs ordered prior to next appointment. -Reviewed diet, exercise and weight control.. Assessment & Plan (10/07/2024 6:43 AM EDT): [...] Encounters Date Type Department Care Team Description 01/04/2025 Orders Only [facility] [address] [facility] [place] [address] Vanessa Arango NP Class 3 severe obesity due to excess calories with serious comorbidity and body mass index (BMI) of 40.0 to 44.9 in adult (Primary Dx); Type 2 diabetes mellitus without complication, without long-term current use of insulin ([facility]) 12/31/2024 Refill [facility] [address] [facility] [place] [address] Vanessa Arango NP Class 3 severe obesity due to excess calories with serious comorbidity and body mass index (BMI) of 40.0 to 44.9 in adult; Type 2 diabetes mellitus without complication, without long-term current use of insulin (CMS/[facility]) 12/23/2024 Results Follow-Up [facility] [address] [facility] [place] [address] Vanessa Arango NP Basic Metabolic Panel, Albumin, Random Urine W/Creatinine, Hemoglobin A1c 12/10/2024 Refill [facility] [address] [facility] [place] [address] Vanessa Arango NP Essential (primary) hypertension 12/08/2024 Telephone [facility] [address] [facility] [place] [address] Vanessa Arango NP November recall 12/02/2024 Orders Only [facility] [address] [facility] [place] [address] Vanessa Arango NP 12/01/2024 Refill [facility] [address] [facility] [place] [address] Vanessa Arango NP Chronic bilateral low back pain with right-sided sciatica; Class 3 severe obesity due to excess calories with serious comorbidity and body mass index (BMI) of 40.0 to 44.9 in adult; Type 2 diabetes mellitus without complication, without long-term current use of insulin (CMS/[facility]) 11/11/2024 10:45 AM EDT Office Visit [facility] [address] [facility] [place] [address] Vanessa Arango NP Essential (primary) hypertension (Primary Dx); Type 2 diabetes mellitus without complication, without long-term current use of insulin ([facility]); Class 3 severe obesity due to excess calories with serious comorbidity and body mass index (BMI) of 40.0 to 44.9 in adult 11/11/2024 Travel 11/03/2024 Refill [facility] [address] [place] [address] Appram, Vanessa, COLLECTION AGENT Chronic bilateral low back pain with right-sided sciatica 10/28/2024 Orders Only [facility] [address] [place] [address] Appram, Vanessa, COLLECTION AGENT Class 3 severe obesity due to excess calories with serious comorbidity and body mass index (BMI) of 40.0 to 44.9 in adult; Type 2 diabetes mellitus without complication, without long-term current use of insulin ([facility]) 10/27/2024 Refill [facility] [address] [place] [address] Appram, Vanessa, QI Class 3 severe obesity due to excess calories with serious comorbidity and body mass index (BMI) of 40.0 to 44.9 in adult; Type 2 diabetes mellitus without complication, without long-term current use of insulin ([facility]) from Last 3 Months Immunizations Immunization Administration [...] Description 02/12/2025 10:15 AM EST Office Visit [facility] [address] [place], [place] [phone] Vanessa Arango NP [address] [place], [place] [phone] Health Maintenance Due Date Last Done Comments CT Colonography 1954 FIT DNA/Cologuard 1954 FIT 1954 FOBT 1954 Sigmoidoscopy 1954 Eye Exam 02/05/1964 RSV Patients and Patients Aged 60 years or older (1 - Risk 60-74 years 1-dose series) 2014 Zoster Vaccines (2 of 3) 08/09/2014 06/14/2014 Diabetes: Foot Exam 08/08/2024 08/09/2023, 08/09/2023, 08/09/2023, Additional history exists COVID-19 Vaccine ( season) 2024 02/26/2022, 05/03/2021, 06/30/2020, Additional history [...] without long-term current use of insulin ([facility]) ALBUMIN, RANDOM URINE W/CREATININE Routine 11/11/2024 12:38 PM EDT Essential (primary) hypertension BASIC METABOLIC PANEL Routine 11/11/2024 12:38 PM EDT Essential (primary) hypertension POCT GLUCOSE Routine 11/11/2024 11:31 AM EDT Type 2 diabetes mellitus without complication, without long-term current use of insulin (CMS/HCC) LIPID PANEL, STANDARD Routine 07/23/2024 9:35 AM [...] 12:38 PM EDT) Creatinine, Urine 61.70 mg/dL [facility] Microalbumin Urine 7.0 mg/L [facility] Microalbum Creatinine Ratio Ur 11.3 <30 ug/mg cr [facility] Comment:Albumin/Creatinine R atio Reference Ranges: Normal: < 30 ug/mg creatinine Microalbuminuria: 30 - 300 ug/mg creatinineClinical Albuminuria: > 300 ug/mg creatinine Urine (Urine, Random) 11/11/2024 12:38 PM EDT 11/11/2024 1:06 PM EDT Vanessa Arango COLLECTION AGENT LAB URINE ORDERABLES Final Resu lt [facility] [address] [place], [place] [phone] * Hemoglobin A1c (11/11/2024 12:38 PM EDT) Hemoglobin A1c 5.6 <6.0 % [facility] Comment:Hemoglobin A1C Refer ence Range Adults: 4.8 - 6.0 % Non diabetic: < 6.0 % Goal: < 7.0 %Additional Action Suggested: > 8.0 %Note: Hemoglobin A1c results are invalid for patients with abnormal amounts of HbF. Blood transfusions may impact the HbA1c concentration in the patient sample. Estimated Average Glucose 114 mg/dL [facility] Comment:eAG = Estimated ave rage glucose which is %A1C expressed asaverage glucose, using the formula of the H5C-PnrftgwKwnimsa Glucose study (ADAG), Diabetes Care, Vol.31,#8,Nov. 2007 Blood Venous blood specimen / Unknown 11/11/2024 12:38 PM EDT 11/11/2024 1:33 PM EDT us Vanessa Arango NP LAB BLOOD ORDERABLES Final Resu lt [facility] [address] [place] [address] [phone] * (ABNORMAL) Basic Metabolic Panel (11/11/2024 12:38 PM EDT) Sodium 141 135 - 145 mmol/L [facility] Potassium 3.1(L) 3.3 - 5.1 mmol/L [facility] Chloride 101 96 - 108 mmol/L [facility] Carbon Dioxide 28 22 - 29 mmol/L [facility] Anion Gap 15 12 - 20 [facility] Urea Nitrogen (BUN) 13 9 - 16 mg/dL [facility] Creatinine, Serum 0.96 0.5 - 1.4 mg/dL [facility] Estimated Glomerular Filt Rate >60 [facility] Comment:Chronic Kidney Disea se: Estimated GFR < 60 mL/min/1.40k3Luevyd Kidney Disease: Estimated GFR < 15 mL/min/1.73m2 Glucose 100 60 - 115 mg/dL [facility] Calcium 10.0 8.4 - 10.2 mg/dL [facility] Blood Venous blood specimen / Unknown 11/11/2024 12:38 PM EDT 11/11/2024 1:39 PM EDT Vanessa Arango COLLECTION AGENT LAB BLOOD ORDERABLES Final Resu lt Performing Organization Address City/[facility]/ZIP Co de Phone Number [facility] [address] [place] [address] [phone] * POCT Glucose (11/11/2024 11:31 AM EDT) Glucose Blood, POC 91 60 - 200 mg/dL QC Media Lot # [id number] Lot# Expiration Date Blood Capillary blood specimen / Unknown 11/11/2024 11:31 AM EDT Vanessa Arango NP POINT OF CARE TEST ENTER/EDIT O RDERABLES Final Result * Lipid Panel, Standard (07/23/2024 9:35 AM EDT) Triglycerides 133 <150 mg/dL [facility] Comment:Desirable Triglyceri de: less than 150 mg/dLBorderline High Triglyceride 150-199 mg/dLHigh Triglyceride: 200-499 mg/dLVery High Triglyceride: greater than or equal to 5OO mg/dL Cholesterol 167 <200 mg/dL [facility] Comment:Desirable Cholestero l: less than 200 mg/dLBorderline High Cholesterol: 200-239 mg/dLHigh Cholesterol: greater than 239 mg/dL LDL Cholesterol Calculated 95 <100 mg/dL [facility] Comment:Desirable LDL: less than 100 mg/dLNear Optimal/Above Optimal LDL: 110- 129 mg/dLBorderline High LDL: 130-159 mg/dLHigh LDL: 160-189 mg/dLVery High LDL: greater than or equal to 190 mg/dL HDL Cholesterol 46 >40 mg/dL [facility] Comment:Desirable HDL: great er than 40 mg/dL Note: This HDL assay may give artificially low results in patients with liver disease. Blood Venous blood specimen / Unknown 07/23/2024 9:35 AM EDT 07/23/2024 9:35 AM EDT Vanessa Arango NP LAB BLOOD ORDERABLES Final Resu lt [facility] [address] [place] [phone] [phone] * Colonoscopy (03/03/2024) Colonoscopy Normal Normal Narrative Terrie Fischer - 03/03/2024 Recommended 3 years . See see external hospital admission note on 03/03/2024 us Historical Provider MD HEALTH MAINTENANCE Final Result * HEPATITIS C ANTIBODY RFLX (04/25/2021 12:36 PM EST) Hepatitis C Antibody Nonreactive Nonreactive [facility] Comment: Antibodies to HCV not detected; does not exclude early acute HCV infection. 04/25/2021 12:3 6 PM EST us Tereza Nagel NP HISTORICAL/NON ORDERABLE LABS F inal Result [facility] [address] from Last 3 Months or Most Recently Relevant to Health Maintenance Insurance [facility] OPT[employer] (O D-SNP) Member Subscriber Plan / Payer (Ef fective 2024-Present) Name:Flavio Wyatt Relation to Subscriber:Self Name:Flavio Wyatt Payer ID:Not on file Group ID:[facility] [place] Type:Medicare Address: [place] [address] [address] [place] [address] Care Teams Director [facility] Relationship Specialty Start Date End Date Vanessa Arango NP [address] [place] [address] PCP - General Family Medicine 03/23/23
--- OUTSIDE RECORDS SUMMARY | 2025-01-07 10:47 | XMS_ITS | Encounter Summary ---
Author Organization [employer] Address [address] [place] [address] 7t [place] [address] Care Team Providers Care Proof Operator Name Role Phone Aliza Cota DISABILITIES SERVICES OFFICER Primary Care Provider [phone] Julienne Aparicio MD Primary Care Pro vider Vanessa Arango NP Primary Care Provider [phone] Reason for Visit * Reason Comments Med Refill Encounter Details Date Type Department Care Team (Late st Contact Info) Description 12/28/2022 Refill [facility] [address] [place] [phone] Julienne Elias MD [address] [place], [place] [phone] Dyspepsia; IFG (impaired fasting glucose); Hyperlipidemia, unspecified [...] 02/12/2025 10:15 AM EST Office Visit [facility] [address] [place] [address] Vanessa Arango NP [address] [place] [address] documented as of this encounter Visit Diagnoses Diagnosis Dyspepsia Dyspepsia and other specified disorders of function of stomach IFG (impaired fasting glucose) Hyperlipidemia, unspecified hyperlipidemia type documented in this encounter Care Teams Proof Operator Relationship Specialty Start Date End Date Aliza Cota FNP [address] [place] [address] PCP - General Family Medicine 12/01/21 02/19/23 Julienne Aparicio MD [address] [place] [address] PCP - General Internal Medicine 02/20/23 03/22/23 Vanessa Arango NP [address] [place] [address] PCP - General Family Medicine 03/23/23 documented as of this encounter
--- OUTSIDE RECORDS SUMMARY | 2025-01-07 10:47 | XMS_ITS | Encounter Summary ---
Author Organization [employer] Address [address] [facility] 7t [place] [address] Care Team Providers Care Demolition Engineer Name Role Phone Vanessa Arango NP Primary Care Provider [phone] Reason for Visit * Reason Comments Med Refill Encounter Details Date Type Department Care Team (Late st Contact Info) Description 05/04/2023 Refill [facility] [address] [place] [address] Vanessa Arango NP [address] [place] [address] Chronic bilateral low back pain with right-sided [...] Description 02/12/2025 10:15 AM EST Office Visit [facility] [address] [place] [address] Vanessa Arango NP [address] [place] [address] documented as of this encounter Visit Diagnoses Diagnosis Chronic bilateral low back pain with right-sided sciatica documented in this encounter Additional Health Concerns Assessment Noted Time PHQ-9 Depression Total Score: 7 03/22/20 23 2:14 PM EST documented as of this encounter Care Teams Demolition Engineer Relationship Specialty Start Date End Date Vanessa Arango NP [address] [place] [address] PCP - General Family Medicine 03/23/23 documented as of this encounter
--- OUTSIDE RECORDS SUMMARY | 2025-01-07 10:47 | XMS_ITS | Encounter Summary ---
Author Organization [facility], Address [address] [place] [address] Phone Care Team Providers Care Bag Inspector Name Role Phone Raghav Ace Primary Care Provider Encounter Details Date Type Department Care Team (Late Contact Info) Description 04/23/2024 Documentation Only [facility] [address] [place] [address] Jess Ulloa [address] [place] [address] Social History Tobacco Use Types [...] Visit [facility] [address] [place] [address] Anjum Whitley MD [address] [facility] [place] [address] documented as of this encounter Visit Diagnoses Not on filedocumented in this encounter Care Teams Bag Inspector Relationship Specialty Start Date End Date Raghav Ace FNP [address] [place] [address] Drive, 3rd [place] [address] PCP - General 02/10/19 documented as of this encounter
--- OUTSIDE RECORDS SUMMARY | 2025-01-07 10:47 | XMS_ITS | Encounter Summary ---
Author Organization [employer] Address [address] [place] [address] 7t [place] [address] Care Team Providers Care Extrusion Former Name Role Phone Julienne Aparicio MD Primary Care Pro vider Vanessa Arango NP Primary Care Provider [phone] Reason for Visit * Reason Comments Med Refill Encounter Details Date Type Department Care Team (Late st Contact Info) Description 02/20/2023 Refill [facility] [address] [place] [phone] Julienne Elias MD [address] [place] [address] Dyspepsia; IFG (impaired fasting glucose); Hyperlipidemia, unspecified [...] 10:15 AM EST Office Visit [facility] [address] [place] [address] Vanessa Arango NP [address] [place] [address] documented as of this encounter Visit Diagnoses Diagnosis Dyspepsia Dyspepsia and other specified disorders of function of stomach IFG (impaired fasting glucose) Hyperlipidemia, unspecified hyperlipidemia type documented in this encounter Care Teams Extrusion Former Relationship Specialty Start Date End Date Julienne Aparicio MD [address] [place] [address] PCP - General Internal Medicine 02/20/23 03/22/23 Vanessa Arango NP [address] [place] [address] PCP - General Family Medicine 03/23/23 documented as of this encounter
--- OUTSIDE RECORDS SUMMARY | 2025-01-07 10:47 | XMS_ITS | Encounter Summary ---
Author Organization [employer] Address [address] [facility] 7t [place] [address] Care Team Providers Care Cement Worker Name Role Phone Vanessa Arango NP Primary Care Provider +[phone] Reason for Visit * Reason Comments Med Refill Encounter Details Date Type Department Care Team (Late st Contact Info) Description 08/23/2023 Refill [facility] [address] [place] [address] Vanessa Arango NP [address] [place] [address] Hyperlipidemia, unspecified hyperlipidemia type; Chronic bilateral low [...] Description 02/12/2025 10:15 AM EST Office Visit [facility] [address] [place] [address] Vanessa Arango NP [address] [place] [address] documented as of this encounter Visit Diagnoses Diagnosis Hyperlipidemia, unspecified hyperlipidemia type Chronic bilateral low back pain with right-sided sciatica documented in this encounter Additional Health Concerns Assessment Noted Time PHQ-9 Depression Total Score: 7 03/22/20 23 2:14 PM EST documented as of this encounter Care Teams Cement Worker Relationship Specialty Start Date End Date Vanessa Arango NP [address] [place] [address] PCP - General Family Medicine 03/23/23 documented as of this encounter
--- OUTSIDE RECORDS SUMMARY | 2025-01-07 10:47 | XMS_ITS | Encounter Summary ---
Author Organization [employer] Address [address] [facility] 7t [place] [address] Care Team Providers Care Folded Cloth Taper Name Role Phone Vanessa Arango NP Primary Care Provider + Reason for Visit * Reason Comments Med Refill Encounter Details Date Type Department Care Team (Late st Contact Info) Description 06/04/2023 Refill [facility] [address] [place] [address] Vanessa Arango NP [address] [place] [address] Chronic bilateral low back pain with right-sided sciatica; Hyperlipidemia, unspecified hyperlipidemia type; Type 2 diabetes mellitus with other specified complication, unspecified whether parts counterman insulin use (CMS/[facility]); Dyspepsia Social History Tobacco Use [...] 02/12/2025 10:15 AM EST Office Visit [facility] [address] [place] [address] Vanessa Arango NP [address] [place] [address] documented as of this encounter Visit Diagnoses Diagnosis Chronic bilateral low back pain with right-sided sciatica Hyperlipidemia, unspecified hyperlipidemia type Type 2 diabetes mellitus with other specified complication, unspecified whether parts counterman insulin use (HCC) Dyspepsia Dyspepsia and other specified disorders of function of stomach documented in this encounter Additional Health Concerns Assessment Noted Time PHQ-9 Depression Total Score: 7 03/22/20 23 2:14 PM EST documented as of this encounter Care Teams Folded Cloth Taper Relationship Specialty Start Date End Date Vanessa Arango NP [address] [place] [address] PCP - General Family Medicine 03/23/23 documented as of this encounter
--- OUTSIDE RECORDS SUMMARY | 2025-01-07 10:47 | XMS_ITS | Encounter Summary ---
Author Organization [employer] Address [address] [facility] [address] [place] [address] Care Team Providers Care Security Intern Name Role Phone Vanessa Arango NP Primary Care Provider [phone] Reason for Visit * Reason Comments Med Change Request Encounter Details Date Type Department Care Team (Late st Contact Info) Description 10/16/2023 Refill [facility] [address] [place] [address] Vanessa Arango NP [address] [place] [address] Chronic bilateral low back pain with right-sided [...] Description 02/12/2025 10:15 AM EST Office Visit [facility] [address] [place] [address] Vanessa Arango NP [address] [place] [address] documented as of this encounter Visit Diagnoses Diagnosis Chronic bilateral low back pain with right-sided sciatica documented in this encounter Additional Health Concerns Assessment Noted Time PHQ-9 Depression Total Score: 7 03/22/20 23 2:14 PM EST documented as of this encounter Care Teams Security Intern Relationship Specialty Start Date End Date Vanessa Arango NP [address] [place] [address] PCP - General Family Medicine 03/23/23 documented as of this encounter
--- OUTSIDE RECORDS SUMMARY | 2025-01-07 10:47 | XMS_ITS | Encounter Summary ---
Author Organization [employer] Address [address] [facility] [address] [place] [address] Care Team Providers Care Slubber Tender Name Role Phone Vanessa Arango NP Primary Care Provider [phone] Reason for Visit * Reason Comments Med Refill Encounter Details Date Type Department Care Team (Late st Contact Info) Description 12/29/2023 Refill [facility] [address] [place] [address] Vanessa Arango NP [address] [place] [address] Chronic bilateral low back pain with right-sided [...] Description 02/12/2025 10:15 AM EST Office Visit [facility] [address] [place] [address] Vanessa Arango NP [address] [place] [address] documented as of this encounter Visit Diagnoses Diagnosis Chronic bilateral low back pain with right-sided sciatica documented in this encounter Additional Health Concerns Assessment Noted Time PHQ-9 Depression Total Score: 7 03/22/20 23 2:14 PM EST documented as of this encounter Care Teams Slubber Tender Relationship Specialty Start Date End Date Vanessa Arango NP [address] [place] [address] PCP - General Family Medicine 03/23/23 documented as of this encounter
--- OUTSIDE RECORDS SUMMARY | 2025-01-07 10:47 | XMS_ITS | Encounter Summary ---
Author Organization [employer] Address [address] [facility] [address] [place] [address] Care Team Providers Care Refuse Collector Supervisor Name Role Phone Vanessa Arango NP Primary Care Provider [phone] Encounter Details Date Type Department Care Team (Late st Contact Info) Description 12/02/2024 Orders Only [facility] [address] [place] [address] Vanessa Arango NP [address] [place] [address] Social History Tobacco Use Types Packs/Day Years [...] 10:15 AM EST Office Visit [facility] [address] [place] [address] Vanessa Arango NP [address] [place] [address] documented as of this encounter Visit Diagnoses Not on filedocumented in this encounter Additional Health Concerns Assessment Noted Time PHQ-9 Depression Total Score: 6 04/17/19 25 9:04 AM EST documented as of this encounter Care Teams Refuse Collector Supervisor Relationship Specialty Start Date End Date Vanessa Arango NP [address] [place] [address] PCP - General Family Medicine 03/23/23 documented as of this encounter
--- OUTSIDE RECORDS SUMMARY | 2025-01-07 10:47 | XMS_ITS | Encounter Summary ---
Author Organization [employer] Address [address] [facility] [address] [place] [address] Care Team Providers Care Wire Inspector Name Role Phone Vanessa Arango NP Primary Care Provider [phone] Reason for Visit * Reason Comments Med Refill Encounter Details Date Type Department Care Team (Late st Contact Info) Description 02/06/2024 Refill [facility] [address] [place] [address] Vanessa Arango NP [address] [place] [address] Chronic bilateral low back pain with right-sided [...] Office Visit [facility] [address] [place] [address] Vanessa Arango NP [address] [place] [address] documented as of this encounter Visit Diagnoses Diagnosis Chronic bilateral low back pain with right-sided sciatica documented in this encounter Additional Health Concerns Assessment Noted Time PHQ-9 Depression Total Score: 7 03/22/20 23 2:14 PM EST documented as of this encounter Care Teams Wire Inspector Relationship Specialty Start Date End Date Vanessa Arango NP [address] [place] [address] PCP - General Family Medicine 03/23/23 documented as of this encounter
--- OUTSIDE RECORDS SUMMARY | 2025-01-07 10:47 | XMS_ITS | Encounter Summary ---
Author Organization [employer] Address [address] [facility] [address] [place] [address] Care Team Providers Care Secondary Set Up Man Name Role Phone Vanessa Arango NP Primary Care Provider + Reason for Visit * Reason Comments Med Refill Encounter Details Date Type Department Care Team (Late st Contact Info) Description 07/02/[address] [facility] [address] [place] [address] Vanessa Arango NP [address] [place] [address] Class 3 severe obesity due to excess [...] [facility] [address] [place] [address] Vanessa Arango NP [address] [place] [address] documented as of this encounter Visit Diagnoses Diagnosis Class 3 severe obesity due to excess calories with serious comorbidity and body mass index (BMI) of 40.0 to 44.9 in adult (HCC) documented in this encounter Additional Health Concerns Assessment Noted Time PHQ-9 Depression Total Score: 6 04/17/19 25 9:04 AM EST documented as of this encounter Care Teams Secondary Set Up Man Relationship Specialty Start Date End Date Vanessa Arango NP [address] [place] [address] PCP - General Family Medicine 03/23/23 documented as of this encounter
--- OUTSIDE RECORDS SUMMARY | 2025-01-07 10:47 | XMS_ITS | Encounter Summary ---
Author Organization [employer] Address [address] [facility] [address] [place] [address] Care Team Providers Care Gum Worker Name Role Phone Vanessa Arango QI Primary Care Provider [phone] Reason for Visit * Reason Comments Med Refill Encounter Details Date Type Department Care Team (Late st Contact Info) Description 05/14/2023 Refill [facility] [address] [place], [place] [phone] [facility] [address] [place], [place] [id number] Dyspepsia Social History Tobacco Use Types Packs/Day [...] [facility] [address] [place] [address] Vanessa Arango NP [address] [place] [address] documented as of this encounter Visit Diagnoses Diagnosis Dyspepsia Dyspepsia and other specified disorders of function of stomach documented in this encounter Additional Health Concerns Assessment Noted Time PHQ-9 Depression Total Score: 7 03/22/20 23 2:14 PM EST documented as of this encounter Care Teams Gum Worker Relationship Specialty Start Date End Date Vanessa Arango NP [address] [place] [address] PCP - General Family Medicine 03/23/23 documented as of this encounter
--- OUTSIDE RECORDS SUMMARY | 2025-01-07 10:47 | XMS_ITS | Encounter Summary ---
Author Organization [employer] Address [address] [facility] [address] [place] [address] Care Team Providers Care Alumina Refinery Operator Name Role Phone Vanessa Arango NP Primary Care Provider [phone] Reason for Visit * Reason Comments Med Refill Encounter Details Date Type Department Care Team (Late st Contact Info) Description 04/16/[address] [facility] [address] [place] [address] Vanessa Arango NP [address] [place] [address] Chronic bilateral low back pain with right-sided [...] AM EST Office Visit [facility] [address] [place] [address] Vanessa Arango NP [address] [place] [address] documented as of this encounter Visit Diagnoses Diagnosis Chronic bilateral low back pain with right-sided sciatica documented in this encounter Additional Health Concerns Assessment Noted Time PHQ-9 Depression Total Score: 7 03/22/20 2:14 PM EST documented as of this encounter Care Teams Alumina Refinery Operator Relationship Specialty Start Date End Date Vanessa Arango NP [address] [place] [address] PCP - General Family Medicine 03/23/23 documented as of this encounter
[2025-01-07 12:19] LABS: Anion Gap 13 (12-20); Blood Urea Nitrogen 10 mg/dL (9-16); Calcium 9.5 mg/dL (8.4-10.2); Carbon Dioxide 29 mmol/L (22-29); Chloride 102 mmol/L (96-108); Estimated Glomerular Filt Rate > 60; Potassium 3.5 mmol/L (3.3-5.1); Sodium 140 mmol/L (135-145)
== END 2025-01-07 09:43 | disposition home or self-care (01) ==
LOC: HO.HHCL 09:42
PROVIDERS: PCP Nurse Practitioner; Visit Provider Nurse Practitioner
DX: E87.6 Hypokalemia (principal)
CPT/HCPCS: 36415; 80048